=== PATIENT | female | born 1965 | race Caucasian/White ===

== ENCOUNTER 2023-01-24 12:22 | Inpatient (IN) | payer MEDICAID, SELFPAY ==
[2023-01-24] VITALS (15 sets, daily range): BP systolic 122–199; BP diastolic 68–118; PULSE 83–112; RESP 12–29; TEMP 35.9–36.3; O2SAT 87–99; BMI 40.2; BMI 36.0
--- NOTE | 2023-01-24 12:59 | EKG12_ITS ---
Test Reason : Blood Pressure : / mmHG Vent. Rate : 101 BPM Atrial Rate : 101 BPM P-R Int : 142 ms QRS Dur : 088 ms QT Int : 340 ms P-R-T Axes : 074 015 056 degrees QTc Int : 440 ms Sinus tachycardia Right atrial enlargement Borderline ECG Confirmed by JOSEFINA RIDDLE, CON ([id number]), content editor KENDALL SUAREZ ([id number]) on 01/26/2023 10:00:40 AM Referred By: PERCY Confirmed By:CON ROCHA MD
--- NOTE | 2023-01-24 12:59 | ED.RN ---
Patient is standing near the corner of the bed refusing to get into bed. compliance monitor, blood pressure, and oxygen monitor attached. Patient is unable to give complete medical history due to shortness of breath.
--- NOTE | 2023-01-24 13:01 | EDS_ITS ---
HPI History of Present Illness Chief Complaint: Shortness of Breath Narrative Narrative: 58-year-old female past medical history of COPD, smoker, presents with increasing shortness of breath since Tuesday. She and her family states that she has been coughing and having shortness of breath, dyspnea on exertion. At home, she was hypoxic with a pulse ox in the 80s. She was using her sister's oxygen per nasal cannula and was satting 99%. She does not wear oxygen at home herself. Additionally, it was reported that she took her sisters prednisone, trying to get her self to feel better. She is coughing up white phlegm but denies any fevers or chills. No chest pain, just chest tightness. No other symptoms. They state that Jackie at [facility] was trying to get her oxygen to be sent to her home, but were also concerned about a blood clot. [facility] Medical History Emphysema lung Home Medications acetaminophen 325 mg tablet (Tylenol) 650 mg PO Q6H PRN PRN Pain 12/31/14 [History Last Taken Unknown] albuterol sulfate 90 mcg/actuation aerosol inhaler (Ventolin HFA) 1 - 2 puff inhalation Q6H PRN PRN Sob &/Or Wheezing 12/31/14 [History Last Taken Unknown] cephalexin 500 mg capsule 500 mg PO Q6 12/31/14 [History Last Taken Unknown] fluoxetine 10 mg capsule 10 mg PO BID 12/31/14 [History Last Taken Unknown] Allergy/AdvReac Type Severity Reaction Status Date / Time ANTIHISTAMINES Allergy Itching Uncoded 01/24/23 12:25 Family History unable to obtain Social History Smoking Status: Current every day smoker tobacco type: cigarettes ROS ROS ED ROS Narrative Constitutional: No fever, no chills. HEENT: No sore throat. No neck pain. No loss of vision. No rhinorrhea. Cardiovascular: No chest pain. No palpitations. No pedal edema. Respiratory: Positive productive white phlegm cough, positive shortness of breath and dyspnea on exertion. Abdominal: No abdominal pain. No nausea. No vomiting. Genitourinary: No dysuria. No hematuria. Musculoskeletal: No myalgias. No arthralgias. Neurologic: No headaches. No dizziness. No lightheadedness. Skin: No rash. No change in color. Psychiatric: No depression. No anxiety. EXAM Physical Exam Narrative Exam Narrative: Afebrile. Vital signs noted. Refuses to sit on the cot. HEENT: Normocephalic. Atraumatic. PERRL, EOMI. Neck soft and supple. No point tenderness or step off. Cardiovascular: Positive tachycardia, no murmurs, rubs, or gallops appreciated. Respiratory: Positive tachypnea. Decreased air movement bilateral lung root with expiratory wheeze. Gastrointestinal: Abdomen soft, nontender, with normoactive bowel sounds. No rebound or guarding. Neurological: Awake. Alert. Nonfocal, nonlateralizing. Skin: No rash. Normal color. No pallor. Musculoskeletal: No pedal edema. Full range of motion extremities. Const Vital Signs: 01/24/23 12:23 01/24/23 12:56 01/24/23 13:21 Temperature 97.3 F L Temperature Source Temporal Pulse Rate 102 H 101 H Respiratory Rate 26 H 22 H Respiratory Effort Labored Accessory Muscle Use Respiratory Pattern Blood Pressure 199/118 H 171/100 H Blood Pressure Mean 145 123 Pulse Ox 87 94 Oxygen Delivery Method Nasal Cannula Nasal Cannula Nasal Cannula Oxygen Flow Rate (L/min) 6 4 6 01/24/23 13:09 01/24/23 13:23 01/24/23 14:27 Temperature Temperature Source Pulse Rate 112 H 100 97 Respiratory Rate 24 H 22 H 20 H Respiratory Effort Respiratory Pattern Tachypnea Blood Pressure 194/115 H 192/101 H Blood Pressure Mean 141 131 Pulse Ox 95 96 Oxygen Delivery Method Nasal Cannula Nasal Cannula Oxygen Flow Rate (L/min) 6 6 MDM MDM MDM Narrative Medical decision making narrative: In the differential diagnosis is COPD exacerbation from her smoking, acute respiratory failure with hypoxia, CHF, and PE. Comprehensive work-up was pursued. She was given a DuoNeb aerosolized treatment and Solu-Medrol 125 mg intravenously. I reviewed her laboratory work. She has slightly elevated white count of 11.2, hemoglobin hemoconcentrated at 17.8 with hematocrit 57.4. Platelet count normal at 267. In review of her BMP, she does have mild dehydration with a sodium of 129 and a chloride of 94, normal potassium of 4.9. Glucose elevated at 140 with a normal anion gap of 6. She has an elevated BUN of 19 and a creatinine of 1.04. D-dimer is elevated at 1.20. High-sensitivity troponin is 39. I interpreted her EKG as sinus tachycardia at [address] changes. No STEMI. BNP is only slightly elevated at 160. Chest x-ray interpreted by myself in 1 view does show a right lower lobe pneumonia. Blood cultures will be obtained and she will be started on antibiotics intravenously in the form of Rocephin and azithromycin. She does have a normal QTc of 440. After Solu-Medrol and a breathing treatment, she is able to sit on the side of the cot. For her elevated blood pressure that remains she was administered hydralazine 10 mg intravenously. As she had an elevated D-dimer, I reviewed the CT report and there is no evidence of pulmonary embolism. At this point in time, given her hypoxia and her need for oxygen, and she has an elevated blood pressure with COPD exacerbation I discussed the patient with Dr. Bush for admission to the PCU. Patient is in stable condition. History & Record Review Discussion w/independent historian: Patient and Significant other (Family) Additional record(s) reviewed:: Prior labs Lab Data Attestation: I reviewed the patient's lab results. Labs: Laboratory Results - last 24 hr 01/24/23 01/24/23 01/24/23 13:15 13:15 13:15 WBC 11.2 H RBC 6.06 H Hgb 17.8 H Hct 57.4 H MCV 94.7 D MCH 29.4 MCHC 31.0 L D RDW Std Deviation 48.2 H RDW Coeff of Baltazar 13.7 Plt Count 267 MPV 12.7 H Neut % (Auto) Not Reportable D-Dimer Quant (PE/DVT) Cancelled Sodium 129 L Potassium 4.9 Chloride 94 L Carbon Dioxide 29.0 Anion Gap 6 BUN 19 H Creatinine 1.04 H Estim Creat Clear Calc 47.77 Est GFR (MDRD) Af Amer 71 Est GFR (MDRD) Non-Af 58 L BUN/Creatinine Ratio 18.3 Glucose 140 H Lactic Acid Calcium 9.4 Troponin I High Sens 39 B-Natriuretic Peptide 01/24/23 01/24/23 01/24/23 13:15 13:15 13:56 WBC RBC Hgb Hct MCV MCH MCHC RDW Std Deviation RDW Coeff of Baltazar Plt Count MPV Neut % (Auto) D-Dimer Quant (PE/DVT) 1.20 H* Sodium Potassium Chloride Carbon Dioxide Anion Gap BUN Creatinine Estim Creat Clear Calc Est GFR (MDRD) Af Amer Est GFR (MDRD) Non-Af BUN/Creatinine Ratio Glucose Lactic Acid 1.5 Calcium Troponin I High Sens B-Natriuretic Peptide 160.3 H Radiography Diagnostic Testing: Clinical Impression(s) from Imaging Studies Chest X-Ray 01/24/23 14:20 IMPRESSION: Focal right lower lobe infiltrate. Electronically Signed: Theron Devine MD at 14:40 EST , Chest CTA 01/24/23 14:25 IMPRESSION: Emphysematous changes with scarring as described. No evidence of pulmonary embolism. Electronically Signed: Theron Devine MD at 15:01 EST , Discharge Plan Dx/Rx/DC Orders Clinical Impression: Respiratory failure with hypoxia, Right lower lobe pneumonia, Elevated d-dimer, Shortness of breath, Elevated blood pressure reading Disposition Disposition: Acute Care Hospital [facility]
[2023-01-24] MEDS: Ipratropium/Albuterol Sulfate 3 ML AMPUL.NEB INHALATION (13:09)
[2023-01-24 13:24] LABS: Hemoglobin 17.8 g/dL (12.0-15.0); Mean Corpuscular Hgb 29.4 pg (27.0-32.0); Mean Corpuscular Volume 94.7 fL (81-99); Mean Platelet Vol. 12.7 fl (6.2-12.0); POSITIVE COUNT YES; POSITIVE MORPHOLOGY YES; Platelet Count 267 K/mm3 (150-450); RBC Distribution Width CV 13.7 % (11.6-14.6); RBC Distribution Width SD 48.2 fl (35.1-43.9); Red Blood Count 6.06 M/mm3 (4.2-5.4); White Blood Count 11.2 K/mm3 (4.4-11.0)
[2023-01-24 13:28] LABS: Differential Indicated MANUAL DIFF; Hematocrit 57.4 % (37-47)
[2023-01-24] MEDS: MethylPREDNISolone 125 MG/2 ML Vial IV (13:34)
[2023-01-24 13:46] LABS: Anion Gap 6 (5-15); BUN 19 mg/dL (7-18); BUN/Creat Ratio 18.3 RATIO (10-20); Calcium,Total 9.4 mg/dL (8.5-10.1); Chloride 94 mmol/L (98-107); Creatinine, Serum 1.04 mg/dL (0.55-1.02); EST Glomerular Filtration Rate 58 mL/min (>60); Est Glom Filt Rate - Afr Amer 71 mL/min (>60); Estimated Creatinine Clearance 47.77 ml/min; Glucose 140 mg/dL (74-106); Potassium 4.9 mmol/L (3.5-5.1); Sodium Level 129 mmol/L (136-145); Troponin-I HS 39 pg/mL (3.0-54.0)
[2023-01-24 13:53] LABS: Lactic Acid 1.5 mmol/L (0.4-1.9)
[2023-01-24 14:03] LABS: BNP,B-Type NATRIURETIC PEPTIDE 160.3 pg/mL (0-100)
--- NOTE | 2023-01-24 14:20 | RAD_ITS ---
STUDY: X-RAY CHEST REASON FOR EXAM: Female, 58 years old. New onset of shortness of breath and decreased pulse oximetry. TECHNIQUE: Single AP portable view of the chest. COMPARISON: None. FINDINGS: EKG electrodes are seen. Focal infiltrate is seen in the right lower lobe. Blunting of both costophrenic angles. Normal size heart. Normal mediastinum and wojciech. Normal visualized pulmonary arteries. There is atherosclerotic calcification of the aortic arch with tortuosity. There are diffuse degenerative changes of the visualized thoracic spine. Normal visualized ribs, clavicles, and shoulders. There is no demonstrated abnormality of the visualized soft tissue structures of the upper abdomen. RAD/Chest 1 View (Portable) IMPRESSION: Focal right lower lobe infiltrate. Electronically Signed: Theron Devine MD at 14:40 EST ,
--- NOTE | 2023-01-24 14:25 | CT_ITS ---
STUDY: CTA CHEST REASON FOR EXAM: Female, 58 years old. Elevated d-dimer RADIATION DOSAGE (If Supplied By Facility): CTDIvol = ( 13.79 ) mGy, DLP = ( 487.45 ) mGycm TECHNIQUE: The examination was performed with the intravenous administration of IV 100mL Isovue-370. Post-processing of the angiographic images was performed, with multiplanar reformation and 3D reconstruction. Individualized dose optimization techniques were used for this CT. COMPARISON: Comparison is made with prior chest radiograph done earlier today. FINDINGS: Normal enhancement of the main pulmonary artery and right and left pulmonary arteries. Normal enhancement of the bilateral peripheral pulmonary arteries. There is no demonstrated pulmonary embolism. There is atherosclerotic calcification of the aortic arch with tortuosity. There is no demonstrated aortic dissection. There are calcifications of the coronary arteries. Normal mediastinum. Normal hilar regions. Normal visualized trachea and bronchi. Hyperinflation. Centrilobular emphysematous changes more prominent in the upper lobes with small blebs worse in the anterior right upper lobe. Mild degree of pleural thickening at the lung bases. Increased markings in the lower lobes worse at the right lung base suggestive of scarring and the subpleural blebs and bullous formation. Normal chest wall structures. There are degenerative changes of thoracic spine. The patient is status post cholecystectomy. Gaseous distention of the esophagus. CT/CTA Chest W/WO Contrast IMPRESSION: Emphysematous changes with scarring as described. No evidence of pulmonary embolism. Electronically Signed: Theron Devine MD at 15:01 EST ,
[2023-01-24 15:29] LABS: Basophil 1 % (0-1); Lymphocyte 12 % (19-41); Monocyte 6 % (0-10); Myelocyte 5 % (0-0); Neutrophil-Segmented 74 % (47-70); Promyelocyte 2 % (0-0); Total Cells Counted 100 (MANUAL DIFF)
[2023-01-24 15:31] LABS: Platelet Estimate ADEQUATE (ADEQ); Red Cell Morphology NORM C+C NORMAL (NORM C&C)
[2023-01-24 15:34] LABS: Absolute Lymphocyte Count 1.34 X10^3/uL (0.83-4.51); Absolute Neutrophil Count 8.3 X10^3/uL (2.0-7.7)
--- NOTE | 2023-01-24 15:55 | HP.PCM.HOS_ITS ---
HPI - General General Date of Admission: 01/24/23 Date of Service: 01/24/23 Chief Complaint: Progressive worsening of shortness of breath for 4 days HPI Narrative RADHA SLADE, is a 58 F, chronic smoker 1.5 pack/day came to ED for shortness of breath progressively worsening for last 4 days. She is short of breath at rest, conversational dyspnea and wheezing. She states she gets easily short of breath on mild exertion, climbing stairs or walking. She denies chest pain pressure. She has her usual cough without change in characteristics or severity. Denies sputum production. She was found to have hypoxia pulse ox in 80s at home since Tuesday. She went to urgent clinic and saw a nurse practitioner who prescribed oxygen, probably today but has not been set up yet. Her usual PCP is Dr. Velez. In the ED, patient was found to have tachycardic, tachypneic, BP high 199/118, pulse ox 86% on 6 L of oxygen. Twelve-lead EKG was done which shows sinus tachycardia at [address]-T changes but right atrial enlargement. Chest x-ray and then CTPA was done. No PE but focal right lower lobe consolidation. Patient was given 10 mg IV hydralazine, ceftriaxone and azithromycin and IV Solu-Medrol and further admitted. Social history: He started smoking at the age of 17 pack/day. Increase to 1/2 pack/day for last 3 years. Denies excessive drinking alcohol or substance use. Family history: Denies history of lung cancer. [facility] Medical History Emphysema lung Home Medications acetaminophen 325 mg tablet (Tylenol) 650 mg PO Q6H PRN PRN Pain 12/31/14 [History Last Taken Unknown] albuterol sulfate 90 mcg/actuation aerosol inhaler (Ventolin HFA) 1 - 2 puff inhalation Q6H PRN PRN Sob &/Or Wheezing 12/31/14 [History Last Taken Unknown] cephalexin 500 mg capsule 500 mg PO Q6 12/31/14 [History Last Taken Unknown] fluoxetine 10 mg capsule 10 mg PO BID 12/31/14 [History Last Taken Unknown] Allergy/AdvReac Type Severity Reaction Status Date / Time ANTIHISTAMINES Allergy Itching Uncoded 01/24/23 12:25 Family History unable to obtain Social History Smoking Status: Current every day smoker tobacco type: cigarettes ROS ROS Narrative Constitutional: Reports fatigue and weakness HEENT: Reports systems reviewed and no addt'l complaints, except as documented Respiratory/Chest: Shortness of breath at rest. Denies chest pain. Gastrointestinal: Denies coffee ground emesis, hematemesis or vomiting Genitourinary: Denies burning urination or new urinary tract symptoms Musculoskeletal: Denies joint pain and limited range of motion Neurologic: Denies seizure-like activity. No acute or strokelike symptoms. skin: No ulcer. No rash Endocrinology: Reports systems reviewed and no addt'l complaints, except as documented Hematologic/Lymphatic: Reports systems reviewed and no addt'l complaints, except as documented Rest 14 ROS are negative except as mentioned in HPI Vital Signs Vital Signs Vital Signs: 01/24/23 12:23 01/24/23 12:56 01/24/23 13:21 Temperature 97.3 F L Temperature Source Temporal Pulse Rate 102 H 101 H Respiratory Rate 26 H 22 H Respiratory Effort Labored Accessory Muscle Use Respiratory Pattern Blood Pressure 199/118 H 171/100 H Blood Pressure Mean 145 123 Pulse Ox 87 94 Oxygen Delivery Method Nasal Cannula Nasal Cannula Nasal Cannula Oxygen Flow Rate (L/min) 6 4 6 01/24/23 13:09 01/24/23 13:23 01/24/23 14:27 Temperature Temperature Source Pulse Rate 112 H 100 97 Respiratory Rate 24 H 22 H 20 H Respiratory Effort Respiratory Pattern Tachypnea Blood Pressure 194/115 H 192/101 H Blood Pressure Mean 141 131 Pulse Ox 95 96 Oxygen Delivery Method Nasal Cannula Nasal Cannula Oxygen Flow Rate (L/min) 6 6 01/24/23 15:30 01/24/23 15:41 01/24/23 15:41 Temperature 97.2 F L Temperature Source Temporal Pulse Rate 93 90 Respiratory Rate 19 H 20 H Respiratory Effort Respiratory Pattern Blood Pressure 168/84 H 168/84 H Blood Pressure Mean 112 112 Pulse Ox 94 93 Oxygen Delivery Method Nasal Cannula Nasal Cannula Nasal Cannula Oxygen Flow Rate (L/min) 5 6 6 Weight Weight: 220 lb Body Mass Index (BMI) 40.2 Physical Exam Narrative Physical exam General: Alert, Oriented x3, Cooperative, morbid obesity BMI 40.2 kg/m?. HEENT: Atraumatic, PERRLA, EOMI, Normocephalic Oral: Oral mucosa dry. No Gingival or Mucosal Lesions/ Ulcerations Neck: Supple, No JVD, Negative Carotid Bruits Lungs: Air entry severely diminished in both lungs. Bilateral wheezing. Dyspnea at rest, tachypnea and hypoxia. Cardiovascular: Sinus tachycardia, Normal S1, Normal S2, No murmurs Abdomen: Bowel Sounds Present, Soft, Non Tender, Non-Distended : No renal angle tenderness. No suprapubic tenderness. Extremities: Bilateral 2+ pitting edema and lymphedema, Capillary Refill Less than 3 Seconds Skin: No rashes, No breakdown Musculoskeletal: No Tenderness to Palpation of Joints or Extremities, ROM restricted at hip and knee joints. Neurological: Cranial nerves II-XII grossly intact, DTR 2+/4 and Symmetrical, Neuro grossly intact Psych/Mental Status: Flat affect. Results Lab / Micro Data Result Diagrams: 01/24/23 13:15 01/24/23 13:15 Labs: Laboratory Results - last 24 hr 01/24/23 13:15: WBC 11.2 H, RBC 6.06 H, Hgb 17.8 H, Hct 57.4 H, MCV 94.7 D, MCH 29.4, MCHC 31.0 L D, RDW Std Deviation 48.2 H, RDW Coeff of Baltazar 13.7, Plt Count 267, MPV 12.7 H, Neut % (Auto) Not Reportable, Absolute Neuts (auto) 8.3 H, Absolute Lymphs (auto) 1.34, Total Counted 100, Neutrophils % (Manual) 74 H, Lymphocytes % (Manual) 12 L, Monocytes % (Manual) 6, Basophils % (Manual) 1, Myelocytes % 5 H, Promyelocytes % 2 H, Diff Path Review March, Platelet Estimate ADEQUATE, RBC Morphology NORM C+C 01/24/23 13:15: D-Dimer Quant (PE/DVT) Cancelled 01/24/23 13:15: Sodium 129 L, Potassium 4.9, Chloride 94 L, Carbon Dioxide 29.0, Anion Gap 6, BUN 19 H, Creatinine 1.04 H, Estim Creat Clear Calc 47.77, Est GFR (MDRD) Af Amer 71, Est GFR (MDRD) Non-Af 58 L, BUN/Creatinine Ratio 18.3, Glucose 140 H, Calcium 9.4, Troponin I High Sens 39 01/24/23 13:15: Lactic Acid 1.5 01/24/23 13:15: B-Natriuretic Peptide 160.3 H 01/24/23 13:56: D-Dimer Quant (PE/DVT) 1.20 H* Micro: Microbiology 01/24/23 13:39 Nasal Secretion SARS-CoV-2 & FLU Antigen (Rapid) - Final Radiology Impression Chest X-Ray 01/24/23 14:20 IMPRESSION: Focal right lower lobe infiltrate. Electronically Signed: Theron Devine MD at 14:40 EST , Chest CTA 01/24/23 14:25 IMPRESSION: Emphysematous changes with scarring as described. No evidence of pulmonary embolism. Electronically Signed: Theron Devine MD at 15:01 EST , Assessment & Plan Assessment/Plan (1) Acute and chronic respiratory failure with hypoxia: (2) Right lower lobe pneumonia: PLAN: Plan This is a 58-year-old female is being admitted for severe shortness of breath, wheezing, mild cough and CT finding of right lower lobe pneumonia. 1. Acute hypoxic respiratory failure most likely related to COPD exacerbation and pneumonia: Patient is tachypneic, hypoxic requires 6 L of oxygen, dyspnea at rest, conversational dyspnea and labored breathing. ABG ordered. BiPAP as needed and at night. 2. COPD exacerbation due to right lower lobe pneumonia: CT finding shows emphysematous lungs but she is still undiagnosed COPD. Started on bronchodilator DuoNeb every 4 hourly, IV Solu-Medrol, Mucinex, incentive spirometry and Pep. IV antibiotics ceftriaxone and azithromycin. Blood cultures x2, sputum culture, urinary antigens and respiratory panel ordered. Rapid SARS-CoV-2 and flu antigen are negative. Will need outpatient PFT and sleep study. 3. Accelerated hypertension: Patient blood pressure is high 199/118. Started on HCTZ and lisinopril. Hydralazine 10 mg every 4 hourly as needed for SBP more than 180 mmHg. BNP elevated. First troponin negative. Second troponin ordered and if that is negative, ACS ruled out. 2D echo is ordered. Twelve-lead EKG shows right atrial enlargement. Patient does not have chest pain or pressure. 4. Chronic smoker, non-hydrazines: Since patient does not follow PCP regularly. Advised quitting smoking. Nicotine patch ordered. Living will/advanced directive/end of life care: Patient does not have living will or advanced directive. After discussion of benefits/risks procedures involved with full code, DNR CC arrest and DNR CC, the patient and her brother near the bedside and agrees for DNRCC arrest with no intubation. Patient doesn't want artificial life support including intubation, tube feed, ventilator and/chest compression, central venous catheter, vasopressor and DC shock if needed Total time spent in [id number] encounter in discussion of advanced directive 17 minutes. Microbiology Past 72 Hours 01/24/23 13:39 Nasal Secretion SARS-CoV-2 & FLU Antigen (Rapid) - Final Laboratory Results 01/24/23 13:15: WBC 11.2 H, RBC 6.06 H, Hgb 17.8 H, Hct 57.4 H, MCV 94.7 D, MCH 29.4, MCHC 31.0 L D, RDW Std Deviation 48.2 H, RDW Coeff of Baltazar 13.7, Plt Count 267, MPV 12.7 H, Neut % (Auto) Not Reportable, Absolute Neuts (auto) 8.3 H, Absolute Lymphs (auto) 1.34, Total Counted 100, Neutrophils % (Manual) 74 H, Lymphocytes % (Manual) 12 L, Monocytes % (Manual) 6, Basophils % (Manual) 1, Myelocytes % 5 H, Promyelocytes % 2 H, Diff Path Review May foll, Platelet Estimate ADEQUATE, RBC Morphology NORM C+C 01/24/23 13:15: D-Dimer Quant (PE/DVT) Cancelled 01/24/23 13:15: Sodium 129 L, Potassium 4.9, Chloride 94 L, Carbon Dioxide 29.0, Anion Gap 6, BUN 19 H, Creatinine 1.04 H, Estim Creat Clear Calc 47.77, Est GFR (MDRD) Af Amer 71, Est GFR (MDRD) Non-Af 58 L, BUN/Creatinine Ratio 18.3, Glucose 140 H, Calcium 9.4, Troponin I High Sens 39 01/24/23 13:15: Lactic Acid 1.5 01/24/23 13:15: B-Natriuretic Peptide 160.3 H 01/24/23 13:15: Magnesium Pending 01/24/23 13:56: D-Dimer Quant (PE/DVT) 1.20 H* Clinical Impression(s) from Imaging Studies Chest X-Ray 01/24/23 14:20 IMPRESSION: Focal right lower lobe infiltrate. Electronically Signed: Theron Devine MD at 14:40 EST , Chest CTA 01/24/23 14:25 IMPRESSION: Emphysematous changes with scarring as described. No evidence of pulmonary embolism. Electronically Signed: Theron Devine MD at 15:01 EST , Charges/Coding Visit Charges Inpatient E&M: 58064 Init Hosp L3 Procedures Hospitalists Procedures: 11542 Advncd Care Plan 30 Min
[2023-01-24] MEDS: hydrALAZINE 20 MG/ML Vial 10 MG IV (16:00)
--- NOTE | 2023-01-24 16:13 | CPS ---
Critical values verified times two. Reported values to .
[2023-01-24 16:20] LABS: Allen Test Positive; Base Excess 4 mmol/L (-2 to +2); Blood Gas Specimen Type ART; O2 Delivery Device Cannula; PO2 96 mmHG (75-100); SITE L Radial; SO2 94 % (95-99); Total Carbon Dioxide 36 mmol/L; pCO2 97.5 mmHg (35-45); pH 7.14 (7.35-7.45)
--- NOTE | 2023-01-24 19:15 | NURSING ---
Due to pt VSA every 1 hour this Rn attempted to place pt on to step down bedside monitor. pt noted to become restless in the bed, removing BIPAP from pt face. Pt is not easily verbally redirected at this time. This RN yelled for staff to assistance with pt positioning and replacing bipap. pt noted cyanotic in color and SP02 70%. RT to bedside BIPAP replaced. bed alarm on, call light within reach will monitor pt.
--- NOTE | 2023-01-24 20:10 | NURSING ---
BIPAP alarm sounding in pt room, pt noted with BIPAP removed from pt face. Pt noted to become immediately combative. BIPAP mask replaced on to pt. Pt immediately broke mask. NRB applied until RT available with new BIPAP mask. Pt requires numerous staff to redirect and reposition pt. Bed alarm on, call light within reach will monitor pt.
--- NOTE | 2023-01-24 20:43 | ECHOCS_ITS ---
Reason For Study: SOB Procedure This was a 2D Doppler, Color Flow transthoracic echocardiogram. The study was technically difficult. Due to body habitus, COPD, unable to cooperate. Contrast injection was performed. Exam performed portable in ICU/CCU. Left Ventricle Based upon the 2D echocardiographic and contrast enhanced images obtained there appears to be normal left ventricular size, wall motion, and systolic function. The estimated ejection fraction is 70 %. No evidence for diastolic dysfunction. Right Ventricle Normal RV size. Normal systolic function. Atria Normal left atrium. Normal right atrium. No doppler evidence for ASD. Mitral Valve There is no mitral annular calcification. Normal mitral valve. Trivial mitral valve insufficiency. Tricuspid Valve Normal tricuspid valve. Trivial tricuspid valve insufficiency. Unable to estimate RV systolic pressure/pulmonary artery pressure due to technically difficult study. Aortic Valve The aortic valve is not well visualized. Pulmonic Valve The pulmonic valve is not well visualized. Great Vessels Normal sized aortic root. Pericardium/Pleural No pericardial effusion. Medication Diluted definity 3.0ml given slow IV push to enhance endocardial definition. MMode/2D Measurements & Calculations LVIDd: 3.8 cm IVSd: 1.0 cm Ao root diam: 2.8 cm LVIDs: 2.6 cm LVPWd: 1.4 cm RVDd: 3.5 cm FS: 31.9 % LAV(MOD-bp): 46.5 ml LVAd ap4: 26.8 cm2 LVAd ap2: 21.8 cm2 LAV(MOD-bp) Indexed: 24.5 ml/m2 LVLd ap4: 7.9 cm LVLd ap2: 7.6 cm LAV(MOD-sp2): 56.6 ml EDV(MOD-sp4): 72.7 ml EDV(MOD-sp2): 52.5 ml LAV(MOD-sp4): 36.9 ml EDV(sp4-el): 76.9 ml EDV(sp2-el): 53.6 ml LVAs ap4: 11.8 cm2 LVAs ap2: 12.6 cm2 LVLs ap4: 6.3 cm LVLs ap2: 6.1 cm ESV(MOD-sp4): 19.2 ml ESV(MOD-sp2): 22.4 ml ESV(sp4-el): 18.8 ml ESV(sp2-el): 22.1 ml EF(MOD-sp4): 73.6 % EF(MOD-sp2): 57.2 % EF(sp4-el): 75.5 % SV(MOD-sp4): 53.5 ml SV(MOD-sp2): 30.0 ml SV(sp4-el): 58.1 ml LA A4 area: 14.6 cm2 LA dimension(2D): 4.3 cm RA A4 area: 15.1 cm2 Time Measurements MV dec time: 0.29 sec Doppler Measurements & Calculations MV E max delvin: 79.1 cm/sec Lat Peak E' Delvin: 6.6 cm/sec Med Peak E' Delvin: 8.0 cm/sec MV A max delvin: 81.6 cm/sec E/E' lat: 11.9 E/E' med: 9.9 MV E/A: 0.97 Ao V2 max: 141.6 cm/sec LV V1 max: 109.3 cm/sec MV dec slope: 272.9 cm/sec2 Ao max P.0 mmHg LV V1 max P.8 mmHg Ao V2 mean: 92.8 cm/sec LV V1 mean P.6 mmHg Ao mean P.0 mmHg LV V1 mean: 76.6 cm/sec Ao V2 VTI: 33.6 cm LV V1 VTI: 25.9 cm AV (velocity ratio): 0.77 PA V2 max: 94.0 cm/sec ECHO/Echo Complete W/ Contrast Interpretation Summary The study was technically difficult. Contrast injection was performed. Based upon the 2D echocardiographic and contrast enhanced images obtained there appears to be normal left ventricular size, wall motion, and systolic function. The estimated ejection fraction is 70 %. Trivial mitral valve insufficiency. Trivial tricuspid valve insufficiency. Unable to estimate RV systolic pressure/pulmonary artery pressure due to techni gali difficult study. No evidence for diastolic dysfunction. Ordering Physician: Nickolas Bush Referring Physician: Mini Parr Performed By: Della Sanchez, RDCS, RVT
[2023-01-24 21:51] LABS: Troponin-I HS 31 pg/mL (3.0-54.0)
--- NOTE | 2023-01-24 22:34 | PCM.HOSP.N ---
Hospitalist Note Patient with ongoing agitation with BIPAP attempts per discussion with staff. Reviewed admission note and listed as DNR-CCA, no intubation very specifically with brother present. Will transition to the ICU, request ICU physician consultation, trial of precedex to assist with patient maintaining BIPAP, will obtain repeat ABG, will dose with bicarb.
[2023-01-24] MEDS: 0.9% Saline Lock 10 ML Syringe IV (22:37)
--- NOTE | 2023-01-24 22:48 | NURSING ---
Pt noted with BIPAP alarm sounding, tubing was disconnected from bottom of BIPAP mask, tubing reapplied, Brinda RN to room to pt help redirect pt and keep BIPAP intact. Pt becomes combative swinging both arms in an attempt to remove BIPAP mask. TAPER MACHINE to room to assist with pt. Pt noted scratching staff, pt is confused and is not verbally responding at this time. Pt sister Nasreen contacted. Nasreen states, was unaware pt is DNRCCAwithout intubation. sister states she has ill and will not be able to attend hospital at this time. sister states, will contact brother. pt room number provided. pt sister is aware to BIPAP is taking the place of breathing tube being placed for pt breathing and C02 levels. sister asks if patient is dying this RN updates that pt is extremely ill. PROGRESSIVE CARE UNIT REGISTERED NURSE remains at bedside with pt. charge nurse MD martha provided with update. new orders received.
[2023-01-24] MEDS: LORazepam 2 MG/ML Syringe 1 MG IV (23:23)
--- NOTE | 2023-01-24 23:53 | CPS ---
Attempted to get ABG, was unable to get sample. Pt became agitated and ripped the bipap mask off. Patient now on nonrebreather mask, sat's 98%. Will attempt ABG and bipap again once patient is calmer per Dr. Eldridge.
[2023-01-25] VITALS (34 sets, daily range): BP systolic 92–158; BP diastolic 48–92; PULSE 42–112; RESP 12–35; TEMP 36.4–37.4; O2SAT 90–100; BMI 35.9
[2023-01-25] MEDS: Enoxaparin 40 MG/0.4 ML Syringe SC ×2 (00:04→09:22)
[2023-01-25] MEDS: 0.9% Saline Lock 10 ML Syringe IV ×4 (00:07→20:52)
[2023-01-25] MEDS: Sodium Bicarbonate 50 MEQ/50 ML Vial IV ×2 (00:08→00:21)
[2023-01-25] MEDS: CHLORHEXIDINE GLUC 2% CLOTH 1 EACH TOWELETTE TOPICAL ×2 (00:22→21:00)
[2023-01-25] MEDS: Ipratropium/Albuterol Sulfate 3 ML AMPUL.NEB INHALATION ×6 (02:10→23:14)
[2023-01-25 02:30] LABS: Allen Test Positive; Base Excess 8 mmol/L (-2 to +2); Bicarbonate 36.7 mmol/L (22-26); Blood Gas Specimen Type ART; FI02 40; O2 Delivery Device BiPAP; PEEP 8; PO2 126 mmHG (75-100); RR 14; SITE R Radial; SO2 97 % (95-99); Total Carbon Dioxide 40 mmol/L; Vt 450; pCO2 97.5 mmHg (35-45); pH 7.18 (7.35-7.45)
--- NOTE | 2023-01-25 02:41 | CPS ---
Not enough blood for re-run. Critical ABG values, Dr. Eldridge aware.
[2023-01-25 02:58] LABS: M R Staph aureus DNA By PCR Negative (Negative); Probe Check PASS; Specimen Processing Control PASS
[2023-01-25 04:24] LABS: Absolute Lymphocyte Count 0.94 X10^3/uL (0.83-4.51); Absolute Neutrophil Count 8.2 X10^3/uL (2.0-7.7); Basophil# 0.02 X10^3/uL; Basophil% 0.2 % (0-1); Hematocrit 52.9 % (37-47); Hemoglobin 16.3 g/dL (12.0-15.0); Lymphocyte # 0.94 X10^3/ul (0.83-4.51); Lymphocyte % 9.5 % (19-41); Mean Corp Hgb Conc 30.8 g/dL (32-36); Mean Corpuscular Hgb 29.6 pg (27.0-32.0); Mean Platelet Vol. 12.1 fl (6.2-12.0); Monocyte# 0.63 X10^3/uL; Monocyte% 6.4 % (0-10); NRBC Flagged by Analyzer 0 % (0-5); Platelet Count 196 K/mm3 (150-450); RBC Distribution Width CV 13.5 % (11.6-14.6); RBC Distribution Width SD 48.2 fl (35.1-43.9); Red Blood Count 5.51 M/mm3 (4.2-5.4); White Blood Count 9.9 K/mm3 (4.4-11.0)
[2023-01-25 04:45] LABS: Anion Gap 4 (5-15); BUN 23 mg/dL (7-18); BUN/Creat Ratio 31.6 RATIO (10-20); Calcium,Total 8.8 mg/dL (8.5-10.1); Chloride 96 mmol/L (98-107); Creatinine, Serum 0.73 mg/dL (0.55-1.02); EST Glomerular Filtration Rate 88 mL/min (>60); Est Glom Filt Rate - Afr Amer 106 mL/min (>60); Estimated Creatinine Clearance 68.06 ml/min; Glucose 113 mg/dL (74-106); Potassium 6.1 mmol/L (3.5-5.1); Sodium Level 132 mmol/L (136-145)
--- NOTE | 2023-01-25 07:16 | PN.HOSP_ITS ---
Reason for Visit Reason for Visit: Follow-up for severe acute hypoxic and hypercarbic combined respiratory failure, decreased mentation and acute encephalopathy Diagnoses Pneumonia, unspecified organism (01/24/23) Acute and chronic respiratory failure with hypoxia (01/24/23) Objective Data Objective Data Vital Signs: Vital Signs Temp Pulse Resp BP Pulse Ox O2 Del Method O2 Flow Rate 98 F 57 L 35 H 94/71 96 Bi-pap 15 01/25/23 06:00 01/25/23 06:59 01/25/23 06:59 01/25/23 06:00 01/25/23 06:59 01/25/23 06:00 01/24/23 23:34 FiO2 30 01/25/23 06:59 Oxygen Flow Rate (L/min) 15 Oxygen Delivery Method Bi-pap Weight: 195 lb 8.8 oz Body Mass Index (BMI) 35.9 Intake & Output: Intake and Output for Last 24 Hours 01/23/23 01/24/23 01/25/23 23:59 23:59 23:59 Intake Total 305 / 305 106.23 / 106.23 Output Total 550 / 550 Balance 305 / -95 -443.77 / -443.77 Lab / Micro Data Result Diagrams: 01/25/23 07:55 01/25/23 11:40 Labs: Laboratory Results - last 24 hr 01/24/23 13:15: WBC 11.2 H, RBC 6.06 H, Hgb 17.8 H, Hct 57.4 H, MCV 94.7 D, MCH 29.4, MCHC 31.0 L D, RDW Std Deviation 48.2 H, RDW Coeff of Baltazar 13.7, Plt Count 267, MPV 12.7 H, Neut % (Auto) Not Reportable, Absolute Neuts (auto) 8.3 H, Absolute Lymphs (auto) 1.34, Total Counted 100, Neutrophils % (Manual) 74 H, Lymphocytes % (Manual) 12 L, Monocytes % (Manual) 6, Basophils % (Manual) 1, Myelocytes % 5 H, Promyelocytes % 2 H, Diff Path Review May , Platelet Estimate ADEQUATE, RBC Morphology NORM C+C 01/24/23 13:15: D-Dimer Quant (PE/DVT) Cancelled 01/24/23 13:15: Sodium 129 L, Potassium 4.9, Chloride 94 L, Carbon Dioxide 29.0, Anion Gap 6, BUN 19 H, Creatinine 1.04 H, Estim Creat Clear Calc 47.77, Est GFR (MDRD) Af Amer 71, Est GFR (MDRD) Non-Af 58 L, BUN/Creatinine Ratio 18.3, Glucose 140 H, Calcium 9.4, Troponin I High Sens 39 01/24/23 13:15: Lactic Acid 1.5 01/24/23 13:15: B-Natriuretic Peptide 160.3 H 01/24/23 13:15: Magnesium 2.0 01/24/23 13:56: D-Dimer Quant (PE/DVT) 1.20 H* 01/24/23 21:10: Troponin I High Sens 31 01/24/23 23:45: MRSA (PCR) Negative 01/25/23 04:10: Sodium 132 L, Potassium 6.1 H*, Chloride 96 L, Carbon Dioxide 32.0, Anion Gap 4 L, BUN 23 H, Creatinine 0.73, Estim Creat Clear Calc 68.06, Est GFR (MDRD) Af Amer 106, Est GFR (MDRD) Non-Af 88, BUN/Creatinine Ratio 31.6 H, Glucose 113 H, Calcium 8.8 01/25/23 04:10: WBC 9.9, RBC 5.51 H, Hgb 16.3 H, Hct 52.9 H, MCV 96.0, MCH 29.6, MCHC 30.8 L, RDW Std Deviation 48.2 H, RDW Coeff of Baltazar 13.5, Plt Count 196, MPV 12.1 H, Immature Gran % (Auto) 0.900, Neut % (Auto) 83.0 H, Lymph % (Auto) 9.5 L , [place] % (Auto) 6.4, Eos % (Auto) 0.0, Baso % (Auto) 0.2, Absolute Neuts (auto) 8.2 H, Absolute Lymphs (auto) 0.94, Nucleated RBC % 0 Micro: Microbiology 01/24/23 23:50 Urine Catheter - [place] Legionella Antigen - Final 01/24/23 23:50 Urine Catheter - [place] Streptococcus pneumoniae Antigen (M - Final 01/24/23 19:00 Mucosa - Nasopharyngeal Respiratory Panel (PCR) - Final 01/24/23 13:39 Nasal Secretion SARS-CoV-2 & FLU Antigen (Rapid) - Final ABG Data ABG results: ABG 01/24/23 01/25/23 16:13 02:25 Specimen Type ART ART Sample Site L Radial R Radial pH 7.14 L* 7.18 L* Bicarbonate Actual 33.0 H 36.7 H Total CO2 36 40 Base Excess 4 H 8 H O2 Saturation 94 L 97 O2 % 40 ABG pCO2 97.5 H* 97.5 H* ABG pO2 96 126 H Edmund Test Positive Positive Respiration Rate 14 O2 Delivery Device Cannula BiPAP Liter Flow 6.0 Tidal Volume 450 POC PEEP 8 Crit Call To/Read Back Yes Yes Radiography Diagnostic Testing: Radiology Impression Chest X-Ray 01/24/23 14:20 IMPRESSION: Focal right lower lobe infiltrate. Electronically Signed: Theron Devine MD at 14:40 EST , Chest CTA 01/24/23 14:25 IMPRESSION: Emphysematous changes with scarring as described. No evidence of pulmonary embolism. Electronically Signed: Theron Devine MD at 15:01 EST , Physical Exam Narrative Overnight events were noticed. Patient was agitated,Not able to put BiPAP. While the ABG was ordered at the time of admission But later reported 7.14/97/96 on 6 L of oxygen and patient was put on BiPAP but she was not tolerating, agitated and restless therefore was transferred to ICU to start on Precedex drip. She was also intermittently confused and disoriented. Physical exam General: Drowsy lethargic, mildly somnolent on Precedex drip. HEENT: Atraumatic, PERRLA, EOMI, Normocephalic Oral: AVAPS. Neck: Supple, No JVD, Negative Carotid Bruits Lungs: Air entry severely diminished in both lungs. On 30% FiO2 P4 50 mL. Cardiovascular: Sinus bradycardia, low BP. Abdomen: Bowel Sounds Present, Soft, Non Tender, Non-Distended : [place] catheter, clear urine no renal angle tenderness. No suprapubic tenderness. Extremities: Bilateral 2+ pitting edema and lymphedema, Capillary Refill Less than 3 Seconds Skin: No rashes, No breakdown Musculoskeletal: No Tenderness to Palpation of Joints or Extremities, ROM restricted at hip and knee joints. Neurological: Cranial nerves II-XII grossly intact, DTR 2+/4. Psych/Mental Status: Flat affect. Assessment & Plan Assessment/Plan (1) Acute and chronic respiratory failure with hypoxia: (2) Right lower lobe pneumonia: PLAN: Plan This is a 58-year-old female is being admitted for severe shortness of breath, wheezing, mild cough and CT finding of right lower lobe pneumonia. 1. Acute hypoxic and hypercarbic respiratory failure most likely related to COPD exacerbation and pneumonia: Patient is tachypneic, hypoxic requires 6 L of oxygen, dyspnea at rest, conversational dyspnea and labored breathing. BiPAP as needed and at night. 01/25: Overnight events noticed. Patient was agitated and could not put on BiPAP therefore transferred to ICU on Precedex drip. There was a delay in ABG as patient might have been irritable or unsuccessful attempt. ABG showed severe respiratory acidosis 7.18/97/126 on BiPAP/AVAPS PEEP 8. Tidal volume 450. Paper Final Inspector consulted and note reviewed. Continue AVAPS. Wean Precedex. 2. Acute encephalopathy most likely metabolic encephalopathy from CO2 narcosis, infectious and medications: Patient likely sedated to maintain AVAPS Hyperkalemia seems most likely due to respiratory acidosis: Admitting potassium more normal and then repeat potassium 6.1, sodium 132, chloride 96, bicarb 32, anion gap 4. Patient had total of 100 mEq of IV sodium bicarb.Hyperkalemia cocktail, including calcium gluconate IV ordered. 30 g oral Kayexalate ordered. Repeat BMP pending. COPD exacerbation due to right lower lobe pneumonia: CT finding shows emphysematous lungs but she is still undiagnosed COPD. Started on bronchodilator DuoNeb every 4 hourly, IV Solu-Medrol, Mucinex, incentive spirometry and Pep. IV antibiotics ceftriaxone and azithromycin. 3/7: Urinary antigens are negative. Respiratory panel negative. Continue empiric antibiotic.Will need outpatient PFT and sleep study. 3. Accelerated hypertension: Patient blood pressure is high 199/118. Started on HCTZ and lisinopril. Hydralazine 10 mg every 4 hourly as needed for SBP more than 180 mmHg. BNP elevated. First troponin negative. Second troponin ordered and if that is negative, ACS ruled out. 2D echo is ordered. Twelve-lead EKG shows right atrial enlargement. Patient does not have chest pain or pressure. 4. Chronic smoker, non-hydrazines: Since patient does not follow PCP regularly. Advised quitting smoking. Nicotine patch ordered. Living will/advanced directive/end of life care: Patient does not have living will or advanced directive. After discussion of benefits/risks procedures involved with full code, DNR CC arrest and DNR CC, the patient and her brother near the bedside and agrees for DNRCC arrest with no intubation. Patient doesn't want artificial life support including intubation, tube feed, ventilator and/chest compression, central venous catheter, vasopressor and DC shock if needed Total time spent in [id number] encounter in discussion of advanced directive 17 minutes. Clinical Impression(s) from Imaging Studies Chest X-Ray 01/24/23 14:20 IMPRESSION: Focal right lower lobe infiltrate. Electronically Signed: Theron Devine MD at 14:40 EST , Chest CTA 01/24/23 14:25 IMPRESSION: Emphysematous changes with scarring as described. No evidence of pulmonary embolism. Electronically Signed: Theron Devine MD at 15:01 EST , Charges/Coding Visit Charges Inpatient E&M: 23657 Subs Hosp L3
--- NOTE | 2023-01-25 07:24 | EKG12_ITS ---
Test Reason : OSMAR Blood Pressure : / mmHG Vent. Rate : 056 BPM Atrial Rate : 056 BPM P-R Int : 148 ms QRS Dur : 082 ms QT Int : 470 ms P-R-T Axes : 081 048 052 degrees QTc Int : 453 ms Sinus bradycardia with marked sinus arrhythmia Poor R wave progression Confirmed by JOSEFINA RIDDLE, CON ([id number]), fashion editor KENDALL SUAREZ ([id number]) on 01/27/2023 9:14:03 AM Referred By: TYSON Confirmed By:CON ROCHA MD
[2023-01-25 08:07] LABS: Basophil# 0.01 X10^3/uL; Basophil% 0.1 % (0-1); Hematocrit 51.7 % (37-47); Hemoglobin 15.7 g/dL (12.0-15.0); Lymphocyte % 9.6 % (19-41); Mean Corp Hgb Conc 30.4 g/dL (32-36); Mean Corpuscular Hgb 28.9 pg (27.0-32.0); Mean Corpuscular Volume 95.2 fL (81-99); Mean Platelet Vol. 12.5 fl (6.2-12.0); Monocyte# 0.43 X10^3/uL; Monocyte% 5.2 % (0-10); NRBC Flagged by Analyzer 0 % (0-5); Neutrophil % 84.3 % (47-70); Platelet Count 197 K/mm3 (150-450); RBC Distribution Width CV 13.6 % (11.6-14.6); Red Blood Count 5.43 M/mm3 (4.2-5.4); White Blood Count 8.3 K/mm3 (4.4-11.0)
--- NOTE | 2023-01-25 08:32 | EX.PCM.CONCC ---
Assessment & Plan Assessment/Plan (1) Respiratory failure with hypoxia: PLAN: Plan RECOMMENDATIONS: 1. Continue AVAPS therapy as tolerated. 2. Wean Precedex as tolerated to facilitate BiPAP adherence. 3. Continue empiric antibiotics. 4. Continue scheduled bronchodilators and IV steroids. 5. Continue appropriate DVT prophylaxis. 6. Maintain n.p.o. status for now. 7. Await results of echocardiogram. IMPRESSIONS: 1. Acute combined respiratory failure The patient does have an extensive tobacco abuse history with questionable underlying obstructive lung disease, in a state of exacerbation, likely secondary to continued outpatient utilization of cigarettes and suboptimal medical therapy for COPD. No PE was identified on CT imaging of the chest. In fact, there was no focal infiltrate or consolidation. Regardless, given the patient's current clinical state, I agree with continuing ceftriaxone and azithromycin along with scheduled bronchodilators and IV steroids. Nicotine replacement therapy has already been initiated. The patient will remain on AVAPS therapy with Precedex to facilitate adherence. CODE STATUS was confirmed to be DNR CCA without intubation. 2. Metabolic encephalopathy Likely secondary to acute CO2 retention in the setting of #1. Continue AVAPS therapy as tolerated. Obtain follow-up arterial blood gas this morning. Attempt to wean Precedex as tolerated. 3. Chronic tobacco dependency/obesity/hypertension Complicates care, management, recovery and prognosis. Continue nicotine replacement therapy. The patient should remain n.p.o. for now, pending improvement in mentation. Outpatient pulmonary follow-up and baseline PFTs would be indicated after discharge. TIME: 35 minutes of critical care time, independent of procedures, was spent addressing the patient's acute combined respiratory failure, metabolic encephalopathy, review of all data and collaboration with the care team. HPI Consult Data Date of Consult: 01/26/23 HPI Narrative Reason for Consultation: Respiratory failure HPI Narrative: The patient is a 58-year-old female, with a history as outlined below, who presented to the emergency department on January 24 with progressive shortness of breath, wheezing and hypoxemia. The patient is a current everyday smoker with questionable obstructive lung disease. I did speak briefly with the patient's brother, who indicated that the patient does have an extensive tobacco abuse history and continues to smoke on a daily basis. She has not followed by a state archivist on an outpatient basis. She apparently does utilize inhalers at her baseline, but he does not recall their names. On presentation to the emergency department, the patient was noted to be afebrile but was tachycardic, tachypneic and significantly hypertensive. Initial laboratory evaluation revealed a white blood cell count of 9000 with a hemoglobin of 18 and hematocrit of 55. D-dimer was noted to be 1.2. Chemistry profile was notable for a sodium of 129, potassium of 5.5, chloride of 93 and creatinine of 1.04. Lactate was within normal limits. BNP was mildly elevated at 160 with a normal troponin. Initial arterial blood gas obtained on 6 L/min demonstrated a pH of 7.14 with a PCO2 of 97 and PO2 of 96. CTA chest showed no evidence for PE, but did demonstrate bilateral emphysematous changes. The patient was initially placed on noninvasive positive pressure ventilatory support, antimicrobials, bronchodilators and steroids. Ultimately, the patient became agitated and had difficulty tolerating PAP therapy. Therefore, overnight, the patient was transferred to the medical intensive care unit to be started on a Precedex infusion in hopes that this would facilitate BiPAP adherence. [facility] Medical History Emphysema lung Home Medications albuterol sulfate 2.5 mg/3 mL (0.083 %) solution for nebulization 2 mg inhalation DAILY SOB 01/24/23 [History Last Taken 01/23/23] budesonide-formoterol HFA 160 mcg-4.5 mcg/actuation aerosol inhaler (Symbicort) inhalation Check with primary doctor 01/24/23 [History Last Taken 01/24/23] furosemide 20 mg tablet 20 mg PO edema 01/24/23 [History Last Taken 01/24/23] Allergy/AdvReac Type Severity Reaction Status Date / Time ANTIHISTAMINES Allergy Itching Uncoded 01/24/23 12:25 Family History unable to obtain Social History Smoking Status: Current every day smoker tobacco type: cigarettes ROS Review of Systems ROS Unobtainable: due to mental status Physical Exam Const Constitutional Narrative: Currently lethargic on BiPAP. Minimal responsiveness to verbal and tactile stimulation. HEENT normocephalic and head/scalp atraumatic Eyes PERRL Neck supple General: trachea midline Chest inspection of chest normal Resp Effort and Inspection: tachypneic Auscultation: wheezes and diminished lung sounds Cardio S1 normal heart sound and S2 normal heart sound Rate: bradycardia GI normal to inspection, nondistended, normoactive bowel sounds Extremity General Extremity: edema bilateral lower extremity; Negative for clubbing Skin no rashes or lesions noted Neuro Neuro Narrative: Nonresponsive to verbal and tactile stimulation at the present time. Lab / Micro Data Result Diagrams: 01/26/23 03:20 01/26/23 03:20 Labs: Laboratory Results - last 24 hr 01/24/23 13:15: WBC 11.2 H, RBC 6.06 H, Hgb 17.8 H, Hct 57.4 H, MCV 94.7 D, MCH 29.4, MCHC 31.0 L D, RDW Std Deviation 48.2 H, RDW Coeff of Baltazar 13.7, Plt Count 267, MPV 12.7 H, Neut % (Auto) Not Reportable, Absolute Neuts (auto) 8.3 H, Absolute Lymphs (auto) 1.34, Total Counted 100, Neutrophils % (Manual) 74 H, Lymphocytes % (Manual) 12 L, Monocytes % (Manual) 6, Basophils % (Manual) 1, Myelocytes % 5 H, Promyelocytes % 2 H, Diff Path Review May foll, Platelet Estimate ADEQUATE, RBC Morphology NORM C+C 01/24/23 13:15: D-Dimer Quant (PE/DVT) Cancelled 01/24/23 13:15: Sodium 129 L, Potassium 4.9, Chloride 94 L, Carbon Dioxide 29.0, Anion Gap 6, BUN 19 H, Creatinine 1.04 H, Estim Creat Clear Calc 47.77, Est GFR (MDRD) Af Amer 71, Est GFR (MDRD) Non-Af 58 L, BUN/Creatinine Ratio 18.3, Glucose 140 H, Calcium 9.4, Troponin I High Sens 39 01/24/23 13:15: Lactic Acid 1.5 01/24/23 13:15: B-Natriuretic Peptide 160.3 H 01/24/23 13:15: Magnesium 2.0 01/24/23 13:56: D-Dimer Quant (PE/DVT) 1.20 H* 01/24/23 21:10: Troponin I High Sens 31 01/24/23 23:45: MRSA (PCR) Negative 01/25/23 04:10: Sodium 132 L, Potassium 6.1 H*, Chloride 96 L, Carbon Dioxide 32.0, Anion Gap 4 L, BUN 23 H, Creatinine 0.73, Estim Creat Clear Calc 68.06, Est GFR (MDRD) Af Amer 106, Est GFR (MDRD) Non-Af 88, BUN/Creatinine Ratio 31.6 H, Glucose 113 H, Calcium 8.8 01/25/23 04:10: WBC 9.9, RBC 5.51 H, Hgb 16.3 H, Hct 52.9 H, MCV 96.0, MCH 29.6, MCHC 30.8 L, RDW Std Deviation 48.2 H, RDW Coeff of Baltazar 13.5, Plt Count 196, MPV 12.1 H, Immature Gran % (Auto) 0.900, Neut % (Auto) 83.0 H, Lymph % (Auto) 9.5 L, [place] % (Auto) 6.4, Eos % (Auto) 0.0, Baso % (Auto) 0.2, Absolute Neuts (auto) 8.2 H, Absolute Lymphs (auto) 0.94, Nucleated RBC % 0 01/25/23 07:55: WBC 8.3, RBC 5.43 H, Hgb 15.7 H, Hct 51.7 H, MCV 95.2, MCH 28.9, MCHC 30.4 L, RDW Std Deviation 48.0 H, RDW Coeff of [place]tazar 13.6, Plt Count 197, MPV 12.5 H, Immature Gran % (Auto) 0.800, Neut % (Auto) 84.3 H, Lymph % (Auto) 9.6 L, [place] % (Auto) 5.2, Eos % (Auto) 0.0, Baso % (Auto) 0.1, Absolute Neuts (auto) 7.0, Absolute Lymphs (auto) 0.80 L, Nucleated RBC % 0 Micro: Microbiology 01/24/23 23:50 Urine Catheter - [place] Legionella Antigen - Final 01/24/23 23:50 Urine Catheter - [place] Streptococcus pneumoniae Antigen (M - Final 01/24/23 19:00 Mucosa - Nasopharyngeal Respiratory Panel (PCR) - Final 01/24/23 13:39 Nasal Secretion SARS-CoV-2 & FLU Antigen (Rapid) - Final ABG Data ABG results: ABG 01/24/23 01/25/23 16:13 02:25 Specimen Type ART ART Sample Site L Radial R Radial pH 7.14 L* 7.18 L* Bicarbonate Actual 33.0 H 36.7 H Total CO2 36 40 Base Excess 4 H 8 H O2 Saturation 94 L 97 O2 % 40 ABG pCO2 97.5 H* 97.5 H* ABG pO2 96 126 H Edmund Test Positive Positive Respiration Rate 14 O2 Delivery Device Cannula BiPAP Liter Flow 6.0 Tidal Volume 450 POC PEEP 8 Crit Call To/Read Back Yes Yes Radiology Impression Chest X-Ray 01/24/23 14:20 IMPRESSION: Focal right lower lobe infiltrate. Electronically Signed: Theron Devine MD at 14:40 EST , Chest CTA 01/24/23 14:25 IMPRESSION: Emphysematous changes with scarring as described. No evidence of pulmonary embolism. Electronically Signed: Theron Devine MD at 15:01 EST , Charges/Coding Procedures Hospitalists Procedures: [id number] Critial Care 1st Hr
[2023-01-25 08:55] LABS: Anion Gap 3 (5-15); BUN 26 mg/dL (7-18); BUN/Creat Ratio 32.5 RATIO (10-20); Chloride 96 mmol/L (98-107); EST Glomerular Filtration Rate 79 mL/min (>60); Est Glom Filt Rate - Afr Amer 95 mL/min (>60); Glucose 121 mg/dL (74-106); Magnesium 2.3 mg/dL (1.6-2.6); Potassium 6.5 mmol/L (3.5-5.1); Sodium Level 132 mmol/L (136-145)
[2023-01-25] MEDS: Insulin Lispro 10 UNIT in Syringe 0 ML 6 UNIT IV (09:17)
[2023-01-25] MEDS: Calcium Gluconate 1 GM/10 ML Vial IVP (09:18)
[2023-01-25] MEDS: Dextrose 50%-Water 25 GM/50 ML DISP.SYRIN IV (09:20)
--- NOTE | 2023-01-25 09:20 | CPS ---
Pt ABG came back critical CO2 is 76.3. Dr Lopez is aware of the ABG
[2023-01-25 09:26] LABS: Base Excess 8 mmol/L (-2 to +2); Bicarbonate 34.5 mmol/L (22-26); Blood Gas Specimen Type ART; FI02 30; O2 Delivery Device BiPAP; PEEP 8; PO2 63 mmHG (75-100); RR 12; SITE R Brach; SO2 87 % (95-99); Total Carbon Dioxide 37 mmol/L; Vt 450; pCO2 76.3 mmHg (35-45); pH 7.26 (7.35-7.45)
--- NOTE | 2023-01-25 10:01 | CASEMGMT ---
HALLE DELA CRUZ Assessment: Pt A&Ox1, brother present in ICU waiting room as pt having a test. Brother is Wesley Arita, phone [phone]. Pt brother agreeable to assessment. HALLE DELA CRUZ introduced self and role at [facility], pt brother voices understanding and consents to assessment. Care providers, pharmacy, and demographics verified/updated. Admitting Dx: COPD exac PCP:Karolyn Specialists: None Preferred Pharmacy: [facility] Insurance: [facility] Prescription Benefit: yes LNOK: sister Lee Living Arrangements: Pt lives alone in a single story home with a ramp to enter. Pt dtr does stay with her off and on. Pt brother reports pt is I in ADL's prior to hospitalization. Transportation: Pt drives self sometimes and siblings provide most of the transportation. DME/HHC/SNF: Pt was just set up with oxygen through [facility]. Brother states pt does have a portable tank and will make sure it is present at dc. Pt does have a pox as well. Pt has no hx of HHC or SNF stays. Pt brother states that pt will be staying with her sister Bella after this hospitalization until she can be home alone. The oxygen concentrator is at pt sister Bella's home. CM to follow. Advised pt brother to ask CM if any further question/concerns/needs arise, voices understanding. Pt Brother's Goal: Home to stay with sisterBella. Plan: Home to stay with Bella house; follow for increased oxygen needs.
[2023-01-25 12:05] LABS: Anion Gap 4 (5-15); BUN 28 mg/dL (7-18); BUN/Creat Ratio 36.6 RATIO (10-20); Calcium,Total 9.3 mg/dL (8.5-10.1); Chloride 99 mmol/L (98-107); Creatinine, Serum 0.77 mg/dL (0.55-1.02); EST Glomerular Filtration Rate 83 mL/min (>60); Est Glom Filt Rate - Afr Amer 100 mL/min (>60); Estimated Creatinine Clearance 64.52 ml/min; Glucose 111 mg/dL (74-106); Potassium 5.1 mmol/L (3.5-5.1); Sodium Level 136 mmol/L (136-145)
[2023-01-25 13:31] LABS: Pathologist Review Reviewed
[2023-01-25] MEDS: LORazepam 2 MG/ML Syringe IV ×2 (16:42→20:48)
[2023-01-26] VITALS (41 sets, daily range): BP systolic 114–143; BP diastolic 55–85; PULSE 86–122; RESP 12–33; TEMP 36.6–37.6; O2SAT 69–100; BMI 35.9
[2023-01-26] MEDS: LORazepam 2 MG/ML Syringe IV (01:04)
[2023-01-26] MEDS: 0.9% Saline Lock 10 ML Syringe IV ×2 (01:04→04:45)
[2023-01-26] MEDS: Ipratropium/Albuterol Sulfate 3 ML AMPUL.NEB INHALATION ×6 (02:46→23:00)
[2023-01-26 03:28] LABS: Absolute Lymphocyte Count 1.06 X10^3/uL (0.83-4.51); Absolute Neutrophil Count 8.5 X10^3/uL (2.0-7.7); Basophil# 0.02 X10^3/uL; Basophil% 0.2 % (0-1); Hematocrit 52.2 % (37-47); Lymphocyte # 1.06 X10^3/ul (0.83-4.51); Mean Corp Hgb Conc 30.7 g/dL (32-36); Mean Corpuscular Volume 94.7 fL (81-99); Mean Platelet Vol. 12.2 fl (6.2-12.0); Monocyte# 0.93 X10^3/uL; Monocyte% 8.8 % (0-10); NRBC Flagged by Analyzer 0 % (0-5); Neutrophil % 80.3 % (47-70); Platelet Count 229 K/mm3 (150-450); RBC Distribution Width CV 13.6 % (11.6-14.6); Red Blood Count 5.51 M/mm3 (4.2-5.4); White Blood Count 10.6 K/mm3 (4.4-11.0)
[2023-01-26 03:44] LABS: ALB/GLOB Ratio 0.5 RATIO (0.9-2.4); AST(SGOT) 22 U/L (15-37); Alanine Aminotransfer ALT/SGPT 25 U/L (13-56); Albumin, Serum 2.9 g/dL (3.2-5.0); Alkaline Phosphatase 121 U/L (45-117); Anion Gap 5 (5-15); BUN 32 mg/dL (7-18); BUN/Creat Ratio 38.2 RATIO (10-20); Calcium,Total 9.6 mg/dL (8.5-10.1); Chloride 96 mmol/L (98-107); Creatinine, Serum 0.84 mg/dL (0.55-1.02); EST Glomerular Filtration Rate 75 mL/min (>60); Est Glom Filt Rate - Afr Amer 91 mL/min (>60); Estimated Creatinine Clearance 59.15 ml/min; Glucose 92 mg/dL (74-106); Phosphorus 3.9 mg/dL (2.5-4.9); Potassium 5.1 mmol/L (3.5-5.1); Protein, Total 8.9 g/dL (6.4-8.2); Sodium Level 134 mmol/L (136-145)
--- NOTE | 2023-01-26 06:18 | PN.CC_ITS ---
Assessment & Plan Assessment/Plan (1) Respiratory failure with hypoxia: PLAN: Plan RECOMMENDATIONS: 1. Attempt to wean from continuous AVAPS therapy to nasal cannula oxygen. 2. Wean supplemental oxygen to maintain saturations at or above 90%. 3. Continue AVAPS therapy with naps and nightly. 4. Continue antibiotics to complete 7-day treatment course. 5. Continue scheduled bronchodilators and IV steroids. 6. Maintain appropriate DVT prophylaxis. 7. Swallow evaluation prior to advancing diet, if able to be weaned from PAP therapy. 8. Encourage incentive spirometer use and mobilize patient as tolerated. IMPRESSIONS: 1. Acute combined respiratory failure The patient does have an extensive tobacco abuse history with questionable underlying obstructive lung disease, in a state of exacerbation, likely secondary to continued outpatient utilization of cigarettes and suboptimal medical therapy for COPD. No PE was identified on CT imaging of the chest. In fact, there was no focal infiltrate or consolidation. Regardless, given the patient's current clinical state, I agree with continuing ceftriaxone and azithromycin along with scheduled bronchodilators and IV steroids. Nicotine replacement therapy has already been initiated. Although the patient's mentation has improved, she is still experiencing a significant degree of wheezing on exam. We will attempt to wean from continuous PAP therapy to nasal cannula oxygen. 2. Metabolic encephalopathy Improved. Likely secondary to acute CO2 retention in the setting of #1. Continue AVAPS therapy with naps and nightly. 3. Chronic tobacco dependency/obesity/hypertension Complicates care, management, recovery and prognosis. Continue nicotine replacement therapy. The patient should remain n.p.o. for now, pending completion of a swallow evaluation, if able to be weaned from AVAPS therapy. Outpatient pulmonary follow-up and baseline PFTs would be indicated after discharge. CODE STATUS: DNR CCA without intubation TIME: 32 minutes of critical care time, independent of procedures, was spent addressing the patient's acute combined respiratory failure, metabolic encephalopathy, review of all data and collaboration with the care team. Subjective Subjective The patient was seen and examined at the bedside this morning. Events from the last 24 hours have been reviewed. The patient currently has a low-grade fever but remains otherwise hemodynamically stable on BiPAP with an FiO2 requirement of 21%. The patient's Precedex had to be discontinued yesterday afternoon after she developed significant bradycardia and subsequent sinus pause. The patient has received as needed Ativan overnight. She is actually more lucid, cooperative and calm this morning. Her only complaint is for that of a dry mouth. Objective Data Objective Data The patient's most recent lab work, culture data and imaging studies have all been personally reviewed. Surface echocardiogram demonstrated an ejection fraction of 70%. Infectious work-up has been unrevealing to date. Vital Signs: Vital Signs Temp Pulse Resp BP Pulse Ox O2 Del Method O2 Flow Rate 99.3 F H 107 H 25 H 136/68 H 100 Bi-pap 15 01/26/23 04:00 01/26/23 05:18 01/26/23 05:18 01/26/23 04:00 01/26/23 05:18 01/26/23 04:00 01/24/23 23:34 FiO2 30 01/26/23 05:18 Oxygen Flow Rate (L/min) 15 Oxygen Delivery Method Bi-pap Weight: 195 lb 1.745 oz Body Mass Index (BMI) 35.9 Intake & Output: Intake and Output for Last 24 Hours 01/24/23 01/25/23 01/26/23 23:59 23:59 23:59 Intake Total 305 / 305 313.07 / 313.07 Output Total 1200 / 1200 Balance 305 / -95 -886.93 / -886.93 Lab / Micro Data Attestation: I reviewed the patient's lab results. Result Diagrams: 01/26/23 03:20 01/26/23 03:20 Labs: Laboratory Results - last 24 hr 01/24/23 13:15: Diff Path Review Reviewed 01/25/23 07:55: Sodium 132 L, Potassium 6.5 H*, Chloride 96 L, Carbon Dioxide 3 3.0 H, Anion Gap 3 L, BUN 26 H, Creatinine 0.80, Estim Creat Clear Calc 62.10, Est GFR (MDRD) Af Amer 95, Est GFR (MDRD) Non-Af 79, BUN/Creatinine Ratio 32.5 H , Glucose 121 H, Calcium 9.0, Phosphorus 5.0 H, Magnesium 2.3 01/25/23 07:55: WBC 8.3, RBC 5.43 H, Hgb 15.7 H, Hct 51.7 H, MCV 95.2, MCH 28.9, MCHC 30.4 L, RDW Std Deviation 48.0 H, RDW Coeff of [place] 13.6, Plt Count 197, MPV 12.5 H, Immature Gran % (Auto) 0.800, Neut % (Auto) 84.3 H, Lymph % (Auto) 9.6 L , [place] % (Auto) 5.2, Eos % (Auto) 0.0, Baso % (Auto) 0.1, Absolute Neuts (auto) 7.0, Absolute Lymphs (auto) 0.80 L, Nucleated RBC % 0 01/25/23 11:40: Sodium 136, Potassium 5.1, Chloride 99, Carbon Dioxide 33.0 H, Anion Gap 4 L, BUN 28 H, Creatinine 0.77, Estim Creat Clear Calc 64.52, Est GFR (MDRD) Af Amer 100, Est GFR (MDRD) Non-Af 83, BUN/Creatinine Ratio 36.6 H, Glucose 111 H, Calcium 9.3 01/26/23 03:20: WBC 10.6, RBC 5.51 H, Hgb 16.0 H, Hct 52.2 H, MCV 94.7, MCH 29.0, MCHC 30.7 L, RDW Std Deviation 48.0 H, RDW Coeff of [place] 13.6, Plt Count 229, MPV 12.2 H, Immature Gran % (Auto) 0.700, Neut % (Auto) 80.3 H, Lymph % (Auto) 10.0 L, [place] % (Auto) 8.8, Eos % (Auto) 0.0, Baso % (Auto) 0.2, Absolute Neuts (auto) 8.5 H, Absolute Lymphs (auto) 1.06, Nucleated RBC % 0 01/26/23 03:20: Sodium 134 L, Potassium 5.1, Chloride 96 L, Carbon Dioxide 33.0 H, Anion Gap 5, BUN 32 H, Creatinine 0.84, Estim Creat Clear Calc 59.15, Est GFR (MDRD) Af Amer 91, Est GFR (MDRD) Non-Af 75, BUN/Creatinine Ratio 38.2 H, Glucose 92, Calcium 9.6, Phosphorus 3.9, Total Bilirubin 0.20, AST 22, ALT 25, Alkaline Phosphatase 121 H, Total Protein 8.9 H, Albumin 2.9 L, Globulin 6.0 H, Albumin/Globulin Ratio 0.5 L Micro: Microbiology 01/24/23 23:50 Urine Catheter - [place] Legionella Antigen - Final 01/24/23 23:50 Urine Catheter - [place] Streptococcus pneumoniae Antigen (M - Final 01/24/23 19:00 Mucosa - Nasopharyngeal Respiratory Panel (PCR) - Final 01/24/23 13:39 Nasal Secretion SARS-CoV-2 & FLU Antigen (Rapid) - Final ABG Data ABG results: ABG 01/25/23 09:16 Specimen Type ART Sample Site R Brach pH 7.26 L Bicarbonate Actual 34.5 H Total CO2 37 Base Excess 8 H O2 Saturation 87 L O2 % 30 ABG pCO2 76.3 H* ABG pO2 63 L Respiration Rate 12 O2 Delivery Device BiPAP Tidal Volume 450 POC PEEP 8 Crit Call To/Read Back Yes Blood Gas Notified Whom brown Radiography Diagnostic Testing: Radiology Impression Echocardiogram 01/24/23 20:43 Interpretation Summary The study was technically difficult. Contrast injection was performed. Based upon the 2D echocardiographic and contrast enhanced images obtained there appears to be normal left ventricular size, wall motion, and systolic function. The estimated ejection fraction is 70 %. Trivial mitral valve insufficiency. Trivial tricuspid valve insufficiency. Unable to estimate RV systolic pressure/pulmonary artery pressure due to technically difficult study. No evidence for diastolic dysfunction. Ordering Physician: Nickolas Bush Referring Physician: Mini Parr Performed By: Della Sanchez, CHRISS, RVT Physical Exam Const alert and no apparent distress General Appearance: on BiPAP HEENT normocephalic and head/scalp atraumatic HEENT Narrative: Dry mucous membranes. Eyes PERRL, EOMs intact bilaterally and conjunctivae normal Neck supple General: trachea midline Chest inspection of chest normal Resp Effort and Inspection: prolonged expiratory phase Auscultation: wheezes and diminished lung sounds Cardio regular rate, regular rhythm, S1 normal heart sound and S2 normal heart sound GI normal to inspection, nondistended, normoactive bowel sounds Extremity General Extremity: edema bilateral lower extremity; Negative for clubbing Skin no rashes or lesions noted Neuro CN's II-XII intact bilaterally, moves all extremities and no focal motor deficits Psych Mood & Affect: flat affect Charges/Coding Procedures Hospitalists Procedures: 17875 Critial Care 1st Hr
--- NOTE | 2023-01-26 07:41 | PN.HOSP_ITS ---
Reason for Visit Reason for Visit: Diagnoses Pneumonia, unspecified organism (01/24/23) Acute and chronic respiratory failure with hypoxia (01/24/23) Respiratory failure, unspecified with hypoxia (01/24/23) Subjective Subjective Follow-up for acute combined hypoxic and hypercarbic respiratory failure. Patient was on Precedex that was discontinued because of severe bradycardia and sinus pause. Objective Data Objective Data Vital Signs: Vital Signs Temp Pulse Resp BP Pulse Ox O2 Del Method O2 Flow Rate 98.7 F 107 H 24 H 143/77 H 99 Bi-pap 15 01/26/23 07:00 01/26/23 07:00 01/26/23 07:00 01/26/23 07:00 01/26/23 07:00 01/26/23 07:00 01/24/23 23:34 FiO2 21 01/26/23 07:00 Oxygen Flow Rate (L/min) 15 Oxygen Delivery Method Bi-pap Weight: 195 lb 1.745 oz Body Mass Index (BMI) 35.9 Intake & Output: Intake and Output for Last 24 Hours 01/24/23 01/25/23 01/26/23 23:59 23:59 23:59 Intake Total 305 / 305 313.07 / 313.07 Output Total 1200 / 1200 Balance 305 / -95 -886.93 / -886.93 Lab / Micro Data Result Diagrams: 01/26/23 03:20 01/26/23 03:20 Labs: Laboratory Results - last 24 hr 01/24/23 13:15: Diff Path Review Reviewed 01/25/23 07:55: Sodium 132 L, Potassium 6.5 H*, Chloride 96 L, Carbon Dioxide 33.0 H, Anion Gap 3 L, BUN 26 H, Creatinine 0.80, Estim Creat Clear Calc 62.10, Est GFR (MDRD) Af Amer 95, Est GFR (MDRD) Non-Af 79, BUN/Creatinine Ratio 32.5 H , Glucose 121 H, Calcium 9.0, Phosphorus 5.0 H, Magnesium 2.3 01/25/23 07:55: WBC 8.3, RBC 5.43 H, Hgb 15.7 H, Hct 51.7 H, MCV 95.2, MCH 28.9, MCHC 30.4 L, RDW Std Deviation 48.0 H, RDW Coeff of [place] 13.6, Plt Count 197, MPV 12.5 H, Immature Gran % (Auto) 0.800, Neut % (Auto) 84.3 H, Lymph % (Auto) 9.6 L , [place] % (Auto) 5.2, Eos % (Auto) 0.0, Baso % (Auto) 0.1, Absolute Neuts (auto) 7.0, Absolute Lymphs (auto) 0.80 L, Nucleated RBC % 0 01/25/23 11:40: Sodium 136, Potassium 5.1, Chloride 99, Carbon Dioxide 33.0 H, Anion Gap 4 L, BUN 28 H, Creatinine 0.77, Estim Creat Clear Calc 64.52, Est GFR (MDRD) Af Amer 100, Est GFR (MDRD) Non-Af 83, BUN/Creatinine Ratio 36.6 H, Glucose 111 H, Calcium 9.3 01/26/23 03:20: WBC 10.6, RBC 5.51 H, Hgb 16.0 H, Hct 52.2 H, MCV 94.7, MCH 29.0, MCHC 30.7 L, RDW Std Deviation 48.0 H, RDW Coeff of [place] 13.6, Plt Count 229, MPV 12.2 H, Immature Gran % (Auto) 0.700, Neut % (Auto) 80.3 H, Lymph % (Au to) 10.0 L, [place] % (Auto) 8.8, Eos % (Auto) 0.0, Baso % (Auto) 0.2, Absolute Neuts (auto) 8.5 H, Absolute Lymphs (auto) 1.06, Nucleated RBC % 0 01/26/23 03:20: Sodium 134 L, Potassium 5.1, Chloride 96 L, Carbon Dioxide 33.0 H, Anion Gap 5, BUN 32 H, Creatinine 0.84, Estim Creat Clear Calc 59.15, Est GFR (MDRD) Af Amer 91, Est GFR (MDRD) Non-Af 75, BUN/Creatinine Ratio 38.2 H, Glucose 92, Calcium 9.6, Phosphorus 3.9, Total Bilirubin 0.20, AST 22, ALT 25, Alkaline Phosphatase 121 H, Total Protein 8.9 H, Albumin 2.9 L, Globulin 6.0 H, Albumin/Globulin Ratio 0.5 L Micro: Microbiology 01/24/23 23:50 Urine Catheter - [place] Legionella Antigen - Final 01/24/23 23:50 Urine Catheter - [place] Streptococcus pneumoniae Antigen (M - Final 01/24/23 19:00 Mucosa - Nasopharyngeal Respiratory Panel (PCR) - Final 01/24/23 13:39 Nasal Secretion SARS-CoV-2 & FLU Antigen (Rapid) - Final ABG Data ABG results: ABG 01/25/23 09:16 Specimen Type ART Sample Site R Brach pH 7.26 L Bicarbonate Actual 34.5 H Total CO2 37 Base Excess 8 H O2 Saturation 87 L O2 % 30 ABG pCO2 76.3 H* ABG pO2 63 L Respiration Rate 12 O2 Delivery Device BiPAP Tidal Volume 450 POC PEEP 8 Crit Call To/Read Back Yes Blood Gas Notified Whom brown Radiography Diagnostic Testing: Radiology Impression Echocardiogram 01/24/23 20:43 Interpretation Summary The study was technically difficult. Contrast injection was performed. Based upon the 2D echocardiographic and contrast enhanced images obtained there appears to be normal left ventricular size, wall motion, and systolic function. The estimated ejection fraction is 70 %. Trivial mitral valve insufficiency. Trivial tricuspid valve insufficiency. Unable to estimate RV systolic pressure/pulmonary artery pressure due to technically difficult study. No evidence for diastolic dysfunction. Ordering Physician: Nickolas Bush Referring Physician: Mini Parr Performed By: Della Sanchez, CHRISS, RVT Physical Exam Narrative Overnight events were noticed. Patient had severe bradycardia with sinus pause therefore Levophed drip was discontinued yesterday. Currently she is tachycardic. She is more awake and alert. Physical exam General: And oriented. HEENT: Matting of eyelashes. Atraumatic, PERRLA, EOMI, Normocephalic Oral: AVAPS. Neck: Supple, No JVD, Negative Carotid Bruits Lungs: Air entry severely diminished in both lungs. AVAPS/BiPAP and nasal cannula. Cardiovascular: Sinus bradycardia, low BP. Abdomen: Bowel Sounds Present, Soft, Non Tender, Non-Distended : [place] catheter, clear urine no renal angle tenderness. No suprapubic tenderness. Extremities: Bilateral 2+ pitting edema and lymphedema, Capillary Refill Less than 3 Seconds Skin: No rashes, No breakdown Musculoskeletal: No Tenderness to Palpation of Joints or Extremities, ROM restricted at hip and knee joints. Neurological: Cranial nerves II-XII grossly intact, DTR 2+/4. Psych/Mental Status: Flat affect. Assessment & Plan Assessment/Plan (1) Acute and chronic respiratory failure with hypoxia: (2) Right lower lobe pneumonia: PLAN: Plan This is a 58-year-old female is being admitted for severe shortness of breath, wheezing, mild cough and CT finding of right lower lobe pneumonia. 1. Acute hypoxic and hypercarbic respiratory failure most likely related to COPD exacerbation and pneumonia: Patient is tachypneic, hypoxic requires 6 L of oxygen, dyspnea at rest, conversational dyspnea and labored breathing. BiPAP as needed and at night. 01/25: Overnight events noticed. Patient was agitated and could not put on BiPAP therefore transferred to ICU on Precedex drip. There was a delay in ABG as patient might have been irritable or unsuccessful attempt. ABG showed severe respiratory acidosis 7.18/97/126 on BiPAP/AVAPS PEEP 8. Tidal volume 450. Vice Investigator consulted and note reviewed. Continue AVAPS. Wean Precedex. 01/26: Patient was having severe bradycardia and sinus pauses therefore Precedex drip was discontinued yesterday. Currently heart rate is 107/min, RR 24/min. On AVAPS. 2. Acute encephalopathy most likely metabolic encephalopathy from CO2 narcosis, infectious and medications: Patient likely sedated to maintain AVAPS 01/26: Acute encephalopathy improving. Patient reiterates that she was not using any NIPPV or oxygen at home. 3. Hyperkalemia seems most likely due to respiratory acidosis: Admitting potassium more normal and then repeat potassium 6.1, sodium 132, chloride 96, bicarb 32, anion gap 4. Patient had total of 100 mEq of IV sodium bicarb.Hyperk alemia cocktail, including calcium gluconate IV ordered. 30 g oral Kayexalate ordered. Repeat BMP pending. 01/26: Repeat potassium normal 5.1. 4. COPD exacerbation due to right lower lobe pneumonia: CT finding shows emphysematous lungs but she is still undiagnosed COPD. Started on bronchodilator DuoNeb every 4 hourly, IV Solu-Medrol, Mucinex, incentive spirometry and Pep. IV antibiotics ceftriaxone and azithromycin. 01/25: Urinary antigens are negative. Respiratory panel negative. Continue empiric antibiotic.Will need outpatient PFT and sleep study. 5. Accelerated hypertension: Patient blood pressure is high 199/118. Started on HCTZ and lisinopril. Hydralazine 10 mg every 4 hourly as needed for SBP more than 180 mmHg. BNP elevated. First troponin negative. Second troponin ordered and if that is negative, ACS ruled out. 2D echo is ordered. Twelve-lead EKG shows right atrial enlargement. Patient does not have chest pain or pressure. 01/26: Echo reviewed. EF 70%. Normal LV size, systolic function and wall motion. Unable to estimate RVSP. Overall seems mild chronic HFpEF. ACS ruled out. 6. Chronic smoker, non-hydrazines: Since patient does not follow PCP regularly. Advised quitting smoking. Nicotine patch ordered. Living will/advanced directive/end of life care: Patient does not have living will or advanced directive. After discussion of benefits/risks procedures involved with full code, DNR CC arrest and DNR CC, the patient and her brother near the bedside and agrees for DNRCC arrest with no intubation. Patient doesn't want artificial life support including intubation, tube feed, ventilator and/chest compression, central venous catheter, vasopressor and DC shock if needed Total time spent in [id number] encounter in discussion of advanced di rective 17 minutes. Clinical Impression(s) from Imaging Studies Chest X-Ray 01/24/23 14:20 IMPRESSION: Focal right lower lobe infiltrate. Electronically Signed: Theron Devine MD at 14:40 EST , Chest CTA 01/24/23 14:25 IMPRESSION: Emphysematous changes with scarring as described. No evidence of pulmonary embolism. Electronically Signed: Theron Devine MD at 15:01 EST , Charges/Coding Visit Charges Inpatient E&M: 50691 Subs Hosp L3
[2023-01-26] MEDS: Enoxaparin 40 MG/0.4 ML Syringe SC (10:32)
[2023-01-26] MEDS: guaiFENesin 1,200 MG Tablet 1200 MG PO (20:39)
[2023-01-27] VITALS (25 sets, daily range): BP systolic 114–141; BP diastolic 63–80; PULSE 81–101; RESP 12–28; TEMP 36.6–37.3; O2SAT 92–98; BMI 35.6
[2023-01-27] MEDS: Ipratropium/Albuterol Sulfate 3 ML AMPUL.NEB INHALATION ×6 (02:06→22:47)
[2023-01-27] MEDS: 0.9% Saline Lock 10 ML Syringe IV ×2 (06:17→21:56)
--- NOTE | 2023-01-27 07:01 | PCM.PN.INT ---
Assessment & Plan Assessment/Plan (1) Respiratory failure with hypoxia: PLAN: Plan RECOMMENDATIONS: 1. Wean supplemental oxygen to maintain saturations at or above 90%. 2. Continue AVAPS therapy with naps and nightly. 3. Continue antibiotics to complete 7-day treatment course. 4. Continue scheduled bronchodilators and IV steroids. Anticipate need for prednisone taper at discharge. 5. Maintain appropriate DVT prophylaxis. 6. Encourage incentive spirometer use and mobilize patient as tolerated. 7. Perform walking oximetry study prior to consideration for discharge home. 8. Recommend outpatient pulmonary follow-up within 2 weeks of discharge. 9. The patient is medically stable for transfer out of the intensive care unit. IMPRESSIONS: 1. Acute combined respiratory failure Improved. The patient does have an extensive tobacco abuse history with questionable underlying obstructive lung disease, in a state of exacerbation, likely secondary to continued outpatient utilization of cigarettes and suboptimal medical therapy for COPD. No PE was identified on CT imaging of the chest. In fact, there was no focal infiltrate or consolidation. However, given her tenuous respiratory status at presentation, I would recommend that we continue antibiotics to complete a 7-day treatment course. Agree with continuing scheduled bronchodilators and steroids. If the patient does well over the next 24 hours, she can be transition to prednisone tomorrow with tentative plans for a taper at discharge. Nicotine replacement therapy has already been initiated. Continue to wean supplemental oxygen to maintain saturations at or above 90%. Recommend utilization of AVAPS therapy nightly and with naps. 2. Metabolic encephalopathy Resolved. Likely secondary to acute CO2 retention in the setting of #1. Continue AVAPS therapy with naps and nightly. 3. Chronic tobacco dependency/obesity/hypertension Complicates care, management, recovery and prognosis. Continue nicotine replacement therapy. Outpatient pulmonary follow-up and baseline PFTs would be indicated after discharge. CODE STATUS: DNR CCA without intubation This note was generated with [employer] dictation software. It may contain incorrect words, spelling, and punctuation that were not noted in checking the note before signing. Subjective Subjective The patient was seen and examined at the bedside this morning. Events from the last 24 hours have been reviewed. The patient is currently afebrile, hemodynamically stable and maintaining appropriate oxygen saturations on 3 L/min via nasal cannula. The patient has no specific complaints this morning. No overnight events were noted by the nursing staff. Objective Data Objective Data The patient's most recent lab work, culture data and imaging studies have all been personally reviewed. Surface echocardiogram demonstrated an ejection fraction of 70%. Infectious work-up has been unrevealing to date. Vital Signs: Vital Signs Temp Pulse Resp BP Pulse Ox O2 Del Method O2 Flow Rate 97.8 F 91 16 124/69 H 95 Nasal Cannula 4 01/27/23 04:00 01/27/23 06:00 01/27/23 06:00 01/27/23 06:00 01/27/23 06:00 01/27/23 06:00 01/27/23 06:00 FiO2 35 01/27/23 04:00 Oxygen Flow Rate (L/min) 4 Oxygen Delivery Method Nasal Cannula Weight: 195 lb 1.6 oz Body Mass Index (BMI) 35.6 Intake & Output: Intake and Output for Last 24 Hours 01/25/23 01/26/23 01/27/23 23:59 23:59 23:59 Intake Total 313.07 / 313.07 305 / 305 Output Total 1200 / 1200 125 / 125 500 / 500 Balance -886.93 / -886.93 180 / 180 -500 / -500 Lab / Micro Data Attestation: I reviewed the patient's lab results. Result Diagrams: 01/26/23 03:20 01/26/23 03:20 Labs: Laboratory Results - last 24 hr 01/24/23 13:15: Diff Path Review Reviewed 01/25/23 07:55: Sodium 132 L, Potassium 6.5 H*, Chloride 96 L, Carbon Dioxide 33.0 H, Anion Gap 3 L, BUN 26 H, Creatinine 0.80, Estim Creat Clear Calc 62.10, Est GFR (MDRD) Af Amer 95, Est GFR (MDRD) Non-Af 79, BUN/Creatinine Ratio 32.5 H, Glucose 121 H, Calcium 9.0, Phosphorus 5.0 H, Magnesium 2.3 01/25/23 07:55: WBC 8.3, RBC 5.43 H, Hgb 15.7 H, Hct 51.7 H, MCV 95.2, MCH 28.9, MCHC 30.4 L, RDW Std Deviation 48.0 H, RDW Coeff of [place] 13.6, Plt Count 197, MPV 12.5 H, Immature Gran % (Auto) 0.800, Neut % (Auto) 84.3 H, Lymph % (Auto) 9.6 L, [place] % (Auto) 5.2, Eos % (Auto) 0.0, Baso % (Auto) 0.1, Absolute Neuts (auto) 7.0, Absolute Lymphs (auto) 0.80 L, Nucleated RBC % 0 01/25/23 11:40: Sodium 136, Potassium 5.1, Chloride 99, Carbon Dioxide 33.0 H, Anion Gap 4 L, BUN 28 H, Creatinine 0.77, Estim Creat Clear Calc 64.52, Est GFR (MDRD) Af Amer 100, Est GFR (MDRD) Non-Af 83, BUN/Creatinine Ratio 36.6 H, Glucose 111 H, Calcium 9.3 01/26/23 03:20: WBC 10.6, RBC 5.51 H, Hgb 16.0 H, Hct 52.2 H, MCV 94.7, MCH 29.0, MCHC 30.7 L, RDW Std Deviation 48.0 H, RDW Coeff of [place] 13.6, Plt Count 229, MPV 12.2 H, Immature Gran % (Auto) 0.700, Neut % (Auto) 80.3 H, Lymph % (Auto) 10.0 L, [place] % (Auto) 8.8, Eos % (Auto) 0.0, Baso % (Auto) 0.2, Absolute Neuts (auto) 8.5 H, Absolute Lymphs (auto) 1.06, Nucleated RBC % 0 01/26/23 03:20: Sodium 134 L, Potassium 5.1, Chloride 96 L, Carbon Dioxide 33.0 H, Anion Gap 5, BUN 32 H, Creatinine 0.84, Estim Creat Clear Calc 59.15, Est GFR (MDRD) Af Amer 91, Est GFR (MDRD) Non-Af 75, BUN/Creatinine Ratio 38.2 H, Glucose 92, Calcium 9.6, Phosphorus 3.9, Total Bilirubin 0.20, AST 22, ALT 25, Alkaline Phosphatase 121 H, Total Protein 8.9 H, Albumin 2.9 L, Globulin 6.0 H, Albumin/Globulin Ratio 0.5 L Micro: Microbiology 01/24/23 23:50 Urine Catheter - [place] Legionella Antigen - Final 01/24/23 23:50 Urine Catheter - [place] Streptococcus pneumoniae Antigen (M - Final 01/24/23 19:00 Mucosa - Nasopharyngeal Respiratory Panel (PCR) - Final 01/24/23 13:39 Nasal Secretion SARS-CoV-2 & FLU Antigen (Rapid) - Final ABG Data ABG results: ABG 01/25/23 09:16 Specimen Type ART Sample Site R Brach pH 7.26 L Bicarbonate Actual 34.5 H Total CO2 37 Base Excess 8 H O2 Saturation 87 L O2 % 30 ABG pCO2 76.3 H* ABG pO2 63 L Respiration Rate 12 O2 Delivery Device BiPAP Tidal Volume 450 POC PEEP 8 Crit Call To/Read Back Yes Blood Gas Notified Whom brown Radiography Diagnostic Testing: Radiology Impression Echocardiogram 01/24/23 20:43 Interpretation Summary The study was technically difficult. Contrast injection was performed. Based upon the 2D echocardiographic and contrast enhanced images obtained there appears to be normal left ventricular size, wall motion, and systolic function. The estimated ejection fraction is 70 %. Trivial mitral valve insufficiency. Trivial tricuspid valve insufficiency. Unable to estimate RV systolic pressure/pulmonary artery pressure due to technically difficult study. No evidence for diastolic dysfunction. Ordering Physician: Nickolas Bush Referring Physician: Mini Parr Performed By: Della Sanchez, CHRISS, RVT Physical Exam Const alert and no apparent distress Constitutional Narrative: Sitting in bedside recliner. General Appearance: cooperative Nutritional Appearance: obese HEENT normocephalic and head/scalp atraumatic HEENT Narrative: Dry mucous membranes. Eyes PERRL, EOMs intact bilaterally and conjunctivae normal Neck supple General: trachea midline Chest inspection of chest normal Resp normal respiratory effort Effort and Inspection: prolonged expiratory phase Auscultation: wheezes and diminished lung sounds Cardio regular rate, regular rhythm, S1 normal heart sound and S2 normal heart sound GI normal to inspection, nondistended, normoactive bowel sounds Extremity General Extremity: edema bilateral lower extremity; Negative for clubbing Skin no rashes or lesions noted Neuro CN's II-XII intact bilaterally, moves all extremities and no focal motor deficits Psych cooperative and affect normal Charges/Coding Visit Charges Inpatient E&M: 99228 Subs Hosp L3
--- NOTE | 2023-01-27 07:49 | PN.HOSP_ITS ---
Reason for Visit Reason for Visit: Follow-up for acute hypoxic and hypercarbic combined respiratory Diagnoses Pneumonia, unspecified organism (01/24/23) Acute and chronic respiratory failure with hypoxia (01/24/23) Respiratory failure, unspecified with hypoxia (01/24/23) Objective Data Objective Data Vital Signs: Vital Signs Temp Pulse Resp BP Pulse Ox O2 Del Method O2 Flow Rate 97.8 F 86 21 H 128/80 H 96 High Flow 3 01/27/23 04:00 01/27/23 07:12 01/27/23 07:12 01/27/23 07:00 01/27/23 07:12 01/27/23 07:12 01/27/23 07:12 FiO2 35 01/27/23 04:00 Oxygen Flow Rate (L/min) 3 Oxygen Delivery Method High Flow Weight: 195 lb 1.6 oz Body Mass Index (BMI) 35.6 Intake & Output: Intake and Output for Last 24 Hours 01/25/23 01/26/23 01/27/23 23:59 23:59 23:59 Intake Total 313.07 / 313.07 305 / 305 Output Total 1200 / 1200 125 / 125 500 / 500 Balance -886.93 / -886.93 180 / 180 -500 / -500 Lab / Micro Data Result Diagrams: 01/26/23 03:20 01/26/23 03:20 Micro: Microbiology 01/24/23 23:50 Urine Catheter - [place] Legionella Antigen - Final 01/24/23 23:50 Urine Catheter - [place] Streptococcus pneumoniae Antigen (M - Final 01/24/23 19:00 Mucosa - Nasopharyngeal Respiratory Panel (PCR) - Final 01/24/23 13:39 Nasal Secretion SARS-CoV-2 & FLU Antigen (Rapid) - Final Physical Exam Narrative Overnight events were noticed. Patient is doing better. Patient was on nasal cannula yesterday morning afternoon and then BiPAP at night. No fever. No acute issues Physical exam General: And oriented. HEENT: No conjunctivitis. Atraumatic, PERRLA, EOMI, Normocephalic Oral: AVAPS. Neck: Supple, No JVD, Negative Carotid Bruits Lungs: Air entry severely diminished in both lungs. AVAPS/BiPAP and nasal cannula. Cardiovascular: Sinus bradycardia, low BP. Abdomen: Bowel Sounds Present, Soft, Non Tender, Non-Distended : [place] catheter, clear urine no renal angle tenderness. No suprapubic tenderness. Extremities: Bilateral 2+ pitting edema and lymphedema, Capillary Refill Less than 3 Seconds Skin: No rashes, No breakdown Musculoskeletal: No Tenderness to Palpation of Joints or Extremities, ROM restricted at hip and knee joints. Neurological: Cranial nerves II-XII grossly intact, DTR 2+/4. Psych/Mental Status: Flat affect. Assessment & Plan Assessment/Plan (1) Acute and chronic respiratory failure with hypoxia: (2) Right lower lobe pneumonia: PLAN: Plan This is a 58-year-old female is being admitted for severe shortness of breath, wheezing, mild cough and CT finding of right lower lobe pneumonia. 1. Acute hypoxic and hypercarbic respiratory failure most likely related to COPD exacerbation and pneumonia: Patient is tachypneic, hypoxic requires 6 L of oxygen, dyspnea at rest, conversational dyspnea and labored breathing. BiPAP as needed and at night. 01/25: Overnight events noticed. Patient was agitated and could not put on BiPAP therefore transferred to ICU on Precedex drip. There was a delay in ABG as patient might have been irritable or unsuccessful attempt. ABG showed severe respiratory acidosis 7.18/97/126 on BiPAP/AVAPS PEEP 8. Tidal volume 450. Log Sorting Supervisor consulted and note reviewed. Continue AVAPS. Wean Precedex. 01/26: Patient was having severe bradycardia and sinus pauses therefore Precedex drip was discontinued yesterday. Currently heart rate is 107/min, RR 24/min. 01/27: Heart rate and blood pressure are in normal range. Patient had AVAPS last night currently on oxygen through nasal cannula. Her breathing looks much better. Transferred to PCU. 2. Acute encephalopathy most likely metabolic encephalopathy from CO2 narcosis, infectious and medications: Patient likely sedated to maintain AVAPS 01/26: Acute encephalopathy improving. Patient reiterates that she was not using any NIPPV or oxygen at home. 01/27: Acute encephalopathy has resolved. Patient is alert.. X3. 3. Hyperkalemia seems most likely due to respiratory acidosis: Admitting potassium more normal and then repeat potassium 6.1, sodium 132, chloride 96, bicarb 32, anion gap 4. Patient had total of 100 mEq of IV sodium bicarb.Hyperkalemia cocktail, including calcium gluconate IV ordered. 30 g oral Kayexalate ordered. Repeat BMP pending. 01/26: Repeat potassium normal 5.1. 4. COPD exacerbation due to right lower lobe pneumonia: CT finding shows em physematous lungs but she is still undiagnosed COPD. Started on bronchodilator DuoNeb every 4 hourly, IV Solu-Medrol, Mucinex, incentive spirometry and Pep. IV antibiotics ceftriaxone and azithromycin. 01/25: Urinary antigens are negative. Respiratory panel negative. Continue empiric antibiotic.Will need outpatient PFT and sleep study. 5. Accelerated hypertension: Patient blood pressure is high 199/118. Started on HCTZ and lisinopril. Hydralazine 10 mg every 4 hourly as needed for SBP more than 180 mmHg. BNP elevated. First troponin negative. Second troponin ordered and if that is negative, ACS ruled out. 2D echo is ordered. Twelve-lead EKG shows right atrial enlargement. Patient does not have chest pain or pressure. 01/26: Echo reviewed. EF 70%. Normal LV size, systolic function and wall motion. Unable to estimate RVSP. Overall seems mild chronic HFpEF. ACS ruled out. 01/27: BP is in normal range. 6. Chronic smoker, non-hydrazines: Since patient does not follow PCP regularly. Advised quitting smoking. Nicotine patch ordered. Living will/advanced directive/end of life care: Patient does not have living will or advanced directive. After discussion of benefits/risks procedures involved with full code, DNR CC arrest and DNR CC, the patient and her brother near the bedside and agrees for DNRCC arrest with no intubation. Patient doesn't want artificial life support including intubation, tube feed, ventilator and/chest compression, central venous catheter, vasopressor and DC shock if needed Total time spent in [id number] encounter in discussion of advanced directive 17 minutes. Clinical Impression(s) from Imaging Studies Chest X-Ray 01/24/23 14:20 IMPRESSION: Focal right lower lobe infiltrate. Electronically Signed: Theron Devine MD at 14:40 EST , Chest CTA 01/24/23 14:25 IMPRESSION: Emphysematous changes with scarring as described. No evidence of pulmonary embolism. Electronically Signed: Theron Devine MD at 15:01 EST , Charges/Coding Visit Charges Inpatient E&M: 70639 Subs Hosp L3
[2023-01-27] MEDS: Enoxaparin 40 MG/0.4 ML Syringe SC (10:15)
[2023-01-27] MEDS: guaiFENesin 1,200 MG Tablet 1200 MG PO ×2 (10:15→21:55)
[2023-01-27] MEDS: Lisinopril 5 MG Tablet PO (10:17)
--- NOTE | 2023-01-27 11:10 | CASEMGMT ---
Addendum entered by Bernardo Wen 01/27/23 13:12: Pt states she does not have a pulse ox and states she can afford to purchase one. Original Note: HALLE DELA CRUZ NOTE: PT/OT notes reviewed. Additional therapy recommended. HALLE DELA CRUZ to room. Pt sitting up in chair in room. A/O. Introduced self and role. Discussed therapy recommendations. Pt declines wanting HHC for nursing or therapy, stating she does not feel she will need it, as she feels she is improving/getting stronger. She states the plan is still to discharge to her sister, Bella's home, and plans to stay there for awhile until able to return home alone safely. Pt states her brother, Wesley, lives w/her sister as well and they both would be able to assist her, if needed. Pt made aware, if she decides she wants HHC after discharge to discuss with Dr Parr. She voices understanding. Pt qualifies for Palliative care per [facility] screening tool. Discussed both Palliative care and Pt Link. Pt interested in referrals for both. Order received for Palliative referral. E-mail sent to [facility] re: referral and call placed to Estephania @ [facility]. She was made aware plan is for pt to discharge to her sister's home. Order also placed for Pt Link consult and message left on referral line re: consult. Gaby MONTOYA RN, CM
--- NOTE | 2023-01-27 13:45 | CASEMGMT ---
BITA received a phone call from Marii Chacon with Palliative Care. Patient declined to sign up for Palliative. BITA notified HALLE DELA CRUZ. Heather JUDGE
[2023-01-27] MEDS: Furosemide 20 MG Tablet PO (17:38)
[2023-01-28] VITALS (11 sets, daily range): BP systolic 123–131; BP diastolic 66–78; PULSE 75–90; RESP 14–18; TEMP 36.5–36.9; O2SAT 84–95; BMI 35.2
[2023-01-28] MEDS: Ipratropium/Albuterol Sulfate 3 ML AMPUL.NEB INHALATION ×4 (03:13→15:38)
[2023-01-28] MEDS: 0.9% Saline Lock 10 ML Syringe IV ×3 (05:02→13:16)
--- NOTE | 2023-01-28 09:19 | PCM.PN.INT ---
Assessment & Plan Assessment/Plan (1) Respiratory failure with hypoxia: PLAN: Plan RECOMMENDATIONS: 1. Wean supplemental oxygen to maintain saturations at or above 90%. 2. Continue AVAPS therapy with naps and nightly. 3. Continue antibiotics to complete 7-day treatment course. 4. Continue scheduled bronchodilators and IV steroids. Anticipate need for prednisone taper at discharge. 5. Maintain appropriate DVT prophylaxis. 6. Encourage incentive spirometer use and mobilize patient as tolerated. 7. Perform walking oximetry study prior to consideration for discharge home. 8. Recommend outpatient pulmonary follow-up within 2 weeks of discharge. 9. We will sign off from a critical care perspective. Please call with any additional questions. IMPRESSIONS: 1. Acute combined respiratory failure Improved. The patient does have an extensive tobacco abuse history with questionable underlying obstructive lung disease, in a state of exacerbation, likely secondary to continued outpatient utilization of cigarettes and suboptimal medical therapy for COPD. No PE was identified on CT imaging of the chest. In fact, there was no focal infiltrate or consolidation. However, given her tenuous respiratory status at presentation, I would recommend that we continue antibiotics to complete a 7-day treatment course. Agree with continuing scheduled bronchodilators and steroids. If the patient does well over the next 24 hours, she can be transition to prednisone tomorrow with tentative plans for a taper at discharge. Nicotine replacement therapy has already been initiated. Continue to wean supplemental oxygen to maintain saturations at or above 90%. Recommend utilization of AVAPS therapy nightly and with naps. 2. Metabolic encephalopathy Resolved. Likely secondary to acute CO2 retention in the setting of #1. Continue AVAPS therapy with naps and nightly. 3. Chronic tobacco dependency/obesity/hypertension Complicates care, management, recovery and prognosis. Continue nicotine replacement therapy. Outpatient pulmonary follow-up and baseline PFTs would be indicated after discharge. CODE STATUS: DNR CCA without intubation This note was generated with [employer] dictation software. It may contain incorrect words, spelling, and punctuation that were not noted in checking the note before signing. Subjective Subjective The patient was seen and examined at the bedside this morning. Events from the last 24 hours have been reviewed. The patient is currently afebrile, hemodynamically stable and maintaining appropriate oxygen saturations on 2 L/min via nasal cannula. The patient's respiratory status continues to improve. Objective Data Objective Data The patient's most recent lab work, culture data and imaging studies have all been personally reviewed. Surface echocardiogram demonstrated an ejection fraction of 70%. Infectious work-up has been unrevealing to date. Vital Signs: Vital Signs Temp Pulse Resp BP Pulse Ox O2 Del Method O2 Flow Rate 98.4 F 81 18 131/78 H 94 Nasal Cannula 2 01/28/23 08:03 01/28/23 08:03 01/28/23 08:03 01/28/23 08:03 01/28/23 08:03 01/28/23 08:05 01/28/23 08:05 FiO2 35 01/27/23 04:00 Oxygen Flow Rate (L/min) 2 Oxygen Delivery Method Nasal Cannula Weight: 192 lb 14.472 oz Body Mass Index (BMI) 35.2 Intake & Output: Intake and Output for Last 24 Hours 01/26/23 01/27/23 01/28/23 23:59 23:59 23:59 Intake Total 305 / 305 545 / 695 390 / 390 Output Total 125 / 125 1200 / 1200 Balance 180 / 180 -655 / -505 390 / 390 Lab / Micro Data Attestation: I reviewed the patient's lab results. Result Diagrams: 01/26/23 03:20 01/26/23 03:20 Labs: Laboratory Results - last 24 hr 01/24/23 13:15: Diff Path Review Reviewed 01/25/23 07:55: Sodium 132 L, Potassium 6.5 H*, Chloride 96 L, Carbon Dioxide 33.0 H, Anion Gap 3 L, BUN 26 H, Creatinine 0.80, Estim Creat Clear Calc 62.10, Est GFR (MDRD) Af Amer 95, Est GFR (MDRD) Non-Af 79, BUN/Creatinine Ratio 32.5 H, Glucose 121 H, Calcium 9.0, Phosphorus 5.0 H, Magnesium 2.3 01/25/23 07:55: WBC 8.3, RBC 5.43 H, Hgb 15.7 H, Hct 51.7 H, MCV 95.2, MCH 28.9, MCHC 30.4 L, RDW Std Deviation 48.0 H, RDW Coeff of [place] 13.6, Plt Count 197, MPV 12.5 H, Immature Gran % (Auto) 0.800, Neut % (Auto) 84.3 H, Lymph % (Auto) 9.6 L, [place] % (Auto) 5.2, Eos % (Auto) 0.0, Baso % (Auto) 0.1, Absolute Neuts (auto) 7.0, Absolute Lymphs (auto) 0.80 L, Nucleated RBC % 0 01/25/23 11:40: Sodium 136, Potassium 5.1, Chloride 99, Carbon Dioxide 33.0 H, Anion Gap 4 L, BUN 28 H, Creatinine 0.77, Estim Creat Clear Calc 64.52, Est GFR (MDRD) Af Amer 100, Est GFR (MDRD) Non-Af 83, BUN/Creatinine Ratio 36.6 H, Glucose 111 H, Calcium 9.3 01/26/23 03:20: WBC 10.6, RBC 5.51 H, Hgb 16.0 H, Hct 52.2 H, MCV 94.7, MCH 29.0, MCHC 30.7 L, RDW Std Deviation 48.0 H, RDW Coeff of [place] 13.6, Plt Count 229, MPV 12.2 H, Immature Gran % (Auto) 0.700, Neut % (Auto) 80.3 H, Lymph % (Auto) 10.0 L, [place] % (Auto) 8.8, Eos % (Auto) 0.0, Baso % (Auto) 0.2, Absolute Neuts (auto) 8.5 H, Absolute Lymphs (auto) 1.06, Nucleated RBC % 0 01/26/23 03:20: Sodium 134 L, Potassium 5.1, Chloride 96 L, Carbon Dioxide 33.0 H, Anion Gap 5, BUN 32 H, Creatinine 0.84, Estim Creat Clear Calc 59.15, Est GFR (MDRD) Af Amer 91, Est GFR (MDRD) Non-Af 75, BUN/Creatinine Ratio 38.2 H, Glucose 92, Calcium 9.6, Phosphorus 3.9, Total Bilirubin 0.20, AST 22, ALT 25, Alkaline Phosphatase 121 H, Total Protein 8.9 H, Albumin 2.9 L, Globulin 6.0 H, Albumin/Globulin Ratio 0.5 L Micro: Microbiology 01/24/23 23:50 Urine Catheter - [place] Legionella Antigen - Final 01/24/23 23:50 Urine Catheter - [place] Streptococcus pneumoniae Antigen (M - Final 01/24/23 19:00 Mucosa - Nasopharyngeal Respiratory Panel (PCR) - Final 01/24/23 13:39 Nasal Secretion SARS-CoV-2 & FLU Antigen (Rapid) - Final ABG Data ABG results: ABG 01/25/23 09:16 Specimen Type ART Sample Site R Brach pH 7.26 L Bicarbonate Actual 34.5 H Total CO2 37 Base Excess 8 H O2 Saturation 87 L O2 % 30 ABG pCO2 76.3 H* ABG pO2 63 L Respiration Rate 12 O2 Delivery Device BiPAP Tidal Volume 450 POC PEEP 8 Crit Call To/Read Back Yes Blood Gas Notified Whom brown Radiography Diagnostic Testing: Radiology Impression Echocardiogram 01/24/23 20:43 Interpretation Summary The study was technically difficult. Contrast injection was performed. Based upon the 2D echocardiographic and contrast enhanced images obtained there appears to be normal left ventricular size, wall motion, and systolic function. The estimated ejection fraction is 70 %. Trivial mitral valve insufficiency. Trivial tricuspid valve insufficiency. Unable to estimate RV systolic pressure/pulmonary artery pressure due to technically difficult study. No evidence for diastolic dysfunction. Ordering Physician: Nickolas Bush Referring Physician: Mini Parr Performed By: Della Sanchez, CHRISS, RVT Physical Exam Const alert and no apparent distress Constitutional Narrative: Sitting in bedside recliner. General Appearance: cooperative Nutritional Appearance: obese HEENT normocephalic and head/scalp atraumatic HEENT Narrative: Dry mucous membranes. Eyes PERRL, EOMs intact bilaterally and conjunctivae normal Neck supple General: trachea midline Chest inspection of chest normal Resp normal respiratory effort Effort and Inspection: prolonged expiratory phase Auscultation: diminished lung sounds Cardio regular rate, regular rhythm, S1 normal heart sound and S2 normal heart sound GI normal to inspection, nondistended, normoactive bowel sounds Extremity General Extremity: edema bilateral lower extremity; Negative for clubbing Skin no rashes or lesions noted Neuro CN's II-XII intact bilaterally, moves all extremities and no focal motor deficits Psych cooperative and affect normal Charges/Coding Visit Charges Inpatient E&M: 44228 Subs Hosp L2
[2023-01-28] MEDS: Furosemide 20 MG Tablet PO (09:39)
[2023-01-28] MEDS: Lisinopril 5 MG Tablet PO (09:39)
[2023-01-28] MEDS: Enoxaparin 40 MG/0.4 ML Syringe SC (09:39)
--- NOTE | 2023-01-28 10:03 | PCM.DC ---
Discharge Instructions Diet Discharge Diet: No restrictions Activity Discharge Activity: Return to Normal Activity Weight Bearing Status: Weight bearing as tolerated Dressing / Incision Call your doctor if you observe: Fever of 101 or Higher, Coldness, Increased Pain, Numbness or Tingling, Change in Color, Inability to urinate, Inability to have a bowel movement, Using more than 1 pad per hour, Shortness of breath, Dizziness, Fainting spells, Swelling in the ankles, Chest pain, Prolonged hiccupping, Increased palpitations (irregular heartbeat) and Calf discomfort Follow Up Care When: IN 2 WEEKS Test Results: Test results from this visit will be discussed in further detail at your follow-up appointment, if applicable. Discharge Plan Admission Admit Date/Time: 01/24/23 15:26 Primary Reason for Your Visit: COPD ecacerbation with acute combined resp failure Attending Provider: Nickolas Bush Primary Care Provider: Mini Parr Consulting Providers: Mateusz Lopez Discharge Orders/Prescriptions Prescriptions: New [place] Nasal 0.65 % Aerosol,[place] 2 spray NASAL Q4H PRN PRN (Reason: NASAL DRYNESS) Qty: 0 0RF nicotine 21 mg/24 hr Patch 24 Hour 21 mg transdermal DAILY 30 Days Qty: 30 0RF lisinopril 5 mg Tablet 5 mg PO DAILY 30 Days Qty: 30 2RF Mucus Relief ER 1,200 mg Tablet Extended Release 12hr 1,200 mg PO BID 7 Days Qty: 14 0RF sennosides-docusate sodium [Stool Softener-Stimulant Laxat] 8.6-50 mg Tablet 2 tab PO BID PRN PRN (Reason: Constipation) 30 Days Qty: 60 0RF prednisone 10 mg tablets,dose pack See Taper PO DAILY Qty: 30 0RF Taper: Prednisone Taper 40 mg WITH BREAKFAST for 3 Days and 0 Hour 30 mg WITH BREAKFAST for 3 Days and 0 Hour 20 mg WITH BREAKFAST for 3 Days and 0 Hour 10 mg WITH BREAKFAST for 3 Days and 0 Hour Rx Instructions: 40 mg with breakfast for 3 Days; 30 mg with breakfast for 3 Days; 20 mg with breakfast for 3 Days; 10 mg with breakfast for 3 Days cefdinir 300 mg capsule 300 mg PO BID Qty: 6 0RF Continued albuterol sulfate 2.5 mg /3 mL (0.083 %) solution for nebulization 2 mg inhalation DAILY furosemide 20 mg tablet 20 mg PO budesonide-formoterol [Symbicort] 160-4.5 mcg/actuation HFA aerosol inhaler INHALATION Referrals / Follow Up: Mini Parr MD [Primary Care Provider] - Mateusz Lopez DO [Med Staff - Active Staff] - Within 2 Weeks (Pulm clinic) Holly English MD [Med Staff - [employer] Operator] - Disposition Disposition (needs filled in before D/C Order can be placed): Home, Self Care
--- NOTE | 2023-01-28 10:32 | PCM.DC.SUM ---
Providers Date of Admission: 01/24/23 Date of Discharge: 01/28/23 Primary Care Physician: Dr. Mini Parr MD Consultations 01/24/23 23:13 Consult: Emergency Room Physician Assistant / Pulmonary Medicine Routine Consulting Provider: Mateusz Lopez Reason for Consult: Resp failure, COPD exac, PNA EMERGENT Consult: No MD Notified: Yes Date Notified: 01/24/23 Time Notified: 22:32 Method of Notification: Text Reason For Visit: COPD,EXA Diagnosis Discharge Diagnosis (1) Respiratory failure with hypoxia: Status: Acute Code(s): J96.91 - Respiratory failure, unspecified with hypoxia Plan This is a 58-year-old female is being admitted for severe shortness of breath, wheezing, mild cough and CT finding of right lower lobe pneumonia. 1. Acute hypoxic and hypercarbic respiratory failure most likely related to COPD exacerbation and pneumonia: Patient is tachypneic, hypoxic requires 6 L of oxygen, dyspnea at rest, conversational dyspnea and labored breathing. BiPAP as needed and at night. 01/25: Overnight events noticed. Patient was agitated and could not put on BiPAP therefore transferred to ICU on Precedex drip. There was a delay in ABG as patient might have been irritable or unsuccessful attempt. ABG showed severe respiratory acidosis 7.18/97/126 on BiPAP/AVAPS PEEP 8. Tidal volume 450. Emergency Room Physician Assistant consulted and note reviewed. Continue AVAPS. Wean Precedex. 01/26: Patient was having severe bradycardia and sinus pauses therefore Precedex drip was discontinued yesterday. Currently heart rate is 107/min, RR 24/min. 01/27: Heart rate and blood pressure are in normal range. Patient had AVAPS last night currently on oxygen through nasal cannula. Her breathing looks much better. Transferred to PCU. 01/28: Patient doing good on PCU. Baseline oxygen requirement 2 L. Home qualification oxygen was done and she requires 6 L on walking pulse ox 90%. Patient is ambulatory in home and in the community and requires home oxygen with portability and concentrator. 2. Acute encephalopathy most likely metabolic encephalopathy from CO2 narcosis, infectious and medications: Patient likely sedated to maintain AVAPS 01/26: Acute encephalopathy improving. Patient reiterates that she was not using any NIPPV or oxygen at home. 01/27: Acute encephalopathy has resolved. Patient is alert. Oriented X3. 3. Hyperkalemia seems most likely due to respiratory acidosis: Admitting potassium more normal and then repeat potassium 6.1, sodium 132, chloride 96, bicarb 32, anion gap 4. Patient had total of 100 mEq of IV sodium bicarb.Hyperkalemia cocktail, including calcium gluconate IV ordered. 30 g oral Kayexalate ordered. 01/26: Repeat potassium normal 5.1. 4. COPD exacerbation due to right lower lobe pneumonia: CT finding shows emphysematous lungs but she is still undiagnosed COPD. Started on bronchodilator DuoNeb every 4 hourly, IV Solu-Medrol, Mucinex, incentive spirometry and Pep. IV antibiotics ceftriaxone and azithromycin. 01/25: Urinary antigens are negative. Respiratory panel negative. Continue empiric antibiotic.Will need outpatient PFT and sleep study. 5. Accelerated hypertension: Patient blood pressure is high 199/118. Started on HCTZ and lisinopril. Hydralazine 10 mg every 4 hourly as needed for SBP more than 180 mmHg. BNP elevated. First troponin negative. Second troponin ordered and if that is negative, ACS ruled out. 2D echo is ordered. Twelve-lead EKG shows right atrial enlargement. Patient does not have chest pain or pressure. 01/26: Echo reviewed. EF 70%. Normal LV size, systolic function and wall motion. Unable to estimate RVSP. Overall seems mild chronic HFpEF. ACS ruled out. 01/27: BP is in normal range. 6. Chronic smoker, non-hydrazines: Since patient does not follow PCP regularly. Advised quitting smoking. Nicotine patch ordered. Living will/advanced directive/end of life care: Patient does not have living will or advanced directive. After discussion of benefits/risks procedures involved with full code, DNR CC arrest and DNR CC, the patient and her brother near the bedside and agrees for DNRCC arrest with no intubation. Patient doesn't want artificial life support including intubation, tube feed, ventilator and/chest compression, central venous catheter, vasopressor and DC shock if needed Discharge medication reconciliation done. Discharge follow-up instructions completed. Discharge process discussed with the patient and all questions were answered to patient's satisfaction. Prescriptions for tapering dose of prednisone, antibiotic cefdinir to complete a total antibiotic duration of 7 days, Mucinex, senna s and lisinopril given. Total time spent, exact 35 minutes on discharge meds reconciliation, examination, coordination of care with nurses and ancillary staff, review of imaging and blood test and discussion with the patient on follow-up instructions. Clinical Impression(s) from Imaging Studies Chest X-Ray 01/24/23 14:20 IMPRESSION: Focal right lower lobe infiltrate. Electronically Signed: Theron Devine MD at 14:40 EST , Chest CTA 01/24/23 14:25 IMPRESSION: Emphysematous changes with scarring as described. No evidence of pulmonary embolism. Electronically Signed: Theron Devine MD at 15:01 EST , Medications at Discharge Home Medications albuterol sulfate 2.5 mg/3 mL (0.083 %) solution for nebulization 2 mg inhalation DAILY SOB 01/24/23 budesonide-formoterol HFA 160 mcg-4.5 mcg/actuation aerosol inhaler (Symbicort) inhalation breathing 01/24/23 furosemide 20 mg tablet 20 mg PO edema 01/24/23 cefdinir 300 mg capsule 300 mg PO BID #6 caps 01/28/23 guaifenesin 1,200 mg tablet, extended release 12 hr (Mucus Relief ER) 1,200 mg PO BID 7 days #14 tabs 01/28/23 lisinopril 5 mg tablet 5 mg PO DAILY 30 days #30 tabs 01/28/23 nicotine 21 mg/24 hr daily transdermal patch 21 mg transdermal DAILY 30 days #30 ea 01/28/23 prednisone 10 mg tablets in a dose pack See Taper PO DAILY #30 tabs 01/28/23 sennosides 8.6 mg-docusate sodium 50 mg tablet (Stool Softener-Stimulant Laxative) 2 tab PO BID PRN PRN Constipation 30 days #60 tabs 01/28/23 sodium chloride 0.65 % nasal spray aerosol (Deep Sea Nasal) 2 spray NASAL Q4H PRN PRN NASAL DRYNESS #0 mL 01/28/23 Physical Exam Narrative Overnight events were noticed. No acute events. Patient is doing better. Patient was on nasal cannula yesterday morning afternoon and then BiPAP at night. No fever Physical exam General: And oriented. HEENT: No conjunctivitis. Atraumatic, PERRLA, EOMI, Normocephalic Oral: AVAPS/BiPAP. Neck: Supple, No JVD, Negative Carotid Bruits Lungs: Air entry severely diminished in both lungs. AVAPS/BiPAP and nasal cannula. Cardiovascular: Sinus bradycardia, low BP. Abdomen: Bowel Sounds Present, Soft, Non Tender, Non-Distended : [place] catheter discontinued. Voiding clear urine. No renal angle tenderness. No suprapubic tenderness. Extremities: Pitting edema resolved. Capillary Refill Less than 3 Seconds Skin: No rashes, No breakdown Musculoskeletal: No Tenderness to Palpation of Joints or Extremities, ROM restricted at hip and knee joints. Neurological: Cranial nerves II-XII grossly intact, DTR 2+/4. Psych/Mental Status: Flat affect. Weight / BMI Weight Weight: 192 lb 14.472 oz Body Mass Index (BMI) 35.2 ABG / Lab / Microbiology Data Result Diagrams: 01/26/23 03:20 01/26/23 03:20 Microbiology: Microbiology 01/24/23 23:50 Urine Catheter - [place] Legionella Antigen - Final 01/24/23 23:50 Urine Catheter - [place] Streptococcus pneumoniae Antigen (M - Final 01/24/23 19:00 Mucosa - Nasopharyngeal Respiratory Panel (PCR) - Final 01/24/23 13:39 Nasal Secretion SARS-CoV-2 & FLU Antigen (Rapid) - Final D/C Instructions Discharge Diet: No restrictions Weight Bearing Status: Weight bearing as tolerated Call your doctor if you observe: Fever of 101 or Higher, Coldness, Increased Pain, Numbness or Tingling, Change in Color, Inability to urinate, Inability to have a bowel movement, Using more than 1 pad per hour, Shortness of breath, Dizziness, Fainting spells, Swelling in the ankles, Chest pain, Prolonged hiccupping, Increased palpitations (irregular heartbeat) and Calf discomfort When: IN 2 WEEKS Meaningful Use Info Meaningful Use Diagnoses (Choose all that apply): None applicable Discharge Plan Admission Admit Date/Time: 01/24/23 15:26 Primary Reason for Your Visit: COPD ecacerbation with acute combined resp failure Attending Provider: Nickolas Bush Primary Care Provider: Mini Parr Consulting Providers: Mateusz Lopez Discharge Orders/Prescriptions Prescriptions: New Deep [place] Nasal 0.65 % Aerosol,[place] 2 spray NASAL Q4H PRN PRN (Reason: NASAL DRYNESS) Qty: 0 0RF nicotine 21 mg/24 hr Patch 24 Hour 21 mg transdermal DAILY 30 Days Qty: 30 0RF lisinopril 5 mg Tablet 5 mg PO DAILY 30 Days Qty: 30 2RF Mucus Relief ER 1,200 mg Tablet Extended Release 12hr 1,200 mg PO BID 7 Days Qty: 14 0RF sennosides-docusate sodium [Stool Softener-Stimulant Laxat] 8.6-50 mg Tablet 2 tab PO BID PRN PRN (Reason: Constipation) 30 Days Qty: 60 0RF prednisone 10 mg tablets,dose pack See Taper PO DAILY Qty: 30 0RF Taper: Prednisone Taper 40 mg WITH BREAKFAST for 3 Days and 0 Hour 30 mg WITH BREAKFAST for 3 Days and 0 Hour 20 mg WITH BREAKFAST for 3 Days and 0 Hour 10 mg WITH BREAKFAST for 3 Days and 0 Hour Rx Instructions: 40 mg with breakfast for 3 Days; 30 mg with breakfast for 3 Days; 20 mg with breakfast for 3 Days; 10 mg with breakfast for 3 Days cefdinir 300 mg capsule 300 mg PO BID Qty: 6 0RF Continued albuterol sulfate 2.5 mg /3 mL (0.083 %) solution for nebulization 2 mg inhalation DAILY furosemide 20 mg tablet 20 mg PO budesonide-formoterol [Symbicort] 160-4.5 mcg/actuation HFA aerosol inhaler INHALATION Referrals / Follow Up: Mini Parr MD [Primary Care Provider] - Mateusz Lopez DO [Med Staff - Active Staff] - Within 2 Weeks (Pulm clinic) Holly English MD [Med Staff - Architectural Design Professor] - Disposition Disposition (needs filled in before D/C Order can be placed): Home, Self Care Charges/Coding Visit Charges Inpatient E&M: 19139 Disch Hosp >30min
[2023-01-28] MEDS: guaiFENesin 1,200 MG Tablet 1200 MG PO (10:46)
--- NOTE | 2023-01-28 12:59 | CASEMGMT ---
Addendum entered by Bernardo Wen 01/28/23 14:53: Script for O2 @ 6 l/m w/exertion and 3 l/m @ rest (pt's baseline O2 @ rest) received from Dr Bush and sent to [facility] at this time via [facility]. Original Note: HALLE DELA CRUZ NOTE: Pt being discharged home. Amb home O2 testing completed and pt now requiring 6 l/m w/exertion and still @ 3 l/m @ rest, as previously ordered. Call placed to [facility] and spoke w/Leta. Leta states pt's home concentrator and portable tanks only go up to 5 l/m. She states they can deliver larger portable tank to [facility] today, once they receive the new/updated order, and can also deliver larger concentrator to pt's sister's home (where pt discharging to). Pt made aware of above. Pt denies having other discharge planning needs. Discussed option of HHC again, but she declines stating she still does not feel she needs it. Gaby MONTOYA RN, CM
== END 2023-01-28 17:25 | disposition home or self-care (01) | DRG 133 ==
LOC: ED 15:16 → PCU 17:35 → ICU 01-25 08:22 → PCU 01-25 10:34 → ICU 01-27 07:34 → PCU 01-27 16:13
PROVIDERS: Family Medicine; Internal Medicine Critical Care Medicine; Admitting Provider Internal Medicine; Emergency Provider Emergency Medicine; PCP Internal Medicine; Visit Provider Internal Medicine
DX: J96.01 Acute respiratory failure with hypoxia (principal); J18.9 Pneumonia, unspecified organism; I11.0 Hypertensive heart disease with heart failure; I50.32 Chronic diastolic (congestive) heart failure; J44.0 Chronic obstructive pulmonary disease with (acute) lower respiratory infection; J96.02 Acute respiratory failure with hypercapnia; J44.1 Chronic obstructive pulmonary disease with (acute) exacerbation; Z68.41 Body mass index [BMI] 40.0-44.9, adult; E66.01 Morbid (severe) obesity due to excess calories; E87.5 Hyperkalemia; I16.0 Hypertensive urgency; R00.1 Bradycardia, unspecified; R73.9 Hyperglycemia, unspecified; Z66 Do not resuscitate; Z79.51 Long term (current) use of inhaled steroids; Z79.899 Other long term (current) drug therapy
CPT/HCPCS: 36415; 36600; 71045; 71275; 80048; 80053; 80061; 82306; 82803; 83036; 83605; 83735; 83880; 84100; 84484; 85025; 85379; 87040; 87428; 87449; 87633; 87641; 93005; 93306; 94002; 94003; 94640; 94668; 94762; 97110; 97116; 97162; 97166; 97530; 97535; 97803; 99285; 99406; J7050; Q9957; Q9967; A4216; C8929; J0610; J0696

== ENCOUNTER → 2023-01-24 | Outpatient (CLI) | payer MEDICAID, SELFPAY ==
[2023-01-24 12:39] LABS: Hematocrit 55.4 % (37-47); Hemoglobin 18.1 g/dL (12.0-15.0); Mean Corp Hgb Conc 32.7 g/dL (32-36); Mean Corpuscular Hgb 29.4 pg (27.0-32.0); Mean Corpuscular Volume 89.9 fL (81-99); Mean Platelet Vol. 13.2 fl (6.2-12.0); POSITIVE COUNT YES; POSITIVE MORPHOLOGY YES; Platelet Count 220 K/mm3 (150-450); RBC Distribution Width CV 13.9 % (11.6-14.6); RBC Distribution Width SD 45.8 fl (35.1-43.9); Red Blood Count 6.16 M/mm3 (4.2-5.4); White Blood Count 9.6 K/mm3 (4.4-11.0)
[2023-01-24 12:52] LABS: Hemoglobin A1c 5.6 % (3.8-5.6)
[2023-01-24 12:59] LABS: Differential Indicated MANUAL DIFF
[2023-01-24 13:34] LABS: Vitamin D,25 Hydroxy 9.5 ng/mL
[2023-01-24 13:36] LABS: ALB/GLOB Ratio 0.5 RATIO (0.9-2.4); AST(SGOT) 28 U/L (15-37); Alanine Aminotransfer ALT/SGPT 32 U/L (13-56); Albumin, Serum 3.6 g/dL (3.2-5.0); Alkaline Phosphatase 168 U/L (45-117); Anion Gap 8 (5-15); BUN 20 mg/dL (7-18); BUN/Creat Ratio 19.2 RATIO (10-20); Calcium,Total 9.6 mg/dL (8.5-10.1); Chloride 93 mmol/L (98-107); Cholesterol 199 mg/dL (200); Creatinine, Serum 1.04 mg/dL (0.55-1.02); EST Glomerular Filtration Rate 58 mL/min (>60); Est Glom Filt Rate - Afr Amer 71 mL/min (>60); Globulin 6.9 g/dL (2.2-4.2); Glucose 139 mg/dL (74-106); High Density Lipoprotein 69 mg/dL; Potassium 5.5 mmol/L (3.5-5.1); Protein, Total 10.5 g/dL (6.4-8.2); Sodium Level 129 mmol/L (136-145); Triglycerides 85 mg/dL; Very Low Density Lipoprotein 17 mg/dL (5-40)
[2023-01-24 14:44] LABS: Basophil 2 % (0-1); Lymphocyte 13 % (19-41); Monocyte 2 % (0-10); Myelocyte 2 % (0-0); Neutrophil-Band 2 % (0-5); Neutrophil-Segmented 79 % (47-70); Total Cells Counted 100 (MANUAL DIFF)
[2023-01-24 14:48] LABS: Platelet Estimate ADEQUATE (ADEQ)
[2023-01-24 14:49] LABS: Red Cell Morphology NORM C+C NORMAL (NORM C&C)
[2023-01-24 14:53] LABS: Absolute Neutrophil Count 7.8 X10^3/uL (2.0-7.7)
[2023-01-24 14:54] LABS: Absolute Lymphocyte Count 1.25 X10^3/uL (0.83-4.51)
[2023-01-25 13:30] LABS: Pathologist Review Reviewed
== END | disposition home or self-care (01) ==
PROVIDERS: PCP Internal Medicine; Visit Provider Nurse Practitioner Family
DX: R06.00 Dyspnea, unspecified (principal); J44.9 Chronic obstructive pulmonary disease, unspecified; R41.82 Altered mental status, unspecified; R60.9 Edema, unspecified; R01.1 Cardiac murmur, unspecified; I49.9 Cardiac arrhythmia, unspecified; I78.8 Other diseases of capillaries
CPT/HCPCS: 80053; 85025; 83036; 82306; 80061

== ENCOUNTER → 2023-06-20 | Outpatient (CLI) | payer MEDICAID, SELFPAY ==
--- NOTE | 2023-06-20 13:33 | CDU_ITS ---
Reason For Study: OCCULAR ISCHEMIC` Rt. Velocities/BP Lt. Velocities/BP Prox CCA 147.2/24.8 cm/sec. Prox CCA 162.2/28.3 cm/sec. Mid CCA 130.8/19.4 cm/sec. Mid CCA 138.1/21.7 cm/sec. Dist CCA 82.1/12.2 cm/sec. Dist CCA 107.3/30.5 cm/sec. Prox ICA 80.9/15.8 cm/sec. Prox ICA 88.0/9.5 cm/sec. Mid ICA 76.0/22.0 cm/sec. Mid ICA 91.7/27.8 cm/sec. Dist ICA 58.8/15.8 cm/sec. Dist ICA 99.0/25.9 cm/sec. Rt. ICA/CCA = 80.9/130.8=0.6. Lt. ICA/CCA = 99.0/138.1=0.7. Prox ECA 116.7/16.3 cm/sec. Prox ECA 127.1/19.5 cm/sec. Rt. Vert. 47.8/9.7 cm/sec. Lt. Vert. 71.5/16.2 cm/sec. Right Extracranial There is homogeneous, smooth atherosclerotic plaque noted in the right common carotid artery. There is heterogeneous, smooth atherosclerotic plaque noted in the right internal carotid artery. There is intimal thickening but no significant atherosclerotic plaque noted in the right external carotid artery. Antegrade flow is noted in the right vertebral artery. Left Extracranial There is intimal thickening but no significant atherosclerotic plaque noted in the left common carotid artery. There is heterogeneous, irregular atherosclerotic plaque noted in the left internal carotid artery. There is intimal thickening but no significant atherosclerotic plaque noted in the left external carotid artery. Antegrade flow is noted in the left vertebral artery. Procedure Carotid Duplex [id number]. This is a Carotid Duplex examination using B-mode, color flow and specral Doppler. Exam performed in department. VL/Carotid Duplex Ultrasound Interpretation Summary Mild (<50%) stenosis right extracranial internal carotid. Mild (<50%) stenosis left extracranial internal carotid. Patent and antegrade vertebrals bilaterally. Ordering Physician: Edmund Jones Referring Physician: Nicolle Carr Performed By: Della Sanchez, CHRISS, RVT
== END | disposition home or self-care (01) ==
LOC: CVS 13:32
PROVIDERS: PCP Nurse Practitioner Family; Referring Provider Ophthalmology; Visit Provider Ophthalmology
DX: I65.23 Occlusion and stenosis of bilateral carotid arteries (principal)
CPT/HCPCS: 93880

== ENCOUNTER 2024-07-30 23:57 | Emergency (ER) | payer MEDICAID, SELFPAY ==
[2024-07-30 23:57] VITALS: BP 136/77; PULSE 110; RESP 19; TEMP 36.6; O2SAT 91
[2024-07-31 00:05] VITALS: BP 136/77; PULSE 110; RESP 19; TEMP 36.6; O2SAT 91; BMI 39.9
--- NOTE | 2024-07-31 00:09 | ED.VIS.DYS ---
HPI History of Present Illness Chief Complaint: Shortness of Breath Informant: patient Onset/Context/Timing Onset: Yesterday Context: sudden Timing: Continuous Quality: Positive for Orthopnea Worsened by: Lying flat Relieved by: Nothing Associated Symptoms cough and white sputum; Negative for rhinorrhea, post nasal drip, ear pain, fever, sore throat, chills, sweats, clear sputum, yellow sputum or green sputum Chest Pain: Positive for Sharp (Right sided) Narrative Narrative: Presents with cough and shortness of breath that began yesterday. Patient states she was bending over her sink washing dishes when she had a cough. Patient states that she developed the sharp pain in the right side of her chest and back when that occurred. Patient states her breathing has gotten progressively worse since that time. Patient admits to a cough with some white sputum. Patient states nothing makes her breathing better and nothing makes it worse. Patient denies any fevers or chills. [facility] Medical History (Updated 07/31/24 @ 02:[address] Abdiel Reed, DO) Right lower lobe pneumonia Respiratory failure with hypoxia Emphysema lung Home Medications ?Medication ?Instructions ?Recorded ?Last Taken ?Type albuterol sulfate 2.5 mg/3 mL 2 mg inhalation DAILY SOB 01/24/23 01/23/23 History (0.083 %) solution for nebulization budesonide-formoterol HFA 160 inhalation breathing 01/24/23 01/24/23 History mcg-4.5 mcg/actuation aerosol inhaler (Symbicort) furosemide 20 mg tablet 20 mg PO edema 01/24/23 01/24/23 History lisinopril 5 mg tablet 5 mg PO DAILY 30 days #30 tabs 01/28/23 Unknown Rx nicotine 21 mg/24 hr daily 21 mg transdermal DAILY 30 days 01/28/23 Unknown Rx transdermal patch #30 ea sennosides 8.6 mg-docusate sodium 2 tab PO BID PRN PRN Constipation 01/28/23 Unknown Rx 50 mg tablet (Stool 30 days #60 tabs Softener-Stimulant Laxative) sodium chloride 0.65 % nasal spray 2 spray NASAL Q4H PRN PRN NASAL 01/28/23 Unknown Rx aerosol (Deep Sea Nasal) DRYNESS #0 mL albuterol sulfate 90 mcg/actuation 2 puff inhalation Q4H PRN 04/11/23 Unknown Rx aerosol inhaler shortness of breath or wheezing #8.5 grams prednisolone acetate 1 % eye 1 drp ophthalmic (eye) Q6H 03/01/23 Unknown History drops,suspension azithromycin 250 mg tablet 250 mg PO DAILY #4 TABLETS 07/31/24 Unknown Rx Allergy/AdvReac Type Severity Reaction Status Date / Time ANTIHISTAMINES Allergy Itching Uncoded 03/01/23 07:19 Family History unable to obtain Surgical History (Updated 07/31/24 @ 00:[address] Abdiel Reed DO) Hx of cholecystectomy Social History (Updated 07/31/24 @ 00:[address] Abdiel Reed DO) Smoking Status: Current every day smoker tobacco type: cigarettes Smoking packs per day: 1.5 Smoking cigarettes per day: 30.0 ROS ROS ED Constitutional Constitutional ED: Denies chills or fever(s) Eyes Eyes: Denies blurry vision or change in vision ENT ENT ED: Denies rhinorrhea or sore throat Cardiovascular Cardiovascular: Reports chest pain; Denies palpitations Respiratory/Chest Respiratory/Chest: Reports cough and dyspnea Gastrointestinal Gastrointestinal: Denies nausea or vomiting Genitourinary Genitourinary ED: Denies dysuria or hematuria Musculoskeletal Musculoskeletal: Denies back pain or neck pain Integumentary Denies abscess or rash Neurologic Neurologic: Denies headache(s) or weakness Allergic/Immunologic Allergic/Immunologic ED: Denies mouth swelling or urticaria EXAM Physical Exam Const Vital Signs: 07/30/24 23:57 07/31/24 00:05 07/31/24 00:06 Temperature 97.9 F 97.9 F Temperature Source Oral Oral Pulse Rate 110 H 110 H Respiratory Rate 19 H 19 H Respiratory Effort Normal Short of Breath Respiratory Depth Shallow Respiratory Pattern Normal Blood Pressure 136/77 H 136/77 H Blood Pressure Mean 96 96 Pulse Ox 91 91 Oxygen Delivery Method Nasal Cannula Nasal Cannula Oxygen Flow Rate (L/min) 3 3 07/31/24 00:44 07/31/24 01:05 Temperature 97.0 F L Temperature Source Temporal Pulse Rate 95 89 Respiratory Rate 24 H 24 H Respiratory Effort Respiratory Depth Respiratory Pattern Tachypnea Blood Pressure 119/39 L Blood Pressure Mean 65 Pulse Ox 92 Oxygen Delivery Method Nasal Cannula Oxygen Flow Rate (L/min) 3 Positive well nourished and well developed General Appearance ED: well developed and NAD HEENT Reports moist mucous membranes Neck supple and no JVD Resp normal respiratory effort Auscultation: wheezes scattered wheezes Cardio regular rhythm Rate: tachycardic GI non-tender and non-distended Palpation: soft Neuro oriented x3, CN's II-XII intact bilaterally and no sensory deficits noted [place] Coma Scale: document GCS findings Spontaneous Obeys Commands Oriented 15 Sensorium / Orientation: alert Speech: speech normal Motor Exam: strength 5/5 throughout Psych mental status grossly normal MDM MDM MDM Narrative Medical decision making narrative: Differential diagnosis includes COPD exacerbation, pneumonia, pneumothorax, intercostal strain, congestive heart failure, cardiac dysrhythmia, cardiac ischemia, electrolyte abnormality, and anxiety. EKG will be obtained to assess for cardiac dysrhythmia and cardiac ischemia. Chest x-ray will be obtained to assess for pneumonia and pneumothorax. CBC will be obtained to assess for leukocytosis and anemia. High-sensitivity troponin will be obtained to assess for cardiac ischemia. Basic metabolic profile will be obtained to assess for electrolyte abnormality and renal function. BNP will be obtained to assess for congestive heart failure. COVID-19, influenza, and RSV PCR will be obtained to assess for viral illness. Lab Data Attestation: I reviewed the patient's lab results. Lab results narrative: CBC was reviewed. There is a mild leukocytosis of 13.9. The remainder is within normal limits. Basic metabolic profile was reviewed. Sodium was slightly low at 134 and chloride was slightly low at 97. The remainder was within normal limits. High-sensitivity troponin was reviewed and was normal at 10. BNP was reviewed and was normal at 17.3. Labs: Laboratory Results - last 24 hr 07/31/24 00:07 WBC 13.9 H RBC 5.03 Hgb 14.7 Hct 45.6 MCV 90.7 MCH 29.2 MCHC 32.2 RDW Std Deviation 45.4 H RDW Coeff of Baltazar 13.5 Plt Count 300 MPV 12.8 H Immature Gran % (Auto) 0.300 Neut % (Auto) 69.0 Lymph % (Auto) 17.7 L [place] % (Auto) 11.0 H Eos % (Auto) 0.7 Baso % (Auto) 1.3 H Absolute Neuts (auto) 9.6 H Absolute Lymphs (auto) 2.45 Nucleated RBC % 0 Differential Comment SCANNED Diff Path Review May foll Sodium 134 L Potassium 3.9 Chloride 97 L Carbon Dioxide 29.0 Anion Gap 8 BUN 10 Creatinine 0.94 Est GFR (MDRD) Af Amer 78 Est GFR (MDRD) Non-Af 65 BUN/Creatinine Ratio 10.6 Glucose 123 H Calcium 9.6 Troponin I High Sens 10 B-Natriuretic Peptide 17.3 Radiography Chest X-Ray - ED: 2 View, Read by ED Physician, Read by Radiologist and Right Infiltrate Diagnostic Testing: Clinical Impression(s) from Imaging Studies Chest X-Ray 07/31/24 00:33 IMPRESSION: Chronic obstructive pulmonary disease. Medial right lower lung airspace consolidation consistent with pneumonia in the appropriate setting. Radiographic follow-up recommended 6 weeks after treatment to ensure resolution. Electronically Signed: Blue Antonio MD at 1:50 EDT , PA and lateral chest x-ray was obtained. There are 2 views. On my independent interpretation, there is a right lower lobe infiltrate. There is no pneumothorax noted. There is evidence of COPD. Bony thorax is normal. There is no cardiomegaly noted. Radiologist also interpreted the x-rays and agrees. EKG Initial EKG: Attestation: I personally reviewed and interpreted this EKG as follows: Interpretation: Sinus Rhythm (95) and No Acute Injury Pattern Comments: EKG was obtained. On my independent interpretation, it showed a normal sinus rhythm with a rate of 95. DE interval, QRS interval, and QTc intervals were all normal. [place] was normal. There are no acute ST or T wave changes. Prior EKG tracings: available for review Prior: Unchanged (01/27/2023) Treatment and Re-Evaluation :: Patient was given a DuoNeb aerosol here. Patient was feeling better on reevaluation. Patient was advised of her findings. Patient was given a dose of Rocephin and Zithromax here. Patient was given a prescription for Zithromax. Patient was given a repeat albuterol aerosol. Patient was instructed to follow-up with her primary care physician in 5 to 7 days. Patient was instructed return if worse in any way. Patient understood and was agreeable with the plan. All questions were answered. Discharge Plan Triage Chief Complaint: Shortness of Breath ED Provider: Abdiel Reed Dx/Rx/DC Orders Clinical Impression: Pneumonia, Shortness of breath, Tobacco use disorder Instructions: ED Pneumonia (Adult) Prescriptions: New azithromycin 250 mg tablet 250 mg PO DAILY Qty: 4 0RF No Action prednisolone acetate 1 % drops,suspension 1 drp ophthalmic (eye) Q6H albuterol sulfate 90 mcg/actuation HFA aerosol inhaler 2 puff inhalation Q4H PRN (Reason: shortness of breath or wheezing) Qty: 8.5 6RF Rx Instructions: administer with spacer albuterol sulfate 2.5 mg /3 mL (0.083 %) solution for nebulization 2 mg inhalation DAILY furosemide 20 mg tablet 20 mg PO budesonide-formoterol [Symbicort] 160-4.5 mcg/actuation HFA aerosol inhaler INHALATION Deep Sea Nasal 0.65 % Aerosol,[place] 2 spray NASAL Q4H PRN PRN (Reason: NASAL DRYNESS) Qty: 0 0RF nicotine 21 mg/24 hr Patch 24 Hour 21 mg transdermal DAILY 30 Days Qty: 30 0RF lisinopril 5 mg Tablet 5 mg PO DAILY 30 Days Qty: 30 2RF sennosides-docusate sodium [Stool Softener-Stimulant Laxat] 8.6-50 mg Tablet 2 tab PO BID PRN PRN (Reason: Constipation) 30 Days Qty: 60 0RF Primary Care Provider: Nicolle Carr NP Referrals: Nicolle Carr ADULT HIGH SCHOOL INSTRUCTOR, ADULT HIGH SCHOOL INSTRUCTOR-C [Primary Care Provider] - 3-5 Days Print Language: Zimbabwean Disposition Disposition: Home, Self Care
--- NOTE | 2024-07-31 00:33 | RAD_ITS ---
INDICATION: Dyspnea EXAMINATION/TECHNIQUE: X-RAY - XR Chest 2 Views COMPARISON: January 24, 2023. Radiograph and CT FINDINGS: LINES/DEVICES: None. LUNGS: Lungs are hyperexpanded. New medial right middle lobe airspace consolidation. No left lung consolidation. No florid edema. Chronic blunting of the costophrenic angles from atelectasis and scarring. No pneumothorax. MEDIASTINUM AND CARDIOVASCULAR STRUCTURES: Cardiac silhouette not enlarged. BONES AND SOFT TISSUES: Unremarkable. RAD/Chest PA and Lateral IMPRESSION: Chronic obstructive pulmonary disease. Medial right lower lung airspace consolidation consistent with pneumonia in the appropriate setting. Radiographic follow-up recommended 6 weeks after treatment to ensure resolution. Electronically Signed: Blue Antonio MD at 1:50 EDT ,
--- NOTE | 2024-07-31 00:34 | EKG12_ITS ---
Test Reason : DYSRHYTHMIA Blood Pressure : / mmHG Vent. Rate : 095 BPM Atrial Rate : 095 BPM P-R Int : 140 ms QRS Dur : 074 ms QT Int : 366 ms P-R-T Axes : 074 045 056 degrees QTc Int : 459 ms Normal sinus rhythm Low voltage QRS Borderline ECG Confirmed by DEVORAH RIDDLE, HALLIE ([id number]), news videotape editor KENDALL SUAREZ ([id number]) on 07/31/2024 7:48:37 AM Referred By: Confirmed By:HALLIE FAIRCHILD MD
[2024-07-31 00:44] VITALS: PULSE 95; RESP 24
[2024-07-31] MEDS: Ipratropium/Albuterol Sulfate 3 ML AMPUL.NEB INHALATION (00:44)
[2024-07-31 00:46] LABS: Absolute Lymphocyte Count 2.45 X10^3/uL (0.83-4.51); Absolute Neutrophil Count 9.6 X10^3/uL (2.0-7.7); Basophil# 0.18 X10^3/uL; Basophil% 1.3 % (0-1); Eosinophils% 0.7 % (0-5); Hematocrit 45.6 % (37-47); Hemoglobin 14.7 g/dL (12.0-15.0); Lymphocyte # 2.45 X10^3/ul (0.83-4.51); Lymphocyte % 17.7 % (19-41); Mean Corp Hgb Conc 32.2 g/dL (32-36); Mean Corpuscular Hgb 29.2 pg (27.0-32.0); Mean Corpuscular Volume 90.7 fL (81-99); Mean Platelet Vol. 12.8 fl (6.2-12.0); Monocyte# 1.52 X10^3/uL; NRBC Flagged by Analyzer 0 % (0-5); Neutrophil # 9.59 X10^3/uL (2.7-7.7); POSITIVE DIFFERENTIAL YES; Platelet Count 300 K/mm3 (150-450); RBC Distribution Width CV 13.5 % (11.6-14.6); RBC Distribution Width SD 45.4 fl (35.1-43.9); Red Blood Count 5.03 M/mm3 (4.2-5.4); White Blood Count 13.9 K/mm3 (4.4-11.0)
[2024-07-31 00:51] LABS: Differential Indicated SCAN CRITERIA MET
[2024-07-31 01:05] VITALS: BP 119/39; PULSE 89; RESP 24; TEMP 36.1; O2SAT 92
[2024-07-31 01:05] LABS: Anion Gap 8 (5-15); BUN 10 mg/dL (7-18); BUN/Creat Ratio 10.6 RATIO (10-20); Calcium,Total 9.6 mg/dL (8.5-10.1); Chloride 97 mmol/L (98-107); Creatinine, Serum 0.94 mg/dL (0.55-1.02); EST Glomerular Filtration Rate 65 mL/min (>60); Est Glom Filt Rate - Afr Amer 78 mL/min (>60); Glucose 123 mg/dL (74-106); Potassium 3.9 mmol/L (3.5-5.1); Sodium Level 134 mmol/L (136-145); Troponin-I HS 10 pg/mL (3.0-54.0)
[2024-07-31 01:24] LABS: BNP,B-Type NATRIURETIC PEPTIDE 17.3 pg/mL (0-100)
[2024-07-31 01:37] LABS: Differential Comment SCANNED
[2024-07-31 02:00] VITALS: BP 104/76; PULSE 73; RESP 19; TEMP 36.9; O2SAT 93
[2024-07-31 02:01] VITALS: BMI 39.9
[2024-07-31] MEDS: Ceftriaxone 2 GM in 0.9% Normal Saline (50mL MB+) 50 ML IV (02:10)
[2024-07-31] MEDS: Albuterol 2.5 MG/3 ML VIAL.NEB. INHALATION (02:15)
[2024-07-31] MEDS: Azithromycin 500 MG in Dextrose 5%-Water (250mL Bag) 250 ML 250 MG IV (02:47)
[2024-07-31 03:00] VITALS: BP 102/71; PULSE 78; PULSE 84; RESP 18; RESP 19; TEMP 36.6; O2SAT 95
--- NOTE | 2024-07-31 03:13 | CPS ---
[0215] x1 Albuterol given to pt. in ER. Pre-tx: HR=81, RR=20 with diminished breath sounds and wheezes in upper lung root. Post-tx: HR=84, RR=20 with clearer breath sounds through out. Wheezes no longer evident at this time.
[2024-07-31 04:00] VITALS: BP 109/70; PULSE 87; RESP 19; TEMP 36.6; O2SAT 97
[2024-08-01 10:27] LABS: Pathologist Review Reviewed
== END 2024-07-31 04:18 | disposition home or self-care (01) ==
PROVIDERS: Emergency Provider Emergency Medicine; PCP Nurse Practitioner Family; Visit Provider Emergency Medicine
DX: J18.9 Pneumonia, unspecified organism (principal); J43.9 Emphysema, unspecified; F17.210 Nicotine dependence, cigarettes, uncomplicated; R06.02 Shortness of breath; R07.9 Chest pain, unspecified
CPT/HCPCS: 71046; 80048; 83880; 84484; 85025; 87631; 93005; 94640; 96365; 96366; 96367; 99283; J7050; A4216; J0696

== ENCOUNTER → 2024-09-07 | Outpatient (CLI) | payer MEDICAID, SELFPAY ==
[2024-09-07 13:36] LABS: Absolute Lymphocyte Count 2.54 X10^3/uL (0.83-4.51); Absolute Neutrophil Count 2.6 X10^3/uL (2.0-7.7); Basophil# 0.17 X10^3/uL; Basophil% 2.5 % (0-1); Eosinophil# 1.02 X10^3/uL; Eosinophils% 14.9 % (0-5); Hematocrit 44.3 % (37-47); Hemoglobin 14.3 g/dL (12.0-15.0); Lymphocyte # 2.54 X10^3/ul (0.83-4.51); Mean Corp Hgb Conc 32.3 g/dL (32-36); Mean Corpuscular Hgb 30.1 pg (27.0-32.0); Mean Corpuscular Volume 93.3 fL (81-99); Mean Platelet Vol. 13.9 fl (6.2-12.0); Monocyte# 0.56 X10^3/uL; Monocyte% 8.2 % (0-10); NRBC Flagged by Analyzer 0 % (0-5); Neutrophil # 2.55 X10^3/uL (2.7-7.7); Neutrophil % 37.1 % (47-70); POSITIVE COUNT YES; Platelet Count 208 K/mm3 (150-450); RBC Distribution Width CV 14.1 % (11.6-14.6); RBC Distribution Width SD 48.8 fl (35.1-43.9); Red Blood Count 4.75 M/mm3 (4.2-5.4); White Blood Count 6.9 K/mm3 (4.4-11.0)
[2024-09-07 13:43] LABS: ALB/GLOB Ratio 0.6 RATIO (0.9-2.4); AST(SGOT) 56 U/L (15-37); Alanine Aminotransfer ALT/SGPT 65 U/L (13-56); Albumin, Serum 3.3 g/dL (3.2-5.0); Alkaline Phosphatase 283 U/L (45-117); Anion Gap 6 (5-15); BUN 6 mg/dL (7-18); BUN/Creat Ratio 9.1 RATIO (10-20); Calcium,Total 9.2 mg/dL (8.5-10.1); Chloride 105 mmol/L (98-107); Cholesterol 223 mg/dL (200); Creatinine, Serum 0.66 mg/dL (0.55-1.02); EST Glomerular Filtration Rate 98 mL/min (>60); Est Glom Filt Rate - Afr Amer 118 mL/min (>60); Globulin 5.2 g/dL (2.2-4.2); Glucose 79 mg/dL (74-106); High Density Lipoprotein 77 mg/dL; Potassium 4.4 mmol/L (3.5-5.1); Protein, Total 8.5 g/dL (6.4-8.2); Sodium Level 140 mmol/L (136-145); Triglycerides 74 mg/dL; Very Low Density Lipoprotein 15 mg/dL (5-40)
[2024-09-07 14:01] LABS: Vitamin D,25 Hydroxy 7.6 ng/mL
[2024-09-07 14:13] LABS: Hemoglobin A1c 5.8 % (3.8-5.6)
[2024-09-07 15:32] LABS: Differential Comment S
[2024-09-07 15:35] LABS: Platelet Estimate ADEQUATE (ADEQ)
[2024-09-07 15:36] LABS: Red Cell Morphology NORM C+C NORMAL (NORM C&C)
[2024-09-07 15:37] LABS: Differential Indicated SCAN CRITERIA MET
== END | disposition home or self-care (01) ==
LOC: LABSPEC 13:03
PROVIDERS: PCP Nurse Practitioner Family; Referring Provider Nurse Practitioner Family; Visit Provider Nurse Practitioner Family
DX: R06.00 Dyspnea, unspecified (principal); J44.9 Chronic obstructive pulmonary disease, unspecified; R41.82 Altered mental status, unspecified; R60.9 Edema, unspecified; R01.1 Cardiac murmur, unspecified; I49.9 Cardiac arrhythmia, unspecified; I78.8 Other diseases of capillaries
CPT/HCPCS: 80053; 80061; 82306; 83036; 85025

== ENCOUNTER 2024-11-13 16:09 | Emergency (ER) | payer MEDICAID, SELFPAY ==
[2024-11-13 16:10] VITALS: BP 149/79; PULSE 103; RESP 18; TEMP 36.7; O2SAT 96
--- NOTE | 2024-11-13 16:32 | EKG12_ITS ---
Test Reason : SOB Blood Pressure : */* mmHG Vent. Rate : 101 BPM Atrial Rate : 101 BPM P-R Int : 140 ms QRS Dur : 78 ms QT Int : 328 ms P-R-T Axes : 73 68 33 degrees QTcB Int : 425 ms Sinus tachycardia Cannot rule out Anterior infarct , age undetermined Abnormal ECG Confirmed by DEVORAH RIDDLE, HALLIE ([id number]), manuscript editor KENDALL SUAREZ ([id number]) on 11/15/2024 2:16:42 PM Referred By: Confirmed By: HALLIE FAIRCHILD MD
--- NOTE | 2024-11-13 16:33 | ED.VIS.DYS ---
HPI History of Present Illness Chief Complaint: Shortness of Breath Informant: patient Onset/Context/Timing Onset: Days Context: gradual Timing: Continuous Quality: Positive for Wheezing Current Severity: Mild Maximum Severity: Mild Worsened by: Coughing Relieved by: Oxygen and Albuterol Associated Symptoms cough; Negative for fever Chest Pain: Positive for None Narrative Narrative: 59-year-old female history of COPD on 3 L of oxygen at home at night.. Continues to smoke. Diagnosed with URI area urgent care this past weekend weekend and was started on antibiotic which she is taking for sinus infection. States that she does feel short of breath. Denies any significant cough no significant sputum. No hemoptysis. No chest pain. No fever. No leg pain or swelling. She has never had a DVT or PE risk factors. States currently she is out of her inhaler. She is on steroids. She does have a nebulizer at home PE Risk Factors: Negative for Cancer, OCP + Smoking + > 35, Prior DVT or PE, Recent immobilization, Recent surgery or Recent travel Prior similar symptoms: Yes Recent Illness/Hospitalization: No [facility] Medical History Right lower lobe pneumonia Respiratory failure with hypoxia Emphysema lung Home Medications ?Medication ?Instructions ?Recorded ?Last Taken ?Type albuterol sulfate 2.5 mg/3 mL 2 mg inhalation DAILY SOB 01/24/23 01/23/23 History (0.083 %) solution for nebulization furosemide 20 mg tablet 20 mg PO Q12H edema 01/24/23 01/24/23 History lisinopril 5 mg tablet 5 mg PO DAILY 30 days #30 tabs 01/28/23 Unknown Rx albuterol sulfate 90 mcg/actuation 2 puff inhalation Q4H PRN 03/01/23 Unknown Rx aerosol inhaler shortness of breath or wheezing #8.5 grams cetirizine 10 mg tablet 10 mg PO DAILY 07/31/24 Unknown History fluoxetine 20 mg tablet 30 mg PO DAILY 07/31/24 Unknown History ipratropium 0.5 mg-albuterol 3 mg 3 ml inhalation Q6H 07/31/24 Unknown History (2.5 mg base)/3 mL nebulization soln tiotropium bromide 2.5 2 puff inhalation DAILY 07/31/24 Unknown History mcg/actuation mist for inhalation (Spiriva Respimat) cefdinir 300 mg capsule 300 mg PO BID 11/13/24 Unknown History Allergy/AdvReac Type Severity Reaction Status Date / Time ANTIHISTAMINES Allergy Itching Uncoded 03/01/23 07:19 Surgical History Hx of cholecystectomy Social History Smoking Status: Current every day smoker tobacco type: cigarettes ROS ROS ED ROS Narrative Shortness of breath. Constitutional Constitutional ED: Denies chills or fever(s) Eyes Eyes: Denies blurry vision ENT ENT ED: Denies ear pain Cardiovascular Cardiovascular: Denies chest pain Respiratory/Chest Respiratory/Chest: Reports dyspnea; Denies cough Gastrointestinal Gastrointestinal: Denies abdominal pain or constipation Genitourinary Genitourinary ED: Denies dysuria or hematuria Musculoskeletal Musculoskeletal: Denies arthralgias or back pain Integumentary Denies abscess Neurologic Neurologic: Denies headache(s) Psychiatric Psychiatric: Denies anxiety Endocrine Endocrinology: Denies cold intolerance Hematologic/Lymphatic Hematologic/Lymphatic: Denies easy bleeding, easy bruising or lymphadenopathy Allergic/Immunologic Allergic/Immunologic ED: Denies mouth swelling, tongue swelling or urticaria EXAM Physical Exam Narrative Exam Narrative: 39-year-old female no acute distress. Vital signs stable afebrile. On 4 L she is 96% no hypoxia. H EENT exam unremarkable. Moist with membranes. Pupils round react to light. Neck nontender no JVD no lymphadenopathy. Lungs coarse breath sounds bilaterally. Expiratory wheezing. No rales or rhonchi. Equal symmetrical. Heart regular rhythm rate about 100 no murmur. Chest wall ribs nontender. Abdomen soft nontender normal bowel sounds without peritoneal signs. Moving all 4 extremities. Nontender no edema no cords. Back nontender. Neurologically patient is awake alert with no focal motor deficit. Const Vital Signs: 11/13/24 16:10 11/13/24 16:34 11/13/24 16:58 Temperature 98.1 F Temperature Source Oral Pulse Rate 103 H 94 Respiratory Rate 18 18 Respiratory Pattern Normal Blood Pressure 149/79 H Blood Pressure Mean 102 Pulse Ox 96 Oxygen Delivery Method Nasal Cannula Nasal Cannula Oxygen Flow Rate (L/min) 4 4 Positive well nourished and well developed; Negative for obese, cachectic, contractures or unkempt General Appearance ED: well developed and NAD; Negative for unkempt, cachectic, contractures or pallor Nutritional Appearance: Negative for cachectic or obese HEENT Reports moist mucous membranes atraumatic; Negative for trauma or tenderness Eyes PERRL and EOMs intact bilaterally General Eye ED: Negative for pale conjunctiva or scleral icterus Neck no lymphadenopathy, supple, no meningeal signs and no JVD General: Negative for tenderness Resp normal respiratory effort and No clear to auscultation bilaterally Resp Narrative: Bilateral expiratory wheezing. Auscultation: wheezes; Negative for rales or rhonchi Cardio regular rate, regular rhythm, S1 normal heart sound, S2 normal heart sound and no murmurs Rate: Negative for bradycardia or tachycardic Rhythm: Negative for abnormal rhythm GI non-tender, non-distended and no masses Auscultation: normoactive bowel sounds Palpation: soft and tender; Negative for guarding, hepatomegaly, splenomegaly, mass or rebound tenderness present Back/Spine no CVA tenderness and normal to inspection General Back: Negative for CVA tenderness or tenderness Extremity normal to inspection General Extremety ED: Negative for edema or tenderness General Extremity: Negative for edema Neuro oriented x3 and CN's II-XII intact bilaterally Sensorium / Orientation: alert, oriented to person, oriented to place and oriented to time; Negative for orientation impaired, confused, lethargic or stuporous Motor Exam: strength 5/5 throughout Psych mental status grossly normal Appearance: Negative for unkempt Attitude: No agitated Mood & Affect: Negative for depressed, anxious or tearful Thought Process: normal thought process Skin no wounds and skin turgor normal General Skin Exam: jaundice; Negative for pallor Lesions: no lesions Rashes: no rashes Trauma: Negative for abrasion, laceration or puncture MDM MDM MDM Narrative Medical decision making narrative: 59-year-old female history of COPD on oxygen at home. URI being treated with antibiotics. Complaint shortness of breath. No significant chest pain. No DVT or PE history. No risk factors. No leg pain or swelling. She undergo a cardiac workup with DuoNeb and albuterol aerosols and oral steroid. Repeat exam at 5:30 PM patient doing well. Breathing is much better clinically and subjectively by the patient after aerosols and oral prednisone. We went over her test results and x-ray. She is comfortable being discharged home. She understands she needs to stop smoking. Follow-up with her director behavioral health and take the medications as prescribed. She will be written for prednisone 40 mg a day for 1 week. Proventil inhaler as needed. She has oxygen at home. She knows return if worse. History & Record Review Discussion w/independent historian: Patient Additional record(s) reviewed:: Prior inpatient record, Prior outpatient record, Prior ED visit and Prior labs Lab Data Attestation: I reviewed the patient's lab results. Lab results narrative: CBC shows a white count of 4. H&H 15 and 47. Platelets 273. Electrolytes show gap 3. Normal BUN of 6 creatinine 0.73. Glucose 108. Troponin 17. Chest x-ray chronic changes no pneumonia. Labs: Laboratory Results - last 24 hr 11/13/24 17:03 WBC 4.8 RBC 5.08 Hgb 15.4 H Hct 47.3 H MCV 93.1 MCH 30.3 MCHC 32.6 RDW Std Deviation 47.2 H RDW Coeff of Baltazar 13.7 Plt Count 273 MPV 12.2 H Immature Gran % (Auto) 0.200 Neut % (Auto) 47.3 Lymph % (Auto) 30.5 [place] % (Auto) 13.2 H Eos % (Auto) 6.1 H Baso % (Auto) 2.7 H Absolute Neuts (auto) 2.3 Absolute Lymphs (auto) 1.46 Nucleated RBC % 0 Sodium 136 Potassium 4.1 Chloride 101 Carbon Dioxide 33.0 H Anion Gap 3 L BUN 6 L Creatinine 0.73 Est GFR (MDRD) Af Amer 106 Est GFR (MDRD) Non-Af 87 BUN/Creatinine Ratio 8.2 L Glucose 108 H Calcium 9.6 Troponin I High Sens 17 Radiography Chest X-Ray - ED: 2 View, Read by ED Physician, Heart, Lungs, Mediastinum, Bony Structures, No Acute Disease and Chronic Changes Diagnostic Testing: Clinical Impression(s) from Imaging Studies Chest X-Ray 11/13/24 16:38 IMPRESSION: No acute consolidative process. Stable changes of COPD. Electronically Signed: Naldo Long MD at 17:07 EST Reading Location ID and State: Count includes the [facility] / [place] Tel , Service support , Chest x-ray, 2 views, interpreted by myself shows normal cardiac silhouette. Chronic changes. COPD. No pneumonia. No effusions. Rhythm Strip Rhythm Strip: Sinus Tach Rate: 101 Ectopy: None EKG Initial EKG: Attestation: I personally reviewed and interpreted this EKG as follows: Interpretation: No Acute Injury Pattern and Sinus Tachycardia Comments: Sinus tachycardia rate of 101 no acute signs of [place] or ischemia. Discharge Plan Triage Chief Complaint: Shortness of Breath ED Provider: Sukhwinder Aparicio Dx/Rx/DC Orders Prescriptions: No Action albuterol sulfate 90 mcg/actuation HFA aerosol inhaler 2 puff inhalation Q4H PRN (Reason: shortness of breath or wheezing) Qty: 8.5 6RF Rx Instructions: administer with spacer albuterol sulfate 2.5 mg /3 mL (0.083 %) solution for nebulization 2 mg inhalation DAILY furosemide 20 mg tablet 20 mg PO Q12H lisinopril 5 mg Tablet 5 mg PO DAILY 30 Days Qty: 30 2RF cefdinir 300 mg capsule 300 mg PO BID ipratropium-albuterol 0.5 mg-3 mg(2.5 mg base)/3 mL solution for nebulization 3 ml inhalation Q6H cetirizine 10 mg tablet 10 mg PO DAILY fluoxetine 20 mg tablet 30 mg PO DAILY Spiriva Respimat 2.5 mcg/actuation mist 2 puff inhalation DAILY Primary Care Provider: Nicolle Carr SEPARATOR OPERATOR Referrals: Nicolle Carr SEPARATOR OPERATOR, SEPARATOR OPERATOR-C [Primary Care Provider] - Print Language: Romanian
--- NOTE | 2024-11-13 16:38 | RAD_ITS ---
INDICATION: dyspnea EXAMINATION/TECHNIQUE: X-RAY - XR Chest 2 Views COMPARISON: 07/31/2024 FINDINGS: LINES/DEVICES: None. LUNGS: Stable hyperinflation with chronic blunting of the costophrenic angles. No vascular congestion, consolidation or pleural effusion. MEDIASTINUM AND CARDIOVASCULAR STRUCTURES: Cardiac silhouette stable within normal limits. BONES AND SOFT TISSUES: No acute changes. RAD/Chest PA and Lateral IMPRESSION: No acute consolidative process. Stable changes of COPD. Electronically Signed: Naldo Long MD at 17:07 EST ,
[2024-11-13] MEDS: Albuterol 2.5 MG/3 ML VIAL.NEB. INHALATION (16:51)
[2024-11-13] MEDS: Ipratropium/Albuterol Sulfate 3 ML AMPUL.NEB INHALATION (16:51)
[2024-11-13 16:58] VITALS: PULSE 94; RESP 18
[2024-11-13] MEDS: predniSONE 20 MG Tablet 60 MG PO (17:02)
[2024-11-13 17:14] LABS: Absolute Lymphocyte Count 1.46 X10^3/uL (0.83-4.51); Absolute Neutrophil Count 2.3 X10^3/uL (2.0-7.7); Basophil# 0.13 X10^3/uL; Basophil% 2.7 % (0-1); Eosinophil# 0.29 X10^3/uL; Eosinophils% 6.1 % (0-5); Hematocrit 47.3 % (37-47); Hemoglobin 15.4 g/dL (12.0-15.0); Lymphocyte # 1.46 X10^3/ul (0.83-4.51); Lymphocyte % 30.5 % (19-41); Mean Corp Hgb Conc 32.6 g/dL (32-36); Mean Corpuscular Hgb 30.3 pg (27.0-32.0); Mean Corpuscular Volume 93.1 fL (81-99); Mean Platelet Vol. 12.2 fl (6.2-12.0); Monocyte# 0.63 X10^3/uL; Monocyte% 13.2 % (0-10); NRBC Flagged by Analyzer 0 % (0-5); Neutrophil # 2.26 X10^3/uL (2.7-7.7); Neutrophil % 47.3 % (47-70); Platelet Count 273 K/mm3 (150-450); RBC Distribution Width CV 13.7 % (11.6-14.6); RBC Distribution Width SD 47.2 fl (35.1-43.9); Red Blood Count 5.08 M/mm3 (4.2-5.4); White Blood Count 4.8 K/mm3 (4.4-11.0)
[2024-11-13 17:28] LABS: Anion Gap 3 (5-15); BUN 6 mg/dL (7-18); BUN/Creat Ratio 8.2 RATIO (10-20); Calcium,Total 9.6 mg/dL (8.5-10.1); Chloride 101 mmol/L (98-107); Creatinine, Serum 0.73 mg/dL (0.55-1.02); EST Glomerular Filtration Rate 87 mL/min (>60); Est Glom Filt Rate - Afr Amer 106 mL/min (>60); Glucose 108 mg/dL (74-106); Potassium 4.1 mmol/L (3.5-5.1); Sodium Level 136 mmol/L (136-145); Troponin-I HS 17 pg/mL (3.0-54.0)
[2024-11-13 17:35] VITALS: BP 120/71
[2024-11-13 17:54] VITALS: O2SAT 98
--- NOTE | 2024-11-13 18:02 | ED.RN ---
silvestre brought O2 tank for drive home
== END 2024-11-13 18:02 | disposition home or self-care (01) ==
PROVIDERS: Emergency Provider Emergency Medicine; PCP Nurse Practitioner Family; Visit Provider Emergency Medicine
DX: R06.02 Shortness of breath (principal); J43.9 Emphysema, unspecified; F17.210 Nicotine dependence, cigarettes, uncomplicated
CPT/HCPCS: 71046; 80048; 84484; 85025; 87631; 93005; 94640; 99285

== ENCOUNTER 2025-08-04 19:57 | Emergency (ER) | payer MEDICAID, SELFPAY ==
[2025-08-04 19:58] VITALS: BP 135/67; PULSE 107; RESP 24; TEMP 37; O2SAT 97
[2025-08-04 20:04] VITALS: BMI 31.4
[2025-08-04 20:10] VITALS: O2SAT 94
[2025-08-04 20:15] VITALS: O2SAT 94
--- NOTE | 2025-08-04 20:15 | EKG12_ITS ---
Test Reason : SOB Blood Pressure : */* mmHG Vent. Rate : 99 BPM Atrial Rate : 99 BPM P-R Int : 146 ms QRS Dur : 86 ms QT Int : 324 ms P-R-T Axes : 84 56 53 degrees QTcB Int : 415 ms Normal sinus rhythm Low voltage QRS Borderline ECG Confirmed by Jeremiah Santana ([id number]), fan mail editor JAYESH BOWMAN ([id number]) on 08/05/2025 1:22:45 PM Referred By: MATTHEW Confirmed By: Jeremiah Santana
--- NOTE | 2025-08-04 20:16 | ED.VIS.DYS ---
HPI History of Present Illness Chief Complaint: Shortness of Breath Informant: patient Onset/Context/Timing Onset: Today Context: gradual Timing: Continuous Quality: Positive for Wheezing Current Severity: Moderate Maximum Severity: Moderate Worsened by: Exertion and Coughing Relieved by: Oxygen Associated Symptoms cough and white sputum Chest Pain: Positive for None Narrative Narrative: 80-year-old female history of COPD uses 3 L oxygen at home at night as needed. Since today she has been short of breath all day has been using her oxygen all day. Does have a cough with white sputum. Denies any chest pain. No fever or chills. No hemoptysis. No leg pain or swelling. No history of DVT or PE. No recent travel, surgery or immobilization. States she has been wheezing at home. PE Risk Factors: Negative for Cancer, OCP + Smoking + > 35, Prior DVT or PE, Recent immobilization, Recent surgery or Recent travel Prior similar symptoms: Yes Recent Illness/Hospitalization: No PFSH PFSH Medical History Right lower lobe pneumonia Respiratory failure with hypoxia Emphysema lung Home Medications ?Medication ?Instructions ?Recorded ?Last Taken ?Type albuterol sulfate 2.5 mg/3 mL 2 mg inhalation DAILY SOB 01/24/23 01/23/23 History (0.083 %) solution for nebulization furosemide 20 mg tablet 20 mg PO Q12H edema 01/24/23 01/24/23 History lisinopril 5 mg tablet 5 mg PO DAILY 30 days #30 tabs 01/28/23 Unknown Rx albuterol sulfate 90 mcg/actuation 2 puff inhalation Q4H PRN 03/01/23 Unknown Rx aerosol inhaler shortness of breath or wheezing #8.5 grams cetirizine 10 mg tablet 10 mg PO DAILY 07/31/24 Unknown History fluoxetine 20 mg tablet 30 mg PO DAILY 07/31/24 Unknown History ipratropium 0.5 mg-albuterol 3 mg 3 ml inhalation Q6H 07/31/24 Unknown History (2.5 mg base)/3 mL nebulization soln tiotropium bromide 2.5 2 puff inhalation DAILY 07/31/24 Unknown History mcg/actuation mist for inhalation (Spiriva Respimat) albuterol sulfate 90 mcg/actuation 2 inh inhalation Q4H PRN shortness 11/13/24 Unknown Rx breath activated powder inhaler of breath or wheezing #1 ea prednisone 20 mg tablet 40 mg (2 x 20 mg) PO DAILY 7 days 08/04/25 Unknown Rx #14 tabs Allergy/AdvReac Type Severity Reaction Status Date / Time No Known Allergies Allergy Verified 08/04/25 20:09 Surgical History Hx of cholecystectomy Social History Smoking Status: Current every day smoker tobacco type: cigarettes ROS ROS ED ROS Narrative Cough. White sputum. Short of breath. Wheezing. Constitutional Constitutional ED: Denies chills or fever(s) Eyes Eyes: Denies blurry vision ENT ENT ED: Denies ear pain Cardiovascular Cardiovascular: Denies chest pain Respiratory/Chest Respiratory/Chest: Reports cough, dyspnea, dyspnea on exertion and sputum Gastrointestinal Gastrointestinal: Denies abdominal pain, diarrhea, melena, nausea or vomiting Genitourinary Genitourinary ED: Denies dysuria or hematuria Musculoskeletal Musculoskeletal: Denies arthralgias or back pain Integumentary Denies abscess Neurologic Neurologic: Denies headache(s) Psychiatric Psychiatric: Denies anxiety or depression Endocrine Endocrinology: Denies cold intolerance Hematologic/Lymphatic Hematologic/Lymphatic: Denies easy bleeding, easy bruising or lymphadenopathy Allergic/Immunologic Allergic/Immunologic ED: Denies mouth swelling, tongue swelling or urticaria EXAM Physical Exam Narrative Exam Narrative: 60-year-old female sitting upright in chair tripoding. Vital signs are stable on 4 L she is 97%. She is tachycardic at 107. She is afebrile. She does not look septic or toxic. H EENT exam pupils round react light. Moist membranes. Neck nontender JVD. No lymphadenopathy. Back nontender. Lungs expiratory wheezing throughout. Prolonged expiratory phase. Equal symmetrical. No rales or rhonchi. Heart tachycardic 107 no murmur. Chest wall and ribs nontender. No crepitance. Abdomen soft nontender. Moving all 4 extremities. Normal receiving weigher strength. Normal dorsi plantarflexion. Calves nontender. No edema no cords. Neurologically she is awake alert. Answering questions following commands. Const Vital Signs: 08/04/25 19:58 08/04/25 20:10 08/04/25 20:15 Temperature 98.6 F Temperature Source Oral Pulse Rate 107 H Respiratory Rate 24 H Respiratory Effort Short of Breath Respiratory Depth Shallow Respiratory Pattern Tachypnea Blood Pressure 135/67 H Blood Pressure Mean 89 Pulse Ox 97 94 Oxygen Delivery Method Nasal Cannula Nasal Cannula Nasal Cannula Oxygen Flow Rate (L/min) 4 4 4 08/04/25 20:36 08/04/25 21:03 08/04/25 21:32 Temperature 98.1 F 98 F Temperature Source Oral Pulse Rate 94 97 92 Respiratory Rate 19 H 22 H 20 H Respiratory Effort Respiratory Depth Respiratory Pattern Normal Blood Pressure 133/77 H 127/81 H Blood Pressure Mean 95 96 Pulse Ox 97 99 Oxygen Delivery Method Nasal Cannula Oxygen Flow Rate (L/min) 4 Positive well nourished and well developed; Negative for cachectic, contractures or unkempt General Appearance ED: well developed; Negative for unkempt, cachectic, contractures, NAD or pallor Nutritional Appearance: Negative for cachectic HEENT Reports moist mucous membranes atraumatic; Negative for trauma or tenderness Eyes PERRL and EOMs intact bilaterally Neck no lymphadenopathy, supple, no meningeal signs and no JVD Resp No normal respiratory effort and No clear to auscultation bilaterally Resp Narrative: Prolonged expiratory phase. Increased rate of respirations. Auscultation: wheezes and diminished lung sounds Cardio regular rhythm, S1 normal heart sound, S2 normal heart sound and no murmurs; Negative for regular rate Rate: tachycardic GI non-tender, non-distended and no masses Auscultation: normoactive bowel sounds Palpation: soft; Negative for tender, guarding, mass or rebound tenderness present Back/Spine no CVA tenderness and normal to inspection Extremity normal to inspection General Extremety ED: Negative for edema or tenderness General Extremity: Negative for edema Neuro oriented x3 and CN's II-XII intact bilaterally Sensorium / Orientation: alert, oriented to person, oriented to place and oriented to time Motor Exam: strength 5/5 throughout Psych mental status grossly normal Appearance: Negative for unkempt Attitude: No agitated and No other Mood & Affect: Negative for depressed, anxious or tearful Thought Process: normal thought process Skin no wounds and skin turgor normal General Skin Exam: Negative for jaundice or pallor Lesions: no lesions Rashes: no rashes MDM MDM MDM Narrative Medical decision making narrative: 60-year-old female suspect exacerbation of COPD. Rule out pneumonia, pneumothorax, CHF versus other etiologies. No history of DVT or PE or risk factors. She will be treated with DuoNeb and albuterol aerosols. IV Solu-Medrol. Chest x-ray and labs. Repeat exam at 9:22 PM patient doing well. She still has some wheezing but she is breathing much better and moving air much better. She is comfortable being discharged home. She has both inhalers and a nebulizer at home. Has plenty of albuterol for her nebulizer. She be placed on prednisone 40 mg a day for a week. Outpatient follow-up with her nurse practitioner. She does not have a gasfitter. She does return if worse. History & Record Review Discussion w/independent historian: Patient Additional record(s) reviewed:: Prior inpatient record, Prior outpatient record, Prior ED visit and Prior labs Lab Data Attestation: I reviewed the patient's lab results. Lab results narrative: CBC unremarkable. White count 9. H&H 13 and 41. Platelets 289. Electrolytes showed gap of 11 normal BUN and creatinine. Glucose 102. Troponin 24. Chest x-ray chronic changes no acute process. COVID, flu and RSV were negative. Labs: Laboratory Results - last 24 hr 08/04/25 20:33 WBC 9.4 RBC 4.41 Hgb 13.5 Hct 41.1 MCV 93.2 MCH 30.6 MCHC 32.8 RDW Std Deviation 47.1 H RDW Coeff of Baltazar 13.8 Plt Count 289 MPV 12.4 H Immature Gran % (Auto) 0.300 Neut % (Auto) 51.8 Lymph % (Auto) 28.7 [place] % (Auto) 10.9 H Eos % (Auto) 6.7 H Baso % (Auto) 1.6 H Absolute Neuts (auto) 4.9 Absolute Lymphs (auto) 2.70 Nucleated RBC % 0 Sodium 136 Potassium 4.1 Chloride 99 Carbon Dioxide 25.9 Anion Gap 11 BUN 7 Creatinine 0.63 L Estim Creat Clear Calc 94.13 Est GFR (MDRD) Non-Af 103 BUN/Creatinine Ratio 10.5 Glucose 102 H Calcium 9.4 Troponin T High Sens 24 H Radiography Chest X-Ray - ED: 2 View, Read by ED Physician, Normal, Heart, Lungs, Mediastinum, Bony Structures, No Acute Disease and Chronic Changes Diagnostic Testing: Clinical Impression(s) from Imaging Studies Chest X-Ray 08/04/25 20:50 IMPRESSION: Small bibasilar opacities, likely atelectasis with infection not excluded. Reading Location: [facility] Chest x-ray, 2 views, AP and lateral, interpreted by myself shows normal cardiac silhouette. No mediastinum. No pneumonia. No effusion. Chronic changes consistent with COPD. No acute process. Rhythm Strip Rhythm Strip: Sinus Rhythm Rate: 99 Ectopy: None EKG Initial EKG: Attestation: I personally reviewed and interpreted this EKG as follows: Interpretation: Sinus Rhythm and No Acute Injury Pattern Comments: Normal sinus rhythm rate 99 no acute signs of NC or ischemia. Discharge Plan Triage Chief Complaint: Shortness of Breath ED Provider: Sukhwinder Aparicio Dx/Rx/DC Orders Clinical Impression: Shortness of breath, COPD exacerbation Instructions: ED COPD Flare Prescriptions: New prednisone 20 mg tablet 40 mg PO DAILY 7 Days Qty: 14 0RF No Action albuterol sulfate 90 mcg/actuation HFA aerosol inhaler 2 puff inhalation Q4H PRN (Reason: shortness of breath or wheezing) Qty: 8.5 6RF Rx Instructions: administer with spacer albuterol sulfate 2.5 mg /3 mL (0.083 %) solution for nebulization 2 mg inhalation DAILY furosemide 20 mg tablet 20 mg PO Q12H lisinopril 5 mg Tablet 5 mg PO DAILY 30 Days Qty: 30 2RF albuterol sulfate 90 mcg/actuation aerosol powdr breath activated 2 inh inhalation Q4H PRN (Reason: shortness of breath or wheezing) Qty: 1 1RF ipratropium-albuterol 0.5 mg-3 mg(2.5 mg base)/3 mL solution for nebulization 3 ml inhalation Q6H cetirizine 10 mg tablet 10 mg PO DAILY fluoxetine 20 mg tablet 30 mg PO DAILY Spiriva Respimat 2.5 mcg/actuation mist 2 puff inhalation DAILY Primary Care Provider: Nicolle Carr [employer] Referrals: Nicolle Carr [employer]AL MANAGER, [employer] [facility]NAGER[facility] [Primary Care Provider] - 3-5 Days Activity Restrictions/Additional Instructions: Use your oxygen constantly until you are feeling better. Follow-up with your primary care provider to ensure you are improving. Prednisone 40 mg a day for the next 7 days starting tomorrow. Use your inhaler 2 puffs every 2-4 hours as needed. Use your nebulizer as needed. Return to emergency department if feeling worse. Print Language: Telugu Disposition Disposition: Home, Self Care Discharge Date/Time: 08/04/25 21:38
[2025-08-04] MEDS: Albuterol 2.5 MG/3 ML VIAL.NEB. INHALATION (20:33)
[2025-08-04 20:36] VITALS: PULSE 94; RESP 19
--- NOTE | 2025-08-04 20:50 | RAD_ITS ---
PROCEDURE: CHEST PA AND LATERAL 08/04/2025 REASON FOR EXAM: DYSPNEA AND COPD TECHNIQUE: Procedure Code: RADCXR Modality: DX Procedure: CHEST PA AND LATERAL COMPARISON: 11/13/2024 FINDINGS: LUNGS AND PLEURA: Emphysematous lung changes. Small opacities in both lung bases. No pleural effusion or pneumothorax. HEART AND MEDIASTINUM: The heart size and mediastinal contours are normal. BONES: No acute osseous abnormality. Similar-appearing sclerotic proximal left humerus lesion, likely an enchondroma or bone infarct. Old right posterior 7th rib fracture. RAD/Chest PA and Lateral IMPRESSION: Small bibasilar opacities, likely atelectasis with infection not excluded. Reading Location: [id number]
[2025-08-04 21:03] VITALS: BP 133/77; PULSE 97; RESP 22; TEMP 36.7; O2SAT 97
--- OUTSIDE RECORDS SUMMARY | 2025-08-04 21:06 | XMS RPT_ITS | CCD ---
Author Organization [facility] Care Team Providers Care Lead Infrastructure Architect Name Role Phone Mini Butts MD Primary Care Provider [phone] MD Monty Messina Emergency Provider Dr. Mini Butts Primary Care Provider Dr. Nickolas Bush Attending Provider [phone], Dr. Olmos Admit Provider Dr. Nickolas Bush Other Provider Dr. Mateusz Lopez Other Provider Dr. Mateusz Lopez Attending Provider Dr. Ralph Mims Attending Provider MD Monty Messina Emergency Provider Dr. Mini Butts Primary Care Provider Dr. Nickolas Bush Attending Provider [phone] Nickolas Bush Admit Provider Dr. Nickolas Bush Other Provider Dr. Mateusz Lopez Other Provider Dr. Mateusz Lopez Attending Provider Dr. Ralph Mims Attending Provider Bruno VALDEZ, [employer]-C Nicolle Cooper Primary Care Provider Unavailable Dr. Abdiel Whelan Attending Provider Bruno [employer], Nicolle Cooper Referring Mayito Carr [employer], Nicolle Cooper Primary Care Unavailgoldy Carr [employer], Nicolle Cooper Attending Abdiel Singh Attending Unavailable Nicolle Carr NP Primary Care Unavailabl Sukhwinder Jolly Attending Unavailable Nicolle Carr NP Primary Care Unavailabl e Allergies Allergy Classification Reported Allergen(s) Allergy Type Date of Onset Reaction(s) Facility (1 source) anithistamines [Other] Propensity to adverse reactions 6 [facility] Work Phone: (1 source) Antihistamines; Translations: [ANTIHISTAMINES] Propensity to adverse reactions (disorder) 3 [facility] Repository Medications Current Medications Medication Drug Class(es) Dates Sig (Normalized) Sig (Original) [id number] 200 actuat albuterol 0.09 mg/actuat metered dose inhaler (9 sources) beta2-Adrenergic Agonist Start: 03-01-2023 take 1 puff(s) by inhalation every four hours Albuterol Sulfate Active 2 PUFF INHALATION Q4H 8.5 February 28, 2023 11:00pm administer with spacer Start: 01-24-2023 take 2 mg by inhalat ion once daily Albuterol Sulfate Active 2 MG INHALATION DAILY January 24, 2023 12:00am Start: 03-17-2020 take 2 puff(s) by in halation every four hours as needed albuterol HFA (PROVENTIL HFA, VENTOLIN HFA) 90 mcg/actuation inhaler Indications: Pulmonary emphysema, unspecified emphysema type (HCC) Inhale 2 Puffs as instructed every 4 hours as needed. Needs to schedule office visit for future refills 1 Inhaler 5 03/17/2020 Active Start: 04-25-2018 take 2.5 mg by inhal ation every four hours as needed albuterol (PROVENTIL) 2.5 mg /3 mL (0.083 %) nebulizer solution Use 3 mL via nebulizer every 4 hours as needed for Wheezing/Shortness of Breath. Use over 5-15minutes. 1 Package 2 04/25/2018 Active Comment on above: Use 3 mL via nebuliz er every 4 hours as needed for Wheezing/Shortness of Breath. Use over 5-15minutes. Inhale 2 Puffs as in structed every 4 hours as needed. Needs to schedule office visit for future refills Budesonide-Formoter ol (5 sources) Corticosteroid, beta2-Adrenergic Agonist Start: 01-24-2023 Budesonide-Formoterol (Symbicort) 160-4.5 mcg/actuation HFA aerosol inhaler Active INHALATION January 24, 2023 1:00am Start: 01-24-2023 Budesonide-For moterol (Symbicort) 160-4.5 mcg/actuation HFA aerosol inhaler Active INHALATION January 24, 2023 12:00am docusate sodium 50 mg / sennosides, halfway 8.6 mg oral tablet (4 sources) Start: 01-28-2023 take 2 tablets by mouth twice daily as needed Sennosides-Docusate Sodium (Stool Softener-Stimulant Laxat) 8.6-50 mg Tablet Active 2 TABLET PO TWICE DAILY NEEDED 60 January 28, 2023 12:00am furosemide 20 mg oral tablet (5 sources) Loop Diuretic Start: 01-24-2023 Furosemide Active 20 MG PO January 24, 2023 12:00am lisinopril 5 mg oral tablet (4 sources) Angiotensin Converting Enzyme Inhibitor Start: 01-28-2023 take 5 mg by mouth once daily Lisinopril Active 5 MG PO DAILY 30 January 28, 2023 12:00am 24 hr nicotine 0.875 mg/hr transdermal system (4 sources) Cholinergic Nicotinic Agonist Start: 01-28-2023 Nicotine Active 21 MG TD DAILY January 28, 2023 12:00am prednisoLONE acetate 10 mg/ml ophthalmic suspension (2 sources) Corticosteroid Start: 03-01-2023 Prednisolone Acetate Active 1 DRP OPHTHALMIC EVERY 6 HOURS February 28, 2023 11:00pm sodium chloride 0.111 meq/ml nasal spray (4 sources) Start: 01-28-2023 Sodium Chloride ([place] Nasal) 0.65 % Aerosol,[place] Active 2 SPRAY NASAL EVERY 4 HOURS NEEDED 0 January 28, 2023 12:00am Completed/Discontinued Medications Medication Drug Class(es) Dates Sig (Normalized) Sig (Original) benzonatate 100 mg oral capsule (1 source) Non-narcotic Antitussive Start: 04-25-2018 take 2 capsules by mouth every eight hours as needed benzonatate (TESSALON PERLES) 100 mg capsule Take 2 capsules by mouth three times daily as needed. 30 capsule 0 04/25/2018 Active Comment on above: Take 2 capsules by m outh three times daily as needed. 24 hr buPROPion hydrochloride 300 mg extended release oral tablet (1 source) Aminoketone Start: 07-18-2017 take 1 tablet by mouth once daily buPROPion XL (WELLBUTRIN XL) 300 mg 24 hr tablet Indications: Recurrent major depressive disorder, in partial remission (HCC) Take 1 tablet by mouth once daily. 30 tablet 5 07/18/2017 Active Comment on above: Take 1 tablet by [facility] once daily. cefdinir 300 mg oral capsule (4 sources) Cephalosporin Antibacterial Start: 01-28-2023 End: 03-01-2023 take 300 mg by mouth twice daily Cefdinir Discontinued 300 MG PO TWICE A DAY January 28, 2023 12:00am March 01, 2023 6:19am FLUoxetine 10 mg oral capsule (2 sources) Serotonin Reuptake Inhibitor Start: 03-17-2020 take 1 capsule by mouth once daily FLUoxetine (PROZAC) 10 mg capsule Indications: Anxiety and depression Take 1 capsule by mouth once daily. In addition to 20 mgs. To make a total of 30. 30 capsule 3 03/17/2020 Active Start: 07-17-2018 take 1 capsule by [facility] once daily FLUoxetine (PROZAC) 20 mg capsule Indications: Anxiety and depression Take 1 capsule by mouth once daily. 30 capsule 3 07/17/2018 Active Comment on above: Take 1 capsule by [facility] once daily. Take 1 capsule by [facility] once daily. In addition to 20 mgs. To make a total of 30. 12 hr guaiFENesin 1200 mg extended release oral tablet (4 sources) Start: 3 End: 3 take 1 tablet by mouth twice daily, then take 1 tablet by mouth every twelve hours Guaifenesin (Mucus Relief Er) 1,200 mg Tablet Extended Release 12hr Discontinued 1200 MG PO TWICE A DAY 14 January 28, 2023 12:00am March 01, 2023 6:19am predniSONE 40 mg oral tablet (5 sources) Start: 3 End: 3 take 40 mg by mouth once daily at breakfast Prednisone Discontinued 0 MG PO DAILY January 28, 2023 12:00am March 01, 2023 6:19am 40 mg with breakfast for 3 Days; 30 mg with breakfast for 3 Days; 20 mg with breakfast for 3 Days; 10 mg with breakfast for 3 Days Start: 09-11-2018 predniSONE (DE LTASONE) 10 mg tablet Indications: Bronchitis , COPD exacerbation (HCC) Take 40 mg x 3 days, 20 mg x 3 days, 10 mg x 3 days. Take with food, once daily 21 tablet 0 09/11/2018 Active Comment on above: Take 40 mg x 3 days, 20 mg x 3 days, 10 mg x 3 days. Take with food, once daily THERAPEUTIC MULTIVITAMIN TAB (1 source) Start: 04-27-2006 THERAPEUTIC MULTIVITAMIN TAB Take one(1) tablet daily. 0 04/27/2006 Active Comment on above: Take one(1) tablet d aily. varenicline (1 source) Partial Cholinergic Nicotinic Agonist Start: 06-07-2017 Varenicline (CHANTIX) 0.5 mg (11)- 1 mg (42) tablet Indications: Tobacco use disorder Starting pack (1 month supply) - follow directions on package for dosing. 1 Package 0 06/07/2017 Active Comment on above: Starting pack (Tue supply) - follow directions on package for dosing. Problems Active Problems Problem Classification Problem Date Documented Da te Episodic/Chronic Anxiety disorders (1 source) Anxiety state; Translations: [Generalized anxiety disorder] Onset: 04-27-2006 09-03-2015 Chronic Chronic obstructive pulmonary disease and bronchiectasis (1 source) Pulmonary emphysema; Translations: [Emphysema, unspecified] Onset: 09-03-2015 09-03-2015 Chronic Mood disorders (1 source) Recurrent major depression; Translations: [Major depressive disorder, recurrent, unspecified] Onset: 09-03-2015 11-16-2021 Chronic Other circulatory disease (5 sources) Elevated blood pressure; Translations: [Elevated blood-pressure reading, without diagnosis of hypertension] 01-24-2023 Episodic Other circulatory disease (3 sources) Elevated blood-pressure reading, without diagnosis of hypertension; Translations: [Elevated blood pressure reading without diagnosis of hypertension] 01-24-2023 Episodic Other lower respiratory disease (5 sources) Dyspnea; Translations: [Shortness of breath] 01-24-2023 Episodic Other lower respiratory disease (4 sources) Shortness of breath; Translations: [Shortness of breath] Onset: 12-12-2024 01-24-2023 Episodic Other lower respiratory disease (1 source) Dyspnea, unspecified; Translations: [Dyspnea, unspecified] Onset: 09-25-2024 Episodic Other nutritional; endocrine; and metabolic disorders (1 source) Body mass index 40+ - severely obese; Translations: [Morbid (severe) obesity due to excess calories] Onset: 03-07-2018 03-07-2018 Chronic Other nutritional; endocrine; and metabolic disorders (2 sources) Obesity; Translations: [Obesity, unspecified] 03-01-2023 Chronic Other screening for suspected conditions (not mental disorders or infectious disease) (9 sources) Patient encounter status; Translations: [Encounter for screening mammogram for malignant neoplasm of breast] Episodic Other upper respiratory disease (1 source) Allergic rhinitis; Translations: [Allergic rhinitis, unspecified] Onset: 04-27-2006 07-18-2017 Chronic Pneumonia (except that caused by tuberculosis or sexually transmitted disease) (8 sources) Right lower zone pneumonia; Translations: [Pneumonia, unspecified organism] 01-24-2023 Episodic Respiratory failure; insufficiency; arrest (adult) (6 sources) Xxuxu-pm-yaygcce respiratory failure; Translations: [Acute and chronic respiratory failure with hypoxia] 01-24-2023 Chronic Respiratory failure; insufficiency; arrest (adult) (8 sources) Hypoxemic respiratory failure; Translations: [Respiratory failure, unspecified with hypoxia] 01-24-2023 Episodic Substance-related disorders (3 sources) Tobacco user; Translations: [Nicotine dependence, unspecified, uncomplicated] Onset: 04-27-2006 04-02-2015 Chronic Past or Other Problems Problem Classification Problem Date Documented Da te Episodic/Chronic Administrative/social admission (1 source) Counseling procedure with explicit context; Translations: [Tobacco abuse counseling] Onset: 06-14-2016 06-14-2016 Episodic Results Test Name Value Interpretation Reference Range Facility M100.678 11-14-2024 M100.678 Copy of report sent to Infection Control Printer [id number] 11/14/24 0720 KIM. Pending SARS-CoV-2 (COVID 19) A Positive A INFLUENZA A Negative INFLUENZA B Negative RSV PCR Negative SARS-CoV-2 (COVID 19) Normal [facility] Comment on above: Performed By: #### M 100.678 #### [facility] [address] [place], [address] 12 Lead EKGon 11-13-2024 12 Lead EKG [facility] Cardiovascular Services [address] [place] [address] 12 Lead EKG 11/13/24 1702 MR#: [id number] Acct: [id number] Name: RADHA SLADE Rep #: [id number] : [id number] From: Daniel Suarez MD Attending Dr: Status: DEP ER Ordering Dr: Sukhwinder Aparicio MD Date: 11/13/24 Location: ED Sex: F C Admitted: Test Reason : SOB Blood Pressure : */* mmHG Vent. Rate : 101 BPM Atrial Rate : 101 BPM P-R Int : 140 ms QRS Dur : 78 ms QT Int : 328 ms P-R-T Axes : 73 68 33 degrees QTcB Int : 425 ms Sinus tachycardia Cannot rule out Anterior infarct , age undetermined Abnormal ECG Confirmed by DANIEL SUAREZ MD ([id number]), acquisitions editor KENDALL SUAREZ ([id number]) on 11/15/2024 2:16:42 PM Referred By: Confirmed By: DANILE SUAREZ MD 11/15/24 1416 Date Daniel Suarez MD CC: SANG Carr; Dr. Sukhwinder Aparicio MD Signed Normal [facility] Basic Metabolic Profile (BMP )on 11-13-2024 BUN/CRE 8.2 RATIO Low 10-20 [facility] Comment on above: Order Comment: 'TROP ' Serial specimen #1, #2 or #3: 1 Performed By: #### L 500.2500, L501.4020, L100.0100 #### [facility] [address] [facility] [place], [address] CA,Total 9.6 mg/dL Normal 8.5-10.1 [facility] Comment on above: Order Comment: 'TROP ' Serial specimen #1, #2 or #3: 1 Performed By: #### L 500.2500, L501.4020, L100.0100 #### [facility] [address] [place], [address] Chloride [Moles/Vol] 101 mmol/L Normal 98-107 [facility] Comment on above: Order Comment: 'TROP ' Serial specimen #1, #2 or #3: 1 Performed By: #### L 500.2500, L501.4020, L100.0100 #### [facility] [address] [place], [address] CO2 [Moles/Vol] 33.0 mmol/L High 21.0-32.0 [facility] Comment on above: Order Comment: 'TROP ' Serial specimen #1, #2 or #3: 1 Performed By: #### L 500.2500, L501.4020, L100.0100 #### [facility] [address] [place], [address] Creatinine [Mass/Vol] 0.73 mg/dL Normal 0.55-1.02 [facility] Comment on above: Order Comment: 'TROP ' Serial specimen #1, #2 or #3: 1 Result Comment: The validity of the calculated GFR GFRAA in patients over 70 years has not been determined. Clinical correlation is essential. Performed By: #### L 500.2500, L501.4020, L100.0100 #### [facility] [address] [place], [address] EST GFR - AA 106 mL/min Normal >60 [facility] Comment on above: Order Comment: 'TROP ' Serial specimen #1, #2 or #3: 1 Result Comment: Afri can Burmese GFR Calc Performed By: #### L 500.2500, L501.4020, L100.0100 #### [facility] [address] [place], [address] GAP 3 Low 5-15 [facility] Comment on above: Order Comment: 'TROP ' Serial specimen #1, #2 or #3: 1 Performed By: #### L 500.2500, L501.4020, L100.0100 #### [facility] [address] [place], [address] GFR/1.73 sq M.predicted among non-blacks MDRD (S/P/Bld) [Vol rate/Area] 87 mL/min/{1.73_m2} Normal >60 [facility] Comment on above: Order Comment: 'TROP ' Serial specimen #1, #2 or #3: 1 Result Comment: Non- GFR Calc Performed By: #### L 500.2500, L501.4020, L100.0100 #### [facility] [address] [place], [address] Glucose [Mass/Vol] 108 mg/dL High 74-106 [facility] Comment on above: Order Comment: 'TROP ' Serial specimen #1, #2 or #3: 1 Result Comment: Fast ing Glucose result from 100 to 125 mg/dL suggests IMPAIRED HOMEOSTASIS per A.D.A. criteria. Performed By: #### L 500.2500, L501.4020, L100.0100 #### [facility] [address] [place], [address] Potassium [Moles/Vol] 4.1 mmol/L Normal 3.5-5.1 [facility] Comment on above: Order Comment: 'TROP ' Serial specimen #1, #2 or #3: 1 Performed By: #### L 500.2500, L501.4020, L100.0100 #### [facility] [address] [place], [address] Sodium [Moles/Vol] 136 mmol/L Normal 136-145 [facility] Comment on above: Order Comment: 'TROP ' Serial specimen #1, #2 or #3: 1 Performed By: #### L 500.2500, L501.4020, L100.0100 #### [facility] [address] [place], [address] Urea nitrogen [Mass/Vol] 6 mg/dL Low 7-18 [facility] Comment on above: Order Comment: 'TROP ' Serial specimen #1, #2 or #3: 1 Performed By: #### L 500.2500, L501.4020, L100.0100 #### [facility] [address] [place], [address] CBC W/Diff, Automatedon 12-2 Absolute Lymph 1.46 X10 3/uL Normal 0.83-4.51 [facility] Comment on above: Performed By: #### L 500.2500, L501.4020, L100.0100 #### [facility] [address] [place], [address] Absolute Neut 2.3 X10 3/uL Normal 2.0-7.7 [facility] Comment on above: Performed By: #### L 500.2500, L501.4020, L100.0100 #### [facility] [address] [place], [address] Basophils/100 WBC (Bld) 2.7 % High 0-1 [facility] Comment on above: Performed By: #### L 500.2500, L501.4020, L100.0100 #### [facility] [address] [place], [address] Eosinophils/100 WBC (Bld) 6.1 % High 0-5 [facility] Comment on above: Performed By: #### L 500.2500, L501.4020, L100.0100 #### [facility] [address] [place], [address] Erythrocyte distribution width (RBC) [Ratio] 13.7 % Normal 11.6-14.6 [facility] Comment on above: Performed By: #### L 500.2500, L501.4020, L100.0100 #### [facility] [address] [place], [address] Hematocrit (Bld) [Volume fraction] 47.3 % High 37-47 [facility] Comment on above: Performed By: #### L 500.2500, L501.4020, L100.0100 #### [facility] [address] [place], [address] Hemoglobin (Bld) [Mass/Vol] 15.4 g/dL High 12.0-15.0 [facility] Comment on above: Performed By: #### L 500.2500, L501.4020, L100.0100 #### [facility] [address] [place], [address] IG% 0.200 Normal 0.0-0.9 [facility] Comment on above: Result Comment: IG% - Immature Granulocytes (promyelocytes, myelocytes and metamyelocytes) > 1% indicates that a LEFT SHIFT is Present. Performed By: #### L 500.2500, L501.4020, L100.0100 #### [facility] [address] [place], [address] Lymphocytes/100 WBC (Bld) 30.5 % Normal 19-41 [facility] Comment on above: Performed By: #### L 500.2500, L501.4020, L100.0100 #### [facility] [address] [place], [address] MCH (RBC) [Entitic mass] 30.3 pg Normal 27.0-32.0 [facility] Comment on above: Performed By: #### L 500.2500, L501.4020, L100.0100 #### [facility] [address] [place], [address] MCHC (RBC) [Mass/Vol] 32.6 g/dL Normal 32-36 [facility] Comment on above: Performed By: #### L 500.2500, L501.4020, L100.0100 #### [facility] [address] [place], [address] MCV (RBC) [Entitic vol] 93.1 fL Normal 81-99 [facility] Comment on above: Performed By: #### L 500.2500, L501.4020, L100.0100 #### [facility] [address] [place], [address] Monocytes/100 WBC (Bld) 13.2 % High 0-10 [facility] Comment on above: Performed By: #### L 500.2500, L501.4020, L100.0100 #### [facility] [address] [place], [address] Neutrophils/100 WBC (Bld) 47.3 % Normal 47-70 [facility] Comment on above: Performed By: #### L 500.2500, L501.4020, L100.0100 #### [facility] [address] [place], [address] Nucleated RBC (Bld) [#/Vol] 0 10*3/uL Normal 0-5 [facility] Comment on above: Performed By: #### L 500.2500, L501.4020, L100.0100 #### [facility] [address] [place], [address] Platelet mean volume (Bld) [Entitic vol] 12.2 fL High 6.2-12.0 [facility] Comment on above: Performed By: #### L 500.2500, L501.4020, L100.0100 #### [facility] [address] [place], [address] Platelets (Bld) [#/Vol] 273 10*3/uL Normal 150-450 [facility] Comment on above: Performed By: #### L 500.2500, L501.4020, L100.0100 #### [facility] [address] [place], [address] RBC (Bld) [#/Vol] 5.08 10*6/uL Normal 4.2-5.4 [facility] Comment on above: Performed By: #### L 500.2500, L501.4020, L100.0100 #### [facility] [address] [place], [address] RDW SD 47.2 fl High 35.1-43.9 [facility] Comment on above: Performed By: #### L 500.2500, L501.4020, L100.0100 #### [facility] [address] [place], [address] WBC (Bld) [#/Vol] 4.8 10*3/uL Normal 4.4-11.0 [facility] Comment on above: Performed By: #### L 500.2500, L501.4020, L100.0100 #### [facility] [address] [place], [address] Chest PA and Lateralon 11-13 Chest PA and Lateral [facility] Imaging Services [address] [place] [address] Chest PA and Lateral MR#: [id number] Acct: [id number] Name: RADHA SLDAE Rep #: [id number] : 1965 F 59 From: Naldo Long MD PCP: SANG Alexander Status: PRE ER Study: Chest PA and Lateral Date of Exam: 11/13/24 Exam# [id number] Ordering Dr: [place] [id number] INDICATION: dyspnea EXAMINATION/TECHNIQUE: X-RAY - XR Chest 2 Views COMPARISON: 07/31/2024 FINDINGS: LINES/DEVICES: None. LUNGS: Stable hyperinflation with chronic blunting of the costophrenic angles. No vascular congestion, consolidation or pleural effusion. MEDIASTINUM AND CARDIOVASCULAR STRUCTURES: Cardiac silhouette stable within normal limits. BONES AND SOFT TISSUES: No acute changes. RAD/Chest PA and Lateral IMPRESSION: No acute consolidative process. Stable changes of COPD. Electronically Signed: Naldo Long MD at 17:07 EST Reading Location ID and State: [facility] / [place] Tel , Service support , CC: HEAD CLEANING PORTERMisael Carr; Dr. Sukhwinder Aparicio MD Lens Silverer: Signed Normal [facility] Emergency Department Summary on 11-13-2024 Emergency Department Summary [facility] Medical Records Department [address] [place] [address] Emergency Department Summary 11/13/24 MR#: [id number] Acct: [id number] Name: RADHA SLADE Rep #: [id number] : 1965 59 From: Sukhwinder Aparicio MD PCP: SANG Alexander Status:DEP ER Location: ED HPI History of Present Illness Chief Complaint: Shortness of Breath Informant: patient Onset/Context/Timing Onset: Days Context: gradual Timing: Continuous Quality: Positive for Wheezing Current Severity: Mild Maximum Severity: Mild Worsened by: Coughing Relieved by: Oxygen and Albuterol Associated Symptoms cough; Negative for fever Chest Pain: Positive for None Narrative Narrative: 59-year-old female history of COPD on 3 L of oxygen at home at night.. Continues to smoke. Diagnosed with URI area urgent care this past weekend weekend and was started on antibiotic which she is taking for sinus infection. States that she does feel short of breath. Denies any significant cough no significant sputum. No hemoptysis. No chest pain. No fever. No leg pain or swelling. She has never had a DVT or PE risk factors. States currently she is out of her inhaler. She is on steroids. She does have a nebulizer at home PE Risk Factors: Negative for Cancer, OCP + Smoking + > 35, Prior DVT or PE, Recent immobilization, Recent surgery or Recent travel Prior similar symptoms: Yes Recent Illness/Hospitalization : No PFSH PFSH Medical History Right lower lobe pneumonia Respiratory failure with hypoxia Emphysema lung Home Medications ???Medication ???Instructions ???Recorded ???Last Taken ???Type albuterol sulfate 2.5 mg/3 mL 2 mg inhalation DAILY SOB 01/24/23 01/23/23 History (0.083 %) solution for nebulization furosemide 20 mg tablet 20 mg PO Q12H edema 01/24/23 01/24/23 History lisinopril 5 mg tablet 5 mg PO DAILY 30 days #30 tabs 01/28/23 Unknown Rx albuterol sulfate 90 mcg/actuation 2 puff inhalation Q4H PRN 03/01/23 Unknown Rx aerosol inhaler shortness of breath or wheezing #8.5 grams cetirizine 10 mg tablet 10 mg PO DAILY 07/31/24 Unknown History fluoxetine 20 mg tablet 30 mg PO DAILY 07/31/24 Unknown History ipratropium 0.5 mg-albuterol 3 mg 3 ml inhalation Q6H 07/31/24 Unknown History (2.5 mg base)/3 mL nebulization soln tiotropium bromide 2.5 2 puff inhalation DAILY 07/31/24 Unknown History mcg/actuation mist for inhalation (Spiriva Respimat) cefdinir 300 mg capsule 300 mg PO BID 11/13/24 Unknown History Allergy/AdvReac Type Severity Reaction Status Date / Time ANTIHISTAMINES Allergy Itching Uncoded 03/01/23 07:19 Surgical History Hx of cholecystectomy Social History Smoking Status: Current every day smoker tobacco type: cigarettes ROS ROS ED ROS Narrative Shortness of breath. Constitutional Constitutional ED: Denies chills or fever(s) Eyes Eyes: Denies blurry vision ENT ENT ED: Denies ear pain Cardiovascular Cardiovascular: Denies chest pain Respiratory/Chest Respiratory/Chest: Reports dyspnea; Denies cough Gastrointestinal Gastrointestinal: Denies abdominal pain or constipation Genitourinary Genitourinary ED: Denies dysuria or hematuria Musculoskeletal Musculoskeletal: Denies arthralgias or back pain Integumentary Denies abscess Neurologic Neurologic: Denies headache(s) Psychiatric Psychiatric: Denies anxiety Endocrine Endocrinology: Denies cold intolerance Hematologic/Lymphatic Hematologic/Lymphatic: Denies easy bleeding, easy bruising or lymphadenopathy Allergic/Immunologic Allergic/Immunologic ED: Denies mouth swelling, tongue swelling or urticaria EXAM Physical Exam Narrative Exam Narrative: 39-year-old female no acute distress. Vital signs stable afebrile. On 4 L she is 96% no hypoxia. H EENT exam unremarkable. Moist with membranes. Pupils round react to light. Neck nontender no JVD no lymphadenopathy. Lungs coarse breath sounds bilaterally. Expiratory wheezing. No rales or rhonchi. Equal symmetrical. Heart regular rhythm rate about 100 no murmur. Chest wall ribs nontender. Abdomen soft nontender normal bowel sounds without peritoneal signs. Moving all 4 extremities. Nontender no edema no cords. Back nontender. Neurologically patient is awake alert with no focal motor deficit. Const Vital Signs: 11/13/24 16:10 11/13/24 16:34 11/13/24 16:58 Temperature 98.1 F Temperature Source Oral Pulse Rate 103 H 94 Respiratory Rate 18 18 Respiratory Pattern Normal Blood Pressure 149/79 H Blood Pressure Mean 102 Pulse Ox 96 Oxygen Delivery Method Nasal Cannula Nasal Cannula Oxygen Flow Rate (L/min) 4 4 (more content not included)... Normal [facility] L501.4020on 11-13-2024 TROPONIN-I HS 17 pg/mL Normal 3.0-54.0 [facility] Comment on above: Order Comment: 'TROP ' Serial specimen #1, #2 or #3: 1 Result Comment: Plea se Note: New Test Units and Gender Specific Reference Ranges. For more information see Policy Stat Procedure Pillsbury High Sensitivity Troponin (TNIH) and attachments. Performed By: #### L 500.2500, L501.4020, L100.0100 #### [facility] [address] [place], [address] CBC W/Diff, Automatedon 08-21 Absolute Lymph 2.54 X10 3/uL Normal 0.83-4.51 [facility] Comment on above: Performed By: #### L 500.4050, L500.4100, L506.1000, L100.0100, L501.9985 ####[facility] [address] [place], [address] Absolute Neut 2.6 X10 3/uL Normal 2.0-7.7 [facility] Comment on above: Performed By: #### L 500.4050, L500.4100, L506.1000, L100.0100, L501.9985 ####[facility] [address] [place], [address] Basophils/100 WBC (Bld) 2.5 % High 0-1 [facility] Comment on above: Performed By: #### L 500.4050, L500.4100, L506.1000, L100.0100, L501.9985 ####[facility] [address] [place], [address] Eosinophils/100 WBC (Bld) 14.9 % High 0-5 [facility] Comment on above: Performed By: #### L 500.4050, L500.4100, L506.1000, L100.0100, L501.9985 ####[facility] [address] [place], [address] Erythrocyte distribution width (RBC) [Ratio] 14.1 % Normal 11.6-14.6 [facility] Comment on above: Performed By: #### L 500.4050, L500.4100, L506.1000, L100.0100, L501.9985 ####[facility] [address] [place], [address] Hematocrit (Bld) [Volume fraction] 44.3 % Normal 37-47 [facility] Comment on above: Performed By: #### L 500.4050, L500.4100, L506.1000, L100.0100, L501.9985 ####[facility] [address] [place], [address] Hemoglobin (Bld) [Mass/Vol] 14.3 g/dL Normal 12.0-15.0 [facility] Comment on above: Performed By: #### L 500.4050, L500.4100, L506.1000, L100.0100, L501.9985 ####[facility] [address] [place], [address] IG% 0.300 Normal 0.0-0.9 [facility] Comment on above: Result Comment: IG% - Immature Granulocytes (promyelocytes, myelocytes and metamyelocytes) > 1% indicates that a LEFT SHIFT is Present. Performed By: #### L 500.4050, L500.4100, L506.1000, L100.0100, L501.9985 ####[facility] [address] [place], [address] Lymphocytes/100 WBC (Bld) 37.0 % Normal 19-41 [facility] Comment on above: Performed By: #### L 500.4050, L500.4100, L506.1000, L100.0100, L501.9985 ####[facility] [address] [place], [address] MCH (RBC) [Entitic mass] 30.1 pg Normal 27.0-32.0 [facility] Comment on above: Performed By: #### L 500.4050, L500.4100, L506.1000, L100.0100, L501.9985 ####[facility] [address] [place], [address] MCHC (RBC) [Mass/Vol] 32.3 g/dL Normal 32-36 [facility] Comment on above: Performed By: #### L 500.4050, L500.4100, L506.1000, L100.0100, L501.9985 ####[facility] [address] [place], [address] MCV (RBC) [Entitic vol] 93.3 fL Normal 81-99 [facility] Comment on above: Performed By: #### L 500.4050, L500.4100, L506.1000, L100.0100, L501.9985 ####[facility] [address] [place], [address] Monocytes/100 WBC (Bld) 8.2 % Normal 0-10 [facility] Comment on above: Performed By: #### L 500.4050, L500.4100, L506.1000, L100.0100, L501.9985 ####[facility] [address] [place], [address] Neutrophils/100 WBC (Bld) 37.1 % Low 47-70 [facility] Comment on above: Performed By: #### L 500.4050, L500.4100, L506.1000, L100.0100, L501.9985 ####[facility] [address] [place], [address] Nucleated RBC (Bld) [#/Vol] 0 10*3/uL Normal 0-5 [facility] Comment on above: Performed By: #### L 500.4050, L500.4100, L506.1000, L100.0100, L501.9985 ####[facility] [address] [place], [address] Platelet mean volume (Bld) [Entitic vol] 13.9 fL High 6.2-12.0 [facility] Comment on above: Performed By: #### L 500.4050, L500.4100, L506.1000, L100.0100, L501.9985 ####[facility] [address] [place], [address] Platelets (Bld) [#/Vol] 208 10*3/uL Normal 150-450 [facility] Comment on above: Performed By: #### L 500.4050, L500.4100, L506.1000, L100.0100, L501.9985 ####[facility] [address] [place], [address] RBC (Bld) [#/Vol] 4.75 10*6/uL Normal 4.2-5.4 [facility] Comment on above: Performed By: #### L 500.4050, L500.4100, L506.1000, L100.0100, L501.9985 ####[facility] [address] [place], [address] RDW SD 48.8 fl High 35.1-43.9 [facility] Comment on above: Performed By: #### L 500.4050, L500.4100, L506.1000, L100.0100, L501.9985 ####[facility] [address] [place], [address] WBC (Bld) [#/Vol] 6.9 10*3/uL Normal 4.4-11.0 [facility] Comment on above: Performed By: #### L 500.4050, L500.4100, L506.1000, L100.0100, L501.9985 ####[facility] [address] [place], [address] Comprehensive Metabolic Prof ndon 09-07-2024 Albumin [Mass/Vol] 3.3 g/dL Normal 3.2-5.0 [facility] Comment on above: Performed By: #### L 500.4050, L500.4100, L506.1000, L100.0100, L501.9985 ####[facility] [address] [place], [address] Albumin/Globulin [Mass ratio] 0.6 {ratio} Low 0.9-2.4 [facility] Comment on above: Performed By: #### L 500.4050, L500.4100, L506.1000, L100.0100, L501.9985 ####[facility] [address] [place], [address] ALK P 283 U/L High 45-117 [facility] Comment on above: Performed By: #### L 500.4050, L500.4100, L506.1000, L100.0100, L501.9985 ####[facility] [address] [place], [address] ALT [Catalytic activity/Vol] 65 U/L High 13-56 [facility] Comment on above: Performed By: #### L 500.4050, L500.4100, L506.1000, L100.0100, L501.9985 ####[facility] [address] [place], [address] AST [Catalytic activity/Vol] 56 U/L High 15-37 [facility] Comment on above: Performed By: #### L 500.4050, L500.4100, L506.1000, L100.0100, L501.9985 ####[facility] [address] [place], [address] Bilirubin [Mass/Vol] 0.30 mg/dL Normal 0.20-1.00 [facility] Comment on above: Result Comment: For patients on eltrombopag therapy, use of Dimension Pillsbury TBIL is not recommended. Performed By: #### L 500.4050, L500.4100, L506.1000, L100.0100, L501.9985 ####[facility] [address] [place], [address] BUN/CRE 9.1 RATIO Low 10-20 [facility] Comment on above: Performed By: #### L 500.4050, L500.4100, L506.1000, L100.0100, L501.9985 ####[facility] [address] [place], [address] CA,Total 9.2 mg/dL Normal 8.5-10.1 [facility] Comment on above: Performed By: #### L 500.4050, L500.4100, L506.1000, L100.0100, L501.9985 ####[facility] [address] [place], [address] Chloride [Moles/Vol] 105 mmol/L Normal 98-107 [facility] Comment on above: Performed By: #### L 500.4050, L500.4100, L506.1000, L100.0100, L501.9985 ####[facility] [address] [place], [address] CO2 [Moles/Vol] 29.0 mmol/L Normal 21.0-32.0 [facility] Comment on above: Performed By: #### L 500.4050, L500.4100, L506.1000, L100.0100, L501.9985 ####[facility] [address] [place], [address] Creatinine [Mass/Vol] 0.66 mg/dL Normal 0.55-1.02 [facility] Comment on above: Result Comment: The validity of the calculated GFR GFRAA in patients over 70 years has not been determined. Clinical correlation is essential. Performed By: #### L 500.4050, L500.4100, L506.1000, L100.0100, L501.9985 ####[facility] [address] [place], [address] EST GFR - AA 118 mL/min Normal >60 [facility] Comment on above: Result Comment: Afri can Burmese GFR Calc Performed By: #### L 500.4050, L500.4100, L506.1000, L100.0100, L501.9985 ####[facility] [address] [place], [address] GAP 6 Normal 5-15 [facility] Comment on above: Performed By: #### L 500.4050, L500.4100, L506.1000, L100.0100, L501.9985 ####[facility] [address] [place], [address] GFR/1.73 sq M.predicted among non-blacks MDRD (S/P/Bld) [Vol rate/Area] 98 mL/min/{1.73_m2} Normal >60 [facility] Comment on above: Result Comment: Non- GFR Calc Performed By: #### L 500.4050, L500.4100, L506.1000, L100.0100, L501.9985 ####[facility] [address] [place], [address] Globulin (S) [Mass/Vol] 5.2 g/dL High 2.2-4.2 [facility] [place] [facility] Comment on above: Performed By: #### L 500.4050, L500.4100, L506.1000, L100.0100, L501.9985 ####[facility] [address] [place], [address] Glucose [Mass/Vol] 79 mg/dL Normal 74-106 [facility] Comment on above: Performed By: #### L 500.4050, L500.4100, L506.1000, L100.0100, L501.9985 ####[facility] [address] [place], [address] Potassium [Moles/Vol] 4.4 mmol/L Normal 3.5-5.1 [facility] Comment on above: Performed By: #### L 500.4050, L500.4100, L506.1000, L100.0100, L501.9985 ####[facility] [address] [place], [address] Sodium [Moles/Vol] 140 mmol/L Normal 136-145 [facility] Comment on above: Performed By: #### L 500.4050, L500.4100, L506.1000, L100.0100, L501.9985 ####[facility] [address] [place], [address] T PROT 8.5 g/dL High 6.4-8.2 [facility] Comment on above: Performed By: #### L 500.4050, L500.4100, L506.1000, L100.0100, L501.9985 ####[facility] [address] [place], [address] Urea nitrogen [Mass/Vol] 6 mg/dL Low 06-07 [facility] Comment on above: Performed By: #### L 500.4050, L500.4100, L506.1000, L100.0100, L501.9985 ####[facility] [address] [place], [address] Hemoglobin A1con 09-07-2024 HbA1c (Bld) [Mass fraction] 5.8 % High 3.8-5.6 [facility] Comment on above: Result Comment: Norm al < 5.7 % Prediabetic 5.7 - 6.4 % Diabetic >or= 6.5 % Please note range changes. Performed By: #### L 500.4050, L500.4100, L506.1000, L100.0100, L501.9985 ####[facility] [address] [place], [address] Lipid Profileon 09-07-2024 Cholesterol [Mass/Vol] 223 mg/dL High 200 [facility] Comment on above: Result Comment: <200 mg/dL Desirable 200-240 mg/dL Borderline >240 mg/dL High Risk Performed By: #### L 500.4050, L500.4100, L506.1000, L100.0100, L501.9985 ####[facility] [address] [place], [address] Cholesterol in HDL [Mass/Vol] 77 mg/dL Normal [facility] Comment on above: Result Comment: The drugs N-Acetylcysteine and Metamizole may falsely depress this assay. Reference Range HDL <40 mg/dL Low HDL Cholesterol HDL >or= 60 mg/dL High HDL Cholesterol Performed By: #### L 500.4050, L500.4100, L506.1000, L100.0100, L501.9985 ####[facility] [address] [place], [address] Cholesterol in LDL [Mass/Vol] 131 mg/dL High 0-130 [facility] Comment on above: Performed By: #### L 500.4050, L500.4100, L506.1000, L100.0100, L501.9985 ####[facility] [address] [place], [address] Cholesterol in VLDL [Mass/Vol] 15 mg/dL Normal 5-40 [facility] Comment on above: Performed By: #### L 500.4050, L500.4100, L506.1000, L100.0100, L501.9985 ####[facility] [address] [place], [address] Triglyceride [Mass/Vol] 74 mg/dL Normal [facility] [place] [facility] Comment on above: Result Comment: The drugs N-Acetylcysteine and Metamizole may falsely depress this assay. Serum Triglycerides Reference Interval Normal <150 mg/dL Borderline high 150 - 199 mg/dL High 200 - 499 mg/dL Very High > or = 500 mg/dL Performed By: #### L 500.4050, L500.4100, L506.1000, L100.0100, L501.9985 ####[facility] [address] [place], [address] Vitamin D,25 Hydroxyon 09-07 Vitamin D 25-OH 7.6 ng/mL Normal [facility] Comment on above: Result Comment: Christie min D 25(OH) Status Range Deficiency <20 ng/mL (50nmol/L) Insufficiency 20 - 30 ng/mL (50 - 75 nmol/L) Sufficiency 30 - 100 ng/mL (75 - 250 nmol/L) Toxicity >100 ng/mL (>250 nmol/L) Performed By: #### L 500.4050, L500.4100, L506.1000, L100.0100, L501.9985 ####[facility] [address] [place], [address] CBC W/Diff, Automatedon 07-22 PATH REV Reviewed Normal [facility] Comment on above: Result Comment: Leuk ocytosis. Clinical correlation necessary. Naga Frost M.D. 08/01/24 AMENDED REPORT 08/01/24 1027 PATH REV previously reported as: March christine Performed By: #### L 100.0100, L503.6620, L501.4020, L500.2500 ####[facility] [address] [place], [address] 12 Lead EKGon 07-31-2024 12 Lead EKG [facility] Cardiovascular Services [address] [place] [address] 12 Lead EKG 07/31/24 0106 MR#: [id number] Acct: [id number] Name: RADHA SLADE Rep #: [id number] : 1965 59 From: Daniel Suarez MD Attending Dr: Status: DEP ER Ordering Dr: Abdiel Reed DO Date: 07/31/24 Location: ED Sex: F C Admitted: Test Reason : DYSRHYTHMIA Blood Pressure : / mmHG Vent. Rate : 095 BPM Atrial Rate : 095 BPM P-R Int : 140 ms QRS Dur : 074 ms QT Int : 366 ms P-R-T Axes : 074 045 056 degrees QTc Int : 459 ms Normal sinus rhythm Low voltage QRS Borderline ECG Confirmed by DANIEL SUAREZ MD ([id number]), acquisitions editor KENDALL SUAREZ ([id number]) on 07/31/2024 7:48:37 AM Referred By: Confirmed By:DANIEL SUAREZ MD 07/31/24 0748 Date Daniel Suarez MD CC: [employer]-Brenda Carr; Dr. Abdiel Reed, DO Signed Normal [facility] BNP,B-Type NATRIURETIC PEPTI Kristin 07-31-2024 Natriuretic peptide B (Bld) [Mass/Vol] 17.3 pg/mL Normal 0-100 [facility] Comment on above: Performed By: #### L 100.0100, L503.6620, L501.4020, L500.2500 ####[facility] [address] [place], [address] Basic Metabolic Profile (BMP )on 07-31-2024 BUN/CRE 10.6 RATIO Normal 10-20 [facility] Comment on above: Order Comment: 'TROP ' Serial specimen #1, #2 or #3: 1 Performed By: #### L 100.0100, L503.6620, L501.4020, L500.2500 ####[facility] [address] [place], [address] CA,Total 9.6 mg/dL Normal 8.5-10.1 [facility] Comment on above: Order Comment: 'TROP ' Serial specimen #1, #2 or #3: 1 Performed By: #### L 100.0100, L503.6620, L501.4020, L500.2500 ####[facility] [address] [place], [address] Chloride [Moles/Vol] 97 mmol/L Low 98-107 [facility] Comment on above: Order Comment: 'TROP ' Serial specimen #1, #2 or #3: 1 Performed By: #### L 100.0100, L503.6620, L501.4020, L500.2500 ####[facility] [address] [place], [address] CO2 [Moles/Vol] 29.0 mmol/L Normal 21.0-32.0 [facility] Comment on above: Order Comment: 'TROP ' Serial specimen #1, #2 or #3: 1 Performed By: #### L 100.0100, L503.6620, L501.4020, L500.2500 ####[facility] [address] [place], [address] Creatinine [Mass/Vol] 0.94 mg/dL Normal 0.55-1.02 [facility] Comment on above: Order Comment: 'TROP ' Serial specimen #1, #2 or #3: 1 Result Comment: The validity of the calculated GFR GFRAA in patients over 70 years has not been determined. Clinical correlation is essential. Performed By: #### L 100.0100, L503.6620, L501.4020, L500.2500 ####[facility] [address] [place], [address] EST GFR - AA 78 mL/min Normal >60 [facility] Comment on above: Order Comment: 'TROP ' Serial specimen #1, #2 or #3: 1 Result Comment: Afri can Burmese GFR Calc Performed By: #### L 100.0100, L503.6620, L501.4020, L500.2500 ####[facility] [address] [place], [address] GAP 8 Normal 5-15 [facility] Comment on above: Order Comment: 'TROP ' Serial specimen #1, #2 or #3: 1 Performed By: #### L 100.0100, L503.6620, L501.4020, L500.2500 ####[facility] [address] [place], [address] GFR/1.73 sq M.predicted among non-blacks MDRD (S/P/Bld) [Vol rate/Area] 65 mL/min/{1.73_m2} Normal >60 [facility] Comment on above: Order Comment: 'TROP ' Serial specimen #1, #2 or #3: 1 Result Comment: Non- GFR Calc Performed By: #### L 100.0100, L503.6620, L501.4020, L500.2500 ####[facility] [address] [place], [address] Glucose [Mass/Vol] 123 mg/dL High 74-106 [facility] Comment on above: Order Comment: 'TROP ' Serial specimen #1, #2 or #3: 1 Result Comment: Fast ing Glucose result from 100 to 125 mg/dL suggests IMPAIRED HOMEOSTASIS per A.D.A. criteria. Performed By: #### L 100.0100, L503.6620, L501.4020, L500.2500 ####[facility] [address] [place], [address] Potassium [Moles/Vol] 3.9 mmol/L Normal 3.5-5.1 [facility] Comment on above: Order Comment: 'TROP ' Serial specimen #1, #2 or #3: 1 Performed By: #### L 100.0100, L503.6620, L501.4020, L500.2500 ####[facility] [address] [place], [address] Sodium [Moles/Vol] 134 mmol/L Low 136-145 [facility] Comment on above: Order Comment: 'TROP ' Serial specimen #1, #2 or #3: 1 Performed By: #### L 100.0100, L503.6620, L501.4020, L500.2500 ####[facility] [address] [place], [address] Urea nitrogen [Mass/Vol] 10 mg/dL Normal 7-18 [facility] Comment on above: Order Comment: 'TROP ' Serial specimen #1, #2 or #3: 1 Performed By: #### L 100.0100, L503.6620, L501.4020, L500.2500 ####[facility] [address] [place], [address] Chest PA and Lateralon 07-31 Chest PA and Lateral [facility] Imaging Services [address] [place] [address] Chest PA and Lateral MR#: [id number] Acct: [id number] Name: RADHA SLADE Rep #: [id number] : 1965 F 59 From: Blue Antonio MD PCP: Nicolle Carr NP-C Status: REG ER Study: Chest PA and Lateral Date of Exam: 07/31/24 Exam# [id number] Ordering [place]: [place] [id number] INDICATION: Dyspnea EXAMINATION/TECHNIQUE: X-RAY - XR Chest 2 Views COMPARISON: January 24, 2023. Radiograph and CT FINDINGS: LINES/DEVICES: None. LUNGS: Lungs are hyperexpanded. New medial right middle lobe airspace consolidation. No left lung consolidation. No florid edema. Chronic blunting of the costophrenic angles from atelectasis and scarring. No pneumothorax. MEDIASTINUM AND CARDIOVASCULAR STRUCTURES: Cardiac silhouette not enlarged. BONES AND SOFT TISSUES: Unremarkable. RAD/Chest PA and Lateral IMPRESSION: Chronic obstructive pulmonary disease. Medial right lower lung airspace consolidation consistent with pneumonia in the appropriate setting. Radiographic follow-up recommended 6 weeks after treatment to ensure resolution. Electronically Signed: Blue Antonio MD at 1:50 EDT , CC: [employer]-C Nicolle Carr; Dr. Abdiel Reed DO Lens Silverer: Signed Normal [facility] Emergency Department Summary on 07-31-2024 Emergency Department Summary [facility] Medical Records Department [address] [place] [address] Emergency Department Summary 07/31/24 MR#: [id number] Acct: [id number] Name: RADHA SLADE Rep #: [id number] : 1965 59 From: Abdiel Reed DO PCP: SANG Alexander Status:DEP ER Location: ED HPI History of Present Illness Chief Complaint: Shortness of Breath Informant: patient Onset/Context/Timing Onset: Yesterday Context: sudden Timing: Continuous Quality: Positive for Orthopnea Worsened by: Lying flat Relieved by: Nothing Associated Symptoms cough and white sputum; Negative for rhinorrhea, post nasal drip, ear pain, fever, sore throat, chills, sweats, clear sputum, yellow sputum or green sputum Chest Pain: Positive for Sharp (Right sided) Narrative Narrative: Presents with cough and shortness of breath that began yesterday. Patient states she was bending over her sink washing dishes when she had a cough. Patient states that she developed the sharp pain in the right side of her chest and back when that occurred. Patient states her breathing has gotten progressively worse since that time. Patient admits to a cough with some white sputum. Patient states nothing makes her breathing better and nothing makes it worse. Patient denies any fevers or chills. [facility] Medical History (Updated 07/31/24 @ 02:[address] Abdiel Reed, ) Right lower lobe pneumonia Respiratory failure with hypoxia Emphysema lung Home Medications ???Medication ???Instructions ???Recorded ???Last Taken ???Type albuterol sulfate 2.5 mg/3 mL 2 mg inhalation DAILY SOB 01/24/23 01/23/23 History (0.083 %) solution for nebulization budesonide-formoterol HFA 160 inhalation breathing 01/24/23 01/24/23 History mcg-4.5 mcg/actuation aerosol inhaler (Symbicort) furosemide 20 mg tablet 20 mg PO edema 01/24/23 01/24/23 History lisinopril 5 mg tablet 5 mg PO DAILY 30 days #30 tabs 01/28/23 Unknown Rx nicotine 21 mg/24 hr daily 21 mg transdermal DAILY 30 days 01/28/23 Unknown Rx transdermal patch #30 ea sennosides 8.6 mg-docusate sodium 2 tab PO BID PRN PRN Constipation 01/28/23 Unknown Rx 50 mg tablet (Stool 30 days #60 tabs Softener-Stimulant Laxative) sodium chloride 0.65 % nasal spray 2 spray NASAL Q4H PRN PRN NASAL 01/28/23 Unknown Rx aerosol (Deep Sea Nasal) DRYNESS #0 mL albuterol sulfate 90 mcg/actuation 2 puff inhalation Q4H PRN 03/01/23 Unknown Rx aerosol inhaler shortness of breath or wheezing #8.5 grams prednisolone acetate 1 % eye 1 drp ophthalmic (eye) Q6H 03/01/23 Unknown History drops,suspension azithromycin 250 mg tablet 250 mg PO DAILY #4 TABLETS 07/31/24 Unknown Rx Allergy/AdvReac Type Severity Reaction Status Date / Time ANTIHISTAMINES Allergy Itching Uncoded 03/01/23 07:19 Family History unable to obtain Surgical History (Updated 07/31/24 @ 00:[address] Abdiel Reed DO) Hx of cholecystectomy Social History (Updated 07/31/24 @ 00:[address] Abdiel Reed DO) Smoking Status: Current every day smoker tobacco type: cigarettes Smoking packs per day: 1.5 Smoking cigarettes per day: 30.0 ROS ROS ED Constitutional Constitutional ED: Denies chills or fever(s) Eyes Eyes: Denies blurry vision or change in vision ENT ENT ED: Denies rhinorrhea or sore throat Cardiovascular Cardiovascular: Reports chest pain; Denies palpitations Respiratory/Chest Respiratory/Chest: Reports cough and dyspnea Gastrointestinal Gastrointestinal: Denies nausea or vomiting Genitourinary Genitourinary ED: Denies dysuria or hematuria Musculoskeletal Musculoskeletal: Denies back pain or neck pain Integumentary Denies abscess or rash Neurologic Neurologic: Denies headache(s) or weakness Allergic/Immunologic Allergic/Immunologic ED: Denies mouth swelling or urticaria EXAM Physical Exam Const Vital Signs: 07/30/24 23:57 07/31/24 00:05 07/31/24 00:06 Temperature 97.9 F 97.9 F Temperature Source Oral Oral Pulse Rate 110 H 110 H Respiratory Rate 19 H 19 H Respiratory Effort Normal Short of Breath Respiratory Depth Shallow Respiratory Pattern Normal Blood Pressure 136/77 H 136/77 H Blood Pressure Mean 96 96 Pulse Ox 91 91 Oxygen Delivery Method Nasal Cannula Nasal Cannula Oxygen Flow Rate (L/min) 3 3 07/31/24 00:44 07/31/24 01:05 Temperature 97.0 F L Temperature Source Temporal Pulse Rate 95 89 Respiratory Rate 24 H 24 H Respiratory Effort Respiratory Depth Respiratory Pattern Tachypnea Blood Pressure 119/39 L Blood Pressure Mean 65 Pulse Ox 92 Oxygen Delivery Method Nasal Cannula Oxygen Flow Rate (L/min) 3 Positive well nourished and well developed General Appearance ED: well developed and NAD HEENT Reports moist muco (more content not included)... Normal [facility] L501.4020on 07-31-2024 TROPONIN-I HS 10 pg/mL Normal 3.0-54.0 [facility] Comment on above: Order Comment: 'TROP ' Serial specimen #1, #2 or #3: 1 Result Comment: Mihai lopez Note: New Test Units and Gender Specific Reference Ranges. For more information see Policy Stat Procedure [place] High Sensitivity Troponin (TNIH) and attachments. Performed By: #### L 100.0100, L503.6620, L501.4020, L500.2500 ####[facility] [address] [place], [address] M100.678on 07-31-2024 M100.678 SARS-CoV-2 (COVID 19 ) Negative INFLUENZA A Negative INFLUENZA B Negative RSV PCR Negative Normal [facility] Comment on above: Performed By: #### M 100.678 #### [facility] [address] [place], [address] Laboratory - Microbiology an d Antimicrobial susceptibilityOrdered By: Dr. Messina on 01-30-2023 Bacteria identified Cx Nom (Bld) No growth in 5 days. [facility] Absolute lymphocyte countOrd ered By: Dr. Eldridge on 01-26-2023 Lymphocytes Auto (Unsp spec) [#/Vol] 1.06 10*3/uL 0.83-4.51 [facility] Basophil percentageOrdered B y: Dr. Eldridge on 01-26-2023 Basophil percentage 3.9 mg/dL 2.5-4.9 [facility] Basophils/100 WBC (Bld) 0.2 % 0-1 [facility] Bilirubin [Mass/Vol] 0.20 mg/dL 0.20-1.00 [facility] Comment on above: For patients on eltr ombopag therapy, use of Dimension [place] TBIL is not recommended. Chloride [Moles/Vol] 96 mmol/L 98-107 [facility] Eosinophils/100 WBC (Bld) 0.0 % 0-5 [facility] Glucose [Mass/Vol] 92 mg/dL 74-106 [facility] Neutrophils (Bld) [#/Vol] 8.5 10*3/uL 2.0-7.7 [facility] Neutrophils/100 WBC (Bld) 80.3 % 47-70 [facility] Potassium [Moles/Vol] 5.1 mmol/L 3.5-5.1 [facility] Protein [Mass/Vol] 8.9 g/dL 6.4-8.2 [facility] Sodium [Moles/Vol] 134 mmol/L 136-145 [facility] WBC (Bld) [#/Vol] 10.6 10*3/uL 4.4-11.0 [facility] Blood erythrocytes count (nu mber/volume)Ordered By: Dr. Eldridge on 01-26-2023 RBC (Bld) [#/Vol] 5.51 10*6/uL 4.2-5.4 [facility] Blood hemoglobin measurement (mass/volume)Ordered By: Dr. Eldridge on 01-26-2023 Hemoglobin (Bld) [Mass/Vol] 16.0 g/dL 12.0-15.0 [facility] Blood lymphocytes/100 leukoc ytesOrdered By: Dr. Eldridge on 01-26-2023 Lymphocytes/100 WBC (Bld) 10.0 % 19-41 [facility] Blood monocytes/100 leukocyt esOrdered By: Dr. Eldridge on 01-26-2023 Monocytes/100 WBC (Bld) 8.8 % 0-10 [facility] Blood platelet mean volumeOr dered By: Dr. Eldridge on 01-26-2023 Platelet mean volume (Bld) [Entitic vol] 12.2 fL 6.2-12.0 [facility] Determination of erythrocyte mean corpuscular volume (MCV)Ordered By: Dr. Eldridge on 01-26-2023 MCV (RBC) [Entitic vol] 94.7 fL 81-99 [facility] Hematocrit Auto (Bld) [Volum e fraction]Ordered By: Dr. Eldridge on 01-26-2023 Hematocrit (Bld) [Volume fraction] 52.2 % 37-47 [facility] Laboratory - Chemistry and C hemistry - challengeOrdered By: Dr. Eldridge on 01-26-2023 ALP [Catalytic activity/Vol] 121 U/L 45-117 [facility] ALT [Catalytic activity/Vol] 25 U/L 13-56 [facility] CO2 [Moles/Vol] 33.0 mmol/L 21.0-32.0 [facility] Globulin (S) [Mass/Vol] 6.0 g/dL 2.2-4.2 [facility] Urea nitrogen/Creatinine [Mass ratio] 38.2 mg/mg 10-20 [facility] Laboratory - Hematology and Cell countsOrdered By: Dr. Eldridge on 01-26-2023 Erythrocyte distribution width (RBC) [Entitic vol] 48.0 fL 35.1-43.9 [facility] Erythrocyte distribution width (RBC) [Ratio] 13.6 % 11.6-14.6 [facility] Immature granulocytes/100 WBC (Bld) 0.700 % 0.0-0.9 [facility] Comment on above: IG% - Immature Granu locytes (promyelocytes, myelocytes and metamyelocytes) > 1% indicates that a LEFT SHIFT is Present. MCH (RBC) [Entitic mass] 29.0 pg 27.0-32.0 [facility] Nucleated RBC/100 WBC (Bld) [Ratio] 0 % 0-5 [facility] MCHC Auto (RBC) [Mass/Vol]Or dered By: Dr. Eldridge on 01-26-2023 MCHC (RBC) [Mass/Vol] 30.7 g/dL 32-36 [facility] No Panel InformationOrdered By: Dr. Eldridge on 01-26-2023 Estimated Creatinine Clearance Calc 59.15 ml/min [facility] Estimated GFR (MDRD) Amer 91 mL/min >60 [facility] Comment on above: GFR Calc Estimated GFR (MDRD) Non-Af Amer 75 mL/min >60 [facility] Comment on above: Non- GFR Calc Platelets bldOrdered By: Dr. Eldridge on 01-26-2023 Platelets (Bld) [#/Vol] 229 10*3/uL 150-450 [facility] Serum or plasma albumin cortney urement (mass/volume)Ordered By: Dr. Eldridge on 01-26-2023 Albumin [Mass/Vol] 2.9 g/dL 3.2-5.0 [facility] Serum or plasma albumin/glob ulin mass ratioOrdered By: Dr. Eldridge on 01-26-2023 Albumin/Globulin [Mass ratio] 0.5 {ratio} 0.9-2.4 [facility] Serum or plasma calcium cortney urement (mass/volume)Ordered By: Dr. Eldridge on 01-26-2023 Calcium [Mass/Vol] 9.6 mg/dL 8.5-10.1 [facility] Serum or plasma creatinine m easurement (mass/volume)Ordered By: Dr. Eldridge on 01-26-2023 Creatinine [Mass/Vol] 0.84 mg/dL 0.55-1.02 [facility] Comment on above: The validity of the calculated GFR & GFRAA in patients over 70 years has not been determined. Clinical correlation is essential. Serum or plasma urea nitroge n measurement (mass/volume)Ordered By: Dr. Eldridge on 01-26-2023 Urea nitrogen [Mass/Vol] 32 mg/dL 7-18 [facility] Thin prep Papanicolaou smear with manual screeningOrdered By: Dr. Eldridge on 01-26-2023 Thin prep Papanicolaou smear with manual screening 22 U/L 15-37 [facility] Thin prep Papanicolaou smear with manual screening 5 5-15 [facility] Assessment of wrist artery p atency prior to arterial punctureOrdered By: Dr. Bush on 01-25-2023 Arterial patency Wrist artery --pre arterial puncture Positive [facility] Base excessOrdered By: Dr. Brenda martin on 01-25-2023 Base excess Calc (BldV) [Moles/Vol] 8 mmol/L -2-2 [facility] Basophil percentageOrdered B y: Dr. Bush on 01-25-2023 Basophil percentage 34.5 mmol/L 22-26 [facility] Basophils/100 WBC (Bld) 87 % 95-99 [facility] CO2 (BldA) [Partial pressure ]Ordered By: Dr. Bush on 01-25-2023 CO2 (Bld) [Partial pressure] 76.3 mm[Hg] 35-45 [facility] Laboratory - Chemistry and C hemistry - challengeOrdered By: Dr. Lopez on 01-25-2023 Magnesium [Mass/Vol] 2.3 mg/dL 1.6-2.6 [facility] Comment on above: Slight Hemolysis, Re sult may be falsely increased. No Panel InformationOrdered By: Dr. Bush on 01-25-2023 Bedside Blood Gas PEEP 8 [facility] Bld Gas Crit Called To/Read Back By Yes [facility] Blood Gas Notified Whom bakari [facility] Blood Gas Oxygen Percent 30 [facility] Blood Gas Respiration Rate 12 [facility] Blood Gas Sample Site R Brach [facility] Blood Gas Specimen Type ART [facility] Blood Gas Tidal Volume 450 [facility] Blood Gas Total CO2 37 mmol/L [facility] Oxygen Delivery Device BiPAP [facility] Streptococcus pneumoniae Antigen (M [facility] Oxygen (BldA) [Partial press ure]Ordered By: Dr. Bush on 01-25-2023 Oxygen (Bld) [Partial pressure] 63 mmHG 75-100 [facility] Urine Legionella pneumophila antigen detectionOrdered By: Dr. Bush on 01-25-2023 L. pneumophila Ag Ql (U) [facility] pH measurementOrdered By: Dr Donna Bush on 01-25-2023 pH (Unsp spec) 7.26 [pH] 7.35-7.45 [facility] Absolute lymphocyte countOrd ered By: Dr. Messina on 01-24-2023 Lymphocytes Auto (Unsp spec) [#/Vol] 1.34 10*3/uL 0.83-4.51 [facility] Absolute lymphocyte countOrd ered By: Nicolle Carr on 01-24-2023 Lymphocytes Auto (Unsp spec) [#/Vol] 1.25 10*3/uL 0.83-4.51 [facility] Assessment of wrist artery p atency prior to arterial punctureOrdered By: Dr. Messina on 01-24-2023 Arterial patency Wrist artery --pre arterial puncture Positive [facility] Base excessOrdered By: Dr. Funmi hunt on 01-24-2023 Base excess Calc (BldV) [Moles/Vol] 4 mmol/L -2-2 [facility] Basophil percentageOrdered B y: Dr. Messina on 01-24-2023 Basophil percentage 33.0 mmol/L 22-26 [facility] Basophils/100 WBC (Bld) 94 % 95-99 [facility] Basophil percentage Not Reportable [facility] Chloride [Moles/Vol] 94 mmol/L 98-107 [facility] Glucose [Mass/Vol] 140 mg/dL 74-106 [facility] Comment on above: Fasting Glucose resu lt greater than or equal to 126 mg/dL suggests DIABETES MELLITUS per A.D.A. criteria. Lactate [Moles/Vol] 1.5 mmol/L 0.4-2.0 [facility] Neutrophils (Bld) [#/Vol] 8.3 10*3/uL 2.0-7.7 [facility] Potassium [Moles/Vol] 4.9 mmol/L 3.5-5.1 [facility] Sodium [Moles/Vol] 129 mmol/L 136-145 [facility] WBC (Bld) [#/Vol] 11.2 10*3/uL 4.4-11.0 [facility] Basophil percentageOrdered B y: Nicolle Carr on 01-24-2023 Basophil percentage Not Reportable [facility] Bilirubin [Mass/Vol] 0.20 mg/dL 0.20-1.00 [facility] Comment on above: For patients on eltr ombopag therapy, use of Dimension [place] TBIL is not recommended. Chloride [Moles/Vol] 93 mmol/L 98-107 [facility] Cholesterol [Mass/Vol] 199 mg/dL <200 [facility] Comment on above: <200 mg/dL Desirable 200-240 mg/dL Borderline >240 mg/dL High Risk Glucose [Mass/Vol] 139 mg/dL 74-106 [facility] Comment on above: Fasting Glucose resu lt greater than or equal to 126 mg/dL suggests DIABETES MELLITUS per A.D.A. criteria. Neutrophils (Bld) [#/Vol] 7.8 10*3/uL 2.0-7.7 [facility] Potassium [Moles/Vol] 5.5 mmol/L 3.5-5.1 [facility] Protein [Mass/Vol] 10.5 g/dL 6.4-8.2 [facility] Sodium [Moles/Vol] 129 mmol/L 136-145 [facility] Triglyceride [Mass/Vol] 85 mg/dL <199 [facility] Comment on above: The drugs N-Acetylcy steine and Metamizole may falsely depress this assay.Serum Triglycerides Reference Interval Normal <150 mg/dL Borderline high 150 - 199 mg/dL High 200 - 499 mg/dL Very High > or = 500 mg/dL WBC (Bld) [#/Vol] 9.6 10*3/uL 4.4-11.0 [facility] Blood band neutrophil count as percentage of total leukocytesOrdered By: Nicolle Carr on 01-24-2023 Band form neutrophils/100 WBC (Bld) 2 % 0-5 [facility] Blood basophils/100 leukocyt esOrdered By: Dr. Messina on 01-24-2023 Basophils/100 WBC (Bld) 1 % 0-1 [facility] Blood basophils/100 leukocyt esOrdered By: Nicolle Carr on 01-24-2023 Basophils/100 WBC (Bld) 2 % 0-1 [facility] Blood erythrocytes count (nu mber/volume)Ordered By: Dr. Messina on 01-24-2023 RBC (Bld) [#/Vol] 6.06 10*6/uL 4.2-5.4 [facility] Blood erythrocytes count (nu mber/volume)Ordered By: Nicolle Carr on 01-24-2023 RBC (Bld) [#/Vol] 6.16 10*6/uL 4.2-5.4 [facility] Blood hemoglobin measurement (mass/volume)Ordered By: Dr. Messina on 01-24-2023 Hemoglobin (Bld) [Mass/Vol] 17.8 g/dL 12.0-15.0 [facility] Blood hemoglobin measurement (mass/volume)Ordered By: Nicolle Carr on 01-24-2023 Hemoglobin (Bld) [Mass/Vol] 18.1 g/dL 12.0-15.0 [facility] Blood lymphocytes/100 leukoc ytesOrdered By: Dr. Messina on 01-24-2023 Lymphocytes/100 WBC (Bld) 12 % -41 [facility] Blood lymphocytes/100 leukoc ytesOrdered By: Nicolle Carr on 01-24-2023 Lymphocytes/100 WBC (Bld) 13 % [facility] Blood monocytes/100 leukocyt esOrdered By: Dr. Messina on 01-24-2023 Monocytes/100 WBC (Bld) 6 % 0-10 [facility] Blood monocytes/100 leukocyt esOrdered By: Nicolle Carr on 01-24-2023 Monocytes/100 WBC (Bld) 2 % 0-10 [facility] Blood platelet adequacy dete ction by light microscopyOrdered By: Dr. Messina on 01-24-2023 Platelets LM Ql (Bld) ADEQUATE [facility] Blood platelet adequacy dete ction by light microscopyOrdered By: Nicolle Carr on 01-24-2023 Platelets LM Ql (Bld) ADEQUATE [facility] Blood platelet mean volumeOr dered By: Dr. Messina on 01-24-2023 Platelet mean volume (Bld) [Entitic vol] 12.7 fL 6.2-12.0 [facility] Blood platelet mean volumeOr dered By: Nicolle Carr on 01-24-2023 Platelet mean volume (Bld) [Entitic vol] 13.2 fL 6.2-12.0 [facility] Blood promyelocytes/100 leuk ocytesOrdered By: Dr. Messina on 01-24-2023 Promyelocytes/100 WBC (Bld) 2 % 0-0 [facility] Blood segmented neutrophils/ [address]: [address] Messina on 01-24-2023 Segmented neutrophils/100 WBC (Bld) 74 % 47-70 [facility] Blood segmented neutrophils/ 100 leukocytesOrdered By: Nicolle Carr on 01-24-2023 Segmented neutrophils/100 WBC (Bld) 79 % 47-70 [facility] CO2 (BldA) [Partial pressure ]Ordered By: Dr. Messina on 01-24-2023 CO2 (Bld) [Partial pressure] 97.5 mm[Hg] 35-45 [facility] Determination of erythrocyte mean corpuscular volume (MCV)Ordered By: Dr. Messina on 01-24-2023 MCV (RBC) [Entitic vol] 94.7 fL 81-99 [facility] Comment on above: Delta: 89.9 on 01/24 Determination of erythrocyte mean corpuscular volume (MCV)Ordered By: Nicolle Carr on 01-24-2023 MCV (RBC) [Entitic vol] 89.9 fL 81-99 [facility] Hematocrit Auto (Bld) [Volum e fraction]Ordered By: Dr. Messina on 01-24-2023 Hematocrit (Bld) [Volume fraction] 57.4 % 37-47 [facility] Hematocrit Auto (Bld) [Volum e fraction]Ordered By: Nicolle Carr on 01-24-2023 Hematocrit (Bld) [Volume fraction] 55.4 % 37-47 [facility] Influenza virus A and B and SARS-CoV-2 (COVID-19) Ag panel - Upper respiratory specimOrdered By: Dr. Messina on 01-24-2023 SARS-CoV-2 (COVID-19) RNA EVELYN+probe Ql (Resp) [facility] Laboratory - Chemistry and C hemistry - challengeOrdered By: Dr. Messina on 01-24-2023 CO2 [Moles/Vol] 29.0 mmol/L 21.0-32.0 [facility] Natriuretic peptide B (Bld) [Mass/Vol] 160.3 pg/mL 0-100 [facility] Urea nitrogen/Creatinine [Mass ratio] 18.3 mg/mg 10-20 [facility] Laboratory - Chemistry and C hemistry - challengeOrdered By: Dr. Bush on 01-24-2023 Magnesium [Mass/Vol] 2.0 mg/dL 1.6-2.6 [facility] Laboratory - Chemistry and C hemistry - challengeOrdered By: Nicolle Carr on 01-24-2023 ALP [Catalytic activity/Vol] 168 U/L 45-117 [facility] ALT [Catalytic activity/Vol] 32 U/L 13-56 [facility] CO2 [Moles/Vol] 28.0 mmol/L 21.0-32.0 [facility] Globulin (S) [Mass/Vol] 6.9 g/dL 2.2-4.2 [facility] Urea nitrogen/Creatinine [Mass ratio] 19.2 mg/mg 10-20 [facility] Laboratory - Hematology and Cell countsOrdered By: Dr. Messina on 01-24-2023 Erythrocyte distribution width (RBC) [Entitic vol] 48.2 fL 35.1-43.9 [facility] Erythrocyte distribution width (RBC) [Ratio] 13.7 % 11.6-14.6 [facility] MCH (RBC) [Entitic mass] 29.4 pg 27.0-32.0 [facility] Myelocytes/100 WBC (Bld) 5 % 0-0 [facility] - Hematology and Cell countsOrdered By: Nicolle Carr on 01-24-2023 Erythrocyte distribution width (RBC) [Entitic vol] 45.8 fL 35.1-43.9 [facility] Erythrocyte distribution width (RBC) [Ratio] 13.9 % 11.6-14.6 [facility] MCH (RBC) [Entitic mass] 29.4 pg 27.0-32.0 [facility] Myelocytes/100 WBC (Bld) 2 % 0-0 [facility] - Microbiology an d Antimicrobial susceptibilityOrdered By: Dr. Messina on 01-24-2023 Respiratory pathogens DNA and RNA 12b panel EVELYN+probe (Unsp spec) [facility] MCHC Auto (RBC) [Mass/Vol]Or dered By: Dr. Messina on 01-24-2023 MCHC (RBC) [Mass/Vol] 31.0 g/dL 32-36 [facility] Comment on above: Delta: 32.7 on 01/24 MCHC Auto (RBC) [Mass/Vol]Or dered By: Nicolle Carr on 01-24-2023 MCHC (RBC) [Mass/Vol] 32.7 g/dL 32-36 [facility] No Panel InformationOrdered By: Dr. Bush on 01-24-2023 Methicillin-Resist S.aureus DNA PCR Negative Negative [facility] Troponin I High Sensitivity 31 pg/mL 3.0-54.0 [facility] Comment on above: Please Note: New Hui t Units and Gender Specific Reference Ranges. For more information see Policy Stat Procedure [place] High Sensitivity Troponin (TNIH) and attachments. No Panel InformationOrdered By: Dr. Messina on 01-24-2023 Bld Gas Crit Called To/Read Back By Yes [facility] Blood Gas Liter Flow 6.0 /min [facility] Blood Gas Sample Site L Radial [facility] Blood Gas Specimen Type ART [facility] Blood Gas Total CO2 36 mmol/L [facility] Oxygen Delivery Device Cannula [facility] D-Dimer Quantitative (PE/DVT) 1.20 FEU/ug/m 0.27-0.49 [facility] Comment on above: D-Dimer ELEVATED (>0 .49): Additional studies and clinicalassessments are indicated to conclude diagnosis of:Deep Vein Thrombosis (DVT) or Pulmonary Embolism (PE) Estimated Creatinine Clearance Calc 47.77 ml/min [facility] Estimated GFR (MDRD) Amer 71 mL/min >60 [facility] Comment on above: GFR Calc Estimated GFR (MDRD) Non-Af Amer 58 mL/min >60 [facility] Comment on above: Non- GFR Calc Troponin I High Sensitivity 39 pg/mL 3.0-54.0 [facility] Comment on above: Please Note: New Hui t Units and Gender Specific Reference Ranges. For more information see Policy Stat Procedure [place] High Sensitivity Troponin (TNIH) and attachments. No Panel InformationOrdered By: Nicolle Carr on 01-24-2023 Estimated GFR (MDRD) Amer 71 mL/min >60 [facility] Comment on above: GFR Calc Estimated GFR (MDRD) Non-Af Amer 58 mL/min >60 [facility] Comment on above: Non- GFR Calc Vitamin D 25-Hydroxy 9.5 ng/mL [facility] Comment on above: Vitamin D 25(OH) Sta tus Range Deficiency <20 ng/mL (50nmol/L) Insufficiency 20 - 30 ng/mL (50 - 75 nmol/L) Sufficiency 30 - 100 ng/mL (75 - 250 nmol/L) Toxicity >100 ng/mL (>250 nmol/L) Oxygen (BldA) [Partial press ure]Ordered By: Dr. Messina on 01-24-2023 Oxygen (Bld) [Partial pressure] 96 mmHG 75-100 [facility] Platelets bldOrdered By: Dr. Messina on 01-24-2023 Platelets (Bld) [#/Vol] 267 10*3/uL 150-450 [facility] Platelets bldOrdered By: Georgie Carr on 01-24-2023 Platelets (Bld) [#/Vol] 220 10*3/uL 150-450 [facility] RBC morphologyOrdered By: Dr Donna Messina on 01-24-2023 RBC morphology finding Nom (Bld) NORM C+C NORMAL NORM C&C [facility] RBC morphologyOrdered By: Roque Carr on 01-24-2023 RBC morphology finding Nom (Bld) NORM C+C NORMAL NORM C&C [facility] Review by pathologistOrdered By: Dr. Messina on 01-24-2023 Pathologist review Keny (Unsp spec) [Interp] Carmen king [facility] Pathologist review Keny (Unsp spec) [Interp] Reviewed [facility] Comment on above: Previous reported re sult: Carmen king Edited by: RGOCHRISTINE on 01/25/23:1331Neutrophilic leukocytosis with left shift. PolycythemiaClinical correlation necessary.Naga Frost M.D. 01/25/23 AMENDED REPORT 01/25/23 1331 PATH REV previously reported as: Carmen king Review by pathologistOrdered By: Nicolle Carr on 01-24-2023 Pathologist review Keny (Unsp spec) [Interp] Carmen king [facility] Pathologist review Keny (Unsp spec) [Interp] Reviewed [facility] Comment on above: Previous reported re sult: Carmen king Edited by: RGOCHRISTINE on 01/25/23:1330Polycythemia Neutrophilic left shift.Clinical correlation necessary.Naga Frost M.D. 01/25/23 AMENDED REPORT 01/25/23 1330 PATH REV previously reported as: Carmen king Serum or plasma albumin cortney urement (mass/volume)Ordered By: Nicolle Carr on 01-24-2023 Albumin [Mass/Vol] 3.6 g/dL 3.2-5.0 [facility] Serum or plasma albumin/glob ulin mass ratioOrdered By: Nicolle Carr on 01-24-2023 Albumin/Globulin [Mass ratio] 0.5 {ratio} 0.9-2.4 [facility] Serum or plasma calcium cortney urement (mass/volume)Ordered By: Dr. Messina on 01-24-2023 Calcium [Mass/Vol] 9.4 mg/dL 8.5-10.1 [facility] Serum or plasma calcium cortney urement (mass/volume)Ordered By: Nicolle Carr on 01-24-2023 Calcium [Mass/Vol] 9.6 mg/dL 8.5-10.1 [facility] Serum or plasma cholesterol in HDL measurement (mass/volume)Ordered By: Nicolle Carr on 01-24-2023 Cholesterol in HDL [Mass/Vol] 69 mg/dL >40 [facility] Comment on above: The drugs N-Acetylcy steine and Metamizole may falsely depress this assay. Reference Range HDL <40 mg/dL Low HDL Cholesterol HDL >or= 60 mg/dL High HDL Cholesterol Serum or plasma cholesterol in VLDL measurement (mass/volume)Ordered By: Nicolle Carr on 01-24-2023 Cholesterol in VLDL [Mass/Vol] 17 mg/dL 5-40 [facility] Serum or plasma creatinine m easurement (mass/volume)Ordered By: Dr. Messina on 01-24-2023 Creatinine [Mass/Vol] 1.04 mg/dL 0.55-1.02 [facility] Comment on above: The validity of the calculated GFR & GFRAA in patients over 70 years has not been determined. Clinical correlation is essential. Serum or plasma creatinine m easurement (mass/volume)Ordered By: Nicolle Carr on 01-24-2023 Creatinine [Mass/Vol] 1.04 mg/dL 0.55-1.02 [facility] Comment on above: The validity of the calculated GFR & GFRAA in patients over 70 years has not been determined. Clinical correlation is essential. Serum or plasma low density lipoprotein (LDL) cholesterol measurement (mass/volume)Ordered By: Nicolle Carr on 01-24-2023 Cholesterol in LDL [Mass/Vol] 113 mg/dL 0-130 [facility] Serum or plasma urea nitroge n measurement (mass/volume)Ordered By: Dr. Messina on 01-24-2023 Urea nitrogen [Mass/Vol] 19 mg/dL 7-18 [facility] Serum or plasma urea nitroge n measurement (mass/volume)Ordered By: Nicolle Carr on 01-24-2023 Urea nitrogen [Mass/Vol] 20 mg/dL 7-18 [facility] Thin prep Papanicolaou smear with manual screeningOrdered By: Dr. Messina on 01-24-2023 Thin prep Papanicolaou smear with manual screening 6 5-15 [facility] Thin prep Papanicolaou smear with manual screeningOrdered By: Nicolle Carr on 01-24-2023 Thin prep Papanicolaou smear with manual screening 28 U/L 15-37 [facility] Thin prep Papanicolaou smear with manual screening 8 5-15 [facility] Total cell countOrdered By: Dr. Messina on 01-24-2023 Cells counted Molgen (Bld/Tiss) [#] 100 MANUAL DIFF [facility] Total cell countOrdered By: Nicolle Carr on 01-24-2023 Cells counted Molgen (Bld/Tiss) [#] 100 MANUAL DIFF [facility] Whole blood hemoglobin A1c/t otal hemoglobin ratio (mass fraction)Ordered By: Nicolle Carr on 01-24-2023 HbA1c (Bld) [Mass fraction] 5.6 % 3.8-5.6 [facility] Comment on above: Normal < 5.7 % Predi abetic 5.7 - 6.4 % Diabetic >or= 6.5 % Please note range changes. pH measurementOrdered By: Dr Donna Messina on 01-24-2023 pH (Unsp spec) 7.14 [pH] 7.35-7.45 [facility] Vital Signs Date Time Vital Sign Value Performing Clinician Facility 01-28-2023 16:44-0500 Body temperature 97.7 [degF] MD Monty Messina Work Phone: [facility] 01-28-2023 16:44-0500 Diastolic blood pressure 71 mm[Hg] MD Monty Messina Work Phone: [facility] 01-28-2023 16:44-0500 Heart rate 86 /min MD Monty Messina Work Phone: [facility] 01-28-2023 16:44-0500 Inhaled oxygen flow rate 3 L/min MD Monty Messina Work Phone: [facility] 01-28-2023 16:44-0500 Respiratory rate 16 /min MD Monty Messina Work Phone: [facility] 01-28-2023 16:44-0500 SaO2% (BldA) [Mass fraction] 92 % MD Monty Messina Work Phone: [facility] 01-28-2023 16:44-0500 Systolic blood pressure 123 mm[Hg] MD Monty Messina Work Phone: [phone])411-[address] [place] [address] 01-28-2023 15:38-0500 Heart rate 90 /min MD Monty Messina Work Phone: [facility] 01-28-2023 14:15-0500 Body temperature 98.1 [degF] MD Monty Messina Work Phone: [facility] 01-28-2023 14:15-0500 Diastolic blood pressure 67 mm[Hg] MD Monty Messina Work Phone: [facility] 01-28-2023 14:15-0500 Inhaled oxygen flow rate 3 L/min MD Monty Messina Work Phone: [facility] 01-28-2023 14:15-0500 Respiratory rate 18 /min MD Monty Messina Work Phone: [facility] 01-28-2023 14:15-0500 SaO2% (BldA) [Mass fraction] 93 % MD Monty Messina Work Phone: [facility] 01-28-2023 14:15-0500 Systolic blood pressure 124 mm[Hg] MD Monty Messina Work Phone: [facility] 01-28-2023 06:00-0500 Body mass index (BMI) [Ratio] 35.2 kg/m2 MD Monty Messina Work Phone: [facility] 01-28-2023 06:00-0500 Body weight 87.5 kg MD Monty Messina Work Phone: [facility] 01-27-2023 09:22-0500 Body height 157.48 cm MD Monty Messina Work Phone: [phone] [place] [address] 01-27-2023 04:00-0500 Inhaled oxygen concentration 35 % MD Monty Messina Work Phone: 3([phone] [place] [address] 01-24-2023 16:49-0500 Heart rate 100 /min MD Monty Messina Work Phone: [facility] 01-24-2023 16:49-0500 Inhaled oxygen concentration 55 % MD Monty Messina Work Phone: [facility] 01-24-2023 16:49-0500 Respiratory rate 27 /min MD Monty Messina Work Phone: [facility] 01-24-2023 16:49-0500 SaO2% (BldA) [Mass fraction] 92 % MD Monty Messina Work Phone: [facility] 01-24-2023 16:18-0500 Diastolic blood pressure 103 mm[Hg] MD Monty Messina Work Phone: [facility] 01-24-2023 16:18-0500 Systolic blood pressure 179 mm[Hg] MD Monty Messina Work Phone: [facility] 01-24-2023 15:41-0500 Body temperature 97.2 [degF] MD Monty Messina Work Phone: [facility] 01-24-2023 15:41-0500 Inhaled oxygen flow rate 6 L/min MD Monty Messina Work Phone: [facility] 01-24-2023 12:23-0500 Body height 157.48 cm MD Monty Messina Work Phone: [facility] 01-24-2023 12:23-0500 Body mass index (BMI) [Ratio] 40.2 kg/m2 MD Monty Messina Work Phone: [facility] 01-24-2023 12:23-0500 Body weight 99.79 kg MD Monty Messina Work Phone: [facility] Encounters Encounter Date Encounter Type Care Provider Facility Start: 11-13-2024 End: 11-13-2024 Emergency department patient visit Sukhwinder Aparicio Facility:[facility] Start: 09-07-2024 End: 09-07-2024 ambulatory Nicolle Carr NP Facility:[facility] Start: 07-30-2024 End: 07-31-2024 Emergency department patient visit Abdieljuan diego [place] Facility:[facility] Start: 06-20-2023 Non-patient / Non-visit [employer]C Allison Carr NP [facility] Start: 06-20-2023 End: 06-20-2023 ambulatory [employer]-Brenda Carr [employer] [facility] Work Phone: Start: 06-20-2023 End: 06-20-2023 Patient encounter procedure [employer]-Brenda Carr NP [facility] Work Phone: Start: 05-06-2023 Registered Recurring [employer]-Brenda Carr [employer] [facility] Work Phone: Start: 01-31-2023 Registered Referred MD Monty amanda Work Phone: [facility] Start: 01-28-2023 Non-patient / Non-visit MD Sharon Messina Work Phone: [facility] [facility] Start: 01-28-2023 Non-patient / Non-visit MD Sharon Messina Work Phone: [facility] Start: 01-27-2023 Non-patient / Non-visit MD [facility] Start: 01-26-2023 Non-patient / Non-visit MD Sharon Messina Work Phone: [facility] Start: 01-26-2023 Non-patient / Non-visit MD Sharon Messina Work Phone: [facility] [place] Start: 01-25-2023 Non-patient / Non-visit MD Sharon Messina Work Phone: [facility] Start: 01-25-2023 Non-patient / Non-visit MD Sharon Messina Work Phone: [facility] Start: 01-24-2023 Non-patient / Non-visit MD Sharon Messina Work Phone: [facility] Start: 01-24-2023 End: 01-28-2023 Evaluation and management of inpatient MD Monty Messina Work Phone: [facility]Progressive Care Unit Start: 01-24-2023 End: 01-24-2023 ambulatory MD Monty Messina Work Phone: [facility] Work Phone: Start: 01-24-2023 End: 01-24-2023 Patient encounter procedure MD Monty Messina Work Phone: [facility]-Laboratory, Specimen Start: 05-19-2022 ambulatory Mini Coronel Work Phone: Internal Medicine Main [place] Procedures Date Procedure Procedure Detail Performing Clinician Start: 01-24-2023 CT angiography of ch est with contrast MD Monty Messina Work Phone: Start: 01-24-2023 Plain chest X-ray MD Masters Work Phone: Start: 12-20-2016 Mammography Mini forte MD Work Phone: Bacteria identified in Blood by Culture MD Monty Messina Work Phone: Legionella pneumophi la antigen assay MD Monty Messina Work Phone: Respiratory Panel (PCR) MD Lorene Messina Work Phone: SARS-CoV-2 & FLU Ant igen (Rapid) MD Monty Messina Work Phone: Streptococcus pneumo niae Antigen (M MD Monty Messina Work Phone: Plan of Treatment Date Care Activity Detail Author Start: 01-28-2023 Patient discharge [facility] Start: 01-27-2023 Referral to service [facility] Start: 01-27-2023 Care planning and pr oblem solving actions [facility] Start: 01-27-2023 Introduction of urin rachel catheter [facility] Start: 01-27-2023 [facility] Start: 01-26-2023 Referral to service [facility] Start: 01-24-2023 Consultation [facility] Start: 01-24-2023 Ambulation without limitation [facility] Start: 01-24-2023 Assessment of risk o f venous thromboembolism [facility] Start: 01-24-2023 Continuous pulse oximetry [facility] Start: 01-24-2023 Elevation of head of bed [facility] Start: 01-24-2023 Incentive spirometry [facility] Start: 01-24-2023 Insertion of cathete r into peripheral vein [facility] Start: 01-24-2023 Measuring intake and output [facility] Start: 01-24-2023 Oxygen therapy [facility] Start: 01-24-2023 Patient education [facility] Start: 01-24-2023 Physiotherapy of chest [facility] Start: 01-24-2023 Providing care accor ding to standard [facility] Start: 01-24-2023 [facility] Start: 01-24-2023 Following clinical pathway protocol [facility] Start: 01-24-2023 Verification routine [facility] Start: 01-24-2023 [facility] Start: 01-24-2023 Legionella pneumophi la Ag [Presence] in Urine [facility] Start: 01-24-2023 Streptococcus pneumo niae antigen assay [facility] Start: 01-24-2023 End: 01-25-2023 Dual pressure spontaneous ventilation support [facility] Start: 01-24-2023 Admission procedure [facility] Start: 01-24-2023 End: 01-24-2023 Blood culture [facility] Start: 01-24-2023 25 hydroxy includes fractions if performed VITAMIN D 25 HYDROXY [facility] Start: 01-24-2023 Blood count complete auto&auto difrntl wbc COMPLETE CBC W/AUTO DIFF WBC [facility] Start: 01-24-2023 Comprehensive metabo lic panel COMPREHEN METABOLIC PANEL [facility] Start: 01-24-[address] a1c HEMOGLOBIN GLYCOSYLATED A1C [facility] Start: 01-24-2023 Lipid panel LIPID PANEL [facility] Start: 01-24-2023 Inhalation therapy procedure [facility] Start: 01-24-2023 Patient referral to dietitian [facility] Start: 01-24-2023 [facility] Start: 07-22-2022 Influenza vaccination INFLUENZA (#1) [facility] Start: 03-17-2021 ANNUAL PCP TEAM WHEEL BUFFER ADE DISEASE VISIT ANNUAL PCP TEAM CHRONIC DISEASE VISIT [facility] Start: 10-13-2020 LIPID SCREEN LIPID SCREEN [facility] Start: 01-02-2018 DIABETES SCREEN DIABETES SCREEN [facility] Start: 12-20-2017 Mammography MAMMOGRAM [facility] Start: 2017 SHINGRIX VACCINE (1 of 2) ZAVALA GRIX VACCINE (1 of 2) [facility] Start: 04-02-2016 PNEUMOCOCCAL (2 - PCV) PNEUMOCOCCAL (2 - PCV) [facility] Start: 12-16-2015 Urine microalbumin profile DTAP,TDAP,TD (1 - Tdap) [facility] Start: 01-20-2012 COLOGUARD (FIT-DNA) COLOGUARD (FIT-D NA) [facility] Start: 01-20-2012 Colonoscopy COLONOSCOPY [facility] Start: 01-20-2012 COLORECTAL CANCER SCREENING COLORECTAL CANCER SCREENING [facility] Start: 01-20-[address] COLONOGRAPHY [facility] Start: 01-20-2012 FECAL OCCULT BLOOD FECAL OCCULT BLOO D [facility] Start: 01-20-2012 SIGMOIDOSCOPY SIGMOIDOSCOPY [facility] Start: 1997 HPV TESTING HPV TESTING [facility] Start: 01-20-1988 PAP TESTING PAP TESTING [facility] Start: 1985 HEPATITIS C SCREENING HEPATITIS C SC REENING [facility] Start: 1985 HIV SCREENING HIV SCREENING [facility] Start: 1985 SPIROMETRY SPIROMETRY [facility] Start: 1967 COVID-19 VACCINE (#1) COVID-19 VACCI NE (#1) [facility] Bacteria identified in Blood by Culture Blood Culture [facility] Patient referral [facility] Work Phone: Respiratory pathogen s DNA and RNA 12b panel - Unspecified specimen by EVELYN with probe detection [facility] End: 06-18-2023 Screening mammography bi 2-view breast inc cad MICHELLE SCREENING Radiology Routine Encounter for screening mammogram for breast cancer 1 Occurrences starting 05/19/2022 until 06/18/2023 [facility] Work Phone: Comment on above: 1 Occurrences starti ng 05/19/2022 until 06/18/2023 Immunizations Immunization Date Immunization Notes Care Provider Courtney galvan 08-11-2016 influenza, injectabl e, quadrivalent, contains preservative Mini Butts MD Work Phone: [facility] Work Phone: 12-15-2015 tetanus and diphther ia toxoids, adsorbed, preservative free, for adult use (5 Lf of tetanus toxoid and 2 Lf of diphtheria toxoid) Mini Butts MD Work Phone: [facility] Work Phone: 09-03-2015 influenza, injectabl e, quadrivalent, contains preservative Mini Butts MD Work Phone: [facility] Work Phone: 04-02-2015 pneumococcal polysaccharide vaccine, 23 valent Mini Butts MD Work Phone: [facility] Work Phone: Payers Date Payer Category Payer Self-pay 2024 Unknown [id number] 2009 Medicaid [employer] [facility] [place] [place] [id number] 2009-Present [phone] [address] [place] [address] Medicaid 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 (finding) [facility] Start: 1965 Sex Assigned At Not on file [facility] Start: 01-24-2023 End: 03-01-2023 Tobacco smoking status NHIS Unknown if ever smoked [facility] Start: 1965 Sex Assigned At Female W [facility] Goals Date Patient Goal Desired Activity /State Functional Status Date Assessment Result Facility 01-28-2023 Functional status Ambulates;Malik r;Bedside Commode [facility] Work Phone: Mental Status Date Assessment Result Facility 01-28-2023 Cognitive function Voice/Name [facility] Work Phone: Clinical Notes 06-12-2021 to 01-28-2023 Note Date & Type Note Facility 01-28-2023 Progress note Note Date/Time January 28, 2023 9:20am [facility] Medical Records Department [address] [place] [address] Progress Note - All Around Patternmaker 01/28/23918 MR#: [id number] Acct: [id number] Name: RADHA SLADE Rep #:[id number] : 1965 58 From: Mateusz Lopez DO PCP: Dr. Mini Butts MD Status:ADM I N Location: [place] [address] Assessment & Plan Assessment/Plan (1) Respiratory failure with hypoxia: PLAN: Plan RECOMMENDATIONS: 1. Wean supplemental oxygen to maintain saturations at or above 90%. 2. Continue AVAPS therapy with naps and nightly. 3. Continue antibiotics to complete 7-day treatment course. 4. Continue scheduled bronchodilators and IV steroids. Anticipate need for prednisone taper at discharge. 5. Maintain appropriate DVT prophylaxis. 6. Encourage incentive spirometer use and mobilize patient as tolerated. 7. Perform walking oximetry study prior to consideration for discharge home. 8. Recommend outpatient pulmonary follow-up within 2 weeks of discharge. 9. We will sign off from a critical care perspective. Please call with any additional questions. IMPRESSIONS: 1. Acute combined respiratory failure Improved. The patient does have an extensive tobacco abuse history with questionable underlying obstructive lung disease, in a state of exacerbation, likely secondary to continued outpatient utilization of cigarettes and suboptimal medical therapy for COPD. No PE was identified on CT imaging of the chest. In fact, there was no focal infiltrate or consolidation. However, givenher tenuous respiratory status at presentation, I would recommend that we continue antibiotics to complete a 7-day treatment course. Agree with continuing scheduled bronchodilators and steroids. If the patient does well over the next 24 hours, she can be transition to prednisone tomorrow with tentative plans for a taper at discharge. Nicotine replacement therapy has already been initiated. Continue to wean supplemental oxygen to maintain saturations at or above 90%. Recommend utilization of AVAPS therapy nightly andwith naps. 2. Metabolic encephalopathy Resolved. Likely secondary to acute CO2 retention in the setting of #1. Continue AVAPS therapy with naps and nightly. 3. Chronic tobacco dependency/obesity/hypertension Complicates care, management, recovery and prognosis. Continue nicotine replacement therapy. Outpatient pulmonary follow-up and baseline PFTs would be indicated after discharge. CODE STATUS: DNR CCA without intubation This note was generated with Move[employer]ation software. It may contain incorrectwords, spelling, and punctuation that were not noted in checking the note beforesigning. Subjective Subjective The patient was seen and examined at the bedside this morning. Events from the last 24 hours have been reviewed. The patient is currently afebrile, hemodynamically stable and maintaining appropriate oxygen saturations on 2 L/minvia nasal cannula. The patient's respiratory status continues to improve. Objective Data Objective Data The patient's most recent lab work, culture data and imaging studies have all been personally reviewed. Surface echocardiogram demonstrated an ejection fraction of 70%. Infectious work-up has been unrevealing to date. Vital Signs: Vital Signs Temp Pulse Resp BP Pulse Ox O2 Del Method O2 Flow Rate 98.4 F 81 18 131/78 H 94 Nasal Cannula 2 01/28/23 08:03 01/28/23 08:03 01/28/23 08:03 01/28/23 08:03 01/28/23 08:03 01/28/23 08:05 01/28/23 08:05 FiO2 35 01/27/23 04:00 Oxygen Flow Rate (L/min) 2 Oxygen Delivery Method Nasal Cannula Weight: 192 lb 14.472 oz Body Mass Index (BMI) 35.2 Intake & Output: Intake and Output for Last 24 Hours 01/26/23 01/27/23 01/28/23 23:59 23:59 23:59 Intake Total 305 / 305 545 / 695 390 / 390 Output Total 125 / 125 1200 / 1200 Balance 180 / 180 -655 / -505 390 / 390 Lab / Micro Data Attestation: I reviewed the patient's lab results. Result Diagrams: 01/26/23 03:20 01/26/23 03:20 Labs: Laboratory Results - last 24 hr 01/24/23 13:15: Diff Path Review Reviewed 01/25/23 07:55: Sodium 132 L, Potassium 6.5 H*, Chloride 96 L, Carbon Dioxide 33.0 H, Anion Gap 3 L, BUN 26 H, Creatinine 0.80, Estim Creat Clear Calc 62.10, Est GFR (MDRD) Af Amer 95, Est GFR (MDRD) Non-Af 79, BUN/Creatinine Ratio 32.5 H, Glucose 121 H, Calcium 9.0, Phosphorus 5.0 H, Magnesium 2.3 01/25/23 07:55: WBC 8.3, RBC 5.43 H, Hgb 15.7 H, Hct 51.7 H, MCV 95.2, MCH 28.9,MCHC 30.4 L, RDW Std Deviation 48.0 H, RDW Coeff of Baltazar 13.6, Plt Count 197, MPV12.5 H, Immature Gran % (Auto) 0.800, Neut % (Auto) 84.3 H, Lymph % (Auto) 9.6 L, Sevier % (Auto) 5.2, Eos % (Auto) 0.0, Baso % (Auto) 0.1, Absolute Neuts (auto) 7.0, Absolute Lymphs (auto) 0.80 L, Nucleated RBC % 0 01/25/23 11:40: Sodium 136, Potassium 5.1, Chloride 99, Carbon Dioxide 33.0 H, Anion Gap 4 L, BUN 28 H, Creatinine 0.77, Estim Creat Clear Calc 64.52, Est GFR (MDRD) Af Amer 100, Est GFR (MDRD) Non-Af 83, BUN/Creatinine Ratio 36.6 H, Glucose 111 H, Calcium 9.3 01/26/23 03:20: WBC 10.6, RBC 5.51 H, Hgb 16.0 H, Hct 52.2 H, MCV 94.7, MCH 29.0, MCHC 30.7 L, RDW Std Deviation 48.0 H, RDW Coeff of Baltazar 13.6, Plt Count 229, MPV 12.2 H, Immature Gran % (Auto) 0.700, Neut % (Auto) 80.3 H, Lymph % (Auto) 10.0 L, Sevier % (Auto) 8.8, Eos % (Auto) 0.0, Baso % (Auto) 0.2, Absolute Neuts (auto) 8.5 H, Absolute Lymphs (auto) 1.06, Nucleated RBC % 0 01/26/23 03:20: Sodium 134 L, Potassium 5.1, Chloride 96 L, Carbon Dioxide 33.0 H, Anion Gap 5, BUN 32 H, Creatinine 0.84, Estim Creat Clear Calc 59.15, Est GFR(MDRD) Af Amer 91, Est GFR (MDRD) Non-Af 75, BUN/Creatinine Ratio 38.2 H, Glucose 92, Calcium 9.6, Phosphorus 3.9, Total Bilirubin 0.20, AST 22, ALT 25, Alkaline Phosphatase 121 H, Total Protein 8.9 H, Albumin 2.9 L, Globulin 6.0 H, Albumin/Globulin Ratio 0.5 L Micro: Microbiology 01/24/23 23:50 Urine Catheter - [place] Legionella Antigen - Final 01/24/23 23:50 Urine Catheter - [place] Streptococcus pneumoniae Antigen (M - Final 01/24/23 19:00 Mucosa - Nasopharyngeal Respiratory Panel (PCR) - Final 01/24/23 13:39 Nasal Secretion SARS-CoV-2 & FLU Antigen (Rapid) - Final ABG Data ABG results: ABG 01/25/23 09:16 Specimen Type ART Sample Site R Brach pH 7.26 L Bicarbonate Actual 34.5 H Total CO2 37 Base Excess 8 H O2 Saturation 87 L O2 % 30 ABG pCO2 76.3 H* ABG pO2 63 L Respiration Rate 12 O2 Delivery Device BiPAP Tidal Volume 450 POC PEEP 8 Crit Call To/Read Back Yes Blood Gas Notified Whom brown Radiography Diagnostic Testing: Radiology Impression Echocardiogram 01/24/23 20:43 Interpretation Summary The study was technically difficult. Contrast injection was performed. Based upon the 2D echocardiographic and contrast enhanced images obtained there appears to be normal left ventricular size, wall motion, and systolic function. The estimated ejection fraction is 70 %. Trivial mitral valve insufficiency. Trivial tricuspid valve insufficiency. Unable to estimate RV systolic pressure/pulmonary artery pressure due to technically difficult study. No evidence for diastolic dysfunction. Ordering Physician: Nickolas Bush Referring Physician: Mini Butts Performed By: Della Sanchez, CHRISS, RVT Physical Exam Const alert and no apparent distress Constitutional Narrative: Sitting in bedside recliner. General Appearance: cooperative Nutritional Appearance: obese HEENT normocephalic and head/scalp atraumatic HEENT Narrative: Dry mucous membranes. Eyes PERRL, EOMs intact bilaterally and conjunctivae normal Neck supple General: trachea midline Chest inspection of chest normal Resp normal respiratory effort Effort and Inspection: prolonged expiratory phase Auscultation: diminished lung sounds Cardio regular rate, regular rhythm, S1 normal heart sound and S2 normal heart sound GI normal to inspection, nondistended, normoactive bowel sounds Extremity General Extremity: edema bilateral lower extremity; Negative for clubbing Skin no rashes or lesions noted Neuro CN's II-XII intact bilaterally, moves all extremities and no focal motor deficits Psych cooperative and affect normal Charges/Coding Visit Charges Inpatient E&M: 47315 Subs Hosp L2 01/28/23 1137 <Electronically signed by Mateusz Lopez DO> Cosigner Signature (if applicable): CC: ~ Signed [facility] Work Phone: [phone]) 209-571603-10-[address] Bush [facility] January 28, 2023 10:32am Note Date/Time January 28, 2023 10: 25am [facility] Medical Records Department [address] [place] [address] Instructions for Home/Discharge Instructions 01/28/23 1003 MR#: [id number] Acct: [id number] Name: YANYRADHA Brenda Rep #:[id number] : 1965 58 From: Nickolas Coronel PCP: Dr. Mini Butts MD Status:ADM I N Discharge Instructions Diet Discharge Diet: No restrictions Activity Discharge Activity: Return to Normal Activity Weight Bearing Status: Weight bearing as tolerated Dressing / Incision Call your doctor if you observe: Fever of 101 or Higher, Coldness, Increased Pain, Numbness or Tingling, Change in Color, Inability to urinate, Inability to have a bowel movement, Using more than 1 pad per hour, Shortness of breath, Dizziness, Fainting spells, Swelling in the ankles, Chest pain, Prolonged hiccupping, Increased palpitations (irregular heartbeat) and Calf discomfort Follow Up Care When: IN 2 WEEKS Test Results: Test results from this visit will be discussed in further detail at your follow- up appointment, if applicable. Discharge Plan Admission Admit Date/Time: 01/24/23 15:26 Primary Reason for Your Visit: COPD ecacerbation with acute combined resp failure Attending Provider: Nickolas Bush Primary Care Provider: Mini Butts Consulting Providers: Mateusz Lopez Discharge Orders/Prescriptions Prescriptions: New Deep [place] Nasal 0.65 % Aerosol,[place] 2 spray NASAL Q4H PRN PRN (Reason: NASAL DRYNESS) Qty: 0 0RF nicotine 21 mg/24 hr Patch 24 Hour 21 mg transdermal DAILY 30 Days Qty: 30 0RF lisinopril 5 mg Tablet 5 mg PO DAILY 30 Days Qty: 30 2RF Mucus Relief ER 1,200 mg Tablet Extended Release 12hr 1,200 mg PO BID 7 Days Qty: 14 0RF sennosides-docusate sodium [Stool Softener-Stimulant Laxat] 8.6-50 mg Tablet 2 tab PO BID PRN PRN (Reason: Constipation) 30 Days Qty: 60 0RF prednisone 10 mg tablets,dose pack See Taper PO DAILY Qty: 30 0RF Taper: Prednisone Taper 40 mg WITH BREAKFAST for 3 Days and 0 Hour 30 mg WITH BREAKFAST for 3 Days and 0 Hour 20 mg WITH BREAKFAST for 3 Days and 0 Hour 10 mg WITH BREAKFAST for 3 Days and 0 Hour Rx Instructions: 40 mg with breakfast for 3 Days; 30 mg with breakfast for 3 Days; 20 mg with breakfast for 3 Days; 10 mg with breakfast for 3 Days cefdinir 300 mg capsule 300 mg PO BID Qty: 6 0RF Continued albuterol sulfate 2.5 mg /3 mL (0.083 %) solution for nebulization 2 mg inhalation DAILY furosemide 20 mg tablet 20 mg PO budesonide-formoterol [Symbicort] 160-4.5 mcg/actuation HFA aerosol inhaler INHALATION Referrals / Follow Up: Mini Butts MD [Primary Care Provider] - Mateusz Lopez DO [Med Staff - Active Staff] - Within 2 Weeks (Pulm clinic) Holly English MD [Med Staff - Sales Recruitment Specialist] - Disposition Disposition (needs filled in before D/C Order can be placed): Home, Self Care 01/28/23 1032<Electronically signed by Nickolas Bush MD>Nickolas Bush MD CC: Dr. Mini Butts MD; Dr. Mateusz Lopez DO ~ Signed [facility] Work Phone: [phone]) [phone] Bush [facility] January 28, 2023 3:49pm Note Date/Time January 28, 2023 10: 32am [facility] Medical Records Department [address] [place] [address] Discharge Summary 01/28/23 1032 MR#: [id number] Acct: [id number] Name: RADHA SLADE Rep #:[id number] : 1965 58 From: Nickolas Coronel PCP: Dr. Mini Butts MD Status:ADM I N Location: [place] [address] Providers Date of Admission: 01/24/23 Date of Discharge: 01/28/23 Primary Care Physician: Dr. Mini Butts MD Consultations 01/24/23 23:13 Consult: All Around [employer] / Pulmonary Medicine Routine Consulting Provider: Mateusz Lopez Reason for Consult: Resp failure, COPD exac, PNA EMERGENT Consult: No MD Notified: Yes Date Notified: 01/24/23 Time Notified: 22:32 Method of Notification: Text Reason For Visit: COPD,EXA Diagnosis Discharge Diagnosis (1) Respiratory failure with hypoxia: Status: Acute Code(s): J96.91 - Respiratory failure, unspecified with hypoxia Plan This is a 58-year-old female is being admitted for severe shortness of breath, wheezing, mild cough and CT finding of right lower lobe pneumonia. 1. Acute hypoxic and hypercarbic respiratory failure most likely related to COPD exacerbation and pneumonia: Patient is tachypneic, hypoxic requires 6 L of oxygen, dyspnea at rest, conversational dyspnea and labored breathing. BiPAP as needed and at night. 01/25: Overnight events noticed. Patient was agitated and could not put on BiPAP therefore transferred to ICU on Precedex drip. There was a delay in ABG as patient might have been irritable or unsuccessful attempt. ABG showed severe respiratory acidosis 7.18/97/126 on BiPAP/AVAPS PEEP 8. Tidal volume 450. [employer] consulted and note reviewed. Continue AVAPS. Wean Precedex. 01/26: Patient was having severe bradycardia and sinus pauses therefore Precedex drip was discontinued yesterday. Currently heart rate is 107/min, RR 24/min. 01/27: Heart rate and blood pressure are in normal range. Patient had AVAPS last night currently on oxygen through nasal cannula. Her breathing looks much better. Transferred to PCU. 01/28: Patient doing good on PCU. Baseline oxygen requirement 2 L. Home qualification oxygen was done and she requires 6 L on walking pulse ox 90%. Patient is ambulatory in home and in the community and requires home oxygen with portability and concentrator. 2. Acute encephalopathy most likely metabolic encephalopathy from CO2 narcosis,infectious and medications: Patient likely sedated to maintain AVAPS 01/26: Acute encephalopathy improving. Patient reiterates that she was not using any NIPPV or oxygen at home. 01/27: Acute encephalopathy has resolved. Patient is alert. Oriented X3. 3. Hyperkalemia seems most likely due to respiratory acidosis: Admitting potassium more normal and then repeat potassium 6.1, sodium 132, chloride 96, bicarb 32, anion gap 4. Patient had total of 100 mEq of IV sodium bicarb.Hyperkalemia cocktail, including calcium gluconate IV ordered. 30 g oralKayexalate ordered. 01/26: Repeat potassium normal 5.1. 4. COPD exacerbation due to right lower lobe pneumonia: CT finding shows emphysematous lungs but she is still undiagnosed COPD. Started on bronchodilator DuoNeb every 4 hourly, IV Solu-Medrol, Mucinex, incentive spirometry and Pep. IV antibiotics ceftriaxone and azithromycin. 01/25: Urinary antigens are negative. Respiratory panel negative. Continue empiric antibiotic.Will need outpatient PFT and sleep study. 5. Accelerated hypertension: Patient blood pressure is high 199/118. Started on HCTZ and lisinopril. Hydralazine 10 mg every 4 hourly as needed for SBP morethan 180 mmHg. BNP elevated. First troponin negative. Second troponin orderedand if that is negative, ACS ruled out. 2D echo is ordered. Twelve-lead EKG shows right atrial enlargement. Patient does not have chest pain or pressure. 01/26: Echo reviewed. EF 70%. Normal LV size, systolic function and wall motion. Unable to estimate RVSP. Overall seems mild chronic HFpEF. ACS ruled out. 01/27: BP is in normal range. 6. Chronic smoker, non-hydrazines: Since patient does not follow PCP regularly. Advised quitting smoking. Nicotine patch ordered. Living will/advanced directive/end of life care: Patient does not have living will or advanced directive. After discussion of benefits/risks procedures involved with full code, DNR CC arrest and DNR CC, the patient and her brother near the bedside and agrees for DNRCC arrest with no intubation. Patient doesn't want artificial life support including intubation, tube feed, ventilator and/chest compression, central venous catheter, vasopressor and DC shock if needed Discharge medication reconciliation done. Discharge follow-up instructions completed. Discharge process discussed with the patient and all questions wereanswered to patient's satisfaction. Prescriptions for tapering dose of prednisone, antibiotic cefdinir to complete a total antibiotic duration of 7 days, Mucinex, senna s and lisinopril given. Total time spent, exact 35 minutes on discharge meds reconciliation, examination, coordination of care with nurses and ancillary staff, review of imaging and blood test and discussion with the patient on follow-up instructions. Clinical Impression(s) from Imaging Studies Chest X-Ray 01/24/23 14:20 IMPRESSION: Focal right lower lobe infiltrate. Electronically Signed: Theron Devine MD at 14:40 EST , Chest CTA 01/24/23 14:25 IMPRESSION: Emphysematous changes with scarring as described. No evidence of pulmonary embolism. Electronically Signed: Theron Devine MD at 15:01 EST , Medications at Discharge Home Medications albuterol sulfate 2.5 mg/3 mL (0.083 %) solution for nebulization 2 mg inhalation DAILY SOB 01/24/23 budesonide-formoterol HFA 160 mcg-4.5 mcg/actuation aerosol inhaler (Symbicort) inhalation breathing 01/24/23 furosemide 20 mg tablet 20 mg PO edema 01/24/23 cefdinir 300 mg capsule 300 mg PO BID #6 caps 01/28/23 guaifenesin 1,200 mg tablet, extended release 12 hr (Mucus Relief ER) 1,200 mg PO BID 7 days #14 tabs 01/28/23 lisinopril 5 mg tablet 5 mg PO DAILY 30 days #30 tabs 01/28/23 nicotine 21 mg/24 hr daily transdermal patch 21 mg transdermal DAILY 30 days #30ea 01/28/23 prednisone 10 mg tablets in a dose pack See Taper PO DAILY #30 tabs 01/28/23 sennosides 8.6 mg-docusate sodium 50 mg tablet (Stool Softener-Stimulant Laxative) 2 tab PO BID PRN PRN Constipation 30 days #60 tabs 01/28/23 sodium chloride 0.65 % nasal spray aerosol ([place] Nasal) 2 spray NASAL Q4H PRN PRN NASAL DRYNESS #0 mL 01/28/23 Physical Exam Narrative Overnight events were noticed. No acute events. Patient is doing better. Patient was on nasal cannula yesterday morning afternoon and then BiPAP at night. No fever Physical exam General: And oriented. HEENT: No conjunctivitis. Atraumatic, PERRLA, EOMI, Normocephalic Oral: AVAPS/BiPAP. Neck: Supple, No JVD, Negative Carotid Bruits Lungs: Air entry severely diminished in both lungs. AVAPS/BiPAP and nasal cannula. Cardiovascular: Sinus bradycardia, low BP. Abdomen: Bowel Sounds Present, Soft, Non Tender, Non-Distended : [place] catheter discontinued. Voiding clear urine. No renal angle tenderness. No suprapubic tenderness. Extremities: Pitting edema resolved. Capillary Refill Less than 3 Seconds Skin: No rashes, No breakdown Musculoskeletal: No Tenderness to Palpation of Joints or Extremities, ROM restricted at hip and knee joints. Neurological: Cranial nerves II-XII grossly intact, DTR 2+/4. Psych/Mental Status: Flat affect. Weight / BMI Weight Weight: 192 lb 14.472 oz Body Mass Index (BMI) 35.2 ABG / Lab / Microbiology Data Result Diagrams: 01/26/23 03:20 01/26/23 03:20 Microbiology: Microbiology 01/24/23 23:50 Urine Catheter - [place] Legionella Antigen - Final 01/24/23 23:50 Urine Catheter - [place] Streptococcus pneumoniae Antigen (M - Final 01/24/23 19:00 Mucosa - Nasopharyngeal Respiratory Panel (PCR) - Final 01/24/23 13:39 Nasal Secretion SARS-CoV-2 & FLU Antigen (Rapid) - Final D/C Instructions Discharge Diet: No restrictions Weight Bearing Status: Weight bearing as tolerated Call your doctor if you observe: Fever of 101 or Higher, Coldness, Increased Pain, Numbness or Tingling, Change in Color, Inability to urinate, Inability to have a bowel movement, Using more than 1 pad per hour, Shortness of breath, Dizziness, Fainting spells, Swelling in the ankles, Chest pain, Prolonged hiccupping, Increased palpitations (irregular heartbeat) and Calf discomfort When: IN 2 WEEKS Meaningful Use Info Meaningful Use Diagnoses (Choose all that apply): None applicable Discharge Plan Admission Admit Date/Time: 01/24/23 15:26 Primary Reason for Your Visit: COPD ecacerbation with acute combined resp failure Attending Provider: Nickolas Bush Primary Care Provider: Mini Butts Consulting Providers: Mateusz Lopez Discharge Orders/Prescriptions Prescriptions: New [place] Nasal 0.65 % Aerosol,[place] 2 spray NASAL Q4H PRN PRN (Reason: NASAL DRYNESS) Qty: 0 0RF nicotine 21 mg/24 hr Patch 24 Hour 21 mg transdermal DAILY 30 Days Qty: 30 0RF lisinopril 5 mg Tablet 5 mg PO DAILY 30 Days Qty: 30 2RF Mucus Relief ER 1,200 mg Tablet Extended Release 12hr 1,200 mg PO BID 7 Days Qty: 14 0RF sennosides-docusate sodium [Stool Softener-Stimulant Laxat] 8.6-50 mg Tablet 2 tab PO BID PRN PRN (Reason: Constipation) 30 Days Qty: 60 0RF prednisone 10 mg tablets,dose pack See Taper PO DAILY Qty: 30 0RF Taper: Prednisone Taper 40 mg WITH BREAKFAST for 3 Days and 0 Hour 30 mg WITH BREAKFAST for 3 Days and 0 Hour 20 mg WITH BREAKFAST for 3 Days and 0 Hour 10 mg WITH BREAKFAST for 3 Days and 0 Hour Rx Instructions: 40 mg with breakfast for 3 Days; 30 mg with breakfast for 3 Days; 20 mg with breakfast for 3 Days; 10 mg with breakfast for 3 Days cefdinir 300 mg capsule 300 mg PO BID Qty: 6 0RF Continued albuterol sulfate 2.5 mg /3 mL (0.083 %) solution for nebulization 2 mg inhalation DAILY furosemide 20 mg tablet 20 mg PO budesonide-formoterol [Symbicort] 160-4.5 mcg/actuation HFA aerosol inhaler INHALATION Referrals / Follow Up: Mini Butts MD [Primary Care Provider] - Mateusz Lopez DO [Med Staff - Active Staff] - Within 2 Weeks (Pulm clinic) Holly English MD [Med Staff - Sales Recruitment Specialist] - Disposition Disposition (needs filled in before D/C Order can be placed): Home, Self Care Charges/Coding Visit Charges Inpatient E&M: 60251 Disch Hosp >30min 01/28/23 1549 <Electronically signed by Nickolas Bush MD> Cosigner Signature (if applicable): CC: Dr. Mini Butts MD; Dr. Nickolas Bush MD~ Signed [facility] Work Phone: [phone]) 558-144003-09-[address] Lopez [facility] January 27, 2023 8:10am Note Date/Time January 27, 2023 7:01 am [facility] Medical Records Department [address] [place] [address] Progress Note - [employer] 01/27/23 07 MR#: [id number] Acct: [id number] Name: RADHA SLADE Rep #:[id number] : 1965 58 From: Mateusz Lopez DO PCP: Dr. Mini Butts MD Status:ADM I N Location: ICU ICU03-1 Assessment & Plan Assessment/Plan (1) Respiratory failure with hypoxia: PLAN: Plan RECOMMENDATIONS: 1. Wean supplemental oxygen to maintain saturations at or above 90%. 2. Continue AVAPS therapy with naps and nightly. 3. Continue antibiotics to complete 7-day treatment course. 4. Continue scheduled bronchodilators and IV steroids. Anticipate need for prednisone taper at discharge. 5. Maintain appropriate DVT prophylaxis. 6. Encourage incentive spirometer use and mobilize patient as tolerated. 7. Perform walking oximetry study prior to consideration for discharge home. 8. Recommend outpatient pulmonary follow-up within 2 weeks of discharge. 9. The patient is medically stable for transfer out of the intensive care unit. IMPRESSIONS: 1. Acute combined respiratory failure Improved. The patient does have an extensive tobacco abuse history with questionable underlying obstructive lung disease, in a state of exacerbation, likely secondary to continued outpatient utilization of cigarettes and suboptimal medical therapy for COPD. No PE was identified on CT imaging of the chest. In fact, there was no focal infiltrate or consolidation. However, givenher tenuous respiratory status at presentation, I would recommend that we continue antibiotics to complete a 7-day treatment course. Agree with continuing scheduled bronchodilators and steroids. If the patient does well over the next 24 hours, she can be transition to prednisone tomorrow with tentative plans for a taper at discharge. Nicotine replacement therapy has already been initiated. Continue to wean supplemental oxygen to maintain saturations at or above 90%. Recommend utilization of AVAPS therapy nightly andwith naps. 2. Metabolic encephalopathy Resolved. Likely secondary to acute CO2 retention in the setting of #1. Continue AVAPS therapy with naps and nightly. 3. Chronic tobacco dependency/obesity/hypertension Complicates care, management, recovery and prognosis. Continue nicotine replacement therapy. Outpatient pulmonary follow-up and baseline PFTs would be indicated after discharge. CODE STATUS: DNR CCA without intubation This note was generated with [employer] dictation software. It may contain incorrectwords, spelling, and punctuation that were not noted in checking the note beforesigning. Subjective Subjective The patient was seen and examined at the bedside this morning. Events from the last 24 hours have been reviewed. The patient is currently afebrile, hemodynamically stable and maintaining appropriate oxygen saturations on 3 L/minvia nasal cannula. The patient has no specific complaints this morning. No overnight events were noted by the nursing staff. Objective Data Objective Data The patient's most recent lab work, culture data and imaging studies have all been personally reviewed. Surface echocardiogram demonstrated an ejection fraction of 70%. Infectious work-up has been unrevealing to date. Vital Signs: Vital Signs Temp Pulse Resp BP Pulse Ox O2 Del Method O2 Flow Rate 97.8 F 91 16 124/69 H 95 Nasal Cannula 4 01/27/23 04:00 01/27/23 06:00 01/27/23 06:00 01/27/23 06:00 01/27/23 06:00 01/27/23 06:00 01/27/23 06:00 FiO2 35 01/27/23 04:00 Oxygen Flow Rate (L/min) 4 Oxygen Delivery Method Nasal Cannula Weight: 195 lb 1.6 oz Body Mass Index (BMI) 35.6 Intake & Output: Intake and Output for Last 24 Hours 01/25/23 01/26/23 01/27/23 23:59 23:59 23:59 Intake Total 313.07 / 313.07 305 / 305 Output Total 1200 / 1200 125 / 125 500 / 500 Balance -886.93 / -886.93 180 / 180 -500 / -500 Lab / Micro Data Attestation: I reviewed the patient's lab results. Result Diagrams: 01/26/23 03:20 01/26/23 03:20 Labs: Laboratory Results - last 24 hr 01/24/23 13:15: Diff Path Review Reviewed 01/25/23 07:55: Sodium 132 L, Potassium 6.5 H*, Chloride 96 L, Carbon Dioxide 33.0 H, Anion Gap 3 L, BUN 26 H, Creatinine 0.80, Estim Creat Clear Calc 62.10, Est GFR (MDRD) Af Amer 95, Est GFR (MDRD) Non-Af 79, BUN/Creatinine Ratio 32.5 H, Glucose 121 H, Calcium 9.0, Phosphorus 5.0 H, Magnesium 2.3 01/25/23 07:55: WBC 8.3, RBC 5.43 H, Hgb 15.7 H, Hct 51.7 H, MCV 95.2, MCH 28.9,MCHC 30.4 L, RDW Std Deviation 48.0 H, RDW Coeff of [place] 13.6, Plt Count 197, MPV12.5 H, Immature Gran % (Auto) 0.800, Neut % (Auto) 84.3 H, Lymph % (Auto) 9.6 L, [place] % (Auto) 5.2, Eos % (Auto) 0.0, Baso % (Auto) 0.1, Absolute Neuts (auto) 7.0, Absolute Lymphs (auto) 0.80 L, Nucleated RBC % 0 01/25/23 11:40: Sodium 136, Potassium 5.1, Chloride 99, Carbon Dioxide 33.0 H, Anion Gap 4 L, BUN 28 H, Creatinine 0.77, Estim Creat Clear Calc 64.52, Est GFR (MDRD) Af Amer 100, Est GFR (MDRD) Non-Af 83, BUN/Creatinine Ratio 36.6 H, Glucose 111 H, Calcium 9.3 01/26/23 03:20: WBC 10.6, RBC 5.51 H, Hgb 16.0 H, Hct 52.2 H, MCV 94.7, MCH 29.0, MCHC 30.7 L, RDW Std Deviation 48.0 H, RDW Coeff of [place] 13.6, Plt Count 229, MPV 12.2 H, Immature Gran % (Auto) 0.700, Neut % (Auto) 80.3 H, Lymph % (Auto) 10.0 L, [place] % (Auto) 8.8, Eos % (Auto) 0.0, Baso % (Auto) 0.2, Absolute Neuts (auto) 8.5 H, Absolute Lymphs (auto) 1.06, Nucleated RBC % 0 01/26/23 03:20: Sodium 134 L, Potassium 5.1, Chloride 96 L, Carbon Dioxide 33.0 H, Anion Gap 5, BUN 32 H, Creatinine 0.84, Estim Creat Clear Calc 59.15, Est GFR(MDRD) Af Amer 91, Est GFR (MDRD) Non-Af 75, BUN/Creatinine Ratio 38.2 H, Glucose 92, Calcium 9.6, Phosphorus 3.9, Total Bilirubin 0.20, AST 22, ALT 25, Alkaline Phosphatase 121 H, Total Protein 8.9 H, Albumin 2.9 L, Globulin 6.0 H, Albumin/Globulin Ratio 0.5 L Micro: Microbiology 01/24/23 23:50 Urine Catheter - [place] Legionella Antigen - Final 01/24/23 23:50 Urine Catheter - [place] Streptococcus pneumoniae Antigen (M - Final 01/24/23 19:00 Mucosa - Nasopharyngeal Respiratory Panel (PCR) - Final 01/24/23 13:39 Nasal Secretion SARS-CoV-2 & FLU Antigen (Rapid) - Final ABG Data ABG results: ABG 01/25/23 09:16 Specimen Type ART Sample Site R Brach pH 7.26 L Bicarbonate Actual 34.5 H Total CO2 37 Base Excess 8 H O2 Saturation 87 L O2 % 30 ABG pCO2 76.3 H* ABG pO2 63 L Respiration Rate 12 O2 Delivery Device BiPAP Tidal Volume 450 POC PEEP 8 Crit Call To/Read Back Yes Blood Gas Notified Whom brown Radiography Diagnostic Testing: Radiology Impression Echocardiogram 01/24/23 20:43 Interpretation Summary The study was technically difficult. Contrast injection was performed. Based upon the 2D echocardiographic and contrast enhanced images obtained there appears to be normal left ventricular size, wall motion, and systolic function. The estimated ejection fraction is 70 %. Trivial mitral valve insufficiency. Trivial tricuspid valve insufficiency. Unable to estimate RV systolic pressure/pulmonary artery pressure due to technically difficult study. No evidence for diastolic dysfunction. Ordering Physician: Nickolas Bush Referring Physician: Mini Butts Performed By: Della Sanchez, RDCS, RVT Physical Exam Const alert and no apparent distress Constitutional Narrative: Sitting in bedside recliner. General Appearance: cooperative Nutritional Appearance: obese HEENT normocephalic and head/scalp atraumatic HEENT Narrative: Dry mucous membranes. Eyes PERRL, EOMs intact bilaterally and conjunctivae normal Neck supple General: trachea midline Chest inspection of chest normal Resp normal respiratory effort Effort and Inspection: prolonged expiratory phase Auscultation: wheezes and diminished lung sounds Cardio regular rate, regular rhythm, S1 normal heart sound and S2 normal heart sound GI normal to inspection, nondistended, normoactive bowel sounds Extremity General Extremity: edema bilateral lower extremity; Negative for clubbing Skin no rashes or lesions noted Neuro CN's II-XII intact bilaterally, moves all extremities and no focal motor deficits Psych cooperative and affect normal Charges/Coding Visit Charges Inpatient E&M: 13592 Subs [facility] 01/27/23 0810 <Electronically signed by Mateusz Lopez DO> Cosigner Signature (if applicable): CC: ~ Signed [facility] Work Phone: 1(241) 705-286003-09-[address] Bush [facility] January 27, 2023 8:05am Note Date/Time January 27, 2023 7:57 am [facility] Medical Records Department [address] [place] [address] Progress Note - Hospitalist 01/27/23 0749 MR#: [id number] Acct: [id number] Name: YANYRADHA Brenda Rep #:[id number] : 1965 58 From: Nickolas Coronel PCP: Dr. Mini Butts MD Status:ADM I N Location: ICU ICU03-1 Reason for Visit Reason for Visit: Follow-up for acute hypoxic and hypercarbic combined respiratory Diagnoses Pneumonia, unspecified organism (01/24/23) Acute and chronic respiratory failure with hypoxia (01/24/23) Respiratory failure, unspecified with hypoxia (01/24/23) Objective Data Objective Data Vital Signs: Vital Signs Temp Pulse Resp BP Pulse Ox O2 Del Method O2 Flow Rate 97.8 F 86 21 H 128/80 H 96 High Flow 3 01/27/23 04:00 01/27/23 07:12 01/27/23 07:12 01/27/23 07:00 01/27/23 07:12 01/27/23 07:12 01/27/23 07:12 FiO2 35 01/27/23 04:00 Oxygen Flow Rate (L/min) 3 Oxygen Delivery Method High Flow Weight: 195 lb 1.6 oz Body Mass Index (BMI) 35.6 Intake & Output: Intake and Output for Last 24 Hours 01/25/23 01/26/23 01/27/23 23:59 23:59 23:59 Intake Total 313.07 / 313.07 305 / 305 Output Total 1200 / 1200 125 / 125 500 / 500 Balance -886.93 / -886.93 180 / 180 -500 / -500 Lab / Micro Data Result Diagrams: 01/26/23 03:20 01/26/23 03:20 Micro: Microbiology 01/24/23 23:50 Urine Catheter - [place] Legionella Antigen - Final 01/24/23 23:50 Urine Catheter - [place] Streptococcus pneumoniae Antigen (M - Final 01/24/23 19:00 Mucosa - Nasopharyngeal Respiratory Panel (PCR) - Final 01/24/23 13:39 Nasal Secretion SARS-CoV-2 & FLU Antigen (Rapid) - Final Physical Exam Narrative Overnight events were noticed. Patient is doing better. Patient was on nasal cannula yesterday morning afternoon and then BiPAP at night. No fever. No acute issues Physical exam General: And oriented. HEENT: No conjunctivitis. Atraumatic, PERRLA, EOMI, Normocephalic Oral: AVAPS. Neck: Supple, No JVD, Negative Carotid Bruits Lungs: Air entry severely diminished in both lungs. AVAPS/BiPAP and nasal cannula. Cardiovascular: Sinus bradycardia, low BP. Abdomen: Bowel Sounds Present, Soft, Non Tender, Non-Distended : [place] catheter, clear urine no renal angle tenderness. No suprapubic tenderness. Extremities: Bilateral 2+ pitting edema and lymphedema, Capillary Refill Less than 3 Seconds Skin: No rashes, No breakdown Musculoskeletal: No Tenderness to Palpation of Joints or Extremities, ROM restricted at hip and knee joints. Neurological: Cranial nerves II-XII grossly intact, DTR 2+/4. Psych/Mental Status: Flat affect. Assessment & Plan Assessment/Plan (1) Acute and chronic respiratory failure with hypoxia: (2) Right lower lobe pneumonia: PLAN: Plan This is a 58-year-old female is being admitted for severe shortness of breath, wheezing, mild cough and CT finding of right lower lobe pneumonia. 1. Acute hypoxic and hypercarbic respiratory failure most likely related to COPD exacerbation and pneumonia: Patient is tachypneic, hypoxic requires 6 L of oxygen, dyspnea at rest, conversational dyspnea and labored breathing. BiPAP as needed and at night. 01/25: Overnight events noticed. Patient was agitated and could not put on BiPAP therefore transferred to ICU on Precedex drip. There was a delay in ABG as patient might have been irritable or unsuccessful attempt. ABG showed severe respiratory acidosis 7.18/97/126 on BiPAP/AVAPS PEEP 8. Tidal volume 450. All Around Patternmaker consulted and note reviewed. Continue AVAPS. Wean Precedex. 01/26: Patient was having severe bradycardia and sinus pauses therefore Precedex drip was discontinued yesterday. Currently heart rate is 107/min, RR 24/min. 01/27: Heart rate and blood pressure are in normal range. Patient had AVAPS last night currently on oxygen through nasal cannula. Her breathing looks much better. Transferred to PCU. 2. Acute encephalopathy most likely metabolic encephalopathy from CO2 narcosis,infectious and medications: Patient likely sedated to maintain AVAPS 01/26: Acute encephalopathy improving. Patient reiterates that she was not using any NIPPV or oxygen at home. 01/27: Acute encephalopathy has resolved. Patient is alert.. X3. 3. Hyperkalemia seems most likely due to respiratory acidosis: Admitting potassium more normal and then repeat potassium 6.1, sodium 132, chloride 96, bicarb 32, anion gap 4. Patient had total of 100 mEq of IV sodium bicarb.Hyperkalemia cocktail, including calcium gluconate IV ordered. 30 g oralKayexalate ordered. Repeat BMP pending. 01/26: Repeat potassium normal 5.1. 4. COPD exacerbation due to right lower lobe pneumonia: CT finding shows emphysematous lungs but she is still undiagnosed COPD. Started on bronchodilator DuoNeb every 4 hourly, IV Solu-Medrol, Mucinex, incentive spirometry and Pep. IV antibiotics ceftriaxone and azithromycin. 01/25: Urinary antigens are negative. Respiratory panel negative. Continue empiric antibiotic.Will need outpatient PFT and sleep study. 5. Accelerated hypertension: Patient blood pressure is high 199/118. Started on HCTZ and lisinopril. Hydralazine 10 mg every 4 hourly as needed for SBP morethan 180 mmHg. BNP elevated. First troponin negative. Second troponin orderedand if that is negative, ACS ruled out. 2D echo is ordered. Twelve-lead EKG shows right atrial enlargement. Patient does not have chest pain or pressure. 01/26: Echo reviewed. EF 70%. Normal LV size, systolic function and wall motion. Unable to estimate RVSP. Overall seems mild chronic HFpEF. ACS ruled out. 01/27: BP is in normal range. 6. Chronic smoker, non-hydrazines: Since patient does not follow PCP regularly. Advised quitting smoking. Nicotine patch ordered. Living will/advanced directive/end of life care: Patient does not have living will or advanced directive. After discussion of benefits/risks procedures involved with full code, DNR CC arrest and DNR CC, the patient and her brother near the bedside and agrees for DNRCC arrest with no intubation. Patient doesn't want artificial life support including intubation, tube feed, ventilator and/chest compression, central venous catheter, vasopressor and DC shock if needed Total time spent in [id number] encounter in discussion of advanced directive 17 minutes. Clinical Impression(s) from Imaging Studies Chest X-Ray 01/24/23 14:20 IMPRESSION: Focal right lower lobe infiltrate. Electronically Signed: Theron Devine MD at 14:40 EST , Chest CTA 01/24/23 14:25 IMPRESSION: Emphysematous changes with scarring as described. No evidence of pulmonary embolism. Electronically Signed: Theron Devine MD at 15:01 EST , Charges/Coding Visit Charges Inpatient E&M: 09243 Subs [facility]osp [facility] 01/27/23 0805 <Electronically signed by Nickolas Bush MD> Cosigner Signature (if applicable): CC: ~ Signed [facility] Work Phone: 1(652) 729-657803-08-[address] Lopez [facility] January 26, 2023 9:50am Note Date/Time January 26, 2023 6:[address] [facility] Medical Records Department [address] [facility] [place] [address] Progress Note - All Around Patternmaker 01/26/23617 MR#: [id number] Acct: [id number] Name: RADHA SLADE Rep #:[id number] : 1965 58 From: Mateusz Lopez DO PCP: Dr. Mini Butts MD Status:ADM I N Location: ICU ICU03-1 Assessment & Plan Assessment/Plan (1) Respiratory failure with hypoxia: PLAN: Plan RECOMMENDATIONS: 1. Attempt to wean from continuous AVAPS therapy to nasal cannula oxygen. 2. Wean supplemental oxygen to maintain saturations at or above 90%. 3. Continue AVAPS therapy with naps and nightly. 4. Continue antibiotics to complete 7-day treatment course. 5. Continue scheduled bronchodilators and IV steroids. 6. Maintain appropriate DVT prophylaxis. 7. Swallow evaluation prior to advancing diet, if able to be weaned from PAP therapy. 8. Encourage incentive spirometer use and mobilize patient as tolerated. IMPRESSIONS: 1. Acute combined respiratory failure The patient does have an extensive tobacco abuse history with questionable underlying obstructive lung disease, in a state of exacerbation, likely secondary to continued outpatient utilization of cigarettes and suboptimal medical therapy for COPD. No PE was identified on CT imaging of the chest. In fact, there was no focal infiltrate or consolidation. Regardless, given the patient's current clinical state, I agree with continuing ceftriaxone and azithromycin along with scheduled bronchodilators and IV steroids. Nicotine replacement therapy has already been initiated. Although the patient's mentation has improved, she is still experiencing a significant degree of wheezing on exam. We will attempt to wean from continuous PAP therapy to nasal cannula oxygen. 2. Metabolic encephalopathy Improved. Likely secondary to acute CO2 retention in the setting of #1. Continue AVAPS therapy with naps and nightly. 3. Chronic tobacco dependency/obesity/hypertension Complicates care, management, recovery and prognosis. Continue nicotine replacement therapy. The patient should remain n.p.o. for now, pending completion of a swallow evaluation, if able to be weaned from AVAPS therapy. Outpatient pulmonary follow-up and baseline PFTs would be indicated after discharge. CODE STATUS: DNR CCA without intubation TIME: 32 minutes of critical care time, independent of procedures, was spent addressing the patient's acute combined respiratory failure, metabolic encephalopathy, review of all data and collaboration with the care team. Subjective Subjective The patient was seen and examined at the bedside this morning. Events from the last 24 hours have been reviewed. The patient currently has a low-grade fever but remains otherwise hemodynamically stable on BiPAP with an FiO2 requirement of 21%. The patient's Precedex had to be discontinued yesterday afternoon aftershe developed significant bradycardia and subsequent sinus pause. The patient has received as needed Ativan overnight. She is actually more lucid, cooperative and calm this morning. Her only complaint is for that of a dry mouth. Objective Data Objective Data The patient's most recent lab work, culture data and imaging studies have all been personally reviewed. Surface echocardiogram demonstrated an ejection fraction of 70%. Infectious work-up has been unrevealing to date. Vital Signs: Vital Signs Temp Pulse Resp BP Pulse Ox O2 Del Method O2 Flow Rate 99.3 F H 107 H 25 H 136/68 H 100 Bi-pap 15 01/26/23 04:00 01/26/23 05:18 01/26/23 05:18 01/26/23 04:00 01/26/23 05:18 01/26/23 04:00 01/24/23 23:34 FiO2 30 01/26/23 05:18 Oxygen Flow Rate (L/min) 15 Oxygen Delivery Method Bi-pap Weight: 195 lb 1.745 oz Body Mass Index (BMI) 35.9 Intake & Output: Intake and Output for Last 24 Hours 01/24/23 01/25/23 01/26/23 23:59 23:59 23:59 Intake Total 305 / 305 313.07 / 313.07 Output Total 1200 / 1200 Balance 305 / -95 -886.93 / -886.93 Lab / Micro Data Attestation: I reviewed the patient's lab results. Result Diagrams: 01/26/23 03:20 01/26/23 03:20 Labs: Laboratory Results - last 24 hr 01/24/23 13:15: Diff Path Review Reviewed 01/25/23 07:55: Sodium 132 L, Potassium 6.5 H*, Chloride 96 L, Carbon Dioxide 33.0 H, Anion Gap 3 L, BUN 26 H, Creatinine 0.80, Estim Creat Clear Calc 62.10, Est GFR (MDRD) Af Amer 95, Est GFR (MDRD) Non-Af 79, BUN/Creatinine Ratio 32.5 H, Glucose 121 H, Calcium 9.0, Phosphorus 5.0 H, Magnesium 2.3 01/25/23 07:55: WBC 8.3, RBC 5.43 H, Hgb 15.7 H, Hct 51.7 H, MCV 95.2, MCH 28.9,MCHC 30.4 L, RDW Std Deviation 48.0 H, RDW Coeff of Baltazar 13.6, Plt Count 197, MPV12.5 H, Immature Gran % (Auto) 0.800, Neut % (Auto) 84.3 H, Lymph % (Auto) 9.6 L, Sevier % (Auto) 5.2, Eos % (Auto) 0.0, Baso % (Auto) 0.1, Absolute Neuts (auto) 7.0, Absolute Lymphs (auto) 0.80 L, Nucleated RBC % 0 01/25/23 11:40: Sodium 136, Potassium 5.1, Chloride 99, Carbon Dioxide 33.0 H, Anion Gap 4 L, BUN 28 H, Creatinine 0.77, Estim Creat Clear Calc 64.52, Est GFR (MDRD) Af Amer 100, Est GFR (MDRD) Non-Af 83, BUN/Creatinine Ratio 36.6 H, Glucose 111 H, Calcium 9.3 01/26/23 03:20: WBC 10.6, RBC 5.51 H, Hgb 16.0 H, Hct 52.2 H, MCV 94.7, MCH 29.0, MCHC 30.7 L, RDW Std Deviation 48.0 H, RDW Coeff of Baltazar 13.6, Plt Count 229, MPV 12.2 H, Immature Gran % (Auto) 0.700, Neut % (Auto) 80.3 H, Lymph % (Auto) 10.0 L, Sevier % (Auto) 8.8, Eos % (Auto) 0.0, Baso % (Auto) 0.2, Absolute Neuts (auto) 8.5 H, Absolute Lymphs (auto) 1.06, Nucleated RBC % 0 01/26/23 03:20: Sodium 134 L, Potassium 5.1, Chloride 96 L, Carbon Dioxide 33.0 H, Anion Gap 5, BUN 32 H, Creatinine 0.84, Estim Creat Clear Calc 59.15, Est GFR(MDRD) Af Amer 91, Est GFR (MDRD) Non-Af 75, BUN/Creatinine Ratio 38.2 H, Glucose 92, Calcium 9.6, Phosphorus 3.9, Total Bilirubin 0.20, AST 22, ALT 25, Alkaline Phosphatase 121 H, Total Protein 8.9 H, Albumin 2.9 L, Globulin 6.0 H, Albumin/Globulin Ratio 0.5 L Micro: Microbiology 01/24/23 23:50 Urine Catheter - [place] Legionella Antigen - Final 01/24/23 23:50 Urine Catheter - [place] Streptococcus pneumoniae Antigen (M - Final 01/24/23 19:00 Mucosa - Nasopharyngeal Respiratory Panel (PCR) - Final 01/24/23 13:39 Nasal Secretion SARS-CoV-2 & FLU Antigen (Rapid) - Final ABG Data ABG results: ABG 01/25/23 09:16 Specimen Type ART Sample Site R Brach pH 7.26 L Bicarbonate Actual 34.5 H Total CO2 37 Base Excess 8 H O2 Saturation 87 L O2 % 30 ABG pCO2 76.3 H* ABG pO2 63 L Respiration Rate 12 O2 Delivery Device BiPAP Tidal Volume 450 POC PEEP 8 Crit Call To/Read Back Yes Blood Gas Notified Whom brown Radiography Diagnostic Testing: Radiology Impression Echocardiogram 01/24/23 20:43 Interpretation Summary The study was technically difficult. Contrast injection was performed. Based upon the 2D echocardiographic and contrast enhanced images obtained there appears to be normal left ventricular size, wall motion, and systolic function. The estimated ejection fraction is 70 %. Trivial mitral valve insufficiency. Trivial tricuspid valve insufficiency. Unable to estimate RV systolic pressure/pulmonary artery pressure due to technically difficult study. No evidence for diastolic dysfunction. Ordering Physician: Nickolas Bush Referring Physician: Mini Butts Performed By: Della Sanchez, RDCS, RVT Physical Exam Const alert and no apparent distress General Appearance: on BiPAP HEENT normocephalic and head/scalp atraumatic HEENT Narrative: Dry mucous membranes. Eyes PERRL, EOMs intact bilaterally and conjunctivae normal Neck supple General: trachea midline Chest inspection of chest normal Resp Effort and Inspection: prolonged expiratory phase Auscultation: wheezes and diminished lung sounds Cardio regular rate, regular rhythm, S1 normal heart sound and S2 normal heart sound GI normal to inspection, nondistended, normoactive bowel sounds Extremity General Extremity: edema bilateral lower extremity; Negative for clubbing Skin no rashes or lesions noted Neuro CN's II-XII intact bilaterally, moves all extremities and no focal motor deficits Psych Mood & Affect: flat affect Charges/Coding Procedures Hospitalists Procedures: 59181 Critial Care 1st Hr 01/26/23 0950 <Electronically signed by Mateusz Lopez DO> Cosigner Signature (if applicable): CC: ~ Signed [facility] Work Phone: 1(419) 286-371603-08-[address] Bush [facility] January 26, 2023 8:18am Note Date/Time January 26, 2023 7:43 am [facility] Medical Records Department [address] [place] [address] Progress Note - Hospitalist 01/26/23 0741 MR#: [id number] Acct: [id number] Name: RADHA SLADE Rep #:[id number] : 1965 58 From: Nickolas Coronel PCP: Dr. Mini Butts MD Status:ADM I N Location: ICU ICU03-1 Reason for Visit Reason for Visit: Diagnoses Pneumonia, unspecified organism (01/24/23) Acute and chronic respiratory failure with hypoxia (01/24/23) Respiratory failure, unspecified with hypoxia (01/24/23) Subjective Subjective Follow-up for acute combined hypoxic and hypercarbic respiratory failure. Patient was on Precedex that was discontinued because of severe bradycardia and sinus pause. Objective Data Objective Data Vital Signs: Vital Signs Temp Pulse Resp BP Pulse Ox O2 Del Method O2 Flow Rate 98.7 F 107 H 24 H 143/77 H 99 Bi-pap 15 01/26/23 07:00 01/26/23 07:00 01/26/23 07:00 01/26/23 07:00 01/26/23 07:00 01/26/23 07:00 01/24/23 23:34 FiO2 21 01/26/23 07:00 Oxygen Flow Rate (L/min) 15 Oxygen Delivery Method Bi-pap Weight: 195 lb 1.745 oz Body Mass Index (BMI) 35.9 Intake & Output: Intake and Output for Last 24 Hours 01/24/23 01/25/23 01/26/23 23:59 23:59 23:59 Intake Total 305 / 305 313.07 / 313.07 Output Total 1200 / 1200 Balance 305 / -95 -886.93 / -886.93 Lab / Micro Data Result Diagrams: 01/26/23 03:20 01/26/23 03:20 Labs: Laboratory Results - last 24 hr 01/24/23 13:15: Diff Path Review Reviewed 01/25/23 07:55: Sodium 132 L, Potassium 6.5 H*, Chloride 96 L, Carbon Dioxide 33.0 H, Anion Gap 3 L, BUN 26 H, Creatinine 0.80, Estim Creat Clear Calc 62.10, Est GFR (MDRD) Af Amer 95, Est GFR (MDRD) Non-Af 79, BUN/Creatinine Ratio 32.5 H, Glucose 121 H, Calcium 9.0, Phosphorus 5.0 H, Magnesium 2.3 01/25/23 07:55: WBC 8.3, RBC 5.43 H, Hgb 15.7 H, Hct 51.7 H, MCV 95.2, MCH 28.9,MCHC 30.4 L, RDW Std Deviation 48.0 H, RDW Coeff of Baltazar 13.6, Plt Count 197, MPV12.5 H, Immature Gran % (Auto) 0.800, Neut % (Auto) 84.3 H, Lymph % (Auto) 9.6 L, Sevier % (Auto) 5.2, Eos % (Auto) 0.0, Baso % (Auto) 0.1, Absolute Neuts (auto) 7.0, Absolute Lymphs (auto) 0.80 L, Nucleated RBC % 0 01/25/23 11:40: Sodium 136, Potassium 5.1, Chloride 99, Carbon Dioxide 33.0 H, Anion Gap 4 L, BUN 28 H, Creatinine 0.77, Estim Creat Clear Calc 64.52, Est GFR (MDRD) Af Amer 100, Est GFR (MDRD) Non-Af 83, BUN/Creatinine Ratio 36.6 H, Glucose 111 H, Calcium 9.3 01/26/23 03:20: WBC 10.6, RBC 5.51 H, Hgb 16.0 H, Hct 52.2 H, MCV 94.7, MCH 29.0, MCHC 30.7 L, RDW Std Deviation 48.0 H, RDW Coeff of Baltazar 13.6, Plt Count 229, MPV 12.2 H, Immature Gran % (Auto) 0.700, Neut % (Auto) 80.3 H, Lymph % (Auto) 10.0 L, Sevier % (Auto) 8.8, Eos % (Auto) 0.0, Baso % (Auto) 0.2, Absolute Neuts (auto) 8.5 H, Absolute Lymphs (auto) 1.06, Nucleated RBC % 0 01/26/23 03:20: Sodium 134 L, Potassium 5.1, Chloride 96 L, Carbon Dioxide 33.0 H, Anion Gap 5, BUN 32 H, Creatinine 0.84, Estim Creat Clear Calc 59.15, Est GFR(MDRD) Af Amer 91, Est GFR (MDRD) Non-Af 75, BUN/Creatinine Ratio 38.2 H, Glucose 92, Calcium 9.6, Phosphorus 3.9, Total Bilirubin 0.20, AST 22, ALT 25, Alkaline Phosphatase 121 H, Total Protein 8.9 H, Albumin 2.9 L, Globulin 6.0 H, Albumin/Globulin Ratio 0.5 L Micro: Microbiology 01/24/23 23:50 Urine Catheter - [place] Legionella Antigen - Final 01/24/23 23:50 Urine Catheter - [place] Streptococcus pneumoniae Antigen (M - Final 01/24/23 19:00 Mucosa - Nasopharyngeal Respiratory Panel (PCR) - Final 01/24/23 13:39 Nasal Secretion SARS-CoV-2 & FLU Antigen (Rapid) - Final ABG Data ABG results: ABG 01/25/23 09:16 Specimen Type ART Sample Site R Brach pH 7.26 L Bicarbonate Actual 34.5 H Total CO2 37 Base Excess 8 H O2 Saturation 87 L O2 % 30 ABG pCO2 76.3 H* ABG pO2 63 L Respiration Rate 12 O2 Delivery Device BiPAP Tidal Volume 450 POC PEEP 8 Crit Call To/Read Back Yes Blood Gas Notified Whom brown Radiography Diagnostic Testing: Radiology Impression Echocardiogram 01/24/23 20:43 Interpretation Summary The study was technically difficult. Contrast injection was performed. Based upon the 2D echocardiographic and contrast enhanced images obtained there appears to be normal left ventricular size, wall motion, and systolic function. The estimated ejection fraction is 70 %. Trivial mitral valve insufficiency. Trivial tricuspid valve insufficiency. Unable to estimate RV systolic pressure/pulmonary artery pressure due to technically difficult study. No evidence for diastolic dysfunction. Ordering Physician: Nickolas Bush Referring Physician: Mini Butts Performed By: Della Sanchez, CHRISS, RVT Physical Exam Narrative Overnight events were noticed. Patient had severe bradycardia with sinus pause therefore Levophed drip was discontinued yesterday. Currently she is tachycardic. She is more awake and alert. Physical exam General: And oriented. HEENT: Matting of eyelashes. Atraumatic, PERRLA, EOMI, Normocephalic Oral: AVAPS. Neck: Supple, No JVD, Negative Carotid Bruits Lungs: Air entry severely diminished in both lungs. AVAPS/BiPAP and nasal cannula. Cardiovascular: Sinus bradycardia, low BP. Abdomen: Bowel Sounds Present, Soft, Non Tender, Non-Distended : [place] catheter, clear urine no renal angle tenderness. No suprapubic tenderness. Extremities: Bilateral 2+ pitting edema and lymphedema, Capillary Refill Less than 3 Seconds Skin: No rashes, No breakdown Musculoskeletal: No Tenderness to Palpation of Joints or Extremities, ROM restricted at hip and knee joints. Neurological: Cranial nerves II-XII grossly intact, DTR 2+/4. Psych/Mental Status: Flat affect. Assessment & Plan Assessment/Plan (1) Acute and chronic respiratory failure with hypoxia: (2) Right lower lobe pneumonia: PLAN: Plan This is a 58-year-old female is being admitted for severe shortness of breath, wheezing, mild cough and CT finding of right lower lobe pneumonia. 1. Acute hypoxic and hypercarbic respiratory failure most likely related to COPD exacerbation and pneumonia: Patient is tachypneic, hypoxic requires 6 L of oxygen, dyspnea at rest, conversational dyspnea and labored breathing. BiPAP as needed and at night. 01/25: Overnight events noticed. Patient was agitated and could not put on BiPAP therefore transferred to ICU on Precedex drip. There was a delay in ABG as patient might have been irritable or unsuccessful attempt. ABG showed severe respiratory acidosis 7.18/97/126 on BiPAP/AVAPS PEEP 8. Tidal volume 450. All Around Patternmaker consulted and note reviewed. Continue AVAPS. Wean Precedex. 01/26: Patient was having severe bradycardia and sinus pauses therefore Precedex drip was discontinued yesterday. Currently heart rate is 107/min, RR 24/min. On AVAPS. 2. Acute encephalopathy most likely metabolic encephalopathy from CO2 narcosis,infectious and medications: Patient likely sedated to maintain AVAPS 01/26: Acute encephalopathy improving. Patient reiterates that she was not using any NIPPV or oxygen at home. 3. Hyperkalemia seems most likely due to respiratory acidosis: Admitting potassium more normal and then repeat potassium 6.1, sodium 132, chloride 96, bicarb 32, anion gap 4. Patient had total of 100 mEq of IV sodium bicarb.Hyperkalemia cocktail, including calcium gluconate IV ordered. 30 g oralKayexalate ordered. Repeat BMP pending. 01/26: Repeat potassium normal 5.1. 4. COPD exacerbation due to right lower lobe pneumonia: CT finding shows emphysematous lungs but she is still undiagnosed COPD. Started on bronchodilator DuoNeb every 4 hourly, IV Solu-Medrol, Mucinex, incentive spirometry and Pep. IV antibiotics ceftriaxone and azithromycin. 01/25: Urinary antigens are negative. Respiratory panel negative. Continue empiric antibiotic.Will need outpatient PFT and sleep study. 5. Accelerated hypertension: Patient blood pressure is high 199/118. Started on HCTZ and lisinopril. Hydralazine 10 mg every 4 hourly as needed for SBP morethan 180 mmHg. BNP elevated. First troponin negative. Second troponin orderedand if that is negative, ACS ruled out. 2D echo is ordered. Twelve-lead EKG shows right atrial enlargement. Patient does not have chest pain or pressure. 01/26: Echo reviewed. EF 70%. Normal LV size, systolic function and wall motion. Unable to estimate RVSP. Overall seems mild chronic HFpEF. ACS ruled out. 6. Chronic smoker, non-hydrazines: Since patient does not follow PCP regularly. Advised quitting smoking. Nicotine patch ordered. Living will/advanced directive/end of life care: Patient does not have living will or advanced directive. After discussion of benefits/risks procedures involved with full code, DNR CC arrest and DNR CC, the patient and her brother near the bedside and agrees for DNRCC arrest with no intubation. Patient doesn't want artificial life support including intubation, tube feed, ventilator and/chest compression, central venous catheter, vasopressor and DC shock if needed Total time spent in [id number] encounter in discussion of advanced directive 17 minutes. Clinical Impression(s) from Imaging Studies Chest X-Ray 01/24/23 14:20 IMPRESSION: Focal right lower lobe infiltrate. Electronically Signed: Theron Devine MD at 14:40 EST , Chest CTA 01/24/23 14:25 IMPRESSION: Emphysematous changes with scarring as described. No evidence of pulmonary embolism. Electronically Signed: Theron Devine MD at 15:01 EST , Charges/Coding Visit Charges Inpatient E&M: 02617 Subs Hosp L3 01/26/23817 <Electronically signed by Nickolas Bush MD> Cosigner Signature (if applicable): CC: ~ Signed [facility] Work Phone: 1(234) 256-356703-08-[address] Lopez [facility] January 26, 2023 6:20am Note Date/Time January 25, 2023 8:[address] [facility] Medical Records Department [address] [place] [address] Consultation - All Around Patternmaker 01/25/23831 MR#: [id number] Acct: [id number] Name: RADHA SLADE Rep #:[id number] : 1965 [id number] From: Mateusz Lopez DO PCP: Dr. Mini Butts MD Status:ADM I N Location: ICU ICU03-1 Assessment & Plan Assessment/Plan (1) Respiratory failure with hypoxia: PLAN: Plan RECOMMENDATIONS: 1. Continue AVAPS therapy as tolerated. 2. Wean Precedex as tolerated to facilitate BiPAP adherence. 3. Continue empiric antibiotics. 4. Continue scheduled bronchodilators and IV steroids. 5. Continue appropriate DVT prophylaxis. 6. Maintain n.p.o. status for now. 7. Await results of echocardiogram. IMPRESSIONS: 1. Acute combined respiratory failure The patient does have an extensive tobacco abuse history with questionable underlying obstructive lung disease, in a state of exacerbation, likely secondary to continued outpatient utilization of cigarettes and suboptimal medical therapy for COPD. No PE was identified on CT imaging of the chest. In fact, there was no focal infiltrate or consolidation. Regardless, given the patient's current clinical state, I agree with continuing ceftriaxone and azithromycin along with scheduled bronchodilators and IV steroids. Nicotine replacement therapy has already been initiated. The patient will remain on AVAPS therapy with Precedex to facilitate adherence. CODE STATUS was confirmed to be DNR CCA without intubation. 2. Metabolic encephalopathy Likely secondary to acute CO2 retention in the setting of #1. Continue AVAPS therapy as tolerated. Obtain follow-up arterial blood gas this morning. Attempt to wean Precedex as tolerated. 3. Chronic tobacco dependency/obesity/hypertension Complicates care, management, recovery and prognosis. Continue nicotine replacement therapy. The patient should remain n.p.o. for now, pending improvement in mentation. Outpatient pulmonary follow-up and baseline PFTs would be indicated after discharge. TIME: 35 minutes of critical care time, independent of procedures, was spent addressing the patient's acute combined respiratory failure, metabolic encephalopathy, review of all data and collaboration with the care team. HPI Consult Data Date of Consult: 01/26/23 HPI Narrative Reason for Consultation: Respiratory failure HPI Narrative: The patient is a 58-year-old female, with a history as outlined below, who presented to the emergency department on January 24 with progressive shortness of breath, wheezing and hypoxemia. The patient is a current everyday smoker with questionable obstructive lung disease. I did speak briefly with the patient's brother, who indicated that the patient does have an extensive tobacco abuse history and continues to smoke on a daily basis. She has not followed by a sweet pickled fruit maker on an outpatient basis. She apparently does utilize inhalers at her baseline, but he does not recall their names. On presentation to the emergency department, the patient was noted to be afebrile but was tachycardic, tachypneic and significantly hypertensive. Initial laboratory evaluation revealed a white blood cell count of 9000 with a hemoglobin of 18 and hematocrit of 55. D-dimer was noted to be 1.2. Chemistry profile was notable for a sodium of 129, potassium of 5.5, chloride of 93 and creatinine of 1.04. Lactate was within normal limits. BNP was mildly elevated at 160 with a normal troponin. Initial arterial blood gas obtained on 6 L/min demonstrated a pH of 7.14 with a PCO2 of 97 and PO2 of 96. CTA chest showed no evidence for PE, but did demonstrate bilateral emphysematous changes. The patient was initially placed on noninvasive positive pressure ventilatory support, antimicrobials, bronchodilators and steroids. Ultimately, the patient became agitated and had difficulty tolerating PAP therapy. Therefore, overnight, the patient was transferred to the medical intensive care unit to be started on a Precedex infusion in hopes that this would facilitate BiPAP adherence. [facility] Medical History Emphysema lung Home Medications albuterol sulfate 2.5 mg/3 mL (0.083 %) solution for nebulization 2 mg inhalation DAILY SOB 01/24/23 [History Last Taken 01/23/23] budesonide-formoterol HFA 160 mcg-4.5 mcg/actuation aerosol inhaler (Symbicort) inhalation Check with primary doctor 01/24/23 [History Last Taken 01/24/23] furosemide 20 mg tablet 20 mg PO edema 01/24/23 [History Last Taken 01/24/23] Allergy/AdvReac Type Severity Reaction Status Date / Time ANTIHISTAMINES Allergy Itching Uncoded 01/24/23 12:25 Family History unable to obtain Social History Smoking Status: Current every day smoker tobacco type: cigarettes ROS Review of Systems ROS Unobtainable: due to mental status Physical Exam Const Constitutional Narrative: Currently lethargic on BiPAP. Minimal responsiveness to verbal and tactile stimulation. HEENT normocephalic and head/scalp atraumatic Eyes PERRL Neck supple General: trachea midline Chest inspection of chest normal Resp Effort and Inspection: tachypneic Auscultation: wheezes and diminished lung sounds Cardio S1 normal heart sound and S2 normal heart sound Rate: bradycardia GI normal to inspection, nondistended, normoactive bowel sounds Extremity General Extremity: edema bilateral lower extremity; Negative for clubbing Skin no rashes or lesions noted Neuro Neuro Narrative: Nonresponsive to verbal and tactile stimulation at the present time. Lab / Micro Data Result Diagrams: 01/26/23 03:20 01/26/23 03:20 Labs: Laboratory Results - last 24 hr 01/24/23 13:15: WBC 11.2 H, RBC 6.06 H, Hgb 17.8 H, Hct 57.4 H, MCV 94.7 D, MCH29.4, MCHC 31.0 L D, RDW Std Deviation 48.2 H, RDW Coeff of Baltazar 13.7, Plt Count 267, MPV 12.7 H, Neut % (Auto) Not Reportable, Absolute Neuts (auto) 8.3 H, Absolute Lymphs (auto) 1.34, Total Counted 100, Neutrophils % (Manual) 74 H, Lymphocytes % (Manual) 12 L, Monocytes % (Manual) 6, Basophils % (Manual) 1, Myelocytes % 5 H, Promyelocytes % 2 H, Diff Path Review May foll, Platelet Estimate ADEQUATE, RBC Morphology NORM C+C 01/24/23 13:15: D-Dimer Quant (PE/DVT) Cancelled 01/24/23 13:15: Sodium 129 L, Potassium 4.9, Chloride 94 L, Carbon Dioxide 29.0,Anion Gap 6, BUN 19 H, Creatinine 1.04 H, Estim Creat Clear Calc 47.77, Est GFR (MDRD) Af Amer 71, Est GFR (MDRD) Non-Af 58 L, BUN/Creatinine Ratio 18.3, Glucose 140 H, Calcium 9.4, Troponin I High Sens 39 01/24/23 13:15: Lactic Acid 1.5 01/24/23 13:15: B-Natriuretic Peptide 160.3 H 01/24/23 13:15: Magnesium 2.0 01/24/23 13:56: D-Dimer Quant (PE/DVT) 1.20 H* 01/24/23 21:10: Troponin I High Sens 31 01/24/23 23:45: MRSA (PCR) Negative 01/25/23 04:10: Sodium 132 L, Potassium 6.1 H*, Chloride 96 L, Carbon Dioxide 32.0, Anion Gap 4 L, BUN 23 H, Creatinine 0.73, Estim Creat Clear Calc 68.06, Est GFR (MDRD) Af Amer 106, Est GFR (MDRD) Non-Af 88, BUN/Creatinine Ratio 31.6 H, Glucose 113 H, Calcium 8.8 01/25/23 04:10: WBC 9.9, RBC 5.51 H, Hgb 16.3 H, Hct 52.9 H, MCV 96.0, MCH 29.6,MCHC 30.8 L, RDW Std Deviation 48.2 H, RDW Coeff of Baltazar 13.5, Plt Count 196, MPV12.1 H, Immature Gran % (Auto) 0.900, Neut % (Auto) 83.0 H, Lymph % (Auto) 9.5 L, Sevier % (Auto) 6.4, Eos % (Auto) 0.0, Baso % (Auto) 0.2, Absolute Neuts (auto) 8.2 H, Absolute Lymphs (auto) 0.94, Nucleated RBC % 0 01/25/23 07:55: WBC 8.3, RBC 5.43 H, Hgb 15.7 H, Hct 51.7 H, MCV 95.2, MCH 28.9,MCHC 30.4 L, RDW Std Deviation 48.0 H, RDW Coeff of Baltazar 13.6, Plt Count 197, MPV12.5 H, Immature Gran % (Auto) 0.800, Neut % (Auto) 84.3 H, Lymph % (Auto) 9.6 L, Sevier % (Auto) 5.2, Eos % (Auto) 0.0, Baso % (Auto) 0.1, Absolute Neuts (auto) 7.0, Absolute Lymphs (auto) 0.80 L, Nucleated RBC % 0 Micro: Microbiology 01/24/23 23:50 Urine Catheter - [place] Legionella Antigen - Final 01/24/23 23:50 Urine Catheter - [place] Streptococcus pneumoniae Antigen (M - Final 01/24/23 19:00 Mucosa - Nasopharyngeal Respiratory Panel (PCR) - Final 01/24/23 13:39 Nasal Secretion SARS-CoV-2 & FLU Antigen (Rapid) - Final ABG Data ABG results: ABG 01/24/23 01/25/23 16:13 02:25 Specimen Type ART ART Sample Site L Radial R Radial pH 7.14 L* 7.18 L* Bicarbonate Actual 33.0 H 36.7 H Total CO2 36 40 Base Excess 4 H 8 H O2 Saturation 94 L 97 O2 % 40 ABG pCO2 97.5 H* 97.5 H* ABG pO2 96 126 H Edmund Test Positive Positive Respiration Rate 14 O2 Delivery Device Cannula BiPAP Liter Flow 6.0 Tidal Volume 450 POC PEEP 8 Crit Call To/Read Back Yes Yes Radiology Impression Chest X-Ray 01/24/23 14:20 IMPRESSION: Focal right lower lobe infiltrate. Electronically Signed: Theron Devine MD at 14:40 EST , Chest CTA 01/24/23 14:25 IMPRESSION: Emphysematous changes with scarring as described. No evidence of pulmonary embolism. Electronically Signed: Theron Devine MD at 15:01 EST , Charges/Coding Procedures Hospitalists Procedures: 84684 Critial Care 1st Hr 01/26/23 0620 <Electronically signed by Mateusz Lopez DO> Cosigner Signature (if applicable): CC: Dr. Mini Butts MD; Dr. Mateusz Lopez DO~ Signed [facility] Work Phone: 1(413) 470-443803-07-[address] Bush [facility] January 25, 2023 3:37pm Note Date/Time January 25, 2023 7:22 am [facility] Medical Records Department [address] [place] [address] Progress Note - Hospitalist 01/25/23715 MR#: [id number] Acct: [id number] Name: RADHA SLADE Rep #:[id number] : 1965 58 From: Nickolas Coronel PCP: Dr. Mini Butts MD Status:ADM I N Location: ICU ICU03-1 Reason for Visit Reason for Visit: Follow-up for severe acute hypoxic and hypercarbic combined respiratory failure,decreased mentation and acute encephalopathy Diagnoses Pneumonia, unspecified organism (01/24/23) Acute and chronic respiratory failure with hypoxia (01/24/23) Objective Data Objective Data Vital Signs: Vital Signs Temp Pulse Resp BP Pulse Ox O2 Del Method O2 Flow Rate 98 F 57 L 35 H 94/71 96 Bi-pap 15 01/25/23 06:00 01/25/23 06:59 01/25/23 06:59 01/25/23 06:00 01/25/23 06:59 01/25/23 06:00 01/24/23 23:34 FiO2 30 01/25/23 06:59 Oxygen Flow Rate (L/min) 15 Oxygen Delivery Method Bi-pap Weight: 195 lb 8.8 oz Body Mass Index (BMI) 35.9 Intake & Output: Intake and Output for Last 24 Hours 01/23/23 01/24/23 01/25/23 23:59 23:59 23:59 Intake Total 305 / 305 106.23 / 106.23 Output Total 550 / 550 Balance 305 / -95 -443.77 / -443.77 Lab / Micro Data Result Diagrams: 01/25/23 07:55 01/25/23 11:40 Labs: Laboratory Results - last 24 hr 01/24/23 13:15: WBC 11.2 H, RBC 6.06 H, Hgb 17.8 H, Hct 57.4 H, MCV 94.7 D, MCH29.4, MCHC 31.0 L D, RDW Std Deviation 48.2 H, RDW Coeff of Baltazar 13.7, Plt Count 267, MPV 12.7 H, Neut % (Auto) Not Reportable, Absolute Neuts (auto) 8.3 H, Absolute Lymphs (auto) 1.34, Total Counted 100, Neutrophils % (Manual) 74 H, Lymphocytes % (Manual) 12 L, Monocytes % (Manual) 6, Basophils % (Manual) 1, Myelocytes % 5 H, Promyelocytes % 2 H, Diff Path Review March, Platelet Estimate ADEQUATE, RBC Morphology NORM C+C 01/24/23 13:15: D-Dimer Quant (PE/DVT) Cancelled 01/24/23 13:15: Sodium 129 L, Potassium 4.9, Chloride 94 L, Carbon Dioxide 29.0,Anion Gap 6, BUN 19 H, Creatinine 1.04 H, Estim Creat Clear Calc 47.77, Est GFR (MDRD) Af Amer 71, Est GFR (MDRD) Non-Af 58 L, BUN/Creatinine Ratio 18.3, Glucose 140 H, Calcium 9.4, Troponin I High Sens 39 01/24/23 13:15: Lactic Acid 1.5 01/24/23 13:15: B-Natriuretic Peptide 160.3 H 01/24/23 13:15: Magnesium 2.0 01/24/23 13:56: D-Dimer Quant (PE/DVT) 1.20 H* 01/24/23 21:10: Troponin I High Sens 31 01/24/23 23:45: MRSA (PCR) Negative 01/25/23 04:10: Sodium 132 L, Potassium 6.1 H*, Chloride 96 L, Carbon Dioxide 32.0, Anion Gap 4 L, BUN 23 H, Creatinine 0.73, Estim Creat Clear Calc 68.06, Est GFR (MDRD) Af Amer 106, Est GFR (MDRD) Non-Af 88, BUN/Creatinine Ratio 31.6 H, Glucose 113 H, Calcium 8.8 01/25/23 04:10: WBC 9.9, RBC 5.51 H, Hgb 16.3 H, Hct 52.9 H, MCV 96.0, MCH 29.6,MCHC 30.8 L, RDW Std Deviation 48.2 H, RDW Coeff of Baltazar 13.5, Plt Count 196, MPV12.1 H, Immature Gran % (Auto) 0.900, Neut % (Auto) 83.0 H, Lymph % (Auto) 9.5 L, Sevier % (Auto) 6.4, Eos % (Auto) 0.0, Baso % (Auto) 0.2, Absolute Neuts (auto) 8.2 H, Absolute Lymphs (auto) 0.94, Nucleated RBC % 0 Micro: Microbiology 01/24/23 23:50 Urine Catheter - [place] Legionella Antigen - Final 01/24/23 23:50 Urine Catheter - [place] Streptococcus pneumoniae Antigen (M - Final 01/24/23 19:00 Mucosa - Nasopharyngeal Respiratory Panel (PCR) - Final 01/24/23 13:39 Nasal Secretion SARS-CoV-2 & FLU Antigen (Rapid) - Final ABG Data ABG results: ABG 01/24/23 01/25/23 16:13 02:25 Specimen Type ART ART Sample Site L Radial R Radial pH 7.14 L* 7.18 L* Bicarbonate Actual 33.0 H 36.7 H Total CO2 36 40 Base Excess 4 H 8 H O2 Saturation 94 L 97 O2 % 40 ABG pCO2 97.5 H* 97.5 H* ABG pO2 96 126 H Edmund Test Positive Positive Respiration Rate 14 O2 Delivery Device Cannula BiPAP Liter Flow 6.0 Tidal Volume 450 POC PEEP 8 Crit Call To/Read Back Yes Yes Radiography Diagnostic Testing: Radiology Impression Chest X-Ray 01/24/23 14:20 IMPRESSION: Focal right lower lobe infiltrate. Electronically Signed: Theron Devine MD at 14:40 EST , Chest CTA 01/24/23 14:25 IMPRESSION: Emphysematous changes with scarring as described. No evidence of pulmonary embolism. Electronically Signed: Theron Devine MD at 15:01 EST , Physical Exam Narrative Overnight events were noticed. Patient was agitated,Not able to put BiPAP. While the ABG was ordered at the time of admission But later reported 7.14/97/96 on 6 L of oxygen and patient wasput on BiPAP but she was not tolerating, agitated and restless therefore was transferred to ICU to start on Precedex drip. She was also intermittently confused and disoriented. Physical exam General: Drowsy lethargic, mildly somnolent on Precedex drip. HEENT: Atraumatic, PERRLA, EOMI, Normocephalic Oral: AVAPS. Neck: Supple, No JVD, Negative Carotid Bruits Lungs: Air entry severely diminished in both lungs. On 30% FiO2 P4 50 mL. Cardiovascular: Sinus bradycardia, low BP. Abdomen: Bowel Sounds Present, Soft, Non Tender, Non-Distended : [place] catheter, clear urine no renal angle tenderness. No suprapubic tenderness. Extremities: Bilateral 2+ pitting edema and lymphedema, Capillary Refill Less than 3 Seconds Skin: No rashes, No breakdown Musculoskeletal: No Tenderness to Palpation of Joints or Extremities, ROM restricted at hip and knee joints. Neurological: Cranial nerves II-XII grossly intact, DTR 2+/4. Psych/Mental Status: Flat affect. Assessment & Plan Assessment/Plan (1) Acute and chronic respiratory failure with hypoxia: (2) Right lower lobe pneumonia: PLAN: Plan This is a 58-year-old female is being admitted for severe shortness of breath, wheezing, mild cough and CT finding of right lower lobe pneumonia. 1. Acute hypoxic and hypercarbic respiratory failure most likely related to COPD exacerbation and pneumonia: Patient is tachypneic, hypoxic requires 6 L of oxygen, dyspnea at rest, conversational dyspnea and labored breathing. BiPAP as needed and at night. 01/25: Overnight events noticed. Patient was agitated and could not put on BiPAP therefore transferred to ICU on Precedex drip. There was a delay in ABG as patient might have been irritable or unsuccessful attempt. ABG showed severe respiratory acidosis 7.18/97/126 on BiPAP/AVAPS PEEP 8. Tidal volume 450. All Around Patternmaker consulted and note reviewed. Continue AVAPS. Wean Precedex. 2. Acute encephalopathy most likely metabolic encephalopathy from CO2 narcosis,infectious and medications: Patient likely sedated to maintain AVAPS Hyperkalemia seems most likely due to respiratory acidosis: Admitting potassium more normal and then repeat potassium 6.1, sodium 132, chloride 96, bicarb 32, anion gap 4. Patient had total of 100 mEq of IV sodium bicarb.Hyperkalemia cocktail, including calcium gluconate IV ordered. 30 g oral Kayexalate ordered. Repeat BMP pending. COPD exacerbation due to right lower lobe pneumonia: CT finding shows emphysematous lungs but she is still undiagnosed COPD. Started on bronchodilator DuoNeb every 4 hourly, IV Solu-Medrol, Mucinex, incentive spirometry and Pep. IV antibiotics ceftriaxone and azithromycin. 01/25: Urinary antigens are negative. Respiratory panel negative. Continue empiric antibiotic.Will need outpatient PFT and sleep study. 3. Accelerated hypertension: Patient blood pressure is high 199/118. Started on HCTZ and lisinopril. Hydralazine 10 mg every 4 hourly as needed for SBP morethan 180 mmHg. BNP elevated. First troponin negative. Second troponin orderedand if that is negative, ACS ruled out. 2D echo is ordered. Twelve-lead EKG shows right atrial enlargement. Patient does not have chest pain or pressure. 4. Chronic smoker, non-hydrazines: Since patient does not follow PCP regularly. Advised quitting smoking. Nicotine patch ordered. Living will/advanced directive/end of life care: Patient does not have living will or advanced directive. After discussion of benefits/risks procedures involved with full code, DNR CC arrest and DNR CC, the patient and her brother near the bedside and agrees for DNRCC arrest with no intubation. Patient doesn't want artificial life support including intubation, tube feed, ventilator and/chest compression, central venous catheter, vasopressor and DC shock if needed Total time spent in [id number] encounter in discussion of advanced directive 17 minutes. Clinical Impression(s) from Imaging Studies Chest X-Ray 01/24/23 14:20 IMPRESSION: Focal right lower lobe infiltrate. Electronically Signed: Theron Devine MD at 14:40 EST , Chest CTA 01/24/23 14:25 IMPRESSION: Emphysematous changes with scarring as described. No evidence of pulmonary embolism. Electronically Signed: Theron Devine MD at 15:01 EST , Charges/Coding Visit Charges Inpatient E&M: 53860 Subs Hosp L3 01/25/23 1537 <Electronically signed by Nickolas Bush MD> Cosigner Signature (if applicable): CC: ~ Signed [facility] Work Phone: 1(608) 618-686303-07-[address] Eldridge [facility] January 24, 2023 10:35pm Note Date/Time January 24, 2023 10:3 5pm [facility] Medical Records Department [address] [place] [address] Progress Note - Hospitalist 01/24/232233 MR#: [id number] Acct: [id number] Name: RADHA SLADE Rep #:[id number] : 1965 58 From: Raquel Eldridge MD PCP: Dr. Mini Butts MD Status:ADM I N Location: [place] [address] Hospitalist Note Patient with ongoing agitation with BIPAP attempts per discussion with staff. Reviewed admission note and listed as DNR-CCA, no intubation very specifically with brother present. Will transition to the ICU, request ICU physician consultation, trial of precedex to assist with patient maintaining BIPAP, will obtain repeat ABG, will dose with bicarb. 01/24/232234 <Electronically signed by Raquel Eldridge MD> Cosigner Signature (if applicable): CC: ~ Signed [facility] Work Phone: 1(306) 730-442603-06-2023 History and physical note Author Dr. Bush [facility] January 24, 2023 4:13pm Note Date/Time January 24, 2023 4:13 pm [facility] Medical Records Department [address] [place] [address] H&P Exam - Hospitalist 01/24/23 1555 MR#: [id number] Acct: [id number] Name: RADHA SLADE Rep #:[id number] : 1965 58 From: Nickolas Coronel PCP: Dr. Mini Butts MD Status:REG E R Location: ED HPI - General General Date of Admission: 01/24/23 Date of Service: 01/24/23 Chief Complaint: Progressive worsening of shortness of breath for 4 days HPI Narrative RADHA SLADE, is a 58 F, chronic smoker 1.5 pack/day came to ED for shortness ofbreath progressively worsening for last 4 days. She is short of breath at rest,conversational dyspnea and wheezing. She states she gets easily short of breathon mild exertion, climbing stairs or walking. She denies chest pain pressure. She has her usual cough without change in characteristics or severity. Denies sputum production. She was found to have hypoxia pulse ox in 80s at home since Tuesday. She went to urgent clinic and saw a nurse practitioner who prescribed oxygen, probably today but has not been set up yet. Her usual PCP is Dr. Velez. In the ED, patient was found to have tachycardic, tachypneic, BP high 199/118, pulse ox 86% on 6 L of oxygen. Twelve-lead EKG was done which shows sinus tachycardia at [address]-T changes but right atrial enlargement. Chest x-ray and then CTPA was done. No PE but focal right lower lobe consolidation. Patient was given 10 mg IV hydralazine, ceftriaxone and azithromycin and IV Solu-Medrol and further admitted. Social history: He started smoking at the age of 17 pack/day. Increase to 1/2 pack/day for last 3 years. Denies excessive drinking alcohol or substance use. Family history: Denies history of lung cancer. [facility] Medical History Emphysema lung Home Medications acetaminophen 325 mg tablet (Tylenol) 650 mg PO Q6H PRN PRN Pain 12/31/14 [History Last Taken Unknown] albuterol sulfate 90 mcg/actuation aerosol inhaler (Ventolin HFA) 1 - 2 puff inhalation Q6H PRN PRN Sob &/Or Wheezing 12/31/14 [History Last Taken Unknown] cephalexin 500 mg capsule 500 mg PO Q6 12/31/14 [History Last Taken Unknown] fluoxetine 10 mg capsule 10 mg PO BID 12/31/14 [History Last Taken Unknown] Allergy/AdvReac Type Severity Reaction Status Date / Time ANTIHISTAMINES Allergy Itching Uncoded 01/24/23 12:25 Family History unable to obtain Social History Smoking Status: Current every day smoker tobacco type: cigarettes ROS ROS Narrative Constitutional: Reports fatigue and weakness HEENT: Reports systems reviewed and no addt'l complaints, except as documented Respiratory/Chest: Shortness of breath at rest. Denies chest pain. Gastrointestinal: Denies coffee ground emesis, hematemesis or vomiting Genitourinary: Denies burning urination or new urinary tract symptoms Musculoskeletal: Denies joint pain and limited range of motion Neurologic: Denies seizure-like activity. No acute or strokelike symptoms. skin: No ulcer. No rash Endocrinology: Reports systems reviewed and no addt'l complaints, except as documented Hematologic/Lymphatic: Reports systems reviewed and no addt'l complaints, exceptas documented Rest 14 ROS are negative except as mentioned in HPI Vital Signs Vital Signs Vital Signs: 01/24/23 12:23 01/24/23 12:56 01/24/23 13:21 Temperature 97.3 F L Temperature Source Temporal Pulse Rate 102 H 101 H Respiratory Rate 26 H 22 H Respiratory Effort Labored Accessory Muscle Use Respiratory Pattern Blood Pressure 199/118 H 171/100 H Blood Pressure Mean 145 123 Pulse Ox 87 94 Oxygen Delivery Method Nasal Cannula Nasal Cannula Nasal Cannula Oxygen Flow Rate (L/min) 6 4 6 01/24/23 13:09 01/24/23 13:23 01/24/23 14:27 Temperature Temperature Source Pulse Rate 112 H 100 97 Respiratory Rate 24 H 22 H 20 H Respiratory Effort Respiratory Pattern Tachypnea Blood Pressure 194/115 H 192/101 H Blood Pressure Mean 141 131 Pulse Ox 95 96 Oxygen Delivery Method Nasal Cannula Nasal Cannula Oxygen Flow Rate (L/min) 6 6 01/24/23 15:30 01/24/23 15:41 01/24/23 15:41 Temperature 97.2 F L Temperature Source Temporal Pulse Rate 93 90 Respiratory Rate 19 H 20 H Respiratory Effort Respiratory Pattern Blood Pressure 168/84 H 168/84 H Blood Pressure Mean 112 112 Pulse Ox 94 93 Oxygen Delivery Method Nasal Cannula Nasal Cannula Nasal Cannula Oxygen Flow Rate (L/min) 5 6 6 Weight Weight: 220 lb Body Mass Index (BMI) 40.2 Physical Exam Narrative Physical exam General: Alert, Oriented x3, Cooperative, morbid obesity BMI 40.2 kg/m?. HEENT: Atraumatic, PERRLA, EOMI, Normocephalic Oral: Oral mucosa dry. No Gingival or Mucosal Lesions/ Ulcerations Neck: Supple, No JVD, Negative Carotid Bruits Lungs: Air entry severely diminished in both lungs. Bilateral wheezing. Dyspnea at rest, tachypnea and hypoxia. Cardiovascular: Sinus tachycardia, Normal S1, Normal S2, No murmurs Abdomen: Bowel Sounds Present, Soft, Non Tender, Non-Distended : No renal angle tenderness. No suprapubic tenderness. Extremities: Bilateral 2+ pitting edema and lymphedema, Capillary Refill Less than 3 Seconds Skin: No rashes, No breakdown Musculoskeletal: No Tenderness to Palpation of Joints or Extremities, ROM restricted at hip and knee joints. Neurological: Cranial nerves II-XII grossly intact, DTR 2+/4 and Symmetrical, Neuro grossly intact Psych/Mental Status: Flat affect. Results Lab / Micro Data Result Diagrams: 01/24/23 13:15 01/24/23 13:15 Labs: Laboratory Results - last 24 hr 01/24/23 13:15: WBC 11.2 H, RBC 6.06 H, Hgb 17.8 H, Hct 57.4 H, MCV 94.7 D, MCH29.4, MCHC 31.0 L D, RDW Std Deviation 48.2 H, RDW Coeff of Baltazar 13.7, Plt Count 267, MPV 12.7 H, Neut % (Auto) Not Reportable, Absolute Neuts (auto) 8.3 H, Absolute Lymphs (auto) 1.34, Total Counted 100, Neutrophils % (Manual) 74 H, Lymphocytes % (Manual) 12 L, Monocytes % (Manual) 6, Basophils % (Manual) 1, Myelocytes % 5 H, Promyelocytes % 2 H, Diff Path Review May , Platelet Estimate ADEQUATE, RBC Morphology NORM C+C 01/24/23 13:15: D-Dimer Quant (PE/DVT) Cancelled 01/24/23 13:15: Sodium 129 L, Potassium 4.9, Chloride 94 L, Carbon Dioxide 29.0,Anion Gap 6, BUN 19 H, Creatinine 1.04 H, Estim Creat Clear Calc 47.77, Est GFR (MDRD) Af Amer 71, Est GFR (MDRD) Non-Af 58 L, BUN/Creatinine Ratio 18.3, Glucose 140 H, Calcium 9.4, Troponin I High Sens 39 01/24/23 13:15: Lactic Acid 1.5 01/24/23 13:15: B-Natriuretic Peptide 160.3 H 01/24/23 13:56: D-Dimer Quant (PE/DVT) 1.20 H* Micro: Microbiology 01/24/23 13:39 Nasal Secretion SARS-CoV-2 & FLU Antigen (Rapid) - Final Radiology Impression Chest X-Ray 01/24/23 14:20 IMPRESSION: Focal right lower lobe infiltrate. Electronically Signed: Theron Devine MD at 14:40 EST , Chest CTA 01/24/23 14:25 IMPRESSION: Emphysematous changes with scarring as described. No evidence of pulmonary embolism. Electronically Signed: Theron Devine MD at 15:01 EST , Assessment & Plan Assessment/Plan (1) Acute and chronic respiratory failure with hypoxia: (2) Right lower lobe pneumonia: PLAN: Plan This is a 58-year-old female is being admitted for severe shortness of breath, wheezing, mild cough and CT finding of right lower lobe pneumonia. 1. Acute hypoxic respiratory failure most likely related to COPD exacerbation and pneumonia: Patient is tachypneic, hypoxic requires 6 L of oxygen, dyspnea atrest, conversational dyspnea and labored breathing. ABG ordered. BiPAP as needed and at night. 2. COPD exacerbation due to right lower lobe pneumonia: CT finding shows emphysematous lungs but she is still undiagnosed COPD. Started on bronchodilator DuoNeb every 4 hourly, IV Solu-Medrol, Mucinex, incentive spirometry and Pep. IV antibiotics ceftriaxone and azithromycin. Blood cultures x2, sputum culture, urinary antigens and respiratory panel ordered. Rapid SARS-CoV-2 and flu antigen are negative. Will need outpatient PFT and sleep study. 3. Accelerated hypertension: Patient blood pressure is high 199/118. Started on HCTZ and lisinopril. Hydralazine 10 mg every 4 hourly as needed for SBP morethan 180 mmHg. BNP elevated. First troponin negative. Second troponin orderedand if that is negative, ACS ruled out. 2D echo is ordered. Twelve-lead EKG shows right atrial enlargement. Patient does not have chest pain or pressure. 4. Chronic smoker, non-hydrazines: Since patient does not follow PCP regularly. Advised quitting smoking. Nicotine patch ordered. Living will/advanced directive/end of life care: Patient does not have living will or advanced directive. After discussion of benefits/risks procedures involved with full code, DNR CC arrest and DNR CC, the patient and her brother near the bedside and agrees for DNRCC arrest with no intubation. Patient doesn't want artificial life support including intubation, tube feed, ventilator and/chest compression, central venous catheter, vasopressor and DC shock if needed Total time spent in [id number] encounter in discussion of advanced directive 17 minutes. Microbiology Past 72 Hours 01/24/23 13:39 Nasal Secretion SARS-CoV-2 & FLU Antigen (Rapid) - Final Laboratory Results 01/24/23 13:15: WBC 11.2 H, RBC 6.06 H, Hgb 17.8 H, Hct 57.4 H, MCV 94.7 D, MCH29.4, MCHC 31.0 L D, RDW Std Deviation 48.2 H, RDW Coeff of Baltazar 13.7, Plt Count 267, MPV 12.7 H, Neut % (Auto) Not Reportable, Absolute Neuts (auto) 8.3 H, Absolute Lymphs (auto) 1.34, Total Counted 100, Neutrophils % (Manual) 74 H, Lymphocytes % (Manual) 12 L, Monocytes % (Manual) 6, Basophils % (Manual) 1, Myelocytes % 5 H, Promyelocytes % 2 H, Diff Path Review May foll, Platelet Estimate ADEQUATE, RBC Morphology NORM C+C 01/24/23 13:15: D-Dimer Quant (PE/DVT) Cancelled 01/24/23 13:15: Sodium 129 L, Potassium 4.9, Chloride 94 L, Carbon Dioxide 29.0,Anion Gap 6, BUN 19 H, Creatinine 1.04 H, Estim Creat Clear Calc 47.77, Est GFR (MDRD) Af Amer 71, Est GFR (MDRD) Non-Af 58 L, BUN/Creatinine Ratio 18.3, Glucose 140 H, Calcium 9.4, Troponin I High Sens 39 01/24/23 13:15: Lactic Acid 1.5 01/24/23 13:15: B-Natriuretic Peptide 160.3 H 01/24/23 13:15: Magnesium Pending 01/24/23 13:56: D-Dimer Quant (PE/DVT) 1.20 H* Clinical Impression(s) from Imaging Studies Chest X-Ray 01/24/23 14:20 IMPRESSION: Focal right lower lobe infiltrate. Electronically Signed: Theron Devine MD at 14:40 EST , Chest CTA 01/24/23 14:25 IMPRESSION: Emphysematous changes with scarring as described. No evidence of pulmonary embolism. Electronically Signed: Theron Devine MD at 15:01 EST , Charges/Coding Visit Charges Inpatient E&M: 74115 Init Hosp L3 Procedures Hospitalists Procedures: 74605 Advncd Care Plan 30 Min 01/24/23 1613 <Electronically signed by Nickolas Bush MD> Cosigner Signature (if applicable): CC: Dr. Mini Butts MD; Dr. Nickolas Bush MD~ Signed [facility] Work Phone: [phone]) 126-961703-06-2023 History and physical note Author Dr. Bush [facility] January 24, 2023 4:13pm Note Date/Time January 24, 2023 4:13 pm [facility] Medical Records Department [address] [place] [address] H&P Exam - Hospitalist 01/24/23 1555 MR#: [id number] Acct: [id number] Name: RADHA SLADE Rep #:[id number] : 1965 58 From: Nickolas Coronel PCP: Dr. Mini Butts MD Status:REG E R Location: ED HPI - General General Date of Admission: 01/24/23 Date of Service: 01/24/23 Chief Complaint: Progressive worsening of shortness of breath for 4 days HPI Narrative RADHA SLADE, is a 58 F, chronic smoker 1.5 pack/day came to ED for shortness ofbreath progressively worsening for last 4 days. She is short of breath at rest,conversational dyspnea and wheezing. She states she gets easily short of breathon mild exertion, climbing stairs or walking. She denies chest pain pressure. She has her usual cough without change in characteristics or severity. Denies sputum production. She was found to have hypoxia pulse ox in 80s at home since Tuesday. She went to urgent clinic and saw a nurse practitioner who prescribed oxygen, probably today but has not been set up yet. Her usual PCP is Dr. Velez. In the ED, patient was found to have tachycardic, tachypneic, BP high 199/118, pulse ox 86% on 6 L of oxygen. Twelve-lead EKG was done which shows sinus tachycardia at [address]-T changes but right atrial enlargement. Chest x-ray and then CTPA was done. No PE but focal right lower lobe consolidation. Patient was given 10 mg IV hydralazine, ceftriaxone and azithromycin and IV Solu-Medrol and further admitted. Social history: He started smoking at the age of 17 pack/day. Increase to 1/2 pack/day for last 3 years. Denies excessive drinking alcohol or substance use. Family history: Denies history of lung cancer. [facility] Medical History Emphysema lung Home Medications acetaminophen 325 mg tablet (Tylenol) 650 mg PO Q6H PRN PRN Pain 12/31/14 [History Last Taken Unknown] albuterol sulfate 90 mcg/actuation aerosol inhaler (Ventolin HFA) 1 - 2 puff inhalation Q6H PRN PRN Sob &/Or Wheezing 12/31/14 [History Last Taken Unknown] cephalexin 500 mg capsule 500 mg PO Q6 12/31/14 [History Last Taken Unknown] fluoxetine 10 mg capsule 10 mg PO BID 12/31/14 [History Last Taken Unknown] Allergy/AdvReac Type Severity Reaction Status Date / Time ANTIHISTAMINES Allergy Itching Uncoded 01/24/23 12:25 Family History unable to obtain Social History Smoking Status: Current every day smoker tobacco type: cigarettes ROS ROS Narrative Constitutional: Reports fatigue and weakness HEENT: Reports systems reviewed and no addt'l complaints, except as documented Respiratory/Chest: Shortness of breath at rest. Denies chest pain. Gastrointestinal: Denies coffee ground emesis, hematemesis or vomiting Genitourinary: Denies burning urination or new urinary tract symptoms Musculoskeletal: Denies joint pain and limited range of motion Neurologic: Denies seizure-like activity. No acute or strokelike symptoms. skin: No ulcer. No rash Endocrinology: Reports systems reviewed and no addt'l complaints, except as documented Hematologic/Lymphatic: Reports systems reviewed and no addt'l complaints, exceptas documented Rest 14 ROS are negative except as mentioned in HPI Vital Signs Vital Signs Vital Signs: 01/24/23 12:23 01/24/23 12:56 01/24/23 13:21 Temperature 97.3 F L Temperature Source Temporal Pulse Rate 102 H 101 H Respiratory Rate 26 H 22 H Respiratory Effort Labored Accessory Muscle Use Respiratory Pattern Blood Pressure 199/118 H 171/100 H Blood Pressure Mean 145 123 Pulse Ox 87 94 Oxygen Delivery Method Nasal Cannula Nasal Cannula Nasal Cannula Oxygen Flow Rate (L/min) 6 4 6 01/24/23 13:09 01/24/23 13:23 01/24/23 14:27 Temperature Temperature Source Pulse Rate 112 H 100 97 Respiratory Rate 24 H 22 H 20 H Respiratory Effort Respiratory Pattern Tachypnea Blood Pressure 194/115 H 192/101 H Blood Pressure Mean 141 131 Pulse Ox 95 96 Oxygen Delivery Method Nasal Cannula Nasal Cannula Oxygen Flow Rate (L/min) 6 6 01/24/23 15:30 01/24/23 15:41 01/24/23 15:41 Temperature 97.2 F L Temperature Source Temporal Pulse Rate 93 90 Respiratory Rate 19 H 20 H Respiratory Effort Respiratory Pattern Blood Pressure 168/84 H 168/84 H Blood Pressure Mean 112 112 Pulse Ox 94 93 Oxygen Delivery Method Nasal Cannula Nasal Cannula Nasal Cannula Oxygen Flow Rate (L/min) 5 6 6 Weight Weight: 220 lb Body Mass Index (BMI) 40.2 Physical Exam Narrative Physical exam General: Alert, Oriented x3, Cooperative, morbid obesity BMI 40.2 kg/m?. HEENT: Atraumatic, PERRLA, EOMI, Normocephalic Oral: Oral mucosa dry. No Gingival or Mucosal Lesions/ Ulcerations Neck: Supple, No JVD, Negative Carotid Bruits Lungs: Air entry severely diminished in both lungs. Bilateral wheezing. Dyspnea at rest, tachypnea and hypoxia. Cardiovascular: Sinus tachycardia, Normal S1, Normal S2, No murmurs Abdomen: Bowel Sounds Present, Soft, Non Tender, Non-Distended : No renal angle tenderness. No suprapubic tenderness. Extremities: Bilateral 2+ pitting edema and lymphedema, Capillary Refill Less than 3 Seconds Skin: No rashes, No breakdown Musculoskeletal: No Tenderness to Palpation of Joints or Extremities, ROM restricted at hip and knee joints. Neurological: Cranial nerves II-XII grossly intact, DTR 2+/4 and Symmetrical, Neuro grossly intact Psych/Mental Status: Flat affect. Results Lab / Micro Data Result Diagrams: 01/24/23 13:15 01/24/23 13:15 Labs: Laboratory Results - last 24 hr 01/24/23 13:15: WBC 11.2 H, RBC 6.06 H, Hgb 17.8 H, Hct 57.4 H, MCV 94.7 D, MCH29.4, MCHC 31.0 L D, RDW Std Deviation 48.2 H, RDW Coeff of Baltazar 13.7, Plt Count 267, MPV 12.7 H, Neut % (Auto) Not Reportable, Absolute Neuts (auto) 8.3 H, Absolute Lymphs (auto) 1.34, Total Counted 100, Neutrophils % (Manual) 74 H, Lymphocytes % (Manual) 12 L, Monocytes % (Manual) 6, Basophils % (Manual) 1, Myelocytes % 5 H, Promyelocytes % 2 H, Diff Path Review May foll, Platelet Estimate ADEQUATE, RBC Morphology NORM C+C 01/24/23 13:15: D-Dimer Quant (PE/DVT) Cancelled 01/24/23 13:15: Sodium 129 L, Potassium 4.9, Chloride 94 L, Carbon Dioxide 29.0,Anion Gap 6, BUN 19 H, Creatinine 1.04 H, Estim Creat Clear Calc 47.77, Est GFR (MDRD) Af Amer 71, Est GFR (MDRD) Non-Af 58 L, BUN/Creatinine Ratio 18.3, Glucose 140 H, Calcium 9.4, Troponin I High Sens 39 01/24/23 13:15: Lactic Acid 1.5 01/24/23 13:15: B-Natriuretic Peptide 160.3 H 01/24/23 13:56: D-Dimer Quant (PE/DVT) 1.20 H* Micro: Microbiology 01/24/23 13:39 Nasal Secretion SARS-CoV-2 & FLU Antigen (Rapid) - Final Radiology Impression Chest X-Ray 01/24/23 14:20 IMPRESSION: Focal right lower lobe infiltrate. Electronically Signed: Theron Devine MD at 14:40 EST , Chest CTA 01/24/23 14:25 IMPRESSION: Emphysematous changes with scarring as described. No evidence of pulmonary embolism. Electronically Signed: Theron Devine MD at 15:01 EST , Assessment & Plan Assessment/Plan (1) Acute and chronic respiratory failure with hypoxia: (2) Right lower lobe pneumonia: PLAN: Plan This is a 58-year-old female is being admitted for severe shortness of breath, wheezing, mild cough and CT finding of right lower lobe pneumonia. 1. Acute hypoxic respiratory failure most likely related to COPD exacerbation and pneumonia: Patient is tachypneic, hypoxic requires 6 L of oxygen, dyspnea atrest, conversational dyspnea and labored breathing. ABG ordered. BiPAP as needed and at night. 2. COPD exacerbation due to right lower lobe pneumonia: CT finding shows emphysematous lungs but she is still undiagnosed COPD. Started on bronchodilator DuoNeb every 4 hourly, IV Solu-Medrol, Mucinex, incentive spirometry and Pep. IV antibiotics ceftriaxone and azithromycin. Blood cultures x2, sputum culture, urinary antigens and respiratory panel ordered. Rapid SARS-CoV-2 and flu antigen are negative. Will need outpatient PFT and sleep study. 3. Accelerated hypertension: Patient blood pressure is high 199/118. Started on HCTZ and lisinopril. Hydralazine 10 mg every 4 hourly as needed for SBP morethan 180 mmHg. BNP elevated. First troponin negative. Second troponin orderedand if that is negative, ACS ruled out. 2D echo is ordered. Twelve-lead EKG shows right atrial enlargement. Patient does not have chest pain or pressure. 4. Chronic smoker, non-hydrazines: Since patient does not follow PCP regularly. Advised quitting smoking. Nicotine patch ordered. Living will/advanced directive/end of life care: Patient does not have living will or advanced directive. After discussion of benefits/risks procedures involved with full code, DNR CC arrest and DNR CC, the patient and her brother near the bedside and agrees for DNRCC arrest with no intubation. Patient doesn't want artificial life support including intubation, tube feed, ventilator and/chest compression, central venous catheter, vasopressor and DC shock if needed Total time spent in [id number] encounter in discussion of advanced directive 17 minutes. Microbiology Past 72 Hours 01/24/23 13:39 Nasal Secretion SARS-CoV-2 & FLU Antigen (Rapid) - Final Laboratory Results 01/24/23 13:15: WBC 11.2 H, RBC 6.06 H, Hgb 17.8 H, Hct 57.4 H, MCV 94.7 D, MCH29.4, MCHC 31.0 L D, RDW Std Deviation 48.2 H, RDW Coeff of Baltazar 13.7, Plt Count 267, MPV 12.7 H, Neut % (Auto) Not Reportable, Absolute Neuts (auto) 8.3 H, Absolute Lymphs (auto) 1.34, Total Counted 100, Neutrophils % (Manual) 74 H, Lymphocytes % (Manual) 12 L, Monocytes % (Manual) 6, Basophils % (Manual) 1, Myelocytes % 5 H, Promyelocytes % 2 H, Diff Path Review May foll, Platelet Estimate ADEQUATE, RBC Morphology NORM C+C 01/24/23 13:15: D-Dimer Quant (PE/DVT) Cancelled 01/24/23 13:15: Sodium 129 L, Potassium 4.9, Chloride 94 L, Carbon Dioxide 29.0,Anion Gap 6, BUN 19 H, Creatinine 1.04 H, Estim Creat Clear Calc 47.77, Est GFR (MDRD) Af Amer 71, Est GFR (MDRD) Non-Af 58 L, BUN/Creatinine Ratio 18.3, Glucose 140 H, Calcium 9.4, Troponin I High Sens 39 01/24/23 13:15: Lactic Acid 1.5 01/24/23 13:15: B-Natriuretic Peptide 160.3 H 01/24/23 13:15: Magnesium Pending 01/24/23 13:56: D-Dimer Quant (PE/DVT) 1.20 H* Clinical Impression(s) from Imaging Studies Chest X-Ray 01/24/23 14:20 IMPRESSION: Focal right lower lobe infiltrate. Electronically Signed: Theron Devine MD at 14:40 EST , Chest CTA 01/24/23 14:25 IMPRESSION: Emphysematous changes with scarring as described. No evidence of pulmonary embolism. Electronically Signed: Theron Devine MD at 15:01 EST , Charges/Coding Visit Charges Inpatient E&M: 41833 Init Hosp L3 Procedures Hospitalists Procedures: 95355 Advncd Care Plan 30 Min 01/24/23 1613 <Electronically signed by Nickolas Bush MD> Cosigner Signature (if applicable): CC: Dr. Mini Butts MD; Dr. Nickolas Bush MD~ Signed [facility] Work Phone: 1(314) 113-275903-06-[address] Messina [facility] January 24, 2023 3:32pm Note Date/Time January 24, 2023 1:08 pm [facility] Medical Records Department [address] [place] [address] Emergency Department Summary 01/24/23 MR#: [id number] Acct: [id number] Name: RADHA SLADE Rep #:[id number] : 1965 58 From: Monty Messina MD PCP: Dr. Mini Butts MD Status:REG E R Location: ED HPI History of Present Illness Chief Complaint: Shortness of Breath Narrative Narrative: 58-year-old female past medical history of COPD, smoker, presents with increasing shortness of breath since Tuesday. She and her family states that shehas been coughing and having shortness of breath, dyspnea on exertion. At home,she was hypoxic with a pulse ox in the 80s. She was using her sister's oxygen per nasal cannula and was satting 99%. She does not wear oxygen at home herself. Additionally, it was reported that she took her sisters prednisone, trying to get her self to feel better. She is coughing up white phlegm but denies any fevers or chills. No chest pain, just chest tightness. No other symptoms. They state that [facility] to be sent to her home, but were also concerned about a blood clot. [facility] Medical History Emphysema lung Home Medications acetaminophen 325 mg tablet (Tylenol) 650 mg PO Q6H PRN PRN Pain 12/31/14 [History Last Taken Unknown] albuterol sulfate 90 mcg/actuation aerosol inhaler (Ventolin HFA) 1 - 2 puff inhalation Q6H PRN PRN Sob &/Or Wheezing 12/31/14 [History Last Taken Unknown] cephalexin 500 mg capsule 500 mg PO Q6 12/31/14 [History Last Taken Unknown] fluoxetine 10 mg capsule 10 mg PO BID 12/31/14 [History Last Taken Unknown] Allergy/AdvReac Type Severity Reaction Status Date / Time ANTIHISTAMINES Allergy Itching Uncoded 01/24/23 12:25 Family History unable to obtain Social History Smoking Status: Current every day smoker tobacco type: cigarettes ROS ROS ED ROS Narrative Constitutional: No fever, no chills. HEENT: No sore throat. No neck pain. No loss of vision. No rhinorrhea. Cardiovascular: No chest pain. No palpitations. No pedal edema. Respiratory: Positive productive white phlegm cough, positive shortness of breath and dyspnea on exertion. Abdominal: No abdominal pain. No nausea. No vomiting. Genitourinary: No dysuria. No hematuria. Musculoskeletal: No myalgias. No arthralgias. Neurologic: No headaches. No dizziness. No lightheadedness. Skin: No rash. No change in color. Psychiatric: No depression. No anxiety. EXAM Physical Exam Narrative Exam Narrative: Afebrile. Vital signs noted. Refuses to sit on the cot. HEENT: Normocephalic. Atraumatic. PERRL, EOMI. Neck soft and supple. No pointtenderness or step off. Cardiovascular: Positive tachycardia, no murmurs, rubs, or gallops appreciated. Respiratory: Positive tachypnea. Decreased air movement bilateral lung root with expiratory wheeze. Gastrointestinal: Abdomen soft, nontender, with normoactive bowel sounds. No rebound or guarding. Neurological: Awake. Alert. Nonfocal, nonlateralizing. Skin: No rash. Normal color. No pallor. Musculoskeletal: No pedal edema. Full range of motion extremities. Const Vital Signs: 01/24/23 12:23 01/24/23 12:56 01/24/23 13:21 Temperature 97.3 F L Temperature Source Temporal Pulse Rate 102 H 101 H Respiratory Rate 26 H 22 H Respiratory Effort Labored Accessory Muscle Use Respiratory Pattern Blood Pressure 199/118 H 171/100 H Blood Pressure Mean 145 123 Pulse Ox 87 94 Oxygen Delivery Method Nasal Cannula Nasal Cannula Nasal Cannula Oxygen Flow Rate (L/min) 6 4 6 01/24/23 13:09 01/24/23 13:23 01/24/23 14:27 Temperature Temperature Source Pulse Rate 112 H 100 97 Respiratory Rate 24 H 22 H 20 H Respiratory Effort Respiratory Pattern Tachypnea Blood Pressure 194/115 H 192/101 H Blood Pressure Mean 141 131 Pulse Ox 95 96 Oxygen Delivery Method Nasal Cannula Nasal Cannula Oxygen Flow Rate (L/min) 6 6 MDM MDM MDM Narrative Medical decision making narrative: In the differential diagnosis is COPD exacerbation from her smoking, acute respiratory failure with hypoxia, CHF, and PE. Comprehensive work-up was pursued. She was given a DuoNeb aerosolized treatment and Solu-Medrol 125 mg intravenously. I reviewed her laboratory work. She has slightly elevated whitecount of 11.2, hemoglobin hemoconcentrated at 17.8 with hematocrit 57.4. Platelet count normal at 267. In review of her BMP, she does have mild dehydration with a sodium of 129 and a chloride of 94, normal potassium of 4.9. Glucose elevated at 140 with a normal anion gap of 6. She has an elevated BUN of 19 and a creatinine of 1.04. D-dimer is elevated at 1.20. High-sensitivity troponin is 39. I interpreted her EKG as sinus tachycardia at [address] changes. No STEMI. BNP is only slightly elevated at 160. Chest x-rayinterpreted by myself in 1 view does show a right lower lobe pneumonia. Blood cultures will be obtained and she will be started on antibiotics intravenously in the form of Rocephin and azithromycin. She does have a normal QTc of 440. After Solu-Medrol and a breathing treatment, she is able to sit on the side of the cot. For her elevated blood pressure that remains she was administered hydralazine 10 mg intravenously. As she had an elevated D-dimer, I reviewed theCT report and there is no evidence of pulmonary embolism. At this point in time, given her hypoxia and her need for oxygen, and she has an elevated blood pressure with COPD exacerbation I discussed the patient with Dr. Bush for admission to the PCU. Patient is in stable condition. History & Record Review Discussion w/independent historian: Patient and Significant other (Family) Additional record(s) reviewed:: Prior labs Lab Data Attestation: I reviewed the patient's lab results. Labs: Laboratory Results - last 24 hr 01/24/23 01/24/23 01/24/23 13:15 13:15 13:15 WBC 11.2 H RBC 6.06 H Hgb 17.8 H Hct 57.4 H MCV 94.7 D MCH 29.4 MCHC 31.0 L D RDW Std Deviation 48.2 H RDW Coeff of Baltazar 13.7 Plt Count 267 MPV 12.7 H Neut % (Auto) Not Reportable D-Dimer Quant (PE/DVT) Cancelled Sodium 129 L Potassium 4.9 Chloride 94 L Carbon Dioxide 29.0 Anion Gap 6 BUN 19 H Creatinine 1.04 H Estim Creat Clear Calc 47.77 Est GFR (MDRD) Af Amer 71 Est GFR (MDRD) Non-Af 58 L BUN/Creatinine Ratio 18.3 Glucose 140 H Lactic Acid Calcium 9.4 Troponin I High Sens 39 B-Natriuretic Peptide 01/24/23 01/24/23 01/24/23 13:15 13:15 13:56 WBC RBC Hgb Hct MCV MCH MCHC RDW Std Deviation RDW Coeff of Baltazar Plt Count MPV Neut % (Auto) D-Dimer Quant (PE/DVT) 1.20 H* Sodium Potassium Chloride Carbon Dioxide Anion Gap BUN Creatinine Estim Creat Clear Calc Est GFR (MDRD) Af Amer Est GFR (MDRD) Non-Af BUN/Creatinine Ratio Glucose Lactic Acid 1.5 Calcium Troponin I High Sens B-Natriuretic Peptide 160.3 H Radiography Diagnostic Testing: Clinical Impression(s) from Imaging Studies Chest X-Ray 01/24/23 14:20 IMPRESSION: Focal right lower lobe infiltrate. Electronically Signed: Theron Devine MD at 14:40 EST , Chest CTA 01/24/23 14:25 IMPRESSION: Emphysematous changes with scarring as described. No evidence of pulmonary embolism. Electronically Signed: Theron Devine MD at 15:01 EST , Discharge Plan Dx/Rx/DC Orders Clinical Impression: Respiratory failure with hypoxia, Right lower lobe pneumonia, Elevated d-dimer,Shortness of breath, Elevated blood pressure reading Disposition Disposition: Acute Care [facility] What to do if you have Problems For any increased pain, shortness of breath, bleeding, nausea or vomiting, chestpain, or any unexpected problems, contact your Primary Care Provider. Call [facility] ([phone]) or report to the closest Emergency Room. Call 911 if necessary. 01/24/23 1532 <Electronically signed by Monty Messina MD> Cosigner Signature (if applicable): CC: Dr. Mini Butts MD ~ Signed [facility] Work Phone: [phone]) 827-430003-06-[address] Messina [facility] January 24, 2023 3:32pm Note Date/Time January 24, 2023 1:[address] [facility] Medical Records Department [address] [place] [address] Emergency Department Summary 01/24/23 MR#: [id number] Acct: [id number] Name: RADHA SLADE Rep #:[id number] : 1965 58 From: Monty Messina MD PCP: Dr. Mini Butts MD Status:REG E R Location: ED HPI History of Present Illness Chief Complaint: Shortness of Breath Narrative Narrative: 58-year-old female past medical history of COPD, smoker, presents with increasing shortness of breath since Tuesday. She and her family states that shehas been coughing and having shortness of breath, dyspnea on exertion. At home,she was hypoxic with a pulse ox in the 80s. She was using her sister's oxygen per nasal cannula and was satting 99%. She does not wear oxygen at home herself. Additionally, it was reported that she took her sisters prednisone, trying to get her self to feel better. She is coughing up white phlegm but denies any fevers or chills. No chest pain, just chest tightness. No other symptoms. They state that [facility] was [facility] to get her oxygen to be sent to her home, but were also concerned about a blood clot. [facility] Medical History Emphysema lung Home Medications acetaminophen 325 mg tablet (Tylenol) 650 mg PO Q6H PRN PRN Pain 12/31/14 [History Last Taken Unknown] albuterol sulfate 90 mcg/actuation aerosol inhaler (Ventolin HFA) 1 - 2 puff inhalation Q6H PRN PRN Sob &/Or Wheezing 12/31/14 [History Last Taken Unknown] cephalexin 500 mg capsule 500 mg PO Q6 12/31/14 [History Last Taken Unknown] fluoxetine 10 mg capsule 10 mg PO BID 12/31/14 [History Last Taken Unknown] Allergy/AdvReac Type Severity Reaction Status Date / Time ANTIHISTAMINES Allergy Itching Uncoded 01/24/23 12:25 Family History unable to obtain Social History Smoking Status: Current every day smoker tobacco type: cigarettes ROS ROS ED ROS Narrative Constitutional: No fever, no chills. HEENT: No sore throat. No neck pain. No loss of vision. No rhinorrhea. Cardiovascular: No chest pain. No palpitations. No pedal edema. Respiratory: Positive productive white phlegm cough, positive shortness of breath and dyspnea on exertion. Abdominal: No abdominal pain. No nausea. No vomiting. Genitourinary: No dysuria. No hematuria. Musculoskeletal: No myalgias. No arthralgias. Neurologic: No headaches. No dizziness. No lightheadedness. Skin: No rash. No change in color. Psychiatric: No depression. No anxiety. EXAM Physical Exam Narrative Exam Narrative: Afebrile. Vital signs noted. Refuses to sit on the cot. HEENT: Normocephalic. Atraumatic. PERRL, EOMI. Neck soft and supple. No pointtenderness or step off. Cardiovascular: Positive tachycardia, no murmurs, rubs, or gallops appreciated. Respiratory: Positive tachypnea. Decreased air movement bilateral lung root with expiratory wheeze. Gastrointestinal: Abdomen soft, nontender, with normoactive bowel sounds. No rebound or guarding. Neurological: Awake. Alert. Nonfocal, nonlateralizing. Skin: No rash. Normal color. No pallor. Musculoskeletal: No pedal edema. Full range of motion extremities. Const Vital Signs: 01/24/23 12:23 01/24/23 12:56 01/24/23 13:21 Temperature 97.3 F L Temperature Source Temporal Pulse Rate 102 H 101 H Respiratory Rate 26 H 22 H Respiratory Effort Labored Accessory Muscle Use Respiratory Pattern Blood Pressure 199/118 H 171/100 H Blood Pressure Mean 145 123 Pulse Ox 87 94 Oxygen Delivery Method Nasal Cannula Nasal Cannula Nasal Cannula Oxygen Flow Rate (L/min) 6 4 6 01/24/23 13:09 01/24/23 13:23 01/24/23 14:27 Temperature Temperature Source Pulse Rate 112 H 100 97 Respiratory Rate 24 H 22 H 20 H Respiratory Effort Respiratory Pattern Tachypnea Blood Pressure 194/115 H 192/101 H Blood Pressure Mean 141 131 Pulse Ox 95 96 Oxygen Delivery Method Nasal Cannula Nasal Cannula Oxygen Flow Rate (L/min) 6 6 MDM MDM MDM Narrative Medical decision making narrative: In the differential diagnosis is COPD exacerbation from her smoking, acute respiratory failure with hypoxia, CHF, and PE. Comprehensive work-up was pursued. She was given a DuoNeb aerosolized treatment and Solu-Medrol 125 mg intravenously. I reviewed her laboratory work. She has slightly elevated whitecount of 11.2, hemoglobin hemoconcentrated at 17.8 with hematocrit 57.4. Platelet count normal at 267. In review of her BMP, she does have mild dehydration with a sodium of 129 and a chloride of 94, normal potassium of 4.9. Glucose elevated at 140 with a normal anion gap of 6. She has an elevated BUN of 19 and a creatinine of 1.04. D-dimer is elevated at 1.20. High-sensitivity troponin is 39. I interpreted her EKG as sinus tachycardia at [address] changes. No STEMI. BNP is only slightly elevated at 160. Chest x-rayinterpreted by myself in 1 view does show a right lower lobe pneumonia. Blood cultures will be obtained and she will be started on antibiotics intravenously in the form of Rocephin and azithromycin. She does have a normal QTc of 440. After Solu-Medrol and a breathing treatment, she is able to sit on the side of the cot. For her elevated blood pressure that remains she was administered hydralazine 10 mg intravenously. As she had an elevated D-dimer, I reviewed theCT report and there is no evidence of pulmonary embolism. At this point in time, given her hypoxia and her need for oxygen, and she has an elevated blood pressure with COPD exacerbation I discussed the patient with Dr. Bush for admission to the PCU. Patient is in stable condition. History & Record Review Discussion w/independent historian: Patient and Significant other (Family) Additional record(s) reviewed:: Prior labs Lab Data Attestation: I reviewed the patient's lab results. Labs: Laboratory Results - last 24 hr 01/24/23 01/24/2323 13:15 13:15 13:15 WBC 11.2 H RBC 6.06 H Hgb 17.8 H Hct 57.4 H MCV 94.7 D MCH 29.4 MCHC 31.0 L D RDW Std Deviation 48.2 H RDW Coeff of Baltazar 13.7 Plt Count 267 MPV 12.7 H Neut % (Auto) Not Reportable D-Dimer Quant (PE/DVT) Cancelled Sodium 129 L Potassium 4.9 Chloride 94 L Carbon Dioxide 29.0 Anion Gap 6 BUN 19 H Creatinine 1.04 H Estim Creat Clear Calc 47.77 Est GFR (MDRD) Af Amer 71 Est GFR (MDRD) Non-Af 58 L BUN/Creatinine Ratio 18.3 Glucose 140 H Lactic Acid Calcium 9.4 Troponin I High Sens 39 B-Natriuretic Peptide 01/24/23 01/24/23 01/24/23 13:15 13:15 13:56 WBC RBC Hgb Hct MCV MCH MCHC RDW Std Deviation RDW Coeff of Baltazar Plt Count MPV Neut % (Auto) D-Dimer Quant (PE/DVT) 1.20 H* Sodium Potassium Chloride Carbon Dioxide Anion Gap BUN Creatinine Estim Creat Clear Calc Est GFR (MDRD) Af Amer Est GFR (MDRD) Non-Af BUN/Creatinine Ratio Glucose Lactic Acid 1.5 Calcium Troponin I High Sens B-Natriuretic Peptide 160.3 H Radiography Diagnostic Testing: Clinical Impression(s) from Imaging Studies Chest X-Ray 01/24/23 14:20 IMPRESSION: Focal right lower lobe infiltrate. Electronically Signed: Theron Devine MD at 14:40 EST , Chest CTA 01/24/23 14:25 IMPRESSION: Emphysematous changes with scarring as described. No evidence of pulmonary embolism. Electronically Signed: Theron Devine MD at 15:01 EST , Discharge Plan Dx/Rx/DC Orders Clinical Impression: Respiratory failure with hypoxia, Right lower lobe pneumonia, Elevated d-dimer,Shortness of breath, Elevated blood pressure reading Disposition Disposition: Acute Care [facility] What to do if you have Problems For any increased pain, shortness of breath, bleeding, nausea or vomiting, chestpain, or any unexpected problems, contact your Primary Care Provider. Call [facility] ([phone]) or report to the closest Emergency Room. Call 911 if necessary. 01/24/23 1532 <Electronically signed by Monty Messina MD> Cosigner Signature (if applicable): CC: Dr. Mini Butts MD ~ Signed [facility] Work Phone: [phone] 391-551406-29-2022 NotePatient Outreach (INTMMN) RADHA SLADE ([id number]) 1965 F Date Time Provider Department 05/19/22 MINI BUTTS During your visit today, we recorded the following information about you: Allergies As of Date: 05/19/2022 Noted Allergy Reaction anithistamines [Other] 04/27/2006 Comments: hives and headaches Date Reviewed: 12/22/2019 Reviewed by: Cyn Scott - Fully Assessed Visit Diagnosis:Encounter for screening mammogram for breast cancer [Z12.31] Order(s):[facility] SCREENING [[id number]] Order #: [id number] FUTURE Prescriptions as of 05/24/2022 - FLUoxetine (PROZAC) 10 mg capsule Take 1 capsule by mouth once daily. In addition to 20 mgs. To make a total of 30. - mometasone-formoterol (DULERA) 200-5 mcg/actuation inhaler Inhale 2 Puffs as instructed twice daily. - albuterol HFA (PROVENTIL HFA, VENTOLIN HFA) 90 mcg/actuation inhaler Inhale 2 Puffs as instructed every 4 hours as needed. Needs to schedule office visit for future refills - predniSONE (DELTASONE) 10 mg tablet Take 40 mg x 3 days, 20 mg x 3 days, 10 mg x 3 days. Take with food, once daily - FLUoxetine (PROZAC) 20 mg capsule Take 1 capsule by mouth once daily. - benzonatate (TESSALON PERLES) 100 mg capsule Take 2 capsules by mouth three times daily as needed. - albuterol (PROVENTIL) 2.5 mg /3 mL (0.083 %) nebulizer solution Use 3 mL via nebulizer every 4 hours as needed for Wheezing/Shortness of Breath. Use over 5-15minutes. - buPROPion XL (WELLBUTRIN XL) 300 mg 24 hr tablet Take 1 tablet by mouth once daily. - Varenicline (CHANTIX) 0.5 mg (11)- 1 mg (42) tablet Starting pack (1 month supply) - follow directions on package for dosing. - THERAPEUTIC MULTIVITAMIN TAB Take one(1) tablet daily. Problem List As Of Date 05/19/2022 Noted Resolved Anxiety state [F41.1] 04/27/2006 ALLERGIC RHINITIS NOS [J30.9] 04/27/2006 Tobacco use disorder [F17.200] 04/27/2006 Depression, major, recurrent (HCC) [F33.9] 09/03/2015 Pulmonary emphysema (HCC) [J43.9] 09/03/2015 Tobacco abuse counseling [Z71.6] 06/14/2016 Obesity, Class III, BMI 40-49.9 (morbid obesity*03/07/2018 Encounter Status:Closed by COREY SEPULVEDA on 05/24/22[facility] 06-12-2021 NotePatient Outreach (INTMMN) RADHA SLADE ([id number]) 1965 F Date Time Provider Department 06/12/21 MINI BUTTS During your visit today, we recorded the following information about you: Allergies As of Date: 06/12/2021 Noted Allergy Reaction anithistamines [Other] 04/27/2006 Comments: hives and headaches Date Reviewed: 12/22/2019 Reviewed by: Cyn Scott - Fully Assessed Visit Diagnosis:Encounter for screening mammogram for breast cancer [Z12.31] Order(s):[facility] SCREENING [[id number]] Order #: [id number] FUTURE Prescriptions as of 06/15/2021 - FLUoxetine (PROZAC) 10 mg capsule Take 1 capsule by mouth once daily. In addition to 20 mgs. To make a total of 30. - mometasone-formoterol (DULERA) 200-5 mcg/actuation inhaler Inhale 2 Puffs as instructed twice daily. - albuterol HFA (PROVENTIL HFA, VENTOLIN HFA) 90 mcg/actuation inhaler Inhale 2 Puffs as instructed every 4 hours as needed. Needs to schedule office visit for future refills - predniSONE (DELTASONE) 10 mg tablet Take 40 mg x 3 days, 20 mg x 3 days, 10 mg x 3 days. Take with food, once daily - FLUoxetine (PROZAC) 20 mg capsule Take 1 capsule by mouth once daily. - benzonatate (TESSALON PERLES) 100 mg capsule Take 2 capsules by mouth three times daily as needed. - albuterol (PROVENTIL) 2.5 mg /3 mL (0.083 %) nebulizer solution Use 3 mL via nebulizer every 4 hours as needed for Wheezing/Shortness of Breath. Use over 5-15minutes. - buPROPion XL (WELLBUTRIN XL) 300 mg 24 hr tablet Take 1 tablet by mouth once daily. - Varenicline (CHANTIX) 0.5 mg (11)- 1 mg (42) tablet Starting pack (1 month supply) - follow directions on package for dosing. - THERAPEUTIC MULTIVITAMIN TAB Take one(1) tablet daily. Problem List As Of Date 06/12/2021 Noted Resolved Anxiety state [F41.1] 04/27/2006 ALLERGIC RHINITIS NOS [J30.9] 04/27/2006 Tobacco use disorder [F17.200] 04/27/2006 Depression, major, recurrent (HCC) [F33.9] 09/03/2015 Pulmonary emphysema (HCC) [J43.9] 09/03/2015 Tobacco abuse counseling [Z71.6] 06/14/2016 Obesity, Class III, BMI 40-49.9 (morbid obesity*03/07/2018 Encounter Status:Closed by COREY SEPULVEDA on 06/15/21[facility] Evaluation note* Diagnosis Encounter for screening mammogram for breast cancer [facility] Onset Date Resolution Status Elevated blood pressure reading acute Elevated d-dimer acute Respiratory failure with hypoxia acute Right lower lobe pneumonia a cute Shortness of breath acute Acute and chronic respiratory failure with hypoxia chronic [facility] Work Phone: Evaluation noteNo assessment information available [facility] Work Phone: Reason for referral (narrative)* Diagnostic Procedure Only (Routine) - Pending Review Specialty Diagnoses / Procedures Referred By Eulogio t Referred To Contact [facility] Diagnoses Encounter for screening mammogram for breast cancer Procedures [facility] SCREENING SCREENING MAMMOGRAPHY BI 2-VIEW BREAST INC Mini Ventura MD [address] [place] [address] [facility] [address] [place] [address] Referral ID Status Reason Start Date Expiration Date Visits Requested Visits Authorized [id number] Pending Review Auto-Generat ed Referral 05/19/2022 06/18/2023 1 1 [facility] Summary Purpose Family History No Family History Records FoundNo Family History Records Found Advance Directives No Advanced Directives Records Found Advance Directive Response Recorded Date/ Time Living Will No January 24, 2023 12:56pm Power of Fisher Purse Seine No January 24 12:56pm Advance Directive Response Recorded Date/ Time Living Will No January 24, 2023 6:52pm Power of Fisher Purse Seine No January 24 6:52pm Advance Directive Response Recorded Date/ Time Living Will No January 24, 2023 7:52pm Power of Fisher Purse Seine No January 24 7:52pm Chief Complaint and Reason for Visit Chief Complaint COPD,EXA sob Reason for Visit Elevated blood press ure reading Elevated d-dimer Respiratory failure with hypoxia Right lower lobe pneumonia Shortness of breath Acute and chronic respiratory failure with hypoxia Chief Complaint COPD,EXA sob COPD,EXA COPD,EXA COPD,EXA COPD,EXA COPD,EXA COPD,EXA COPD,EXA COPD,EXA Reason for Visit Elevated blood press ure reading Elevated d-dimer Respiratory failure with hypoxia Right lower lobe pneumonia Shortness of breath Acute and chronic respiratory failure with hypoxia Chief Complaint COPD,EXA sob COPD,EXA COPD,EXA COPD,EXA COPD,EXA COPD,EXA COPD,EXA COPD,EXA COPD,EXA PT LINK PROGRAM Reason for Visit Elevated blood press ure reading Elevated d-dimer Respiratory failure with hypoxia Right lower lobe pneumonia Shortness of breath Acute and chronic respiratory failure with hypoxia Chief Complaint OCCULAR ISCHEMIC Additional Source Comments INFORMATION SOURCE (unrecogn ized section and content) DATE CREATED AUTHOR 05/24/2022 [facility] DATE CREATED AUTHOR AUTHOR'S ORGANIZ ATION 12/14/2024 [facility] Source Comments (unrecognize d section and content) In the event this informatio n is protected by the Federal Confidentiality of Alcohol and Drug Abuse Patient Records regulations: The Federal rules restrict any use of the information to criminally investigate or prosecute any alcohol or drug abuse patient.[facility] Care Teams (unrecognized sec tion and content) Lead Infrastructure Architect Relationship Specialty Start Date End Date Mini Butts MD [address] [place] [address] PCP - General Internal Medicine 04/02/15 Team Status: Active Member Role Status Dates Dr. Holly English MD Family Provider Active Dr. Mini Butts MD Primary Care Provider Active Team Status: Active Member Role Status Dates Monty Messina MD Emergency Provider Active Dr. Mini Butts MD Primary Care Provider Active Dr. Nickolas Bush MD Attending Provider Active Team Status: Active Member Role Status Dates Dr. Holly English MD Primary Care Provider Active Nicolle Carr NP, [employer] Attending Provider Active Team Status: Active Member Role Status Dates Monty Messina MD Emergency Provider Active Dr. Mini Butts MD Primary Care Provider Active Dr. Nickolas Bush MD Admit Provider, Attending Provi jesus alberto Active Team Status: Active Member Role Status Dates Dr. Mini Butts MD Primary Care Provider Active Dr. Ralph Mims MD Attending Provider Active Team Status: Active Member Role Status Dates Monty Messina MD Emergency Provider Active Dr. Mini Butts MD Primary Care Provider Active Dr. Nickolas Bush MD Admit Provider, A ttending Provider, Other Provider Active Dr. Mateusz Lopez DO Other Provider Active Team Status: Active Member Role Status Dates Monty Messina MD Emergency Provider Active Dr. Mini Butts MD Primary Care Provider Active Dr. Nickolas Bush MD Admit Provider, Other Provider Active Dr. Mateusz Lopez DO Attending Provider, Other Provide r Active Team Status: Inactive Member Role Status Dates Monty Messina MD Emergency Provider Active Dr. Mini uBtts MD Primary Care Provider Active Dr. Nickolas Bush MD Admit Provider, Attending Provi jesus alberto Active Dr. Mateusz Lopez DO Other Provider Active Team Status: Inactive Member Role Status Dates Dr. Holly English MD Primary Care Provider Active Nicolle Carr NP, [employer] Attending Provider Active Team Status: Active Member Role Status Dates Dr. Mini Butts MD Primary Care Provider Active Patient Link Program Attending Provider Active Team Status: Active Member Role Status Dates Dr. Holly English MD Family Provider Active Nicolle Carr [employer], [employer] Primary Care Provider Activ e Team Status: Active Member Role Status Dates Nicolle Carr NP, [employer] Primary Care Provider Activ e Dr. Abdiel Whelan MD Attending Provider Active Team Status: Active Member Role Status Dates Nicolle Carr NP, [employer] Primary Care Provider Activ e Patient Link Program Attending Provider Active Team Status: Inactive Member Role Status Dates Nicolle Carr NP, [employer] Primary Care Provider Activ e Dr. Edmund Jones MD Attending Provider, Referring Davni martinez Active Goals (unrecognized section and content) Goals may be documented in a n alternate sectionGoals may be documented in an alternate sectionGoals may be documented in an alternate section FOR RECORDS PERTAINING TO PATIENTS WHO ARE OR HAVE BEEN ENROLLED IN A CHEMICAL DEPENDENCY/SUBSTANCEABUSE PROGRAM, SOME INFORMATION MAY BE OMITTED. This clinical summary was aggregated from multiple sources. Caution should be exercised in using it in the provision of clinical care. This summary normalizes information from multiple sources, and as a consequence, information in this document may materially change the coding, format and clinical context of patient data. In addition, data may be omitted in some cases. CLINICAL DECISIONS SHOULD BE BASED ON THE PRIMARY CLINICAL RECORDS. [facility]. provides no warranty or guarantee of the accuracy or completeness of information in this document.
[2025-08-04 21:09] LABS: Hematocrit 41.1 % (37-47); Hemoglobin 13.5 g/dL (12.0-15.0); Immature Granulocytes Count 0.030 X10^3/uL (0.0-0.0); Mean Corp Hgb Conc 32.8 g/dL (32-36); Mean Corpuscular Volume 93.2 fL (81-99); Mean Platelet Vol. 12.4 fl (6.2-12.0); NRBC Flagged by Analyzer 0 % (0-5); Platelet Count 289 K/mm3 (150-450); RBC Distribution Width CV 13.8 % (11.6-14.6); RBC Distribution Width SD 47.1 fl (35.1-43.9); Red Blood Count 4.41 M/mm3 (4.2-5.4); White Blood Count 9.4 K/mm3 (4.4-11.0)
[2025-08-04 21:11] LABS: Anion Gap 11 (5-15); BUN 7 mg/dL (4-19); BUN/Creat Ratio 10.5 RATIO (10-20); Calcium,Total 9.4 mg/dL (7.6-11.0); Carbon Dioxide 25.9 mmol/L (21.0-32.0); Chloride 99 mmol/L (98-108); Estimated Creatinine Clearance 94.13 ml/min (50-250); Glucose 102 mg/dL (70-99); Potassium 4.1 mmol/L (3.3-5.1); Troponin T High Sensitivity 24 ng/L (<=14)
[2025-08-04 21:32] VITALS: BP 127/81; PULSE 92; RESP 20; TEMP 36.6; O2SAT 99
== END 2025-08-04 21:38 | disposition home or self-care (01) ==
PROVIDERS: Emergency Provider Emergency Medicine; PCP Nurse Practitioner Family; Visit Provider Emergency Medicine
DX: J44.1 Chronic obstructive pulmonary disease with (acute) exacerbation (principal); J43.9 Emphysema, unspecified; R06.02 Shortness of breath; F17.210 Nicotine dependence, cigarettes, uncomplicated
CPT/HCPCS: 71046; 80048; 84484; 85025; 87631; 93005; 94640; 96374; 99285; A4216